=== PATIENT | male | born 1965 | race Caucasian/White ===

== ENCOUNTER 2025-04-06 09:44 | Inpatient (IN) | payer SELFPAY ==
[2025-04-06] VITALS (16 sets, daily range): BP systolic 128–179; BP diastolic 69–107; PULSE 104–125; RESP 16–26; TEMP 36.6–36.9; O2SAT 90–96; BMI 29.6
--- NOTE | ~2025-04-06 | XR_ITS ---
EXAMINATION: XR enema water soluble DATE: 04/06/2025 17:10 INDICATION: Possible distal colonic obstruction TECHNIQUE: A used car salesperson radiograph was obtained. A catheter was inserted into the patient's rectum. Contrast was infused by gravity. 20 fluoroscopic images of the distal colon were obtained. Fluoroscopy exposure time was 1.4 minutes. COMPARISON: None. FINDINGS: Contrast extends from the rectum to the mid sigmoid colon where there is high- grade obstruction is no further proximal progression of contrast. IMPRESSION: 1. High-grade obstruction in the mid sigmoid colon. Reviewed, dictated and finalized at location A. ELLER
--- NOTE | ~2025-04-06 | XR_ITS ---
EXAMINATION: XR chest ET placement COMPARISON: No comparisons available. HISTORY: line placement and ETT placement FINDINGS: The lungs are clear, no effusion. No pneumothorax. Heart is normal size. Mediastinal and hilar contours are within normal limits. Bony thorax no acute abnormality. Miscellaneous: ET tube 3 cm above the vicki, nasogastric tube in the stomach, right central line in the SVC. Impression: No acute cardiopulmonary abnormality. Reviewed, dictated and finalized at location P. L ARCHIVIST Impression: No acute cardiopulmonary abnormality.
--- NOTE | ~2025-04-06 | XR_ITS ---
XR abdomen gastric tube insert INDICATION: Evaluate NG tube position. TECHNIQUE: Limited KUB perform for evaluating NG tube . COMPARISON: No prior studies for comparison. FINDINGS: NG tube tip in the stomach, side port near the expected location of the GE junction. Recommend advancement.. Visualized bowel gas pattern is unremarkable. IMPRESSION: 1: NG tube tip in the stomach with the side-port near the GE junction. Recommend advancement.. Reviewed, dictated and finalized at location I. CLUB MANAGER IMPRESSION: 1: NG tube tip in the stomach with the side-port near the GE junction. Recomme nd advancement..
--- NOTE | ~2025-04-06 | XR_ITS ---
EXAMINATION: XR chest 1V portable COMPARISON: No comparisons available. HISTORY: intubated FINDINGS: The lungs are clear, no effusion. No pneumothorax. Heart is normal size. Mediastinal and hilar contours are within normal limits. Bony thorax no acute abnormality. Miscellaneous: ET tube 3 cm above the vicki, nasogastric tube in the stomach, right central line in the SVC. Impression: Support apparatus as above Reviewed, dictated and finalized at location P. WARE LICENSING EXECUTIVE Impression: Support apparatus as above
--- NOTE | ~2025-04-06 | XR_ITS ---
XR abdomen gastric tube rechec INDICATION: Evaluate NG tube position. TECHNIQUE: Limited KUB perform for evaluating NG tube . COMPARISON: 04/06/2025 FINDINGS: NG tube tip in the stomach. Visualized bowel gas pattern is unremarkable. IMPRESSION: 1: NG tube tip in the stomach. Reviewed, dictated and finalized at location I. NCT PHYSICS INSTRUCTOR
--- NOTE | ~2025-04-06 | XR_ITS ---
Examination: XR chest 1V portable Clinical History: preop Comparison: None Technique: Portable AP Findings: NG tube Heart size normal. Lungs clear. Calcified pleural plaques. No acute bony abnormality. IMPRESSION: 1. No acute cardiopulmonary findings given portable technique. Reviewed, dictated and finalized at location R. R PLANT PUMP OPERATOR
--- NOTE | ~2025-04-06 | XR_ITS ---
Examination: XR abdomen/kub 1V Clinical History: bowel obstruction Comparison: CT abdomen and pelvis one day prior Technique: Portable supine AP abdomen Findings/impression: 1. NG tube sidehole just past GE junction. 2. Persistent large volume stool within cecum and right hemicolon causing dilatation. 3. Persistent distal colonic gas and stool. Reviewed, dictated and finalized at location R. ICAL CODER
--- NOTE | ~2025-04-06 | CT_ITS ---
CT abdomen pelvis w con Clinical History: abd pain . Comparison: None Technique: Axial images lung bases to symphysis pubis IV contrast information not listed in PACS Coronal, sagittal reformats CT images acquired with automatic exposure control for dose reduction DLP: 719 mGy-cm Findings: Lung bases: Calcified pleural plaque right side. Visualized heart and pericardium: Unremarkable. Liver: A few tiny probable cysts. Gallbladder: Unremarkable. Spleen: Unremarkable. Pancreas: Unremarkable. Adrenal glands: Small nodule left side. Kidneys: Right kidney- No hydronephrosis. No renal stones. Left kidney- No hydronephrosis. No renal stones. A few small probable cysts. Distal esophagus/stomach: Distal esophageal wall thickening/esophagitis. Small hiatal hernia. Small bowel loops: Normal caliber and wall thickness. Colon: Annular wall thickening proximal sigmoid. Normal RLQ appendix. Large stool volume proximally. Diverticula. Small mural polypoid foci along distal colonic loops Nodes: No enlarged nodes. Peritoneum: Small scattered ascites. No free air. Urinary bladder: Unremarkable. Prostate: Unremarkable. Bones: No acute bony abnormality. Soft tissues: Unremarkable. Aorta: No aneurysm or dissection. IVC: Unremarkable. Main portal vein/SMV/splenic vein: Patent. IMPRESSION: 1. Focal annular wall thickening proximal sigmoid colon. Worrisome for malignancy. Additional small mural polypoid foci along distal colonic loops. Recommend GI consultation. 2. Distal esophageal wall thickening favoring esophagitis. 3. Small ascites of unclear etiology. 4. Large stool volume suggesting constipation. Reviewed, dictated and finalized at location R. [place] [employer] IMPRESSION: 1. Focal annular wall thickening proximal sigmoid colon. Worrisome for maligna ncy. Additional small mural polypoid foci along distal colonic loops. Recommend GI consultation. 2. Distal esophageal wall thickening favoring esophagitis. 3. Small ascites of unclear etiology. 4. Large stool volume suggesting constipation.
--- NOTE | ~2025-04-06 | US_ITS ---
EXAMINATION: US renal BI DATE: 04/08/2025 11:24 INDICATION: Acute kidney injury. TECHNIQUE: Multiple ultrasound grayscale images of the kidneys were obtained. COMPARISON: CT abdomen and pelvis 04/06/2025 FINDINGS: The right kidney measures 10.3 x 5.1 x 4.5 cm. The left kidney measures 11.0 x 5.4 x 5.4 cm. The kidneys demonstrate normal parenchymal echogenicity. There is no hydronephrosis. The bladder is obscured by bandages. IMPRESSION: 1. Normal kidneys. No hydronephrosis. Reviewed, dictated and finalized at location E. [facility]
--- NOTE | ~2025-04-06 | CT_ITS ---
EXAMINATION: CT abdomen pelvis w con DATE: 04/13/2025 11:14 INDICATION: Cecal perforation TECHNIQUE: Computed tomography (CT) of the abdomen and pelvis was performed with 100 mL Omnipaque-350 intravenous contrast. Automated exposure control and iterative reconstruction technique were employed. The dose-length product was 1262.21 mGy-cm. COMPARISON: 04/06/2025 FINDINGS: Pleural thickening with few calcified pleural plaques in the visualized right lower lung likely sequela of chronic exudative effusion. There is trace amount of residual pleural effusion. Peripheral round atelectasis with architectural distortion in the anterior right middle lobe. Is also a very small left pleural effusion. Heart size is normal. No pericardial effusion. Small sliding-type hiatal hernia with wall thickening the distal esophagus which could be related to esophagitis such as in the setting of reflux. 8 mm cyst in the right hepatic lobe. Gallbladder, spleen and bilateral adrenal glands are normal. A few dystrophic calcific lesions at the head of the pancreas likely sequela of chronic pancreatitis. A couple left renal cysts the largest measuring 1.4 cm. Bilateral nonobstructing nephrolithiasis couple stones at the lower pole of the right kidney measuring up to 2-3 mm and single 4 mm thin linear stone at a lower pole calyx of the left kidney. Interval postoperative change of prior right hemicolectomy with both a colostomy along a midline surgical wound involving the colon resection margin and a right lower quadrant diverting loop ileostomy. Decrease in a now moderate amount of stool scattered throughout the remaining colon. Persistent diffuse wall thickening of the colon likely related to colitis which could be stercoral colitis related to previously seen distal colonic obstruction with large amount of more proximal stool at that time. Again seen is approximately 5 cm long segment of more focal wall thickening with effacement of the lumen in the mid sigmoid colon which was obstructing on an earlier water- soluble enema and concerning for an obstructing colon cancer. There are few scattered clonic diverticula without adjacent from trace stranding to suggest diverticulitis. No dilated loops of small bowel to suggest a small bowel obstruction. Bladder is normal. Mild prostatomegaly. Small amount of ascites scattered throughout the abdomen and pelvis. No evident likelihood abscess or free intraperineal gas. There is a 2.4 x 1.8 cm lobular mass along the sigmoid mesentery suspicious for local metastatic lymph nodes. No other pathologically enlarged abdominal or pelvic lymphadenopathy. Severe lumbar and lower thoracic spondylosis. IMPRESSION: 1. Interval change of right hemicolectomy with diverting loop ileostomy and additional colostomy utilizing the proximal colectomy margin. Small amount of ascites but no abscess or free intraperineal gas. 2. Persistent diffuse colonic wall thickening consistent with colitis, likely stercoral colitis resulting from ongoing colonic obstruction at the mid sigmoid colon where there is a likely obstructing colon cancer. 3. 2.4 x 1.8 cm lobular mass in the sigmoid mesentery with some associated calcification raising concern for local metastatic disease with calcification suggesting either mucinous adenocarcinoma or carcinoid primary. Differential would include sclerosing mesenteritis or sequela of old granulomatous disease. 4. A few dystrophic calcifications at the head of the pancreas consistent with sequela of chronic pancreatitis. 5. Very small bilateral pleural effusions with unilateral calcified pleural plaques and small round atelectasis in the visualized right lower lung suggesting sequela of chronic exudative effusion. 6. Wall thickening the distal esophagus suggestive of esophagitis which could be related to reflux given the presence of a small sliding-type hiatal hernia. Reviewed, dictated and finalized at location A. [facility] ATTENDING IMPRESSION: 1. Interval change of right hemicolectomy with diverting loop ileostomy and add itional colostomy utilizing the proximal colectomy margin. Small amount of asci will but no abscess or free intraperineal gas. 2. Persistent diffuse colonic wall thickening consistent with colitis, likely s tercoral colitis resulting from ongoing colonic obstruction at the mid sigmoid colon where there is a likely obstructing colon cancer. 3. 2.4 x 1.8 cm lobular mass in the sigmoid mesentery with some associated calc ification raising concern for local metastatic disease with calcification sugge sting either mucinous adenocarcinoma or carcinoid primary. Differential would i nclude sclerosing mesenteritis or sequela of old granulomatous disease. 4. A few dystrophic calcifications at the head of the pancreas consistent with sequela of chronic pancreatitis. 5. Very small bilateral pleural effusions with unilateral calcified pleural matteo ques and small round atelectasis in the visualized right lower lung suggesting sequela of chronic exudative effusion. 6. Wall thickening the distal esophagus suggestive of esophagitis which could b e related to reflux given the presence of a small sliding-type hiatal hernia.
--- NOTE | ~2025-04-06 | XR_ITS ---
EXAMINATION: XR abdomen gastric tube insert, 04/07/2025 15:45 INVENTORY TECHNICIAN HISTORY: NG placement COMPARISON: No comparisons available. Technique: 3 view. Findings: Postsurgical changes are noted, nonspecific bowel gas pattern. No free air. No abnormal calcifications No acute osseous abnormality. Nasogastric tube terminates in the proximal stomach which be advanced 5 cm. Impression: 1. No acute abnormality. Reviewed, dictated and finalized at location P. NTORY TECHNICIAN Impression: 1. No acute abnormality.
--- NOTE | 2025-04-06 10:08 | ECG_ITS ---
Test Date: 2025-04-06 10:23:30 Measurements Intervals [place] Rate: 110 P: 78 MD: 134 QRS: 36 QRSD: 82 T: 67 QT: 310 QTc: 421 Interpretive Statements SINUS TACHYCARDIA BORDERLINE ST-T WAVE ABNORMALITY- ANTEROLAT/HIGH LAT LEADS BASELINE ARTIFACT- I, II, III, AVR, AVL, AVF, V1, V4-V6 ABNORMAL ECG No previous ECG available for comparison Electronically Signed On 04-06-2025 10:29:13 [employer] FI[employer] by Luis Gonzales D.O.
[2025-04-06 10:21] LABS: Hematocrit 43.6 % (42.0-52.0); Hemoglobin 14.4 g/dL (14.0-18.0); Immature Granulocyte Percent A 0.6 % (0-0.5); Lymphocytes Absolute Auto 0.80 K/mm3 (0.9-3.2); Mean Corpuscular HGB Conc 33.0 g/dl (32-36); Mean Corpuscular Hemoglobin 30.4 pg (26-34); Mean Corpuscular Volume 92.2 fl (80-100); Nucleated Red Blood Cells Absolute Auto 0.000 K/mm3 (0.0-0.012); Nucleated Red Blood Cells Perc 0.0 % (0.0-0.2); Platelet Count Result 331 k/mm3 (150-375); Red Blood Count 4.73 M/mm3 (4.6-6.20); White Blood Count 22.4 K/mm3 (4.5-10.0)
[2025-04-06 10:32] LABS: Alanine Aminotransferase 33 U/L (6-50); Albumin Level 4.3 g/dL (3.5-5.1); Alkaline Phosphatase 81 U/L (38-126); Anion Gap 9 mmol/L (4-12); Aspartate Amino Transferase 31 U/L (17-59); Bilirubin,Total 0.9 mg/dL (0.2-1.3); Blood Urea Nitrogen 27 mg/dL (9-20); Calcium 11.2 mg/dL (8.4-10.2); Carbon Dioxide 28 mmol/L (22-30); Chloride 97 mmol/L (98-107); Estimated CRCL calculation 66 ml/min; Estimated Glomerular Filt Rate > 60; Glucose 179 mg/dL (65-110); Lipase 39 U/L (23-300); Potassium 4.3 mmol/L (3.4-5.0); Sodium 134 mmol/L (137-145); Total Protein 7.4 g/dL (6.3-8.2)
[2025-04-06] MEDS: SODIUM CHLORIDE 0.9% IV 1,000 ML 999 ML IV CONT (11:41)
--- NOTE | 2025-04-06 12:48 | ED_ITS ---
HPI - Abdominal Pain General Chief Complaint: Abdominal Pain Stated Complaint: abdominal pain Time Seen by Provider: 04/06/25 09:50 Source: patient Mode of arrival: ambulatory Limitations: no limitations History of Present Illness HPI narrative: 59-year-old otherwise healthy here with a complains of 2 weeks history of constipation and abdominal bloating sensation. He denies any nausea or vomiting. No history of fever or chills. MD elicited complaint: abdominal pain Pertinent past history: constipation Onset (ago): week(s) (2) Pain Consistency: constant Location: diffuse Severity: severe Quality: aching Radiation: epigastric Migration to: no migration Exacerbating factors: nothing Relieving factors: nothing Associated symptoms: denies other symptoms Related Data Allergies Allergy/AdvReac Type Severity Reaction Status Date / Time No Known Allergies Allergy Verified 04/06/25 10:04 Review of Systems 2 Review of Systems: All systems reviewed & are unremarkable except as noted in HPI and below Constitutional: Constitutional: Reports no additional constitutional complaints Eyes: Eyes: Reports no additional eye complaints ENT: Reports system reviewed and no additional complaints, except as documented Cardiovascular: Cardiovascular: Reports no additional cardiovascular complaints Respiratory: Respiratory: Reports no additional respiratory complaints Gastrointestinal: Gastrointestinal: Reports as per HPI Musculoskeletal: Musculoskeletal: Reports no additional musculoskeletal complaints Neurologic: Reports system reviewed and no additional complaints, except as documented Endocrine: Endocrine: Reports no additional endocrine complaints Hematologic/Lymphatic: Hematologic/Lymphatic: Reports no additional hematologic/lymphatic complaints Allergic/Immunologic: Allergic/Immunologic: Reports no additional allergic/immunologic complaints Exam 2 Narrative: GENERAL: Well-appearing, well-nourished, and in no acute distress. HEAD: Normocephalic, atraumatic. EYES: PERRLA and EOMI. ENT: Nares clear, no rhinorrhea or epistaxis. Mucous membranes moist. NECK: Supple. CHEST: Clear to auscultation. No respiratory distress. HEART: Regular rate and rhythm. No murmur heard. Normal peripheral pulses. ABDOMEN: Soft, nontender, distended . EXTREMITIES: Normal range of motion. No edema. SKIN: Warm, dry, no rash. NEURO: No focal deficits. Alert and oriented x3. PSYCH: Normal mood and affect. Course Course Emergency Course: Has mild epigastric discomfort informed him and family about his lab work, CT findings. I discussed with the Dr. Gant will consult meanwhile we will admit to the hospitalist. Will administer tap water enema and Mag citrate orally. Vital Signs Vital signs: Vital Signs Temperature 36.6 C 04/06/25 09:58 Pulse Rate 118 H 04/06/25 09:58 Respiratory Rate 24 H 04/06/25 09:58 Blood Pressure 141/96 H 04/06/25 09:58 Pulse Oximetry 94 04/06/25 09:58 Oxygen Delivery Room Air 04/06/25 09:58 Temperature 36.6 C 04/06/25 09:58 Pulse Rate 111 H 04/06/25 11:30 Respiratory Rate 21 H 04/06/25 11:30 Blood Pressure 170/98 H 04/06/25 11:30 Pulse Oximetry 93 04/06/25 11:30 Oxygen Delivery Room Air 04/06/25 09:58 MDM MDM Narrative Medical decision making narrative: 59-year-old otherwise healthy here with abdominal distention and constipation will do CT of the abdomen and pelvis to rule out obstruction versus constipation or intra-abdominal mass. Presently has no pain Differential Diagnosis Differential Diagnosis: Constipation, small-bowel obstruction, intra-abdominal mass, colon cancer Medical Records I have reviewed the following patient records and this information was taken into consideration when formulating the assessment and plan.: previous labs Lab Data 04/06/25 10:11 04/06/25 10:11 Labs: Lab Results 04/06/25 04/06/25 04/06/25 Range/Units 10:10 10:11 12:26 WBC 22.4 H (4.5-10.0) K/mm3 RBC 4.73 (4.6-6.20) M/mm3 Hgb 14.4 (14.0-18.0) g/dL Hct 43.6 (42.0-52.0) % MCV 92.2 (80-100) fl MCH 30.4 (26-34) pg MCHC 33.0 (32-36) g/dl RDW 12.7 (11.5-14.5) % Plt Count 331 (150-375) k/mm3 MPV 9.5 (7.4-10.4) fl Immature Gran % (Auto) 0.6 H (0-0.5) % Neut % (Auto) 87.2 H (45.5-73.1) % Lymph % (Auto) 3.6 L (18.3-44.2) % [place] % (Auto) 8.4 (2.6-8.5) % Eos % (Auto) 0.0 (0-4.4) % Baso % (Auto) 0.2 (0.2-1.2) % Lymph # (Auto) 0.80 L (0.9-3.2) K/mm3 [place] # (Auto) 1.9 H (0.1-0.6) K/mm3 Eos # (Auto) 0.0 (0-0.3) K/mm3 Baso # (Auto) 0.1 (0.0-0.1) K/mm3 Abs Immat Gran (auto) 0.13 H (0.00-0.031) K/mm3 Absolute Neuts (auto) 19.5 H (1.3-6.7) K/mm3 Absolute Nucleated RBC 0.000 (0.0-0.012) K/mm3 Nucleated RBC % 0.0 (0.0-0.2) % Sodium 134 L (137-145) mmol/L Potassium 4.3 (3.4-5.0) mmol/L Chloride 97 L (98-107) mmol/L Carbon Dioxide 28 (22-30) mmol/L Anion Gap 9 (4-12) mmol/L BUN 27 H (9-20) mg/dL Creatinine 1.12 (0.7-1.3) mg/dL Estim Creat Clear Calc 66 ml/min Estimated GFR > 60 (59 - ) Glucose 179 H (65-110) mg/dL Lactic Acid 2.4 H Pending (0.7-2.0) mmol/L Calcium 11.2 H (8.4-10.2) mg/dL Total Bilirubin 0.9 (0.2-1.3) mg/dL AST 31 (17-59) U/L ALT 33 (6-50) U/L Alkaline Phosphatase 81 (38-126) U/L Total Protein 7.4 (6.3-8.2) g/dL Albumin 4.3 (3.5-5.1) g/dL Lipase 39 (23-300) U/L Urine Color Pending Urine Appearance Pending Urine pH Pending Ur Specific [place] Pending Urine Protein Pending Urine Glucose (UA) Pending Urine Ketones Pending Ur Blood (Man) Pending Urine Nitrate Pending Urine Bilirubin Pending Urine Urobilinogen Pending Leukocyte Esterase Rfl Pending Imaging Data Radiologist's impression: ITS Impressions Abdomen/Pelvis CT 04/06/25 11:34 IMPRESSION: 1. Focal annular wall thickening proximal sigmoid colon. Worrisome for malignancy. Additional small mural polypoid foci along distal colonic loops. Recommend GI consultation. 2. Distal esophageal wall thickening favoring esophagitis. 3. Small ascites of unclear etiology. 4. Large stool volume suggesting constipation. ECG Data EKG #1: ECG completion date: 05/09/25 ECG completion time: 10:23 tachycardia (110), no ectopy, no ST changes, normal QRS, normal QT and NL axis Discharge Plan Discharge Clinical Impression: Abdominal distension Constipation Qualifiers: Constipation type: unspecified constipation type Qualified Code(s): K59.00 - Constipation, unspecified Colonic cancer Qualifiers: Colon location: sigmoid Qualified Code(s): C18.7 - Malignant neoplasm of sigmoid colon Patient Disposition: Still a Patient Condition: Stable Instructions: Antibiotic Form Patient Language: Yakut Follow-up/Referrals: Marv,Thad Mojica MD [Primary Care Provider] Time of Disposition: 12:58
[2025-04-06 12:54] LABS: Add Urine Microscopic? YES; Appearance Urine Clear (Clear); Glucose Urine UA Negative (Negative); Leukocyte Esterase Ur Negative LEU/UL (Negative); Nitrate Urine Negative (Negative); Specific Grav Ur > 1.045 (1.001-1.035)
[2025-04-06] MEDS: LACTATED RINGERS 1,000 ML 125 ML IV CONT (13:03)
--- NOTE | 2025-04-06 13:15 | PM.IMHP2 ---
H&P: HPI History of Present Illness Date/Time: 04/06/25 13:15 Chief Complaint: Abdominal distension Narrative: 59-year-old male with a past medical history of ?blood clot in my leg in presents to the ED on 04/06/2025 with complaints of abdominal pain and distention with constipation. Patient states his last normal bowel movement was 2 weeks ago. He has been constipated since but will at times passes small hard stools. Last stool passage was 2 days ago. Patient noticed his abdomen getting rounder and rounder over the past 2 weeks but was not really bothered by it until about 2 days ago when the pain began increasing. Patient also endorses 2 episodes of emesis last night of a brown and green liquid. Currently not nauseated but states he currently has bad acid reflux that is new for him. The patient states he does still pass gas. Denies fevers, chest pain, shortness of breath. Denies any past abdominal surgeries or malignancies. Denies urinary retention. PCP is Thad Fair. Records requested. Initial vital signs 141/96, HR 118, respirations 24, afebrile and 94% on room air. Labs revealed WBC 22.4. Chemistry with sodium 134, chloride 97, BUN 27, glucose 197. Lactic was elevated at 2.4 but normalized after fluid bolus. Calcium 11.2. UA with 2+ ketones and no sign infection. EKG reads sinus tach with borderline ST-T wave abnormality. No acute ischemia. Abdominal pelvic CT demonstrates focal annular wall thickening in the proximal sigmoid colon, worrisome for malignancy. Additional small mural polypoid foci along distal colonic loops. Distal esophageal wall thickening favors esophagitis. Small ascites of unclear etiology. Large stool volume suggesting constipation. Patient received tap water enema and p.o. Mag citrate. GI consult. Review of Systems Review of Systems: All systems reviewed & are unremarkable except as noted in HPI and below [facility] Social History Social History Smoking packs per day: 0.5 Smoking cigarettes per day: 10.0 Smoking status: Current every day smoker Tobacco type: cigarettes Alcohol intake: never Substance use: never Lack of Transportation: No Lack of Food: Never True Current Housing: I Have Housing Concerned About Future Housing: No Difficulty Paying Gas/Electric Bills: No Difficulty Paying for Meds: No Currently Unemployed: No Education: Associate Degree Difficulty w/ Childcare or Family Care: No Spiritual care concerns: No Meds Home Medications and Allergies Home Medications ?Medication ?Instructions ?Recorded ?Confirmed ?Type ibuprofen 200 mg tablet (Advil) 400 mg PO Q12H 04/06/25 04/06/25 History Allergies Allergy/AdvReac Type Severity Reaction Status Date / Time No Known Allergies Allergy Verified 04/06/25 14:57 Vital Signs Vital Signs - 24 hr 04/06/25 09:58 04/06/25 09:58 04/06/25 09:59 Temperature 97.8 F Pulse Rate 118 H 125 H 122 H Respiratory Rate 24 H 21 H 26 H Blood Pressure 141/96 H 135/100 H 141/96 H Pulse Oximetry 94 94 90 Oxygen Delivery Room Air 04/06/25 10:09 04/06/25 10:15 04/06/25 10:30 Temperature Pulse Rate 118 H 117 H 116 H Respiratory Rate 22 H 22 H Blood Pressure 138/93 H 141/95 H Pulse Oximetry 94 94 Oxygen Delivery 04/06/25 10:45 04/06/25 11:00 04/06/25 11:15 Temperature Pulse Rate 106 H 110 H 106 H Respiratory Rate 20 24 H 20 Blood Pressure 152/94 H 150/99 H 148/96 H Pulse Oximetry 94 93 93 Oxygen Delivery 04/06/25 11:30 04/06/25 11:45 04/06/25 12:00 Temperature Pulse Rate 111 H 111 H 109 H Respiratory Rate 21 H 20 21 H Blood Pressure 170/98 H 159/93 H 165/107 H Pulse Oximetry 93 94 94 Oxygen Delivery 04/06/25 12:15 Temperature Pulse Rate 104 H Respiratory Rate 20 Blood Pressure 170/101 H Pulse Oximetry 95 Oxygen Delivery Exam Narrative: GENERAL: non-toxic appearing, appears uncomfortable. HEAD: Normocephalic, atraumatic. EYES: PERRLA. Conjunctivae clear. NOSE: Normal no drainage. THROAT: Pharynx clear, no exudate. NECK: Trachea midline. No adenopathy, no masses. RESPIRATORY: Airway patent, respirations nonlabored. CTA. CARDIOVASCULAR: Tachycardia with regular rhythm GASTROINTESTINAL: Severely distended abdomen with generalized mild tenderness. Few bowel sounds heard on the right upper and lower quadrants. Tympany throughout GENITOURINARY: Defer MUSCULOSKELETAL: Moves all extremities. No gross deformities. Trace bilateral lower extremity with chronic skin changes. Dry flaky skin SKIN: Warm, dry, normal color. NEURO: A&O X4. Speech clear PSYCHIATRIC: Normal interaction Results Labs Labs: Short CBC 04/06/25 Range/Units 10:11 WBC 22.4 H (4.5-10.0) K/mm3 Hgb 14.4 (14.0-18.0) g/dL Hct 43.6 (42.0-52.0) % Plt Count 331 (150-375) k/mm3 BMP 04/06/25 10:11 Sodium 134 L Potassium 4.3 Chloride 97 L Carbon Dioxide 28 BUN 27 H Creatinine 1.12 Glucose 179 H Calcium 11.2 H Liver Function 04/06/25 Range/Units 10:11 Total Bilirubin 0.9 (0.2-1.3) mg/dL AST 31 (17-59) U/L ALT 33 (6-50) U/L Alkaline Phosphatase 81 (38-126) U/L Albumin 4.3 (3.5-5.1) g/dL Urine 04/06/25 Range/Units 12:26 Urine Color Yellow (Yellow) Urine Appearance Clear (Clear) Urine pH 8.0 (5.0-9.0) Ur Specific [place] > 1.045 H (1.001-1.035) Urine Protein Trace (Negative) mg/dL Urine Glucose (UA) Negative (Negative) mg/dL Quality VTE Prophylaxis VTE prophylaxis: mechanical ordered Assessment and Plan Assessment and plan (1) Colonic obstruction: Code(s): K56.609 - Unspecified intestinal obstruction, unspecified as to partial versus complete obstruction Status: Acute Assessment and Plan: Possible colonic obstruction with concern for malignancy in the distal colon. Patient has increased constipation and distention over the past 2 weeks. Started vomiting last night and had increasing pain. Abdominal pelvic CT demonstrates focal annular wall thickening in the proximal sigmoid colon, worrisome for malignancy. Additional small mural polypoid foci along distal colonic loops. Distal esophageal wall thickening favors esophagitis. Small ascites of unclear etiology. Large stool volume suggesting constipation. Fluid-filled stomach on my read. -GI consult in ED -NGT to low intermittent suction -NPO now -general surgery consult; plan for Hypaque enema -Zofran p.r.n. -morphine p.r.n. Plan Diet: NPO DVT prophylaxis: SCDs lines/drains: PIV Fluids: 1 L LR bolus-LR at 125 Code status: Full Prior Studies I have reviewed the following patient records and this information was taken into consideration when formulating the assessment and plan.: previous labs, previous ER visits, previous hospitalizations and previous clinic visits Time Spent with Patient Time with patient: 45 - 74 minutes Hospitalist MIPS Advance Care Plan I have confirmed that the patient's Advanced Care Plan is present, code status is documented, or surrogate decision maker is listed in patient medical record.: Yes Medication Reconciliation I have utilized all available resources to obtain, update and review the patients current medications (includes all prescriptions, OTC, herbals, cannabis, and nutritional supplements).: Yes
[2025-04-06] MEDS: MAGNESIUM CITRATE 300 ML BTL PO (13:46)
--- NOTE | 2025-04-06 13:57 | WPCEDHO ---
ED Hand Off Checklist All vitals saved: yes IV Site documented: yes All med administrations documented: yes Triage Note Triage Note pt ambulatory to ED for c/o 04/06/25 09:58 abdominal pain. pt says his belly has been this round and distended for the last 2 weeks but the last couple of days has gotten worse. pt says he had episodes of emesis last night. last BM 2 days ago. pt denies chest pain/SOB Allergies No Known Allergies Allergy (Verified 04/06/25 10:04) Active Medications including assessments/comments Lactated Ringer's (Lr - Lactated Ringers Iv) 1,000 mls @ 125 mls/hr IV CONT .Q8H MARILUZ Last Admin: 04/06/25 13:03 Dose: 125 mls/hr Documented By: LORETA Infusion/Titration Document 04/06/25 13:03 LORETA (Rec: 04/06/25 13:03 LORETA [id number]) Intake IV Site Peripheral Access Left Forearm Container Volume 1,000 Waste Amount 0 Dosing Infusion Rate 125 Cumulative Dose Not Applicable Increase/Decrease Started Elapsed Time Elapsed Time ( 0m minutes) Administered/Completed Medications Discontinued Medications Sodium Chloride (Normal Saline Iv) 1,000 mls @ 999 mls/hr IV CONT .Q1H1M STA Stop: 04/06/25 12:36 Last Infusion: 04/06/25 12:42 Dose: Infused Documented By: Admin: 04/06/25 11:41 Dose: 999 mls/hr Documented By: LORETA Magnesium Citrate (Magnesium Citrate 300 Ml Btl) 300 ml PO ONCE ONE Stop: 04/06/25 12:41 Last Admin: 04/06/25 13:46 Dose: 300 ml Documented By: LORETA Interventions/Assessments Cardiac Monitoring Start: 04/06/25 10:09 Freq: Status: Active Protocol: Document 04/06/25 10:09 LORETA (Rec: 04/06/25 10:10 LORETA [id number]) Industrial Sewer Assessment Industrial Sewer Yes Applied Pulse Rate (60-100) 118 H EKG Rythm Sinus Tachycardia IV / Saline Lock, Insert Start: 04/06/25 09:48 Freq: STAT Status: Active Protocol: Document 04/06/25 10:09 LORETA (Rec: 04/06/25 10:10 LORETA [id number]) IV Assessment Peripheral Access Left Forearm IV Catheter Access Initiated IV Insertion Date 04/06/25 IV Insertion Time 10:09 Catheter Gauge 18 IV Insertion 1 Attempts Ultrasound Used for No Placement IV Site Assessment WNL IV Care and WNL Maintenance PA: Gastrointestinal Assessment Start: 04/06/25 09:44 Freq: Status: Active Protocol: Document 04/06/25 10:03 KNW (Rec: 04/06/25 10:03 KNW [id number]) GI Assessment Gastrointestinal Nausea,Pain,Vomiting Symptoms Description Distended,Firm,Round,Tender All Quadrants Bowel Sounds Active Pattern Normal Date of Last Bowel 04/04/25 Movement Nausea/Vomiting Assessment Nausea Frequency Intermittent Emesis Frequency Intermittent Last Vital Signs Temperature 97.8 F 04/06/25 09:58 Pulse Rate 121 H 04/06/25 13:49 Respiratory Rate 25 H 04/06/25 13:49 Pulse Oximetry 94 04/06/25 13:49 Blood Pressure 179/106 H 04/06/25 13:49 Blood Pressure Mean 130 04/06/25 13:49 Blood Pressure Position Sitting 04/06/25 13:49 Oxygen Delivery Room Air 04/06/25 09:58 Weight 93.7 kg 04/06/25 09:58 Last Result - Abnormals Only WBC 22.4 K/mm3 (4.5-10.0) H 04/06/25 10:11 Immature Gran % (Auto) 0.6 % (0-0.5) H 04/06/25 10:11 Neut % (Auto) 87.2 % (45.5-73.1) H 04/06/25 10:11 Lymph % (Auto) 3.6 % (18.3-44.2) L 04/06/25 10:11 Lymph # (Auto) 0.80 K/mm3 (0.9-3.2) L 04/06/25 10:11 [place] # (Auto) 1.9 K/mm3 (0.1-0.6) H 04/06/25 10:11 Abs Immat Gran (auto) 0.13 K/mm3 (0.00-0.031) H 04/06/25 10:11 Absolute Neuts (auto) 19.5 K/mm3 (1.3-6.7) H 04/06/25 10:11 Sodium 134 mmol/L (137-145) L 04/06/25 10:11 Chloride 97 mmol/L (98-107) L 04/06/25 10:11 BUN 27 mg/dL (9-20) H 04/06/25 10:11 Glucose 179 mg/dL (65-110) H 04/06/25 10:11 Lactic Acid 2.4 mmol/L (0.7-2.0) H 04/06/25 10:10 Calcium 11.2 mg/dL (8.4-10.2) H 04/06/25 10:11 Ur Specific [place] > 1.045 (1.001-1.035) H 04/06/25 12:26 Urine Ketones 2+ mg/dL (Negative) H 04/06/25 12:26 Most Recent Suicide Severity Rating Suicide Severity Rating NO RISK INDICATED 04/06/25 09:58
--- NOTE | 2025-04-06 15:11 | ADMGEN ---
This patient, Jeremy Clifford, was admitted to 2 Medical Room 255-. Patient/family oriented to hospital policies and general routines including ID bracelet, bed and alarms, visiting hours, pain management, procedures, bathroom and other care routines, personal items, smoking policy, room service/diet, and visiting hours. Handoff form Jeanine in the ED. Information on how to activate the Rapid Response Team has been discussed. Patient/Family are encouraged to report perceived risks to care and to ask questions if they do not understand what they are told or what they should do.
[2025-04-06 15:35] LABS: Alanine Aminotransferase 29 U/L (6-50); Albumin Level 4.0 g/dL (3.5-5.1); Alkaline Phosphatase 77 U/L (38-126); Aspartate Amino Transferase 27 U/L (17-59); Bilirubin,Total 0.6 mg/dL (0.2-1.3); Cholesterol 155 mg/dL (0-200); HDL Direct 48 mg/dL; Total Protein 6.9 g/dL (6.3-8.2); Triglycerides 94 mg/dL (<150)
[2025-04-06 15:54] LABS: Hemoglobin A1C 5.6 % (<5.7)
[2025-04-06] MEDS: CEFEPIME 2 GM in SODIUM CHLORIDE 0.9% IV 50 ML 100 ML IVPB (19:44)
[2025-04-07] VITALS (20 sets, daily range): BP systolic 91–147; BP diastolic 67–98; PULSE 103–123; RESP 16–22; TEMP 37.1–37.8; O2SAT 88–100
[2025-04-07] MEDS: CEFEPIME 2 GM in SODIUM CHLORIDE 0.9% IV 50 ML 100 ML IVPB ×3 (02:00→18:21)
[2025-04-07] MEDS: metroNIDAZOLE 500 MG/ISO 100ML 500 MG/100 ML BAG 100 MG IVPB ×3 (02:00→18:20)
[2025-04-07] MEDS: LACTATED RINGERS 1,000 ML 125 ML IV CONT (04:03)
[2025-04-07 05:11] LABS: Hematocrit 36.5 % (42.0-52.0); Hemoglobin 12.2 g/dL (14.0-18.0); Immature Granulocyte Percent A 0.5 % (0-0.5); Lymphocytes Absolute Auto 1.14 K/mm3 (0.9-3.2); Mean Corpuscular HGB Conc 33.4 g/dl (32-36); Mean Corpuscular Hemoglobin 30.8 pg (26-34); Mean Corpuscular Volume 92.2 fl (80-100); Nucleated Red Blood Cells Absolute Auto 0.000 K/mm3 (0.0-0.012); Nucleated Red Blood Cells Perc 0.0 % (0.0-0.2); Platelet Count Result 275 k/mm3 (150-375); Red Blood Count 3.96 M/mm3 (4.6-6.20); White Blood Count 21.6 K/mm3 (4.5-10.0)
[2025-04-07 05:33] LABS: Alanine Aminotransferase 20 U/L (6-50); Albumin Level 3.5 g/dL (3.5-5.1); Alkaline Phosphatase 82 U/L (38-126); Anion Gap 4 mmol/L (4-12); Aspartate Amino Transferase 24 U/L (17-59); Bilirubin,Total 0.7 mg/dL (0.2-1.3); Blood Urea Nitrogen 26 mg/dL (9-20); Calcium 8.6 mg/dL (8.4-10.2); Carbon Dioxide 31 mmol/L (22-30); Chloride 101 mmol/L (98-107); Estimated CRCL calculation 80 ml/min; Estimated Glomerular Filt Rate > 60; Glucose 109 mg/dL (65-110); Potassium 3.9 mmol/L (3.4-5.0); Sodium 136 mmol/L (137-145); Total Protein 6.1 g/dL (6.3-8.2)
--- NOTE | 2025-04-07 09:53 | P.CONGS_ITS ---
Assessment and Plan Assessment and plan (1) Colonic obstruction: Code(s): K56.609 - Unspecified intestinal obstruction, unspecified as to partial versus complete obstruction Status: Acute Assessment and Plan: patient absolutely no better with fluids, NG suction, antibiotics. I explained to the patient and his father, who is here this morning, the nature of his problem. The lesion in the sigmoid colon could be a tumor or could be diverticular in nature. With the colonic obstruction that he has, the actual cause of the obstruction is not relevant. The obstruction needs to be relieved and diversion of the fecal stream is the only means of doing this. I have recommended proceeding this morning with transverse loop colostomy for diversion. I explained this procedure to the patient. He is very uncomfortable and is agreeable to proceed. I explained also to him, that it typically takes at least 4 if not 6 weeks for diversion to be effective and for him to return to his normal state of well being. Typically, at that time, we can return to surgery and close the colostomy as well as perform sigmoidectomy with anastomosis. I explained that this surgery typically has a 6 week recovery. At after the page and had has had diversion, usually sigmoidoscopy is performed as an outpatient electively to better evaluate the obstructing lesion before surgical resection is performed. History of Present Illness Consult details Consult date: 04/07/25 Reason for consult: abdominal pain Requesting physician: Karuna Rivera APRN Narrative: patient is a 59-year-old man who noticed increasing constipation over the last 2 weeks. Then for the last 2 or 3 days he has had obstipation with increasing abdominal distension. He then developed abdominal pain with nausea and vomiting. He came to the emergency room yesterday and CT scan showed evidence of a sigmoid colon luminal mass with severe colonic distension. He had a Hypaque enema which showed complete retrograde obstruction. Patient had a nasogastric tube placed and is on antibiotics. He continues to feel poorly with abdominal pain and distension today. He is seen now in consultation. Review of Systems 2 Review of Systems: All systems reviewed & are unremarkable except as noted in HPI and below ( HPI) [facility] Social History Social History Smoking packs per day: 0.5 Smoking cigarettes per day: 10.0 Smoking status: Current every day smoker Tobacco type: cigarettes Alcohol intake: never Substance use: never Lack of Transportation: No Lack of Food: Never True Current Housing: I Have Housing Concerned About Future Housing: No Difficulty Paying Gas/Electric Bills: No Difficulty Paying for Meds: No Currently Unemployed: No Education: Associate Degree Difficulty w/ Childcare or Family Care: No Spiritual care concerns: No Meds Home Medications and Allergies Home Medications ?Medication ?Instructions ?Recorded ?Confirmed ?Type ibuprofen 200 mg tablet (Advil) 400 mg PO Q12H 5 04/06/25 History Allergies Allergy/AdvReac Type Severity Reaction Status Date / Time No Known Allergies Allergy Verified 04/06/25 14:57 Vital Signs Vital Signs - 24 hr 04/06/25 09:58 04/06/25 09:58 04/06/25 09:59 Temperature 36.6 C Pulse Rate 118 H 125 H 122 H Respiratory Rate 24 H 21 H 26 H Blood Pressure 141/96 H 135/100 H 141/96 H Pulse Oximetry 94 94 90 Oxygen Delivery Room Air 04/06/25 10:09 04/06/25 10:15 04/06/25 10:30 Temperature Pulse Rate 118 H 117 H 116 H Respiratory Rate 22 H 22 H Blood Pressure 138/93 H 141/95 H Pulse Oximetry 94 94 Oxygen Delivery 04/06/25 10:45 04/06/25 11:00 04/06/25 11:15 Temperature Pulse Rate 106 H 110 H 106 H Respiratory Rate 20 24 H 20 Blood Pressure 152/94 H 150/99 H 148/96 H Pulse Oximetry 94 93 93 Oxygen Delivery 04/06/25 11:30 04/06/25 11:45 04/06/25 12:00 Temperature Pulse Rate 111 H 111 H 109 H Respiratory Rate 21 H 20 21 H Blood Pressure 170/98 H 159/93 H 165/107 H Pulse Oximetry 93 94 94 Oxygen Delivery 04/06/25 12:15 04/06/25 13:49 04/06/25 14:23 Temperature Pulse Rate 104 H 121 H 112 H Respiratory Rate 20 25 H 18 Blood Pressure 170/101 H 179/106 H 145/91 H Pulse Oximetry 95 94 96 Oxygen Delivery 04/06/25 20:00 04/06/25 20:00 04/06/25 23:26 Temperature 36.9 C 36.9 C Pulse Rate 114 H 115 H 115 H Respiratory Rate 16 16 16 Blood Pressure 147/77 H 128/69 Pulse Oximetry 94 92 92 Oxygen Delivery Room Air 04/07/25 04:00 Temperature 37.1 C Pulse Rate 118 H Respiratory Rate 16 Blood Pressure 136/79 Pulse Oximetry 91 Oxygen Delivery Exam 2 Const: General: cooperative, no acute distress, alert, awake and uncomfortable Nutritional Appearance: average body habitus Orientation/consciousness: p atient oriented x3 and No confusion HENMT: Head: normocephalic and atraumatic Mouth: Yes Normal oral and palatal mucosa present Eyes: Conjunctivae: conjunctivae normal Pupils: Equal, round and reactive pupils present EOM: EOMs intact bilaterally Neck: Neck: normal visual inspection, no lymphadenopathy and nontender Resp: Effort & Inspection: normal respiratory effort Auscultation: clear to auscultation bilaterally Cardio: Rate: regular rate Rhythm: regular rhythm Heart sounds: no gallops, no murmurs and no rubs GI: Inspection: no abdominal wall ecchymosis, distended, no scars and no visible herniation GI Palp: Yes Firmness to palpation present (GI), Yes Tenderness to palpation present (GI), Yes Guarding due to palpation present (GI), No Hernia present and No Palpable mass present Auscultation: absent bowel sounds Skin: Lesions: no lesions Rashes: no rashes Neuro: General: no focal motor deficits and CN's II-XI intact bilaterally C ranial nerves: Yes Equal, round and reactive pupils present, Yes Bilaterally intact EOM present, Yes facial symmetry and Yes Midline tongue present S peech: normal speech Motor exam (neuro): 5/5 motor strength present throughout and Motor abnormalities not present Extrem: General: no clubbing, cyanosis or edema and edema Psych: Affect: normal affect Thought process: Normal thought process present Insight: Good insight present (Psych) Results Labs 04/07/25 04:49 04/07/25 04:50 Labs: Abnormal lab results 04/06/25 04/06/25 04/06/25 Range/Units 10:10 10:11 12:26 WBC 22.4 H (4.5-10.0) K/mm3 RBC (4.6-6.20) M/mm3 Hgb (14.0-18.0) g/dL Hct (42.0-52.0) % Immature Gran % (Auto) 0.6 H (0-0.5) % Neut % (Auto) 87.2 H (45.5-73.1) % Lymph % (Auto) 3.6 L (18.3-44.2) % [place] % (Auto) (2.6-8.5) % Baso % (Auto) (0.2-1.2) % Lymph # (Auto) 0.80 L (0.9-3.2) K/mm3 [place] # (Auto) 1.9 H (0.1-0.6) K/mm3 Abs Immat Gran (auto) 0.13 H (0.00-0.031) K/mm3 Absolute Neuts (auto) 19.5 H (1.3-6.7) K/mm3 Sodium 134 L (137-145) mmol/L Chloride 97 L (98-107) mmol/L Carbon Dioxide (22-30) mmol/L BUN 27 H (9-20) mg/dL Glucose 179 H (65-110) mg/dL Lactic Acid 2.4 H (0.7-2.0) mmol/L Calcium 11.2 H (8.4-10.2) mg/dL Total Protein (6.3-8.2) g/dL Ur Specific [place] > 1.045 H (1.001-1.035) Urine Ketones 2+ H (Negative) mg/dL 04/07/25 04/07/25 Range/Units 04:49 04:50 WBC 21.6 H (4.5-10.0) K/mm3 RBC 3.96 L (4.6-6.20) M/mm3 Hgb 12.2 L (14.0-18.0) g/dL Hct 36.5 L (42.0-52.0) % Immature Gran % (Auto) (0-0.5) % Neut % (Auto) 82.2 H (45.5-73.1) % Lymph % (Auto) 5.3 L (18.3-44.2) % [place] % (Auto) 11.9 H (2.6-8.5) % Baso % (Auto) 0.1 L (0.2-1.2) % Lymph # (Auto) (0.9-3.2) K/mm3 [place] # (Auto) 2.6 H (0.1-0.6) K/mm3 Abs Immat Gran (auto) 0.11 H (0.00-0.031) K/mm3 Absolute Neuts (auto) 17.7 H (1.3-6.7) K/mm3 Sodium 136 L (137-145) mmol/L Chloride (98-107) mmol/L Carbon Dioxide 31 H (22-30) mmol/L BUN 26 H (9-20) mg/dL Glucose (65-110) mg/dL Lactic Acid (0.7-2.0) mmol/L Calcium (8.4-10.2) mg/dL Total Protein 6.1 L (6.3-8.2) g/dL Ur Specific [place] (1.001-1.035) Urine Ketones (Negative) mg/dL Diabetes panel 04/06/25 04/06/25 04/07/25 Range/Units 10:11 15:02 04:50 Sodium 134 L 136 L (137-145) mmol/L Potassium 4.3 3.9 (3.4-5.0) mmol/L Chloride 97 L 101 (98-107) mmol/L Carbon Dioxide 28 31 H (22-30) mmol/L BUN 27 H 26 H (9-20) mg/dL Creatinine 1.12 0.91 (0.7-1.3) mg/dL Glucose 179 H 109 (65-110) mg/dL Hemoglobin A1c 5.6 (<5.7) % Calcium 11.2 H 8.6 (8.4-10.2) mg/dL AST 31 27 24 (17-59) U/L ALT 33 29 20 (6-50) U/L Alkaline Phosphatase 81 77 82 (38-126) U/L Total Protein 7.4 6.9 6.1 L (6.3-8.2) g/dL Albumin 4.3 4.0 3.5 (3.5-5.1) g/dL Triglycerides 94 (<150) mg/dL Calcium panel 04/06/25 04/06/25 04/07/25 Range/Units 10:11 15:02 04:50 Calcium 11.2 H 8.6 (8.4-10.2) mg/dL Albumin 4.3 4.0 3.5 (3.5-5.1) g/dL Pituitary panel 04/06/25 04/07/25 Range/Units 10:11 04:50 Sodium 134 L 136 L (137-145) mmol/L Potassium 4.3 3.9 (3.4-5.0) mmol/L Chloride 97 L 101 (98-107) mmol/L Carbon Dioxide 28 31 H (22-30) mmol/L BUN 27 H 26 H (9-20) mg/dL Creatinine 1.12 0.91 (0.7-1.3) mg/dL Glucose 179 H 109 (65-110) mg/dL Calcium 11.2 H 8.6 (8.4-10.2) mg/dL Adrenal panel 04/06/25 04/06/25 04/07/25 Range/Units 10:11 15:02 04:50 Sodium 134 L 136 L (137-145) mmol/L Potassium 4.3 3.9 (3.4-5.0) mmol/L Chloride 97 L 101 (98-107) mmol/L Carbon Dioxide 28 31 H (22-30) mmol/L BUN 27 H 26 H (9-20) mg/dL Creatinine 1.12 0.91 (0.7-1.3) mg/dL Glucose 179 H 109 (65-110) mg/dL Calcium 11.2 H 8.6 (8.4-10.2) mg/dL Total Bilirubin 0.9 0.6 0.7 (0.2-1.3) mg/dL AST 31 27 24 (17-59) U/L ALT 33 29 20 (6-50) U/L Alkaline Phosphatase 81 77 82 (38-126) U/L Total Protein 7.4 6.9 6.1 L (6.3-8.2) g/dL Albumin 4.3 4.0 3.5 (3.5-5.1) g/dL All other labs normal. Imaging Chest x-ray: pending Abdominal x-ray: report reviewed and image reviewed ( reviewed all abdominal plain films from yesterday and today - shows distended colon with stool) Abdomen CT scan report/results: report reviewed and image reviewed ( CT scan shows gastric distension, colonic dilatation, sigmoid colon lesion/narrowing. I reviewed this with Dr. Hernandez) CT scan - pelvis: report reviewed and image reviewed EKG: pending Additional studies: water-soluble contrast enema was independently reviewed as well. This shows complete retrograde obstruction to the mid to upper sigmoid colon. I spoke with the radiologist, Dr. Hernandez, about this as well.
[2025-04-07] MEDS: ENOXAPARIN 40 MG/0.4 ML SYRINGE SUB-Q (09:55)
[2025-04-07] MEDS: FAMOTIDINE 20 MG/2 ML VIAL IV PUSH ×2 (09:56→20:56)
[2025-04-07] MEDS: MORPHINE SULFATE (*CRX) 4 MG/ML INJ IV PUSH (09:56)
--- NOTE | 2025-04-07 10:03 | ECG_ITS ---
Test Date: 2025-04-07 10:19:08 Measurements Intervals [place] Rate: 120 P: 58 AL: 136 QRS: 65 QRSD: 85 T: 111 QT: 338 QTc: 479 Interpretive Statements SINUS TACHYCARDIA ST-T WAVE ABNORMALITY IN ANTEROLAT/INF LEADS- CONSIDER ISCHEMIA BASELINE ARTIFACT- I, III, AVR, AVL, AVF ABNORMAL ECG Compared to ECG 04/06/2025 10:23:30 HEART RATE HAS INCREASED POSSIBLE ISCHEMIA NOW PRESENT Electronically Signed On 04-07-2025 15:51:29 ORIENTOR by Luis Gonzales D.O.
--- NOTE | 2025-04-07 10:12 | WPDHPUPDATE1 ---
History and Physical Update Update Date/Time: 04/07/25 10:12 History and Physical has been reviewed, including an updated exam of the patient. There are NO changes in the patient's condition. Risks, benefits, and alternatives have been discussed and questions answered. Patient agrees to proceed with procedure.
--- NOTE | 2025-04-07 10:15 | P.CONGI_ITS ---
Assessment and Plan Assessment and plan (1) Colonic obstruction: Code(s): K56.609 - Unspecified intestinal obstruction, unspecified as to partial versus complete obstruction Status: Acute Assessment and Plan: he is quite uncomfortable noted plan of transverse loop colostomy for diversion but surgical team differential include diverticular disease or even malignancy causing lesion- this will need to be investigated but probably 6 weeks after recovery from this surgery (2) Constipation: Qualifiers: Constipation type: unspecified constipation type Qualified Code(s): K 59.00 - Constipation, unspecified Code(s): K59.00 - Constipation, unspecified Status: Acute (3) Abdominal distension: Code(s): R14.0 - Abdominal distension (gaseous) Status: Acute (4) Nausea and vomiting in adult: Code(s): R11.2 - Nausea with vomiting, unspecified Status: Acute GI Consult Note Consult date/time: 04/07/25 10:15 Reason for consult: colon obstruction HPI: Jeremy Clifford is a 59 year old male who noticed increasing constipation over the last 2 weeks. He has been constipated since but will at times passes small hard stools. Last stool passage was 2 days ago. Also noted more distention and then had emesis with more abdominal discomfort that was more severe. For the last 2 or 3 days with increasing abdominal distension. He came to the emergency room yesterday and CT scan showed evidence of a sigmoid colon luminal mass with severe colonic distension. He had a Hypaque enema which showed complete retrograde obstruction. Patient had a nasogastric tube placed and is on antibiotics. He continues to feel poorly with abdominal pain and distension today. Surgery just evaluate patient. He never had a colonoscopy. Review of Systems 2 Constitutional: Constitutional: Denies chills Eyes: Eyes: Denies blurry vision ENT: Reports Normal hearing present Cardiovascular: Cardiovascular: Denies chest pain Respiratory: Respiratory: Denies cough Gastrointestinal: Gastrointestinal: Reports abdominal pain, Reports constipation, Reports nausea and Reports vomiting Genitourinary: Genitourinary: Denies dysuria Musculoskeletal: Musculoskeletal: Denies neck pain Integumentary/Breasts: Skin/Breast: Denies rash Neurologic: Denies Abnormal speech present Psychiatric: Psychiatric: Denies behavioral changes [facility] Past Medical History Medical History (Updated 04/07/25 @ 10:19 by Nacho Montero MD) Nausea and vomiting in adult Social History Social History Smoking packs per day: 0.5 Smoking cigarettes per day: 10.0 Smoking status: Current every day smoker Tobacco type: cigarettes Alcohol intake: never Substance use: never Lack of Transportation: No Lack of Food: Never True Current Housing: I Have Housing Concerned About Future Housing: No Difficulty Paying Gas/Electric Bills: No Difficulty Paying for Meds: No Currently Unemployed: No Education: Associate Degree Difficulty w/ Childcare or Family Care: No Spiritual care concerns: No Meds Home Medications and Allergies Home Medications ?Medication ?Instructions ?Recorded ?Confirmed ?Type ibuprofen 200 mg tablet (Advil) 400 mg PO Q12H 5 04/06/25 History Allergies Allergy/AdvReac Type Severity Reaction Status Date / Time No Known Allergies Allergy Verified 04/06/25 14:57 Vital Signs Vital Signs - 24 hr 04/06/25 10:30 04/06/25 10:45 04/06/25 11:00 Temperature Pulse Rate 116 H 106 H 110 H Respiratory Rate 22 H 20 24 H Blood Pressure 141/95 H 152/94 H 150/99 H Pulse Oximetry 94 94 93 Oxygen Delivery 04/06/25 11:15 04/06/25 11:30 04/06/25 11:45 Temperature Pulse Rate 106 H 111 H 111 H Respiratory Rate 20 21 H 20 Blood Pressure 148/96 H 170/98 H 159/93 H Pulse Oximetry 93 93 94 Oxygen Delivery 04/06/25 12:00 04/06/25 12:15 04/06/25 13:49 Temperature Pulse Rate 109 H 104 H 121 H Respiratory Rate 21 H 20 25 H Blood Pressure 165/107 H 170/101 H 179/106 H Pulse Oximetry 94 95 94 Oxygen Delivery 04/06/25 14:23 04/06/25 20:00 04/06/25 20:00 Temperature 98.5 F Pulse Rate 112 H 114 H 115 H Respiratory Rate 18 16 16 Blood Pressure 145/91 H 147/77 H Pulse Oximetry 96 94 92 Oxygen Delivery Room Air 04/06/25 23:26 04/07/25 04:00 Temperature 98.4 F 98.8 F Pulse Rate 115 H 118 H Respiratory Rate 16 16 Blood Pressure 128/69 136/79 Pulse Oximetry 92 91 Oxygen Delivery Exam 2 Const: General: cooperative, alert, awake and uncomfortable Nutritional Appearance: average body habitus Orientation/consciousness: patient oriented x3 and No confusion HENMT: Head: normocephalic and atraumatic Other: NGT in place Eyes: Conjunctivae: conjunctivae normal Neck: Neck: normal visual inspection and nontender Resp: Effort & Inspection: normal respiratory effort Auscultation: clear to auscultation bilaterally Cardio: Rate: regular rate Rhythm: regular rhythm GI: Inspection: no abdominal wall ecchymosis, distended and no scars GI Palp: Yes Firmness to palpation present (GI), Yes Tenderness to palpation present (GI) and Yes Guarding due to palpation present (GI) Auscultation: a bsent bowel sounds Skin: Lesions: no lesions Rashes: no rashes Neuro: General: no focal motor deficits and CN's II-XI intact bilaterally C ranial nerves: Yes facial symmetry Speech: normal speech Motor exam (neuro): 5/5 motor strength present throughout Extrem: General: no clubbing, cyanosis or edema Psych: Affect: normal affect Thought process: Normal thought process present Insight: Good insight present (Psych) Results Labs 04/07/25 04:49 04/07/25 04:50 Labs: Short CBC 04/06/25 04/07/25 Range/Units 10:11 04:49 WBC 22.4 H 21.6 H (4.5-10.0) K/mm3 Hgb 14.4 12.2 L (14.0-18.0) g/dL Hct 43.6 36.5 L (42.0-52.0) % Plt Count 331 275 (150-375) k/mm3 BMP 04/06/25 04/07/25 10:11 04:50 Sodium 134 L 136 L Potassium 4.3 3.9 Chloride 97 L 101 Carbon Dioxide 28 31 H BUN 27 H 26 H Creatinine 1.12 0.91 Glucose 179 H 109 Calcium 11.2 H 8.6 Liver Function 04/06/25 04/06/25 04/07/25 Range/Units 10:11 15:02 04:50 Total Bilirubin 0.9 0.6 0.7 (0.2-1.3) mg/dL Direct Bilirubin 0.0 (0-0.3) mg/dL AST 31 27 24 (17-59) U/L ALT 33 29 20 (6-50) U/L Alkaline Phosphatase 81 77 82 (38-126) U/L Albumin 4.3 4.0 3.5 (3.5-5.1) g/dL Urine 04/06/25 Range/Units 12:26 Urine Color Yellow (Yellow) Urine Appearance Clear (Clear) Urine pH 8.0 (5.0-9.0) Ur Specific [place] > 1.045 H (1.001-1.035) Urine Protein Trace (Negative) mg/dL Urine Glucose (UA) Negative (Negative) mg/dL
--- NOTE | 2025-04-07 11:42 | P.PNAN_ITS ---
Anes - Initial Pre Proc Eval Procedure: Operation Date: 04/07/25 12:00 Proposed Procedures p Transverse Loop Diverting Colostomy(Not Applicable) - Shakir Daley MD Date/Time: 04/07/25 11:42 Surgeon: Ramsey Melton MD Pre Op Diagnosis: Abdominal pain, Constipation Patient Data Age: 59 Gender: M Height: 1.8 m Weight: 96.3 kg Last Vital Signs Temp 37.4 C 04/07/25 10:11 Pulse 121 H 04/07/25 10:17 Resp 20 04/07/25 10:11 BP 130/67 04/07/25 10:11 Pulse Ox 93 04/07/25 10:17 O2 Del Method Room Air 04/06/25 20:00 Allergies Allergy/AdvReac Type Severity Reaction Status Date / Time No Known Allergies Allergy Verified 04/06/25 14:57 Home Medications ?Medication ?Instructions ?Recorded ?Confirmed ?Type ibuprofen 200 mg tablet (Advil) 400 mg PO Q12H 5 04/06/25 History Laboratory Tests 04/06/25 04/06/25 04/07/25 12:26 15:02 04:49 WBC 21.6 H K/mm3 (4.5-10.0) RBC 3.96 L M/mm3 (4.6-6.20) Hgb 12.2 L g/dL (14.0-18.0) Hct 36.5 L % (42.0-52.0) MCV 92.2 fl (80-100) MCH 30.8 pg (26-34) MCHC 33.4 g/dl (32-36) RDW 13.1 % (11.5-14.5) Plt Count 275 k/mm3 (150-375) MPV 9.5 fl (7.4-10.4) Immature Gran % (Auto) 0.5 % (0-0.5) Neut % (Auto) 82.2 H % (45.5-73.1) Lymph % (Auto) 5.3 L % (18.3-44.2) [place] % (Auto) 11.9 H % (2.6-8.5) Eos % (Auto) 0.0 % (0-4.4) Baso % (Auto) 0.1 L % (0.2-1.2) Lymph # (Auto) 1.14 K/mm3 (0.9-3.2) [place] # (Auto) 2.6 H K/mm3 (0.1-0.6) Eos # (Auto) 0.0 K/mm3 (0-0.3) Baso # (Auto) 0.0 K/mm3 (0.0-0.1) Abs Immat Gran (auto) 0.11 H K/mm3 (0.00-0.031) Absolute Neuts (auto) 17.7 H K/mm3 (1.3-6.7) Absolute Nucleated RBC 0.000 K/mm3 (0.0-0.012) Nucleated RBC % 0.0 % (0.0-0.2) Sodium Potassium Chloride Carbon Dioxide Anion Gap BUN Creatinine Estim Creat Clear Calc Estimated GFR Glucose Hemoglobin A1c 5.6 % (<5.7) Lactic Acid 1.2 mmol/L (0.7-2.0) Calcium Total Bilirubin 0.6 mg/dL (0.2-1.3) Direct Bilirubin 0.0 mg/dL (0-0.3) AST 27 U/L (17-59) ALT 29 U/L (6-50) Alkaline Phosphatase 77 U/L (38-126) Total Protein 6.9 g/dL (6.3-8.2) Albumin 4.0 g/dL (3.5-5.1) Triglycerides 94 mg/dL (<150) Cholesterol 155 mg/dL (0-200) LDL Cholesterol Direct 76 mg/dL HDL Direct 48 mg/dL Urine Color Yellow (Yellow) Urine Appearance Clear (Clear) Urine pH 8.0 (5.0-9.0) Ur Specific [place] > 1.045 H (1.001-1.035) Urine Protein Trace mg/dL (Negative) Urine Glucose (UA) Negative mg/dL (Negative) Urine Ketones 2+ H mg/dL (Negative) Ur Blood (Man) Negative (Negative) Urine Nitrate Negative (Negative) Urine Bilirubin Negative (Negative) Urine Urobilinogen 1.0 mg/dL (<2.0) Leukocyte Esterase Rfl Negative JO/UL (Negative) Urine RBC 0-2 /hpf (0-2) Urine WBC 0-5 /hpf (0-3) Ur Squamous Epith Cells None seen /hpf (Few) Urine Bacteria None seen /hpf Urine Casts 3-5 Blood Type Antibody Screen 04/07/25 04/07/25 04:50 10:17 WBC RBC Hgb Hct MCV MCH MCHC RDW Plt Count MPV Immature Gran % (Auto) Neut % (Auto) Lymph % (Auto) [place] % (Auto) Eos % (Auto) Baso % (Auto) Lymph # (Auto) [place] # (Auto) Eos # (Auto) Baso # (Auto) Abs Immat Gran (auto) Absolute Neuts (auto) Absolute Nucleated RBC Nucleated RBC % Sodium 136 L mmol/L (137-145) Potassium 3.9 mmol/L (3.4-5.0) Chloride 101 mmol/L (98-107) Carbon Dioxide 31 H mmol/L (22-30) Anion Gap 4 mmol/L (4-12) BUN 26 H mg/dL (9-20) Creatinine 0.91 mg/dL (0.7-1.3) Estim Creat Clear Calc 80 ml/min Estimated GFR > 60 (59 - ) Glucose 109 mg/dL (65-110) Hemoglobin A1c Lactic Acid Calcium 8.6 mg/dL (8.4-10.2) Total Bilirubin 0.7 mg/dL (0.2-1.3) Direct Bilirubin AST 24 U/L (17-59) ALT 20 U/L (6-50) Alkaline Phosphatase 82 U/L (38-126) Total Protein 6.1 L g/dL (6.3-8.2) Albumin 3.5 g/dL (3.5-5.1) Triglycerides Cholesterol LDL Cholesterol Direct HDL Direct Urine Color Urine Appearance Urine pH Ur Specific [place] Urine Protein Urine Glucose (UA) Urine Ketones Ur Blood (Man) Urine Nitrate Urine Bilirubin Urine Urobilinogen Leukocyte Esterase Rfl Urine RBC Urine WBC Ur Squamous Epith Cells Urine Bacteria Urine Casts Blood Type A Positive Antibody Screen Negative Patient hx anesthesia problems: none Family hx anesthesia problems: none Results Review: All pre-operative results and documents have been reviewed as part of the pre- operative evaluation. [facility] Past Medical History Medical History Nausea and vomiting in adult Social History Social History Smoking packs per day: 0.5 Smoking cigarettes per day: 10.0 Smoking status: Current every day smoker Tobacco type: cigarettes Alcohol intake: never Substance use: never Lack of Transportation: No Lack of Food: Never True Current Housing: I Have Housing Concerned About Future Housing: No Difficulty Paying Gas/Electric Bills: No Difficulty Paying for Meds: No Currently Unemployed: No Education: Associate Degree Difficulty w/ Childcare or Family Care: No Spiritual care concerns: No Anes - Eval Final PreProcedure Day of Procedure 04/07/25 11:42 Patient weight: overweight Heart: regular rate and rhythm Lungs: decreased breath sounds Airway: Mallampati scale class III Neurological: alert and oriented Last oral intake: >/= 8 hours ASA classification: III Emergent: no Anesthetic plan: proceed Anesthesia type and monitoring: general ETT and standard monitoring Results Review: All pre-operative results and documents have been reviewed as part of the pre- operative evaluation. Informed Consent: The patient's anesthetic plan and its attendant risks and benefits were discussed with the patient/family/POA. Questions were solicited and answers provided to the satisfaction of the patient/family/POA.
--- NOTE | 2025-04-07 13:03 | S_PTH ---
PATIENT: Jeremy Clifford LOC: [id number] #:[id number] AGE/SX: 59/M ROOM: 344 RE04/07/[address]: Guillermo Manzano PA-C : 1965 BED: 01 DIS: 04/19/2025 SPEC #: [id number] RECD: 04/09/25 07:58 STATUS: MARISSA MICHAEL #: [id number] TYRONE: 04/07/25 13:[address]: Shakir Daley DEPT: [facility] Surgical RECD BY: Yolanda Bah ENTERED: 04/09/25 07:58 SP TYPE: Surgical OTHR DR: MD Thad Garner, MD Nacho Rose MD Tissues: A - Colon Segment NonTumor B - Colon Segment NonTumor C - Colon Segment NonTumor Procedures: Hematoxylin and Eosin Stain Gross and Microscopic Level 5
--- NOTE | 2025-04-07 13:19 | P.PNIM_ITS ---
Assessment and Plan Assessment and Plan (1) Colonic obstruction: Code(s): K56.609 - Unspecified intestinal obstruction, unspecified as to partial versus complete obstruction Status: Acute Assessment and Plan: Patient presents with 2 weeks of constipation, abdominal distension, abdominal pain with bilious emesis on the night prior to admission. Initial imaging concerning for mass lesion in the sigmoid colon, initial imaging concerning for small mass lesion in the sigmoid colon, could be malignant. Surgery and GI have been brought on board for management. Leukocytosis noted on labs, 22.4 now improving slightly to 21.6. No significant electrolyte abnormalities or renal dysfunction noted on labs. -patient is going for transfer stool colostomy for diversion with anastomosis to be performed in 4-6 weeks by surgery service -NG in place, decompressing -NPO at this time for surgery and intestinal obstruction -GI follow-up in around the same time frame for sigmoidoscopy at their discretion (2) History of DVT (deep vein thrombosis): Code(s): Z86.718 - Personal history of other venous thrombosis and embolism Status: Acute Assessment and Plan: Patient refers history of DVT. Anticoagulation not noted on home labs -consider discussing with the patient if he completed anticoagulation or still needs to be on it. Either way given surgery, no anticoagulation today. Plan For transverse loop colostomy with surgery service today DVT prophylaxis: Lovenox 40 mg Diet: NPO Consultations Consultations: I have discussed the care of this pt with the consulting providers. Subjective Date/time seen: 04/07/25 13:19 Interval history: 59-year-old male with a past medical history of ?blood clot in my leg in presents to the ED on 04/06/2025 with complaints of abdominal pain and distention with constipation. Patient states his last normal bowel movement was 2 weeks ago. He has been constipated since but will at times passes small hard stools. Last stool passage was 2 days ago. Patient noticed his abdomen getting rounder and rounder over the past 2 weeks but was not really bothered by it until about 2 days ago when the pain began increasing. Patient also endorses 2 episodes of emesis last night of a brown and green liquid. Currently not nauseated but states he currently has bad acid reflux that is new for him. The patient states he does still pass gas. Denies fevers, chest pain, shortness of breath. Denies any past abdominal surgeries or malignancies. Denies urinary retention. PCP is Thad Fair. Records requested. Initial vital signs 141/96, HR 118, respirations 24, afebrile and 94% on room air. Labs revealed WBC 22.4. Chemistry with sodium 134, chloride 97, BUN 27, glucose 197. Lactic was elevated at 2.4 but normalized after fluid bolus. Calcium 11.2. UA with 2+ ketones and no sign infection. EKG reads sinus tach with borderline ST-T wave abnormality. No acute ischemia. Abdominal pelvic CT demonstrates focal annular wall thickening in the proximal sigmoid colon, worrisome for malignancy. Additional small mural polypoid foci along distal colonic loops. Distal esophageal wall thickening favors esophagitis. Small ascites of unclear etiology. Large stool volume suggesting constipation. Patient received tap water enema and p.o. Mag citrate. GI consult. Surgery has evaluated, conservative management is failing at this time, it cause of symptoms is likely a lesion in the sigmoid which could be a mass she as such transfers the colostomy for diversion was recommended, which patient agreed for. On evaluation in the morning, patient is on NG tube decompression, NPO, going for surgery shortly. GI is also on board, recommends is fully investigated likely 6 weeks after recovery from surgery via colonoscopy. Review of Systems Review of Systems: All systems reviewed & are unremarkable except as noted in HPI and below Exam Narrative: GENERAL: non-toxic appearing, appears uncomfortable. NG tube in place, decompressing. HEAD: Normocephalic, atraumatic. EYES: PERRLA. Conjunctivae clear. NOSE: Normal no drainage. THROAT: Pharynx clear, no exudate. NECK: Trachea midline. No adenopathy, no masses. RESPIRATORY: Airway patent, respirations nonlabored. CTA. CARDIOVASCULAR: Tachycardia with regular rhythm GASTROINTESTINAL: Severely distended abdomen with generalized mild tenderness. Few bowel sounds heard on the right upper and lower quadrants. Tympany throughout GENITOURINARY: Defer MUSCULOSKELETAL: Moves all extremities. No gross deformities. Trace bilateral lower extremity with chronic skin changes. Dry flaky skin SKIN: Warm, dry, normal color. NEURO: A&O X4. Speech clear PSYCHIATRIC: Normal interaction Objective Data Vital Signs Vital Signs: Vital Signs - 24 hr 04/06/25 13:49 04/06/25 14:23 04/06/25 20:00 Temperature 98.5 F Pulse Rate 121 H 112 H 114 H Respiratory Rate 25 H 18 16 Blood Pressure 179/106 H 145/91 H 147/77 H Pulse Oximetry 94 96 94 Oxygen Delivery 04/06/25 20:00 04/06/25 23:26 04/07/25 04:00 Temperature 98.4 F 98.8 F Pulse Rate 115 H 115 H 118 H Respiratory Rate 16 16 16 Blood Pressure 128/69 136/79 Pulse Oximetry 92 92 91 Oxygen Delivery Room Air 04/07/25 08:00 04/07/25 10:11 04/07/25 10:17 Temperature 99.4 F Pulse Rate 123 H 121 H Respiratory Rate 20 Blood Pressure 130/67 Pulse Oximetry 88 L 93 Oxygen Delivery Room Air Intake/Output Intake/Output: Intake & Output 04/04/25 04/05/25 04/06/25 04/07/25 23:59 23:59 23:59 23:59 Intake Total 2049 150 Output Total Balance 2049 149 Meds/Results Medications: Active Medications Generic Name Dose Route Start Last Admin Trade Name Freq PRN Reason Stop Dose Admin Enoxaparin Sodium 40 mg 04/07/25 09:00 04/07/25 09:55 Enoxaparin 40 Mg/0.4 Ml Syringe SUB-Q 40 mg DAILY MARILUZ Administration Famotidine 20 mg 04/07/25 09:00 04/07/25 09:56 Famotidine 20 Mg/2 Ml Vial IV PUSH 20 mg Q12HR MARILUZ Administration Fentanyl Citrate 25 mcg 04/07/25 11:47 Fentanyl Citrate Inj (*Crx) 100 Mcg/2 Ml Vial IV PUSH Q2M PRN Pain Lactated Ringer's 1,000 mls @ 125 mls/hr 04/06/25 12:40 04/07/25 04:03 Lr - Lactated Ringers Iv IV CONT 125 mls/hr .Q8H MARILUZ Administration Ibuprofen 800 mg in 200 mls @ 400 mls/hr 04/06/25 16:21 Caldolor 800 Mg/200 Ml IVPB Q6H PRN Breakthrough Pain Rated 1-3 or NPO Cefepime HCl 2 gm/ Sodium 50 mls @ 100 mls/hr 04/06/25 18:00 04/07/25 09:56 Chloride IVPB 100 mls/hr Q8H MARILUZ Administration Metronidazole 500 mg in 100 mls @ 100 mls/hr 04/06/25 18:00 04/07/25 10:40 Flagyl 500 Mg/Iso Soln 100 Ml IVPB 100 mls/hr Q8H MARILUZ Administration Lactated Ringer's 1,000 mls @ 30 mls/hr 04/07/25 11:50 Lr - Lactated Ringers Iv IV CONT .Q24H MARILUZ Lactated Ringer's 1,000 mls @ 30 mls/hr 04/07/25 11:50 Lr - Lactated Ringers Iv IV CONT .Q24H MARILUZ Morphine Sulfate 2 mg 04/06/25 16:21 Morphine Sulfate (*Crx) 4 Mg/Ml Inj IV PUSH Q2H PRN Breakthrough Pain Rated 4-6 or NPO Morphine Sulfate 4 mg 04/06/25 16:21 04/07/25 09:56 Morphine Sulfate (*Crx) 4 Mg/Ml Inj IV PUSH 4 mg Q2H PRN Administration Breakthrough Pain Rated 7-10 or NPO Naloxone HCl 0.1 mg 04/06/25 16:21 Naloxone Hcl 0.4 Mg/Ml Vial IV PUSH Q2M PRN Opiate Reversal Ondansetron HCl 4 mg 04/06/25 12:35 Ondansetron Inj 4 Mg/2 Ml Vial IV PUSH Q4H PRN Nausea Ondansetron HCl 4 mg 04/07/25 11:47 Ondansetron Inj 4 Mg/2 Ml Vial IV PUSH ONCE PRN Nausea Radiology Results: ITS Impressions Abdomen/Pelvis CT 04/06/25 11:34 IMPRESSION: 1. Focal annular wall thickening proximal sigmoid colon. Worrisome for malignancy. Additional small mural polypoid foci along distal colonic loops. Recommend GI consultation. 2. Distal esophageal wall thickening favoring esophagitis. 3. Small ascites of unclear etiology. 4. Large stool volume suggesting constipation. Chest X-Ray 04/07/25 10:40 IMPRESSION: 1. No acute cardiopulmonary findings given portable technique. Labs Labs: Laboratory Results - last 24 hr 04/06/25 04/07/25 04/07/25 15:02 04:49 04:50 WBC 21.6 H RBC 3.96 L Hgb 12.2 L Hct 36.5 L MCV 92.2 MCH 30.8 MCHC 33.4 RDW 13.1 Plt Count 275 MPV 9.5 Immature Gran % (Auto) 0.5 Neut % (Auto) 82.2 H Lymph % (Auto) 5.3 L [place] % (Auto) 11.9 H Eos % (Auto) 0.0 Baso % (Auto) 0.1 L Lymph # (Auto) 1.14 [place] # (Auto) 2.6 H Eos # (Auto) 0.0 Baso # (Auto) 0.0 Abs Immat Gran (auto) 0.11 H Absolute Neuts (auto) 17.7 H Absolute Nucleated RBC 0.000 Nucleated RBC % 0.0 Sodium 136 L Potassium 3.9 Chloride 101 Carbon Dioxide 31 H Anion Gap 4 BUN 26 H Creatinine 0.91 Estim Creat Clear Calc 80 Estimated GFR > 60 Glucose 109 Hemoglobin A1c 5.6 Calcium 8.6 Total Bilirubin 0.6 0.7 Direct Bilirubin 0.0 AST 27 24 ALT 29 20 Alkaline Phosphatase 77 82 Total Protein 6.9 6.1 L Albumin 4.0 3.5 Triglycerides 94 Cholesterol 155 LDL Cholesterol Direct 76 HDL Direct 48 Blood Type Antibody Screen 04/07/25 10:17 WBC RBC Hgb Hct MCV MCH MCHC RDW Plt Count MPV Immature Gran % (Auto) Neut % (Auto) Lymph % (Auto) [place] % (Auto) Eos % (Auto) Baso % (Auto) Lymph # (Auto) [place] # (Auto) Eos # (Auto) Baso # (Auto) Abs Immat Gran (auto) Absolute Neuts (auto) Absolute Nucleated RBC Nucleated RBC % Sodium Potassium Chloride Carbon Dioxide Anion Gap BUN Creatinine Estim Creat Clear Calc Estimated GFR Glucose Hemoglobin A1c Calcium Total Bilirubin Direct Bilirubin AST ALT Alkaline Phosphatase Total Protein Albumin Triglycerides Cholesterol LDL Cholesterol Direct HDL Direct Blood Type A Positive Antibody Screen Negative Hospitalist MIPS Advance Care Plan I have confirmed that the patient's Advanced Care Plan is present, code status is documented, or surrogate decision maker is listed in patient medical record.: Yes Medication Reconciliation I have utilized all available resources to obtain, update and review the patients current medications (includes all prescriptions, OTC, herbals, cannabis, and nutritional supplements).: Yes
--- NOTE | 2025-04-07 14:20 | PC.NURSE ---
I, Liz Pelaez RN, have reviewed documentation by Michaelle ALVAREZ and agree with the findings. 04/07/25 8500.
--- NOTE | 2025-04-07 15:10 | P.OP_ITS ---
Procedure Note - Detailed Date of Procedure 04/07/25 Pre-op Diagnosis Distal colonic obstruction Post-op Diagnosis Other (Distal colonic obstruction, cecal gangrene with perforation) Procedure Performed Ascending colectomy, creation ileostomy and mucous fistula Surgeon Shakir Daley MD Metal Buffer Andrés SPEARS Anesthesia General Indications Patient presented with worsening constipation and abdominal distention with pain and vomiting. He was initially thought to have constipation S the source but eventually 6 imaging showed distal colonic obstruction by water-soluble contrast enema. Antibiotics and nasogastric suction with IV fluids through the night did not relieve any of his distension or pain. His white blood cell count remains over 20,000. He is taken to surgery now for diverting transverse colostomy. Findings The cecum was extremely distended and was in the midline just above the umbilicus. The ascites was reddish brown and there was some odor on opening the abdomen. Eventual exposure of the cecum showed several areas of gangrenous change from the severe distension and small areas wear stool would intermittently leak. The stool was thickened liquid. This was well contained but some peritoneal contamination did occur. No other significant findings were noted. Description of Procedure The patient was taken to surgery and induced into general anesthesia. The abdomen was prepped and draped in its entirety. The proposed incision was just above the umbilicus in the midline. Dissection down through the subcutaneous and midline fascia showed omentum covering over the bowel. I was able to move the omentum cephalad. There was a very distended colon directly under the omentum. Ascites was present and had some blood issuing even brownish tinge to it. There was somewhat of an odor as well. I extended the incision below the umbilicus and more cephalad. I then tried to expose the distended bowel and was successful only to find that the anterior and cephalad aspect had numerous areas with gangrenous change and tiny leakage of stool was starting. I then enlarged the incision further towards the pubis. With retraction and gentle manipulation, I was able to eviscerate the distended and gangrenous colon. At this point it was evident this was the cecum. I took down some of the lateral peritoneal attachments and some mesentery to the cecum and was able to completely move it to the outside of the peritoneal cavity. Mesenteric vessels were noted to the cecum and proximal ascending colon, as well as the distal ileum. These were doubly clamped and divided. The vessels were ligated with 0 Vicryl suture. I was then able to remove the cecum from the abdomen. I looked for residual stool in the abdomen and there was minimal--just some fecal staining on mesentery which I was able to wipe away with a laparotomy sponge. The more distal ascending colon was still extremely dilated and the more proximal portion of the ascending colon was becoming mottled. There was not really a good place to divide the ascending colon as it was extremely dilated and the bowel wall was thickened and edematous. The proximal transverse colon was much less dilated and edematous. I mobilized the lateral peritoneal attachments to the remainder of the ascending colon. I divided mesenteric attachments up to the transverse colon mesentery. I then used a TLC 100 stapler to divide the proximal transverse colon. The remainder of the ascending colon was then passed off as a specimen. The stapled end of the proximal transverse colon appeared much more suitable for the mucous fistula than had the proximal ascending colon staple line. I then turned my attention to the distal ileum. It was adhesed in the right lower quadrant. I exposed this and using a combination of cautery and LigaSure was able to mobilize the distal ileum up out of the pelvis so that it was free on its mesentery. I then looked further in the abdomen for any collection of fecal contamination. I found none. I then looked in the right lower quadrant and just above the umbilical cassettes on the right side of the at abdomen. This appeared to be a suitable area for an ileos harrison. The mucous fistula could be brought out the cephalad and checked of the midline incision. I then marked and cut a skin opening for the ileostomy on the right side over the rectus abdominis muscle. I removed the subcutaneous under the skin down to the anterior abdominal wall fascia. I then divided the fascia plain flies along the direction of the rectus muscle fibers. Rectus fibers were bluntly spread and I then opened the posterior rectus fascia. This was opened widely enough for 2 fingers to pass easily into the ileostomy tract. I then brought the distal ileum through the tract with a [place] clamp. The ileum was edematous but was under no tension as it was brought through the tract an lie on the anterior abdominal wall. The peritoneum was closed from the lower most aspect of the incision cephalad to the semicircular line. I then placed the transverse colon suture line at the apex of the midline incision. I used bidirectional 1. PDS suture to close the midline fascia. The upper aspect of the fascial closure was snug up against the mucous fistula end. I did later go ahead and put an 0 Vicryl [id number] mattress suture cephalad to the PDS to further snug up the fascia around the mucous fistula. I then used 3-0 Vicryl interrupted sutures to close the subcutaneous of the midline wound. I used interrupted 4-0 Vicryl to reapproximate the skin of the umbilicus. I then used wide herlinda to close the skin. We quarantined the skin incision with a towel. I turned my attention to the ileostomy in the right side of the after min. The distal aspect of the ileostomy was a little dusky. I started opening the bowel just past the distal end where the bowel looked healthy and well vascularized. I opened it partially and then began placing subcuticular 4-0 chromic suture in the skin the wall of the ilium and the open end of the ileum. I placed 4 of these equate distant to 1 another around the open ileum. I then carefully started to apply traction to these suture and E for the ileostomy. There was a lot of thickened mesentery associated with the ileum and it was edematous. The eversion was adequate but not as much as is usually achieved in a patient that is not acutely ill. None the less we tied down these chromic suture and then placed 4 more subcuticular chromic suture that also sutured full-thickness ileum. The ileostomy looked satisfactory. We cleaned off the skin around the ileostomy, the mucous fistula, and the skin incision. I then placed an appliance on the ileostomy such that no skin was exposed. I then turned my attention to the mucous fistula. I made a small opening in this and a pittman of air evacuated such that the distension in the mucous fistula dissipated. I then slowly opened the bowel associated with the mucous fistula and sutured full- thickness skin to full-thickness bowel with 3-0 chromic suture. Eventually the mucous fistula was opened completely and sutured circumferentially to the anterior abdominal wall. No pittman of liquid stool was noted. I was able to stick a finger down far into the mucous fistula without evidence of abrupt angulation or obstruction. I then went ahead and placed an appliance over the mucous fistula. The abdominal wound was dressed with Xeroform gauze, fluffs, ABDs, and Medipore tape. The patient had experienced intermittent hypotension requiring off and on vasopressor use during the surgery. I felt the patient would be best served to go to the intensive care unit. The patient was kept intubated and transferred directly to the intensive care unit. I talked with [facility] vamp throater Dr. Madsen during a portion of the surgery and explained the situation and the patient's condition with him. Dr. Simon with the Department of Anesthesiology placed a central line before the patient transferred to the intensive care unit for good critical care IV access. Sponge and needle counts were correct x2. Estimated Blood Loss -20 Urine Output 1 Drains Yes (NG tube, Ames catheter) Packing No Pathology Yes (Ascending colon) Complications None Condition Critical Disposition ICU [facility] Billing Surgery - Charge Forward: Surgery Billing (Ascending colectomy, creation ileostomy and mucous fistula)
--- NOTE | 2025-04-07 15:22 | WPDANESCVCPN ---
Anes - Cent Venous Cath Note Consent: the need to proceed with central venous catheter insertion as an important element of the patient's clinical management given emergent patient conditions, temporal constraints may have precluded informed consent. Time-Out: A pre-procedural Time-Out was completed immediately before starting the procedure and confirmed: Patient Identification, Site, Procedure, Patient Position and the Availability of Requisite Equipment. Procedure Note Clinical Indications: sepsis Patient position: trendelenburg Central venous catheter insertion site: right internal jugular CVC method of insertion: ultrasound-guided Hand hygiene/Aseptic technique: Hand hygiene procedures were performed. Aseptic technique was maintained throughout the procedure. Sterile barrier precautions: Maximal sterile barrier precautions, including use of a cap, mask, sterile gown, sterile gloves and a sterile full body drape. Site prep: duraprep Skin anesthesia: placed under general anesthesia Divehi: 7 Lumen: 3 Length (cm): 15 cm Depth of insertion (cm): 15 Closure/Dressing: suture, biopatch and tegaderm Complications: None immediately noted/suspected. Chest X Ray: Ordered/review to follow. Procedure comments: done in or at conclusion of procedure cxray to be ordered.
[2025-04-07] MEDS: FENTANYL 2,500MCG/NS250ML(*CRX 2,500 MCG/250 ML BAG IV CONT (16:02)
[2025-04-07] MEDS: MIDAZOLAM 100MG/NS 100ML(*CRX) 100 MG/100 ML BAG IV CONT (16:02)
[2025-04-07] MEDS: MICAFUNGIN SODIUM 100 MG in SODIUM CHLORIDE 0.9% IV 100 ML IVPB (16:55)
[2025-04-07 17:12] LABS: Alveolar/Arterial O2 Gradient 145.9 mmHg; Carboxyhemoglobin 0.8 % THb (0-2.0); Fractional Inspired Oxygen 70 %; HCO3 ABG 27.5 mEq/l (22.0-26.0); Methemoglobin ABG 0.2 %THb (0-1.5); Oxygen Content ABG 19.9 %vol (16.0-22.0); Oxygen Saturation ABG 99.7 % (95.0-100.0); PCO2 ABG 39.6 mmHg (35.0-45.0); PO2 ABG 310.6 mmHg (80.0-100.0); PO2 FiO2 Ratio Arterial Blood 4.44 %; Reduced Hemoglobin 0.3 %THb (0-5.0)
[2025-04-07 17:12] LABS: Hematocrit 38.7 % (42.0-52.0); Hemoglobin 12.8 g/dL (14.0-18.0); Mean Corpuscular HGB Conc 33.1 g/dl (32-36); Mean Corpuscular Hemoglobin 31.0 pg (26-34); Mean Corpuscular Volume 93.7 fl (80-100); Platelet Count Result 266 k/mm3 (150-375); Red Blood Count 4.13 M/mm3 (4.6-6.20); White Blood Count 10.5 K/mm3 (4.5-10.0)
[2025-04-07 17:15] LABS: Arterial Blood Gas Ventilator rate 22 /MIN; Liters per Minute 0.0 LPM; Modified Allen's Test Pass; Site Drawn LEFT RADIAL
[2025-04-07 17:16] LABS: Arterial Blood Gas Tidal Volume 500 ml
[2025-04-07 17:27] LABS: INR 1.2; Prothrombin Time 15.3 Seconds (11.1-14.7)
[2025-04-07 17:28] LABS: Alanine Aminotransferase 21 U/L (6-50); Albumin Level 3.1 g/dL (3.5-5.1); Alkaline Phosphatase 67 U/L (38-126); Anion Gap 5 mmol/L (4-12); Aspartate Amino Transferase 25 U/L (17-59); Bilirubin,Total 1.1 mg/dL (0.2-1.3); Blood Urea Nitrogen 24 mg/dL (9-20); Calcium 8.1 mg/dL (8.4-10.2); Carbon Dioxide 31 mmol/L (22-30); Chloride 101 mmol/L (98-107); Estimated CRCL calculation 74 ml/min; Estimated Glomerular Filt Rate > 60; Glucose 135 mg/dL (65-110); Magnesium 1.8 mg/dL (1.6-2.3); Partial Thromboplastin Time 24.7 Seconds (22.3-36.8); Potassium 4.9 mmol/L (3.4-5.0); Sodium 137 mmol/L (137-145); Total Protein 5.7 g/dL (6.3-8.2)
[2025-04-07 18:23] LABS: MRSA (PCR) NOT DETECTED (NOT DETECTE)
[2025-04-07] MEDS: MINERAL OIL/WHITE PETROLATUM OINTMENT 1 APPLIC EACH EYE (20:56)
[2025-04-07] MEDS: MORPHINE SULFATE (*CRX) 4 MG/ML INJ 2 MG IV PUSH (20:56)
[2025-04-08] VITALS (31 sets, daily range): BP systolic 77–125; BP diastolic 61–81; PULSE 88–113; RESP 10–19; TEMP 36.5–38.1; O2SAT 93–100
[2025-04-08] MEDS: CEFEPIME 2 GM in SODIUM CHLORIDE 0.9% IV 50 ML 100 ML IVPB ×3 (01:17→17:13)
[2025-04-08] MEDS: LACTATED RINGERS 1,000 ML 125 ML IV CONT ×3 (01:18→17:14)
[2025-04-08] MEDS: IBUPROFEN IV 800 MG/200 ML 800 MG/200 ML BAG 400 MG IVPB ×2 (01:28→12:43)
[2025-04-08] MEDS: metroNIDAZOLE 500 MG/ISO 100ML 500 MG/100 ML BAG 100 MG IVPB ×3 (01:48→17:14)
[2025-04-08] MEDS: IPRATROPIUM BR 0.02% INH SOLN 0.5 MG/2.5 ML VIAL INHALATION ×2 (04:13→08:24)
[2025-04-08 04:24] LABS: Hematocrit 33.0 % (42.0-52.0); Hemoglobin 10.8 g/dL (14.0-18.0); Immature Granulocyte Percent A 0.2 % (0-0.5); Lymphocytes Absolute Auto 1.02 K/mm3 (0.9-3.2); Mean Corpuscular HGB Conc 32.7 g/dl (32-36); Mean Corpuscular Hemoglobin 30.9 pg (26-34); Mean Corpuscular Volume 94.6 fl (80-100); Nucleated Red Blood Cells Absolute Auto 0.000 K/mm3 (0.0-0.012); Nucleated Red Blood Cells Perc 0.0 % (0.0-0.2); Platelet Count Result 219 k/mm3 (150-375); Red Blood Count 3.49 M/mm3 (4.6-6.20); White Blood Count 11.1 K/mm3 (4.5-10.0)
[2025-04-08 04:43] LABS: Alanine Aminotransferase 21 U/L (6-50); Albumin Level 2.7 g/dL (3.5-5.1); Alkaline Phosphatase 55 U/L (38-126); Anion Gap 2 mmol/L (4-12); Aspartate Amino Transferase 23 U/L (17-59); Bilirubin,Total 1.3 mg/dL (0.2-1.3); Blood Urea Nitrogen 33 mg/dL (9-20); Calcium 7.7 mg/dL (8.4-10.2); Carbon Dioxide 31 mmol/L (22-30); Chloride 103 mmol/L (98-107); Estimated CRCL calculation 44 ml/min; Estimated Glomerular Filt Rate 41; Glucose 132 mg/dL (65-110); Potassium 4.7 mmol/L (3.4-5.0); Sodium 136 mmol/L (137-145); Total Protein 5.2 g/dL (6.3-8.2)
[2025-04-08 05:23] LABS: Alveolar/Arterial O2 Gradient 124.1 mmHg; Carboxyhemoglobin 0.8 % THb (0-2.0); Fractional Inspired Oxygen 35 %; HCO3 ABG 26.8 mEq/l (22.0-26.0); Methemoglobin ABG 0.3 %THb (0-1.5); Oxygen Content ABG 15.9 %vol (16.0-22.0); Oxygen Saturation ABG 96.6 % (95.0-100.0); PCO2 ABG 37.8 mmHg (35.0-45.0); PO2 ABG 81.5 mmHg (80.0-100.0); PO2 FiO2 Ratio Arterial Blood 2.33 %; Reduced Hemoglobin 3.4 %THb (0-5.0)
[2025-04-08 05:50] LABS: Arterial Blood Gas Tidal Volume 500 ml; Arterial Blood Gas Ventilator rate 18 /MIN; Modified Allen's Test Pass; Site Drawn RIGHT RADIAL
[2025-04-08] MEDS: LACTATED RINGERS 1,000 ML 999 ML IV CONT (09:06)
[2025-04-08] MEDS: FAMOTIDINE 20 MG/2 ML VIAL IV PUSH ×2 (09:08→20:08)
[2025-04-08] MEDS: ENOXAPARIN 40 MG/0.4 ML SYRINGE SUB-Q (09:08)
[2025-04-08] MEDS: MINERAL OIL/WHITE PETROLATUM OINTMENT 1 APPLIC EACH EYE (09:15)
--- NOTE | 2025-04-08 09:36 | WPDCNINT2 ---
Assessment and Plan Assessment and plan (1) Colonic obstruction: Code(s): K56.609 - Unspecified intestinal obstruction, unspecified as to partial versus complete obstruction Status: Acute Assessment and Plan: Patient presented on 04/06/2025 with complains of constipation, abdominal distension. CT scan showed evidence of sigmoid colon luminal mass with severe colonic distention 04/07/2025: Patient underwent an ascending colectomy, creation of ileostomy and mucous fistula for distal colonic obstruction, cecal gangrene with perforation -received 3 units L of IV fluid bolus in the OR, also was requiring phenylephrine in the OR. Right IJ central line was inserted -04/07: Hypotensive with systolic blood pressures in the 80s. 1 L IV fluid bolus was given and I have ordered epinephrine to maintain SBP > 100 mmHg for adequate end organ perfusion -continue cefepime, Flagyl, micafungin -pain control -surgery following the patient -colostomy and ileostomy both draining adequately (2) Respiratory failure: Code(s): J96.90 - Respiratory failure, unspecified, unspecified whether with hypoxia or hypercapnia Status: Acute Assessment and Plan: Respiratory failure likely related to anesthesia and postop -currently on CMV mode of ventilation, peep of 5 and 35% FiO2 -sedated with small dose of fentanyl and Versed -will wean sedation to off -will place patient on SBT and evaluate for extubation (3) Hypotension: Code(s): I95.9 - Hypotension, unspecified Status: Acute Assessment and Plan: 04/08: Hypotension, shock, acute kidney injury -received 3 L IV fluids in the operation room, 1 L additional IV fluid bolus in the ICU on 04/08 -continue maintenance IV fluid -norepinephrine has been ordered to maintain SBP> 100 mmHg for adequate end organ perfusion -continue to monitor urine out (4) Acute kidney injury: Code(s): N17.9 - Acute kidney failure, unspecified Status: Acute Assessment and Plan: Acute kidney injury status post surgery -received 3 L IV fluids in the OR -will give additional 1 L IV fluid bolus (04/08) -maintain normal blood pressures for adequate end organ perfusion -will check renal ultrasound -check CK levels, urine lytes, urine Na is on of failed -monitor renal function, electrolytes and urine out Plan DVT prophylaxis: Enoxaparin Stress ulcer prophylaxis: Nutrition: NPO for now Code Status: Full code Critical Care Time Spent: 48 minutes Due to a high probability of clinically significant, life threatening deterioration, the patient required my highest level of preparedness to intervene emergently and I personally spent this critical care time directly and personally managing the patient. This critical care time included obtaining a history; examining the patient; pulse oximetry; ordering and review of studies; arranging urgent treatment with development of a management plan; evaluation of patient's response to treatment; frequent reassessment; and discussions with other providers. It was exclusive of separately billable procedures and treating other patients and teaching time. Please see Assessment and Plan section and the rest of the note for further information on patient assessment and treatment This dictation may have been done utilizing a voice recognition system. Attempts have been made to correct errors. However, there may be uncorrected grammatical, spelling, and recognitions errors present. Outsole Handler Consult Note Consult date: 04/08/25 Reason for consult: Acute respiratory failure likely related to anesthesia/surgery, distal colonic obstruction, cecal gangrene with perforation status post ascending colectomy, creation of ileostomy and mucous fistula on 04/07/2025. Patient did present with abdominal distention and constipation on 04/06/2025. CT scan demonstrated focal annular wall thickening in the proximal sigmoid colon worrisome for malignancy. HPI: Jeremy Clifford is a 59 year old male with significant past medical history of DVT presented the ED on 04/06/2025 with complains of abdominal pain and distention with constipation. CT scan demonstrated annular thickening in the proximal sigmoid colon with severe colonic distention, worrisome for malignancy. He had Hypaque enema which showed complain retrograde obstruction. Nasogastric tube was inserted and started on antibiotics. Surgery evaluated the patient and patient was recommended surgical resolution for For the obstruction. 04/07/2025 patient had distal colonic obstruction, cecal gangrene and perforation status post descending colectomy, creation of an ileostomy and mucous fistula. In the OR patient did require phenylephrine, central line was placed in the OR, 3 L IV fluids were administered. Patient was kept intubated postoperatively and transferred to the ICU for further management Patient seen examined this morning, remains intubated on CMV mode of ventilation, peep of 5, 35% FiO2. Sedated with low-dose fentanyl and Versed. Patient is awake, alert, follows simple commands, nods to questions, gives a thumbs up. Seems to be a pleasant person. Low urine out, worsening creatinine, systolic blood pressures in the 80s, additional IV fluid bolus was given this morning. Patient denies any pain at this time Review of Systems Review of Systems: ROS unobtainable: Yes unobtainable due to endotracheal tube and unobtainable due to medical condition PMFSH Past Medical History Medical History Nausea and vomiting in adult Social History Social History Smoking packs per day: 0.5 Smoking cigarettes per day: 10.0 Smoking status: Current every day smoker Tobacco type: cigarettes Alcohol intake: never Substance use: never Lack of Transportation: No Lack of Food: Never True Current Housing: I Have Housing Concerned About Future Housing: No Difficulty Paying Gas/Electric Bills: No Difficulty Paying for Meds: No Currently Unemployed: No Education: Associate Degree Difficulty w/ Childcare or Family Care: No Spiritual care concerns: No Meds Home Medications and Allergies Home Medications ?Medication ?Instructions ?Recorded ?Confirmed ?Type ibuprofen 200 mg tablet (Advil) 400 mg PO Q12H 04/06/25 04/06/25 History Allergies Allergy/AdvReac Type Severity Reaction Status Date / Time No Known Allergies Allergy Verified 04/06/25 14:57 Vital Signs Vital Signs - 24 hr 04/07/25 10:11 04/07/25 10:17 04/07/25 10:17 Temperature 99.4 F Pulse Rate 123 H 121 H Respiratory Rate 20 Blood Pressure 130/67 Pulse Oximetry 88 L 93 93 Oxygen Delivery Nasal Cannula Oxygen Flow Rate 1 Fraction of Inspired Oxygen 04/07/25 15:45 04/07/25 16:00 04/07/25 16:00 Temperature Pulse Rate 104 H 109 H Respiratory Rate Blood Pressure Pulse Oximetry 100 Oxygen Delivery Mechanical Ventilation Mechanical Ventilation Oxygen Flow Rate Fraction of Inspired Oxygen 100 100 04/07/25 16:02 04/07/25 16:02 04/07/25 16:10 Temperature Pulse Rate 103 H 108 H Respiratory Rate 22 H 22 H Blood Pressure Pulse Oximetry Oxygen Delivery Oxygen Flow Rate Fraction of Inspired Oxygen 70 04/07/25 16:30 04/07/25 16:31 04/07/25 17:00 Temperature Pulse Rate 114 H 115 H 107 H Respiratory Rate 22 H 19 22 H Blood Pressure 147/98 H Pulse Oximetry 100 100 Oxygen Delivery Oxygen Flow Rate Fraction of Inspired Oxygen 04/07/25 17:00 04/07/25 17:15 04/07/25 17:18 Temperature Pulse Rate 107 H 111 H Respiratory Rate 22 H 22 H Blood Pressure Pulse Oximetry Oxygen Delivery Oxygen Flow Rate Fraction of Inspired Oxygen 50 04/07/25 17:36 04/07/25 17:38 04/07/25 18:00 Temperature Pulse Rate 118 H 119 H 117 H Respiratory Rate 22 H 22 H 22 H Blood Pressure 97/83 L Pulse Oximetry 98 98 Oxygen Delivery Oxygen Flow Rate Fraction of Inspired Oxygen 04/07/25 18:05 04/07/25 19:00 04/07/25 19:00 Temperature Pulse Rate 118 H 118 H Respiratory Rate 18 18 Blood Pressure Pulse Oximetry Oxygen Delivery Mechanical Ventilation Oxygen Flow Rate Fraction of Inspired Oxygen 50 04/07/25 19:00 04/07/25 20:00 04/07/25 20:00 Temperature 100.0 F H Pulse Rate 119 H 116 H 117 H Respiratory Rate 18 18 Blood Pressure 104/78 95/79 L Pulse Oximetry 99 98 Oxygen Delivery Oxygen Flow Rate Fraction of Inspired Oxygen 04/07/25 20:00 04/07/25 20:00 04/07/25 20:00 Temperature Pulse Rate 115 H 115 H Respiratory Rate 18 18 Blood Pressure Pulse Oximetry Oxygen Delivery Oxygen Flow Rate Fraction of Inspired Oxygen 40 04/07/25 20:00 04/07/25 20:36 04/07/25 21:00 Temperature Pulse Rate 115 H 114 H Respiratory Rate 18 Blood Pressure 113/82 Pulse Oximetry 99 97 Oxygen Delivery Mechanical Ventilation Mechanical Ventilation Oxygen Flow Rate Fraction of Inspired Oxygen 40 40 04/07/25 22:00 04/07/25 22:00 04/07/25 22:00 Temperature 99.4 F Pulse Rate 115 H 115 H 115 H Respiratory Rate 18 18 18 Blood Pressure 96/69 L Pulse Oximetry 98 Oxygen Delivery Oxygen Flow Rate Fraction of Inspired Oxygen 04/07/25 22:00 04/07/25 23:00 04/07/25 23:04 Temperature Pulse Rate 110 H 114 H 113 H Respiratory Rate 18 Blood Pressure 91/71 L Pulse Oximetry 98 98 Oxygen Delivery Mechanical Ventilation Oxygen Flow Rate Fraction of Inspired Oxygen 35 04/08/25 00:00 04/08/25 00:00 04/08/25 00:00 Temperature 100.6 F H Pulse Rate 113 H 113 H 113 H Respiratory Rate 18 18 18 Blood Pressure 89/72 L Pulse Oximetry 97 Oxygen Delivery Oxygen Flow Rate Fraction of Inspired Oxygen 04/08/25 00:00 04/08/25 00:00 04/08/25 00:00 Temperature Pulse Rate 113 H Respiratory Rate Blood Pressure Pulse Oximetry Oxygen Delivery Mechanical Ventilation Oxygen Flow Rate Fraction of Inspired Oxygen 35 35 04/08/25 01:00 04/08/25 02:00 04/08/25 02:00 Temperature 100.3 F H Pulse Rate 112 H 109 H 109 H Respiratory Rate 18 18 18 Blood Pressure 89/66 L Pulse Oximetry 97 Oxygen Delivery Oxygen Flow Rate Fraction of Inspired Oxygen 04/08/25 02:00 04/08/25 02:02 04/08/25 02:44 Temperature 100.2 F H Pulse Rate 109 H 109 H 107 H Respiratory Rate 18 Blood Pressure 77/61 L Pulse Oximetry 97 97 Oxygen Delivery Mechanical Ventilation Oxygen Flow Rate Fraction of Inspired Oxygen 35 04/08/25 03:05 04/08/25 03:06 04/08/25 03:32 Temperature 99.1 F Pulse Rate 106 H 102 H Respiratory Rate 19 18 Blood Pressure 89/68 L Pulse Oximetry 100 Oxygen Delivery Mechanical Ventilation Oxygen Flow Rate Fraction of Inspired Oxygen 35 04/08/25 04:00 04/08/25 04:00 04/08/25 04:00 Temperature 99.1 F Pulse Rate 102 H 105 H Respiratory Rate 18 18 Blood Pressure 95/68 L Pulse Oximetry 97 Oxygen Delivery Oxygen Flow Rate Fraction of Inspired Oxygen 35 04/08/25 04:00 04/08/25 04:00 04/08/25 04:13 Temperature Pulse Rate 105 H 102 H 105 H Respiratory Rate 18 18 Blood Pressure Pulse Oximetry Oxygen Delivery Oxygen Flow Rate Fraction of Inspired Oxygen 04/08/25 05:22 04/08/25 05:44 04/08/25 06:00 Temperature 98.0 F Pulse Rate 101 H 106 H 98 Respiratory Rate 18 18 Blood Pressure 87/67 L 88/64 L Pulse Oximetry 95 97 97 Oxygen Delivery Mechanical Ventilation Oxygen Flow Rate Fraction of Inspired Oxygen 35 04/08/25 06:00 04/08/25 06:00 04/08/25 06:00 Temperature Pulse Rate 98 99 98 Respiratory Rate 18 18 Blood Pressure Pulse Oximetry Oxygen Delivery Oxygen Flow Rate Fraction of Inspired Oxygen 04/08/25 07:00 04/08/25 08:27 04/08/25 08:45 Temperature Pulse Rate 95 100 101 H Respiratory Rate 18 19 16 Blood Pressure 88/68 L Pulse Oximetry 96 Oxygen Delivery Oxygen Flow Rate Fraction of Inspired Oxygen 04/08/25 08:51 04/08/25 08:53 Temperature Pulse Rate 104 H 104 H Respiratory Rate 14 Blood Pressure Pulse Oximetry 93 Oxygen Delivery Mechanical Ventilation Oxygen Flow Rate Fraction of Inspired Oxygen 35 Exam Narrative: General: Intubated, sedated in no acute distress HEENT:? Pupils equal and reactive, sclerae is clear, ETT in place Neck:? Supple Respiratory:? Clear to auscultation bilaterally, no wheezing, adequate air entry Cardiac:? S1-S2 normal, regular rate and rhythm Abdomen:? Soft, nondistended, hypoactive bowel sounds, colostomy with brown stool, ileostomy with biliary drainage Extremities: No edema noted, palpable pedal pulses Neuro:? Patient is awake, alert, follows simple commands, nods to questions, gives a thumbs up sign Skin: Abdominal surgical incision with dressing in place, Psych:? Unable to assess at this time Results Labs 04/08/25 04:17 04/08/25 04:17 Labs: Short CBC 04/07/25 04/08/25 Range/Units 17:05 04:17 WBC 10.5 H 11.1 H (4.5-10.0) K/mm3 Hgb 12.8 L 10.8 L (14.0-18.0) g/dL Hct 38.7 L 33.0 L (42.0-52.0) % Plt Count 266 219 (150-375) k/mm3 [facility] 04/07/25 04/08/25 17:05 04:17 Sodium 137 136 L Potassium 4.9 4.7 Chloride 101 103 Carbon Dioxide 31 H 31 H BUN 24 H 33 H Creatinine 0.98 1.72 H Glucose 135 H 132 H Calcium 8.1 L 7.7 L Liver Function 04/07/25 04/08/25 Range/Units 17:05 04:17 Total Bilirubin 1.1 1.3 (0.2-1.3) mg/dL AST 25 23 (17-59) U/L ALT 21 21 (6-50) U/L Alkaline Phosphatase 67 55 (38-126) U/L Albumin 3.1 L 2.7 L (3.5-5.1) g/dL Quality VTE Prophylaxis VTE prophylaxis: pharmacologic ordered Hospitalist MIPS Advance Care Plan I have confirmed that the patient's Advanced Care Plan is present, code status is documented, or surrogate decision maker is listed in patient medical record.: Yes Medication Reconciliation I have utilized all available resources to obtain, update and review the patients current medications (includes all prescriptions, OTC, herbals, cannabis, and nutritional supplements).: Yes
[2025-04-08] MEDS: MICAFUNGIN SODIUM 100 MG in SODIUM CHLORIDE 0.9% IV 100 ML IVPB (09:48)
[2025-04-08 10:54] LABS: Alveolar/Arterial O2 Gradient 114.3 mmHg; Fractional Inspired Oxygen 35 %; HCO3 ABG 27.7 mEq/l (22.0-26.0); Oxygen Content ABG 14.8 %vol (16.0-22.0); Oxygen Saturation ABG 96.0 % (95.0-100.0); PCO2 ABG 46.0 mmHg (35.0-45.0); PO2 ABG 81.8 mmHg (80.0-100.0); PO2 FiO2 Ratio Arterial Blood 2.34 %
[2025-04-08 10:57] LABS: Site Drawn LEFT BRACHIAL
[2025-04-08 10:58] LABS: Arterial Blood Gas Pressure Support 8 cmH2O
[2025-04-08] MEDS: MORPHINE SULFATE (*CRX) 4 MG/ML INJ 2 MG IV PUSH (11:11)
[2025-04-08] MEDS: CENTRAL LINE FLUSH 10 ML IV PUSH ×2 (12:33→20:08)
[2025-04-08 12:55] LABS: Creatine Kinase 302 U/L (55-170)
[2025-04-08] MEDS: MORPHINE SULFATE (*CRX) 4 MG/ML INJ IV PUSH ×2 (13:18→21:51)
[2025-04-08 13:22] LABS: Urine Eos QC 2nd Tech Confirmed
--- NOTE | 2025-04-08 14:13 | P.PNCROSS_ITS ---
Event Note Event Note Event Note: 04/08: Patient was placed on SBT, was awake, alert, followed commands. ABGs p ost SBT looked good, RSBI was adequate, patient was successfully extubated
--- NOTE | 2025-04-08 14:13 | PM.EVENT ---
Event Note Event Note Event Note: 04/08: Patient was placed on SBT, was awake, alert, followed commands. ABGs post SBT looked good, RSBI was adequate, patient was successfully extubated
--- NOTE | 2025-04-08 14:39 | WPDGIPROGNO ---
Progress Note: A&P Assessment and Plan (1) Colonic obstruction: Code(s): K56.609 - Unspecified intestinal obstruction, unspecified as to partial versus complete obstruction Status: Acute Assessment and Plan: treated with surgery, ngt in place, on abx sigmoidoscopy in several more weeks to investigate site of lesion and will be arranged once acute process is resolved will follow as needed in the meantime (2) Abdominal distension: Code(s): R14.0 - Abdominal distension (gaseous) Status: Acute (3) Acute kidney injury: Code(s): N17.9 - Acute kidney failure, unspecified Status: Acute (4) Respiratory failure: Code(s): J96.90 - Respiratory failure, unspecified, unspecified whether with hypoxia or hypercapnia Status: Acute Assessment and Plan: successful extubation Subjective Date/time seen: 04/08/25 14:39 Interval history: He underwent ascending colectomy, 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 Pupils equal and reactive, sclerae is clear. + NGT Neck:? Supple, CVL in place Respiratory:? Clear to auscultation bilaterally, no wheezing, adequate air entry Cardiac:? S1-S2 normal, regular rate and rhythm Abdomen:? Soft, hypoactive bowel sounds, + colostomy with brown stool Extremities: No edema noted Neuro:? Patient is awake, alert Skin: Abdominal surgical incision with dressing in place Psych:? Unable to assess at this time Objective Data Vital Signs Vital Signs: Vital Signs - 24 hr 04/07/25 15:45 04/07/25 16:00 04/07/25 16:00 Temperature Pulse Rate 104 H 109 H Respiratory Rate Blood Pressure Pulse Oximetry 100 Oxygen Delivery Mechanical Ventilation Mechanical Ventilation Oxygen Flow Rate Fraction of Inspired Oxygen 100 100 04/07/25 16:02 04/07/25 16:02 04/07/25 16:10 Temperature Pulse Rate 103 H 108 H Respiratory Rate 22 H 22 H Blood Pressure Pulse Oximetry Oxygen Delivery Oxygen Flow Rate Fraction of Inspired Oxygen 70 04/07/25 16:30 04/07/25 16:31 04/07/25 17:00 Temperature Pulse Rate 114 H 115 H 107 H Respiratory Rate 22 H 19 22 H Blood Pressure 147/98 H Pulse Oximetry 100 100 Oxygen Delivery Oxygen Flow Rate Fraction of Inspired Oxygen 04/07/25 17:00 04/07/25 17:15 04/07/25 17:18 Temperature Pulse Rate 107 H 111 H Respiratory Rate 22 H 22 H Blood Pressure Pulse Oximetry Oxygen Delivery Oxygen Flow Rate Fraction of Inspired Oxygen 50 04/07/25 17:36 04/07/25 17:38 04/07/25 18:00 Temperature Pulse Rate 118 H 119 H 117 H Respiratory Rate 22 H 22 H 22 H Blood Pressure 97/83 L Pulse Oximetry 98 98 Oxygen Delivery Oxygen Flow Rate Fraction of Inspired Oxygen 04/07/25 18:05 04/07/25 19:00 04/07/25 19:00 Temperature Pulse Rate 118 H 118 H Respiratory Rate 18 18 Blood Pressure Pulse Oximetry Oxygen Delivery Mechanical Ventilation Oxygen Flow Rate Fraction of Inspired Oxygen 50 04/07/25 19:00 04/07/25 20:00 04/07/25 20:00 Temperature 100.0 F H Pulse Rate 119 H 116 H 117 H Respiratory Rate 18 18 Blood Pressure 104/78 95/79 L Pulse Oximetry 99 98 Oxygen Delivery Oxygen Flow Rate Fraction of Inspired Oxygen 04/07/25 20:00 04/07/25 20:00 04/07/25 20:00 Temperature Pulse Rate 115 H 115 H Respiratory Rate 18 18 Blood Pressure Pulse Oximetry Oxygen Delivery Oxygen Flow Rate Fraction of Inspired Oxygen 40 04/07/25 20:00 04/07/25 20:36 04/07/25 21:00 Temperature Pulse Rate 115 H 114 H Respiratory Rate 18 Blood Pressure 113/82 Pulse Oximetry 99 97 Oxygen Delivery Mechanical Ventilation Mechanical Ventilation Oxygen Flow Rate Fraction of Inspired Oxygen 40 40 04/07/25 22:00 04/07/25 22:00 04/07/25 22:00 Temperature 99.4 F Pulse Rate 115 H 115 H 115 H Respiratory Rate 18 18 18 Blood Pressure 96/69 L Pulse Oximetry 98 Oxygen Delivery Oxygen Flow Rate Fraction of Inspired Oxygen 04/07/25 22:00 04/07/25 23:00 04/07/25 23:04 Temperature Pulse Rate 110 H 114 H 113 H Respiratory Rate 18 Blood Pressure 91/71 L Pulse Oximetry 98 98 Oxygen Delivery Mechanical Ventilation Oxygen Flow Rate Fraction of Inspired Oxygen 35 04/08/25 00:00 04/08/25 00:00 04/08/25 00:00 Temperature 100.6 F H Pulse Rate 113 H 113 H 113 H Respiratory Rate 18 18 18 Blood Pressure 89/72 L Pulse Oximetry 97 Oxygen Delivery Oxygen Flow Rate Fraction of Inspired Oxygen 04/08/25 00:00 04/08/25 00:00 04/08/25 00:00 Temperature Pulse Rate 113 H Respiratory Rate Blood Pressure Pulse Oximetry Oxygen Delivery Mechanical Ventilation Oxygen Flow Rate Fraction of Inspired Oxygen 35 35 04/08/25 01:00 04/08/25 02:00 04/08/25 02:00 Temperature 100.3 F H Pulse Rate 112 H 109 H 109 H Respiratory Rate 18 18 18 Blood Pressure 89/66 L Pulse Oximetry 97 Oxygen Delivery Oxygen Flow Rate Fraction of Inspired Oxygen 04/08/25 02:00 04/08/25 02:02 04/08/25 02:44 Temperature 100.2 F H Pulse Rate 109 H 109 H 107 H Respiratory Rate 18 Blood Pressure 77/61 L Pulse Oximetry 97 97 Oxygen Delivery Mechanical Ventilation Oxygen Flow Rate Fraction of Inspired Oxygen 35 04/08/25 03:05 04/08/25 03:06 04/08/25 03:32 Temperature 99.1 F Pulse Rate 106 H 102 H Respiratory Rate 19 18 Blood Pressure 89/68 L Pulse Oximetry 100 Oxygen Delivery Mechanical Ventilation Oxygen Flow Rate Fraction of Inspired Oxygen 35 04/08/25 04:00 04/08/25 04:00 04/08/25 04:00 Temperature 99.1 F Pulse Rate 102 H 105 H Respiratory Rate 18 18 Blood Pressure 95/68 L Pulse Oximetry 97 Oxygen Delivery Oxygen Flow Rate Fraction of Inspired Oxygen 35 04/08/25 04:00 04/08/25 04:00 04/08/25 04:13 Temperature Pulse Rate 105 H 102 H 105 H Respiratory Rate 18 18 Blood Pressure Pulse Oximetry Oxygen Delivery Oxygen Flow Rate Fraction of Inspired Oxygen 04/08/25 05:22 04/08/25 05:44 04/08/25 06:00 Temperature 98.0 F Pulse Rate 101 H 106 H 98 Respiratory Rate 18 18 Blood Pressure 87/67 L 88/64 L Pulse Oximetry 95 97 97 Oxygen Delivery Mechanical Ventilation Oxygen Flow Rate Fraction of Inspired Oxygen 35 04/08/25 06:00 04/08/25 06:00 04/08/25 06:00 Temperature Pulse Rate 98 99 98 Respiratory Rate 18 18 Blood Pressure Pulse Oximetry Oxygen Delivery Oxygen Flow Rate Fraction of Inspired Oxygen 04/08/25 07:00 04/08/25 08:00 04/08/25 08:00 Temperature Pulse Rate 95 99 99 Respiratory Rate 18 14 14 Blood Pressure 88/68 L Pulse Oximetry 96 Oxygen Delivery Oxygen Flow Rate Fraction of Inspired Oxygen 04/08/25 08:00 04/08/25 08:00 04/08/25 08:00 Temperature Pulse Rate 97 Respiratory Rate Blood Pressure Pulse Oximetry Oxygen Delivery Mechanical Ventilation Oxygen Flow Rate Fraction of Inspired Oxygen 35 35 04/08/25 08:00 04/08/25 08:27 04/08/25 08:45 Temperature 97.7 F Pulse Rate 99 100 101 H Respiratory Rate 14 19 16 Blood Pressure 100/68 Pulse Oximetry 97 Oxygen Delivery Oxygen Flow Rate Fraction of Inspired Oxygen 04/08/25 08:51 04/08/25 08:53 04/08/25 09:00 Temperature Pulse Rate 104 H 104 H 104 H Respiratory Rate 14 12 Blood Pressure 113/78 Pulse Oximetry 93 95 Oxygen Delivery Mechanical Ventilation Oxygen Flow Rate Fraction of Inspired Oxygen 35 04/08/25 10:00 04/08/25 10:00 04/08/25 10:00 Temperature Pulse Rate 99 99 99 Respiratory Rate 12 12 Blood Pressure Pulse Oximetry Oxygen Delivery Oxygen Flow Rate Fraction of Inspired Oxygen 04/08/25 10:00 04/08/25 11:00 04/08/25 11:12 Temperature 97.9 F Pulse Rate 99 103 H 101 H Respiratory Rate 12 15 Blood Pressure 115/71 125/76 Pulse Oximetry 100 100 100 Oxygen Delivery Nasal Cannula Oxygen Flow Rate 2 Fraction of Inspired Oxygen 04/08/25 12:00 04/08/25 12:00 04/08/25 12:00 Temperature 97.7 F Pulse Rate 103 H 103 H Respiratory Rate 17 Blood Pressure 115/72 Pulse Oximetry 98 98 Oxygen Delivery Nasal Cannula Oxygen Flow Rate 2 Fraction of Inspired Oxygen 04/08/25 13:00 04/08/25 14:00 04/08/25 14:00 Temperature 97.9 F Pulse Rate 97 95 95 Respiratory Rate 12 10 L Blood Pressure 120/75 102/62 Pulse Oximetry 100 99 Oxygen Delivery Oxygen Flow Rate Fraction of Inspired Oxygen Intake/Output Intake/Output: Intake & Output 12/04/25 04/06/25 04/07/25 04/08/25 23:59 23:59 23:59 23:59 Intake Total 2049 611.3 3001.7 Output Total 652 540 Balance 2049 -40.7 2461.7 Meds/Results Medications: Active Medications Generic Name Dose Route Start Last Admin Trade Name Freq PRN Reason Stop Dose Admin Enoxaparin Sodium 40 mg 04/07/25 09:00 04/08/25 09:08 Enoxaparin 40 Mg/0.4 Ml Syringe SUB-Q 40 mg DAILY MARILUZ Administration Famotidine 20 mg 04/07/25 09:00 04/08/25 09:08 Famotidine 20 Mg/2 Ml Vial IV PUSH 20 mg Q12HR MARILUZ Administration Lactated Ringer's 1,000 mls @ 125 mls/hr 04/06/25 12:40 04/08/25 11:38 Lr - Lactated Ringers Iv IV CONT Not Given .Q8H MARILUZ Ibuprofen 800 mg in 200 mls @ 400 mls/hr 04/06/25 16:21 04/08/25 13:19 Caldolor 800 Mg/200 Ml IVPB Infused Q6H PRN Infusion Breakthrough Pain Rated 1-3 or NPO Cefepime HCl 2 gm/ Sodium 50 mls @ 100 mls/hr 04/06/25 18:00 04/08/25 09:49 Chloride IVPB Infused Q8H MARILUZ Infusion Metronidazole 500 mg in 100 mls @ 100 mls/hr 04/06/25 18:00 04/08/25 11:39 Flagyl 500 Mg/Iso Soln 100 Ml IVPB Infused Q8H MARILUZ Infusion Micafungin Sodium 100 mg/ 100 mls @ 100 mls/hr 04/07/25 15:55 04/08/25 11:39 Sodium Chloride IVPB Infused DAILY MARILUZ Infusion Norepinephrine Bitartrate 8 mg in 250 mls @ 9.375 mls/hr 04/08/25 07:55 04/08/25 09:49 Levophed 8 Mg/D5w 250 Ml IV CONT Not Given On Hold: 04/08/25 14:21 .Q24H MARILUZ Protocol 5 MCG/MIN Ipratropium [place] 0.5 mg 04/08/25 08:05 04/08/25 08:24 Ipratropium Br 0.02% Inh Soln 0.5 Mg/2.5 Ml Vial INHALATION 0.5 mg Q6HRT MARILUZ Administration Levalbuterol HCl 0.63 mg 04/08/25 08:05 04/08/25 08:24 Levalbuterol Neb 1.25 Mg/3 Ml INHALATION 0.63 mg Q6HRT MARILUZ Administration Morphine Sulfate 2 mg 04/06/25 16:21 04/08/25 11:11 Morphine Sulfate (*Crx) 4 Mg/Ml Inj IV PUSH 2 mg Q2H PRN Administration Breakthrough Pain Rated 4-6 or NPO Morphine Sulfate 4 mg 04/06/25 16:21 04/08/25 13:18 Morphine Sulfate (*Crx) 4 Mg/Ml Inj IV PUSH 4 mg Q2H PRN Administration Breakthrough Pain Rated 7-10 or NPO Naloxone HCl 0.1 mg 04/06/25 16:21 Naloxone Hcl 0.4 Mg/Ml Vial IV PUSH Q2M PRN Opiate Reversal Ondansetron HCl 4 mg 04/06/25 12:35 Ondansetron Inj 4 Mg/2 Ml Vial IV PUSH Q4H PRN Nausea Perflutren Lipid Microsphere 0 ml 04/08/25 07:59 Perflutren Lipid Microspheres 1.5 Ml Vial Diluted To 10 Ml Total Volume IV PUSH 04/11/25 07:59 ONCE PRN adequate visualization Protocol Sodium Chloride 10 ml 04/08/25 14:00 04/08/25 12:33 Central Line Flush IV PUSH 10 ml Q8HR MARILUZ Administration Sodium Chloride 20 ml 04/08/25 07:58 Central Line Flush IV PUSH PRN PRN after blood draws Radiology Results: ITS Impressions Abdomen/Pelvis CT 04/06/25 11:34 IMPRESSION: 1. Focal annular wall thickening proximal sigmoid colon. Worrisome for malignancy. Additional small mural polypoid foci along distal colonic loops. Recommend GI consultation. 2. Distal esophageal wall thickening favoring esophagitis. 3. Small ascites of unclear etiology. 4. Large stool volume suggesting constipation. Abdomen X-Ray 04/07/25 16:03 Impression: 1. No acute abnormality. Renal Ultrasound 04/08/25 11:32 IMPRESSION: 1. Normal kidneys. No hydronephrosis. Labs Labs: Laboratory Results - last 24 hr 04/07/25 04/07/25 04/07/25 17:03 17:05 23:11 WBC 10.5 H RBC 4.13 L Hgb 12.8 L Hct 38.7 L MCV 93.7 MCH 31.0 MCHC 33.1 RDW 13.4 Plt Count 266 MPV 9.7 Immature Gran % (Auto) Neut % (Auto) Lymph % (Auto) Dickson % (Auto) Eos % (Auto) Baso % (Auto) Lymph # (Auto) Dickson # (Auto) Eos # (Auto) Baso # (Auto) Abs Immat Gran (auto) Absolute Neuts (auto) Absolute Nucleated RBC Nucleated RBC % PT 15.3 H INR 1.2 APTT 24.7 Puncture Site Left radial ABG pH 7.460 H ABG pCO2 39.6 ABG pO2 310.6 H ABG PO2/FiO2 Ratio 4.44 ABG HCO3 27.5 H ABG O2 Saturation 99.7 ABG O2 Content 19.9 ABG Base Excess 3.5 A-a Gradient 145.9 Oxyhemoglobin 98.7 Carboxyhemoglobin 0.8 Methemoglobin 0.2 Reduced Hemoglobin 0.3 Total Hemoglobin 13.8 O2 Delivery Device Ventilator O2 Liters/Min 0.0 Minute Volume Not Reportable Vent Rate 22 Vent Mode Cmv FiO2 70 Tidal Volume 500 PEEP 5 Peak Inspir Pressure Not Reportable Pressure Support Not Reportable Sodium 137 Potassium 4.9 Chloride 101 Carbon Dioxide 31 H Anion Gap 5 BUN 24 H Creatinine 0.98 Estim Creat Clear Calc 74 Estimated GFR > 60 Glucose 135 H POC Capillary Glucose 144 H Lactic Acid 2.0 Calcium 8.1 L Phosphorus 3.8 Magnesium 1.8 Total Bilirubin 1.1 AST 25 ALT 21 Alkaline Phosphatase 67 Total Creatine Kinase Total Protein 5.7 L Albumin 3.1 L Urine Eosinophils Ur Random Sodium Ur Random Potassium Urine Creatinine Nasal MRSA (PCR) Not detected 04/08/25 04/08/25 04/08/25 04:17 05:00 10:45 WBC 11.1 H RBC 3.49 L Hgb 10.8 L Hct 33.0 L MCV 94.6 MCH 30.9 MCHC 32.7 RDW 13.3 Plt Count 219 MPV 9.5 Immature Gran % (Auto) 0.2 Neut % (Auto) 79.1 H Lymph % (Auto) 9.2 L Dickson % (Auto) 11.1 H Eos % (Auto) 0.0 Baso % (Auto) 0.4 Lymph # (Auto) 1.02 Dickson # (Auto) 1.2 H Eos # (Auto) 0.0 Baso # (Auto) 0.0 Abs Immat Gran (auto) 0.02 Absolute Neuts (auto) 8.8 H Absolute Nucleated RBC 0.000 Nucleated RBC % 0.0 PT INR APTT Puncture Site Right radial Left brachial ABG pH 7.469 H 7.398 ABG pCO2 37.8 46.0 H ABG pO2 81.5 81.8 ABG PO2/FiO2 Ratio 2.33 2.34 ABG HCO3 26.8 H 27.7 H ABG O2 Saturation 96.6 96.0 ABG O2 Content 15.9 L 14.8 L ABG Base Excess 3.1 2.4 A-a Gradient 124.1 114.3 Oxyhemoglobin 95.5 94.8 Carboxyhemoglobin 0.8 Methemoglobin 0.3 Reduced Hemoglobin 3.4 Total Hemoglobin 11.8 L 11.0 L O2 Delivery Device Ventilator Ventilator O2 Liters/Min Not Reportable Not Reportable Minute Volume Not Reportable Not Reportable Vent Rate 18 Not Reportable Vent Mode Cmv Spontaneous FiO2 35 35 Tidal Volume 500 Not Reportable PEEP 5 5 Peak Inspir Pressure Not Reportable Not Reportable Pressure Support Not Reportable 8 Sodium 136 L Potassium 4.7 Chloride 103 Carbon Dioxide 31 H Anion Gap 2 L BUN 33 H Creatinine 1.72 H Estim Creat Clear Calc 44 Estimated GFR 41 L Glucose 132 H POC Capillary Glucose Lactic Acid Calcium 7.7 L Phosphorus Magnesium Total Bilirubin 1.3 AST 23 ALT 21 Alkaline Phosphatase 55 Total Creatine Kinase Total Protein 5.2 L Albumin 2.7 L Urine Eosinophils Ur Random Sodium Ur Random Potassium Urine Creatinine Nasal MRSA (PCR) 04/08/25 04/08/25 12:32 12:34 WBC RBC Hgb Hct MCV MCH MCHC RDW Plt Count MPV Immature Gran % (Auto) Neut % (Auto) Lymph % (Auto) Dickson % (Auto) Eos % (Auto) Baso % (Auto) Lymph # (Auto) Dickson # (Auto) Eos # (Auto) Baso # (Auto) Abs Immat Gran (auto) Absolute Neuts (auto) Absolute Nucleated RBC Nucleated RBC % PT INR APTT Puncture Site ABG pH ABG pCO2 ABG pO2 ABG PO2/FiO2 Ratio ABG HCO3 ABG O2 Saturation ABG O2 Content ABG Base Excess A-a Gradient Oxyhemoglobin Carboxyhemoglobin Methemoglobin Reduced Hemoglobin Total Hemoglobin O2 Delivery Device O2 Liters/Min Minute Volume Vent Rate Vent Mode FiO2 Tidal Volume PEEP Peak Inspir Pressure Pressure Support Sodium Potassium Chloride Carbon Dioxide Anion Gap BUN Creatinine Estim Creat Clear Calc Estimated GFR Glucose POC Capillary Glucose 145 H Lactic Acid Calcium Phosphorus Magnesium Total Bilirubin AST ALT Alkaline Phosphatase Total Creatine Kinase 302 H Total Protein Albumin Urine Eosinophils None seen Ur Random Sodium 47 Ur Random Potassium 74.9 Urine Creatinine 274.1 Nasal MRSA (PCR)
--- NOTE | 2025-04-08 15:33 | PCRCNOTE ---
Window of time for administration has passed. See next scheduled administration.
--- NOTE | 2025-04-08 15:58 | P.PNGS_ITS ---
Progress Note: A&P Assessment and Plan (1) Colon perforation: Code(s): K63.1 - Perforation of intestine (nontraumatic) Status: Acute Assessment and Plan: cecal perforation due to colonic distension, source control yesterday with ascending colon resection, ileostomy and mucous fistula (2) Sepsis associated hypotension: Code(s): A41.9 - Sepsis, unspecified organism; I95.9 - Hypotension, unspecified Status: Acute Assessment and Plan: fecal contamination, peritonitis, cause of sepsis--improving; respiratory and renal injury. Discussed with Quality Assurance Monitor, Dr. Madsen. (3) Colonic obstruction: Code(s): K56.609 - Unspecified intestinal obstruction, unspecified as to partial versus complete obstruction Status: Acute Assessment and Plan: relieved with ileostomy and mucous fistula (4) Acute kidney injury: Code(s): N17.9 - Acute kidney failure, unspecified Status: Acute Assessment and Plan: not appear to be severe, Cr , monitor (5) Respiratory failure: Code(s): J96.90 - Respiratory failure, unspecified, unspecified whether with hypoxia or hypercapnia Status: Acute Assessment and Plan: improved--patient extubated and comfortable on nasal cannula O2. Subjective Subjective Date/Time Seen: 04/08/25 15:58 Post Op day: 1 Patient reports: feels better, still having pain, bowel movement and afebrile Interval history: extubated and comfortable on nasal cannula O2 Exam Const: General: comfortable, alert and awake GI: Inspection: distended and incision (healing, ileostomy pink with output; stool per mucous fistula as planned) GI Palp: Yes Firmness to palpation present (GI) and Yes Tenderness to palpation present (GI) Auscultation: absent bowel sounds Objective Data Vital Signs Vital Signs: Vital Signs - 24 hr 04/07/25 16:00 04/07/25 16:00 04/07/25 16:02 Temperature Pulse Rate 109 H 103 H Respiratory Rate 22 H Blood Pressure Pulse Oximetry Oxygen Delivery Mechanical Ventilation Oxygen Flow Rate Fraction of Inspired Oxygen 100 04/07/25 16:02 04/07/25 16:10 04/07/25 16:30 Temperature Pulse Rate 108 H 114 H Respiratory Rate 22 H 22 H Blood Pressure 147/98 H Pulse Oximetry 100 Oxygen Delivery Oxygen Flow Rate Fraction of Inspired Oxygen 70 04/07/25 16:31 04/07/25 17:00 04/07/25 17:00 Temperature Pulse Rate 115 H 107 H 107 H Respiratory Rate 19 22 H 22 H Blood Pressure Pulse Oximetry 100 Oxygen Delivery Oxygen Flow Rate Fraction of Inspired Oxygen 04/07/25 17:15 04/07/25 17:18 04/07/25 17:36 Temperature Pulse Rate 111 H 118 H Respiratory Rate 22 H 22 H Blood Pressure Pulse Oximetry Oxygen Delivery Oxygen Flow Rate Fraction of Inspired Oxygen 50 04/07/25 17:38 04/07/25 18:00 04/07/25 18:05 Temperature Pulse Rate 119 H 117 H Respiratory Rate 22 H 22 H Blood Pressure 97/83 L Pulse Oximetry 98 98 Oxygen Delivery Mechanical Ventilation Oxygen Flow Rate Fraction of Inspired Oxygen 50 04/07/25 19:00 04/07/25 19:00 04/07/25 19:00 Temperature Pulse Rate 118 H 118 H 119 H Respiratory Rate 18 18 18 Blood Pressure 104/78 Pulse Oximetry 99 Oxygen Delivery Oxygen Flow Rate Fraction of Inspired Oxygen 04/07/25 20:00 04/07/25 20:00 04/07/25 20:00 Temperature 37.8 C H Pulse Rate 116 H 117 H 115 H Respiratory Rate 18 18 Blood Pressure 95/79 L Pulse Oximetry 98 Oxygen Delivery Oxygen Flow Rate Fraction of Inspired Oxygen 04/07/25 20:00 04/07/25 20:00 04/07/25 20:00 Temperature Pulse Rate 115 H Respiratory Rate 18 Blood Pressure Pulse Oximetry Oxygen Delivery Mechanical Ventilation Oxygen Flow Rate Fraction of Inspired Oxygen 40 40 04/07/25 20:36 04/07/25 21:00 04/07/25 22:00 Temperature 37.4 C Pulse Rate 115 H 114 H 115 H Respiratory Rate 18 18 Blood Pressure 113/82 96/69 L Pulse Oximetry 99 97 98 Oxygen Delivery Mechanical Ventilation Oxygen Flow Rate Fraction of Inspired Oxygen 40 04/07/25 22:00 04/07/25 22:00 04/07/25 22:00 Temperature Pulse Rate 115 H 115 H 110 H Respiratory Rate 18 18 Blood Pressure Pulse Oximetry Oxygen Delivery Oxygen Flow Rate Fraction of Inspired Oxygen 04/07/25 23:00 04/07/25 23:04 04/08/25 00:00 Temperature 38.1 C H Pulse Rate 114 H 113 H 113 H Respiratory Rate 18 18 Blood Pressure 91/71 L 89/72 L Pulse Oximetry 98 98 97 Oxygen Delivery Mechanical Ventilation Oxygen Flow Rate Fraction of Inspired Oxygen 35 04/08/25 00:00 04/08/25 00:00 04/08/25 00:00 Temperature Pulse Rate 113 H 113 H Respiratory Rate 18 18 Blood Pressure Pulse Oximetry Oxygen Delivery Oxygen Flow Rate Fraction of Inspired Oxygen 35 04/08/25 00:00 04/08/25 00:00 04/08/25 01:00 Temperature 37.9 C H Pulse Rate 113 H 112 H Respiratory Rate 18 Blood Pressure 89/66 L Pulse Oximetry 97 Oxygen Delivery Mechanical Ventilation Oxygen Flow Rate Fraction of Inspired Oxygen 35 04/08/25 02:00 04/08/25 02:00 04/08/25 02:00 Temperature Pulse Rate 109 H 109 H 109 H Respiratory Rate 18 18 Blood Pressure Pulse Oximetry Oxygen Delivery Oxygen Flow Rate Fraction of Inspired Oxygen 04/08/25 02:02 04/08/25 02:44 04/08/25 03:05 Temperature 37.9 C H 37.3 C Pulse Rate 109 H 107 H 106 H Respiratory Rate 18 19 Blood Pressure 77/61 L 89/68 L Pulse Oximetry 97 97 100 Oxygen Delivery Mechanical Ventilation Oxygen Flow Rate Fraction of Inspired Oxygen 35 04/08/25 03:06 04/08/25 03:32 04/08/25 04:00 Temperature 37.3 C Pulse Rate 102 H 102 H Respiratory Rate 18 18 Blood Pressure 95/68 L Pulse Oximetry 97 Oxygen Delivery Mechanical Ventilation Oxygen Flow Rate Fraction of Inspired Oxygen 35 04/08/25 04:00 04/08/25 04:00 04/08/25 04:00 Temperature Pulse Rate 105 H 105 H Respiratory Rate 18 18 Blood Pressure Pulse Oximetry Oxygen Delivery Oxygen Flow Rate Fraction of Inspired Oxygen 35 04/08/25 04:00 04/08/25 04:13 04/08/25 05:22 Temperature Pulse Rate 102 H 105 H 101 H Respiratory Rate 18 18 Blood Pressure 87/67 L Pulse Oximetry 95 Oxygen Delivery Oxygen Flow Rate Fraction of Inspired Oxygen 04/08/25 05:44 04/08/25 06:00 04/08/25 06:00 Temperature 36.7 C Pulse Rate 106 H 98 98 Respiratory Rate 18 Blood Pressure 88/64 L Pulse Oximetry 97 97 Oxygen Delivery Mechanical Ventilation Oxygen Flow Rate Fraction of Inspired Oxygen 35 04/08/25 06:00 04/08/25 06:00 04/08/25 07:00 Temperature Pulse Rate 99 98 95 Respiratory Rate 18 18 18 Blood Pressure 88/68 L Pulse Oximetry 96 Oxygen Delivery Oxygen Flow Rate Fraction of Inspired Oxygen 04/08/25 08:00 04/08/25 08:00 04/08/25 08:00 Temperature Pulse Rate 99 99 Respiratory Rate 14 14 Blood Pressure Pulse Oximetry Oxygen Delivery Oxygen Flow Rate Fraction of Inspired Oxygen 35 04/08/25 08:00 04/08/25 08:00 04/08/25 08:00 Temperature 36.5 C Pulse Rate 97 99 Respiratory Rate 14 Blood Pressure 100/68 Pulse Oximetry 97 Oxygen Delivery Mechanical Ventilation Oxygen Flow Rate Fraction of Inspired Oxygen 35 04/08/25 08:27 04/08/25 08:45 04/08/25 08:51 Temperature Pulse Rate 100 101 H 104 H Respiratory Rate 19 16 Blood Pressure Pulse Oximetry 93 Oxygen Delivery Mechanical Ventilation Oxygen Flow Rate Fraction of Inspired Oxygen 35 04/08/25 08:53 04/08/25 09:00 04/08/25 10:00 Temperature Pulse Rate 104 H 104 H 99 Respiratory Rate 14 12 12 Blood Pressure 113/78 Pulse Oximetry 95 Oxygen Delivery Oxygen Flow Rate Fraction of Inspired Oxygen 04/08/25 10:00 04/08/25 10:00 04/08/25 10:00 Temperature 36.6 C Pulse Rate 99 99 99 Respiratory Rate 12 12 Blood Pressure 115/71 Pulse Oximetry 100 Oxygen Delivery Oxygen Flow Rate Fraction of Inspired Oxygen 04/08/25 11:00 04/08/25 11:12 04/08/25 12:00 Temperature Pulse Rate 103 H 101 H Respiratory Rate 15 Blood Pressure 125/76 Pulse Oximetry 100 100 98 Oxygen Delivery Nasal Cannula Nasal Cannula Oxygen Flow Rate 2 2 Fraction of Inspired Oxygen 04/08/25 12:00 04/08/25 12:00 04/08/25 13:00 Temperature 36.5 C Pulse Rate 103 H 103 H 97 Respiratory Rate 17 12 Blood Pressure 115/72 120/75 Pulse Oximetry 98 100 Oxygen Delivery Oxygen Flow Rate Fraction of Inspired Oxygen 04/08/25 14:00 04/08/25 14:00 04/08/25 15:00 Temperature 36.6 C Pulse Rate 95 95 94 Respiratory Rate 10 L 10 L Blood Pressure 102/62 105/74 Pulse Oximetry 99 99 Oxygen Delivery Oxygen Flow Rate Fraction of Inspired Oxygen Intake/Output Intake/Output: Intake & Output 04/05/25 04/06/25 04/07/25 04/08/25 23:59 23:59 23:59 23:59 Intake Total 2049 611.3 3001.7 Output Total 652 540 Balance 2049 -40.7 2461.7 Meds/Results Medications: Active Medications Generic Name Dose Route Start Last Admin Trade Name Freq PRN Reason Stop Dose Admin Enoxaparin Sodium 40 mg 04/07/25 09:00 04/08/25 09:08 Enoxaparin 40 Mg/0.4 Ml Syringe SUB-Q 40 mg DAILY MARILUZ Administration Famotidine 20 mg 04/07/25 09:00 04/08/25 09:08 Famotidine 20 Mg/2 Ml Vial IV PUSH 20 mg Q12HR MARILUZ Administration Lactated Ringer's 1,000 mls @ 125 mls/hr 04/06/25 12:40 04/08/25 11:38 Lr - Lactated Ringers Iv IV CONT Not Given .Q8H MARILUZ Ibuprofen 800 mg in 200 mls @ 400 mls/hr 04/06/25 16:21 04/08/25 13:19 Caldolor 800 Mg/200 Ml IVPB Infused Q6H PRN Infusion Breakthrough Pain Rated 1-3 or NPO Cefepime HCl 2 gm/ Sodium 50 mls @ 100 mls/hr 04/06/25 18:00 04/08/25 09:49 Chloride IVPB Infused Q8H MARILUZ Infusion Metronidazole 500 mg in 100 mls @ 100 mls/hr 04/06/25 18:00 04/08/25 11:39 Flagyl 500 Mg/Iso Soln 100 Ml IVPB Infused Q8H MARILUZ Infusion Micafungin Sodium 100 mg/ 100 mls @ 100 mls/hr 04/07/25 15:55 04/08/25 11:39 Sodium Chloride IVPB Infused DAILY MARILUZ Infusion Norepinephrine Bitartrate 8 mg in 250 mls @ 9.375 mls/hr 04/08/25 07:55 04/08/25 09:49 Levophed 8 Mg/D5w 250 Ml IV CONT Not Given On Hold: 04/08/25 14:21 .Q24H MARILUZ Protocol 5 MCG/MIN Ipratropium [place] 0.5 mg 04/08/25 08:05 04/08/25 15:32 Ipratropium Br 0.02% Inh Soln 0.5 Mg/2.5 Ml Vial INHALATION Not Given Q6HRT MARILUZ Levalbuterol HCl 0.63 mg 04/08/25 08:05 04/08/25 15:32 Levalbuterol Neb 1.25 Mg/3 Ml INHALATION Not Given Q6HRT MARILUZ Morphine Sulfate 2 mg 04/06/25 16:21 04/08/25 11:11 Morphine Sulfate (*Crx) 4 Mg/Ml Inj IV PUSH 2 mg Q2H PRN Administration Breakthrough Pain Rated 4-6 or NPO Morphine Sulfate 4 mg 04/06/25 16:21 04/08/25 13:18 Morphine Sulfate (*Crx) 4 Mg/Ml Inj IV PUSH 4 mg Q2H PRN Administration Breakthrough Pain Rated 7-10 or NPO Naloxone HCl 0.1 mg 04/06/25 16:21 Naloxone Hcl 0.4 Mg/Ml Vial IV PUSH Q2M PRN Opiate Reversal Ondansetron HCl 4 mg 04/06/25 12:35 Ondansetron Inj 4 Mg/2 Ml Vial IV PUSH Q4H PRN Nausea Perflutren Lipid Microsphere 0 ml 04/08/25 07:59 Perflutren Lipid Microspheres 1.5 Ml Vial Diluted To 10 Ml Total Volume IV PUSH 04/11/25 07:59 ONCE PRN adequate visualization Protocol Sodium Chloride 10 ml 04/08/25 14:00 04/08/25 12:33 Central Line Flush IV PUSH 10 ml Q8HR MARILUZ Administration Sodium Chloride 20 ml 04/08/25 07:58 Central Line Flush IV PUSH PRN PRN after blood draws Radiology Results: ITS Impressions Abdomen/Pelvis CT 04/06/25 11:34 IMPRESSION: 1. Focal annular wall thickening proximal sigmoid colon. Worrisome for malignancy. Additional small mural polypoid foci along distal colonic loops. Recommend GI consultation. 2. Distal esophageal wall thickening favoring esophagitis. 3. Small ascites of unclear etiology. 4. Large stool volume suggesting constipation. Abdomen X-Ray 04/07/25 16:03 Impression: 1. No acute abnormality. Renal Ultrasound 04/08/25 11:32 IMPRESSION: 1. Normal kidneys. No hydronephrosis. Chest X-Ray 04/08/25 14:45 Impression: Support apparatus as above Labs Labs: Laboratory Results - last 24 hr 04/07/25 04/07/2525 17:03 17:05 23:11 WBC 10.5 H RBC 4.13 L Hgb 12.8 L Hct 38.7 L MCV 93.7 MCH 31.0 MCHC 33.1 RDW 13.4 Plt Count 266 MPV 9.7 Immature Gran % (Auto) Neut % (Auto) Lymph % (Auto) Osborne % (Auto) Eos % (Auto) Baso % (Auto) Lymph # (Auto) Osborne # (Auto) Eos # (Auto) Baso # (Auto) Abs Immat Gran (auto) Absolute Neuts (auto) Absolute Nucleated RBC Nucleated RBC % PT 15.3 H INR 1.2 APTT 24.7 Puncture Site Left radial ABG pH 7.460 H ABG pCO2 39.6 ABG pO2 310.6 H ABG PO2/FiO2 Ratio 4.44 ABG HCO3 27.5 H ABG O2 Saturation 99.7 ABG O2 Content 19.9 ABG Base Excess 3.5 A-a Gradient 145.9 Oxyhemoglobin 98.7 Carboxyhemoglobin 0.8 Methemoglobin 0.2 Reduced Hemoglobin 0.3 Total Hemoglobin 13.8 O2 Delivery Device Ventilator O2 Liters/Min 0.0 Minute Volume Not Reportable Vent Rate 22 Vent Mode Cmv FiO2 70 Tidal Volume 500 PEEP 5 Peak Inspir Pressure Not Reportable Pressure Support Not Reportable Sodium 137 Potassium 4.9 Chloride 101 Carbon Dioxide 31 H Anion Gap 5 BUN 24 H Creatinine 0.98 Estim Creat Clear Calc 74 Estimated GFR > 60 Glucose 135 H POC Capillary Glucose 144 H Lactic Acid 2.0 Calcium 8.1 L Phosphorus 3.8 Magnesium 1.8 Total Bilirubin 1.1 AST 25 ALT 21 Alkaline Phosphatase 67 Total Creatine Kinase Total Protein 5.7 L Albumin 3.1 L Urine Eosinophils Ur Random Sodium Ur Random Potassium Urine Creatinine Nasal MRSA (PCR) Not detected 04/08/25 04/08/25 04/08/25 04:17 05:00 10:45 WBC 11.1 H RBC 3.49 L Hgb 10.8 L Hct 33.0 L MCV 94.6 MCH 30.9 MCHC 32.7 RDW 13.3 Plt Count 219 MPV 9.5 Immature Gran % (Auto) 0.2 Neut % (Auto) 79.1 H Lymph % (Auto) 9.2 L Osborne % (Auto) 11.1 H Eos % (Auto) 0.0 Baso % (Auto) 0.4 Lymph # (Auto) 1.02 Osborne # (Auto) 1.2 H Eos # (Auto) 0.0 Baso # (Auto) 0.0 Abs Immat Gran (auto) 0.02 Absolute Neuts (auto) 8.8 H Absolute Nucleated RBC 0.000 Nucleated RBC % 0.0 PT INR APTT Puncture Site Right radial Left brachial ABG pH 7.469 H 7.398 ABG pCO2 37.8 46.0 H ABG pO2 81.5 81.8 ABG PO2/FiO2 Ratio 2.33 2.34 ABG HCO3 26.8 H 27.7 H ABG O2 Saturation 96.6 96.0 ABG O2 Content 15.9 L 14.8 L ABG Base Excess 3.1 2.4 A-a Gradient 124.1 114.3 Oxyhemoglobin 95.5 94.8 Carboxyhemoglobin 0.8 Methemoglobin 0.3 Reduced Hemoglobin 3.4 Total Hemoglobin 11.8 L 11.0 L O2 Delivery Device Ventilator Ventilator O2 Liters/Min Not Reportable Not Reportable Minute Volume Not Reportable Not Reportable Vent Rate 18 Not Reportable Vent Mode Cmv Spontaneous FiO2 35 35 Tidal Volume 500 Not Reportable PEEP 5 5 Peak Inspir Pressure Not Reportable Not Reportable Pressure Support Not Reportable 8 Sodium 136 L Potassium 4.7 Chloride 103 Carbon Dioxide 31 H Anion Gap 2 L BUN 33 H Creatinine 1.72 H Estim Creat Clear Calc 44 Estimated GFR 41 L Glucose 132 H POC Capillary Glucose Lactic Acid Calcium 7.7 L Phosphorus Magnesium Total Bilirubin 1.3 AST 23 ALT 21 Alkaline Phosphatase 55 Total Creatine Kinase Total Protein 5.2 L Albumin 2.7 L Urine Eosinophils Ur Random Sodium Ur Random Potassium Urine Creatinine Nasal MRSA (PCR) 04/08/25 04/08/25 12:32 12:34 WBC RBC Hgb Hct MCV MCH MCHC RDW Plt Count MPV Immature Gran % (Auto) Neut % (Auto) Lymph % (Auto) [place] % (Auto) Eos % (Auto) Baso % (Auto) Lymph # (Auto) [place] # (Auto) Eos # (Auto) Baso # (Auto) Abs Immat Gran (auto) Absolute Neuts (auto) Absolute Nucleated RBC Nucleated RBC % PT INR APTT Puncture Site ABG pH ABG pCO2 ABG pO2 ABG PO2/FiO2 Ratio ABG HCO3 ABG O2 Saturation ABG O2 Content ABG Base Excess A-a Gradient Oxyhemoglobin Carboxyhemoglobin Methemoglobin Reduced Hemoglobin Total Hemoglobin O2 Delivery Device O2 Liters/Min Minute Volume Vent Rate Vent Mode FiO2 Tidal Volume PEEP Peak Inspir Pressure Pressure Support Sodium Potassium Chloride Carbon Dioxide Anion Gap BUN Creatinine Estim Creat Clear Calc Estimated GFR Glucose POC Capillary Glucose 145 H Lactic Acid Calcium Phosphorus Magnesium Total Bilirubin AST ALT Alkaline Phosphatase Total Creatine Kinase 302 H Total Protein Albumin Urine Eosinophils None seen Ur Random Sodium 47 Ur Random Potassium 74.9 Urine Creatinine 274.1 Nasal MRSA (PCR) Creatinine up 1.72
--- NOTE | 2025-04-08 21:41 | PC.NURSE ---
This patient, Jeremy Clifford, was transferred to [facility] on 04/08/25 at 2130. Personal belongings sent with patient. Report given to August TONY. Appropriate documentation sent with patient.
--- NOTE | 2025-04-08 21:43 | PC.NURSE ---
This patient, Jeremy Clifford, was received from ICU 5 on 04/08/25 at 2143. Patient/family oriented to unit policies and routines
--- NOTE | 2025-04-08 23:46 | PCRCNOTE ---
Window of time for administration has passed. See next scheduled administration.
[2025-04-09] VITALS (17 sets, daily range): BP systolic 113–142; BP diastolic 66–88; PULSE 84–111; RESP 16–20; TEMP 36.1–36.9; O2SAT 90–100
--- NOTE | 2025-04-09 | ECHO_ITS ---
Patient Info Name: Jeremy Clifford Age: 59 years : 1965 Gender: Male Ht: 71 in Wt: 212 lbs BSA: 2.22 m2 HR: 90 bpm BP: 113 / 69 mmHg Technical Quality: Poor Exam Date: 04/09/2025 1:45 PM Patient Status: I Admit Date: 04/07/2025 Exam Type: CA echo dop color flow w con Complete two-dimensional, color flow and Doppler transthoracic echocardiogram is performed with contrast to opacify the left ventricle and to improve the deliniation of the left ventricle endocardial borders. Staff Referring Physician: Shakir Daley MD Sharepoint Engineer: Cecilia Brito Attending Provider: Ramsey Melton MD Contrast/Agitated Saline Contrast/Ag. Saline: Definity Amount: 2.00 ml Existing IV Access: Yes Reason for Poor Study: poor echocardiographic windows Summary 1. There is normal biventricular size and systolic function. 2. The visualized portions of the cardiac valves that were assessed in this study did not reveal any significant disease. Left Ventricle The left ventricle is normal in size and systolic function. The left ventricular ejection fraction is visually estimated to be 60-65%. Right Ventricle The right ventricle is normal in size and systolic function. Left Atria The left atrium is normal size. Right Atria Right atrium is normal size. Atrial Septum The atrial septum is not well visualized. Aortic Valve The aortic valve is not visualized. Echo Doppler gradients does not suggest significant stenosis. Pulmonic Valve The pulmonic valve is not well visualized. There is no color Doppler evidence of pulmonic valve regurgitation. Mitral Valve The mitral valve is normal. There is trace mitral regurgitation. Tricuspid Valve The tricuspid valve is grossly. There is trace tricuspid regurgitation. Pericardium/Pleural Pericardium is normal in appearance with no evidence for significant pericardial effusion. Inferior Vena Cava Inferior vena cava is not well visualized. Aorta The aortic root at the level of the sinus of Valsalva measures 3.7 cm in diameter. Left Ventricular Outflow Tract Name Value Normal LVOT 2D LVOT Diameter 2.1 cm LVOT Doppler LVOT Peak Velocity 117 cm/s LVOT Peak Gradient 6 mmHg LVOT Mean Gradient 3 mmHg LVOT VTI 20 cm LVOT VTI/AV VTI Ratio 0.9 LVOT Stroke Volume 65 ml LVOT CO 7.8 l/min LVOT CI 3.5 l/min/m2 Pulmonic Valve Name Value Normal PV Doppler PV Peak Velocity 101 cm/s PV Peak Gradient 4 mmHg Mitral Valve Name Value Normal MV Doppler MV Peak Gradient 6 mmHg MV Mean Gradient 4 mmHg MV Area (Cont Eq VTI) 3.8 cm2 MV Diastolic Function MV E Peak Velocity 101 cm/s MV A Peak Velocity 122 cm/s MV E/A 0.8 MV Decel Time (PW) 102 ms MV Annular TDI MV E/e' (Septal) 7.3 MV E/e' (Lateral) 7.7 MV E/e' (Average) 7.5 Tricuspid Valve Name Value Normal TV Regurgitation Doppler TR Peak Velocity 272 cm/s TR Peak Gradient 18 mmHg Estimated PAP/RSVP RA Pressure 10 mmHg <=5 PA Systolic Pressure 40 mmHg <36 RV Systolic Pressure 40 mmHg <36 Aortic Valve Name Value Normal AV Doppler AV Peak Velocity 135 cm/s AV Peak Gradient 7 mmHg AV Mean Gradient 4 mmHg AV VTI 21 cm AV Area (Cont Eq VTI) 3.1 cm2 >=3.0 AV Area (Cont Eq Hermann) 2.9 cm2 AV DI (Hermann) 0.87 AV Regurgitation 2D LVOT Area 3.4 cm2 Ventricles Name Value Normal LV Dimensions 2D/MM IVS Diastolic Thickness (2D) 1.0 cm 0.6-1.0 LVID Diastole (2D) 3.9 cm 4.2-5.8 LVIW Diastolic Thickness (2D) 1.0 cm 0.6-1.0 LVID Systole (2D) 2.2 cm 2.5-4.0 LVOT Diameter 2.1 cm LV Mass (2D Cubed) 114.05 g 88.00-224.00 LV Mass Index (2D Cubed) 51 g/m2 49-115 Relative Wall Thickness (2D) 0.50 <=0.42 LV Fractional Shortening/Ejection Fraction 2D/MM LV Fractional Shortening (2D) 43 % 25-43 LV EF (2D Teichholz) 75 % LV Diastolic Volume (4C MOD) 73 ml LV EF (4C MOD) 60 % LV Diastolic Volume (2C MOD) 59 ml LV EF (2C MOD) 64 % LV Diastolic Volume (BP MOD) 67 ml 62-150 LV Diastolic Volume Index (BP MOD) 30 ml/m2 34-74 LV Systolic Volume (BP MOD) 25 ml 21-61 LV Systolic Volume Index (BP MOD) 11 ml/m2 11-31 LV EF (BP MOD) 62 % 52-72 LV Diastolic Length (4C) 8.4 cm LV Systolic Length (4C) 6.8 cm LV Stroke Volume (4C MOD) 44 ml Atria Name Value Normal LA Dimensions LA Volume (4C A-L) 38 ml LA Volume (BP A-L) 38 ml RA Dimensions RA Systolic Major [place] Length (4C) 4.7 cm 2.1-2.7 RA Area (4C) 13.3 cm2 <=18.0 Report Signatures
[2025-04-09] MEDS: CEFEPIME 2 GM in SODIUM CHLORIDE 0.9% IV 50 ML 100 ML IVPB ×3 (01:25→18:09)
[2025-04-09] MEDS: metroNIDAZOLE 500 MG/ISO 100ML 500 MG/100 ML BAG 100 MG IVPB ×3 (02:11→17:09)
[2025-04-09] MEDS: LACTATED RINGERS 1,000 ML 125 ML IV CONT (02:14)
[2025-04-09 06:12] LABS: Hematocrit 28.6 % (42.0-52.0); Hemoglobin 9.1 g/dL (14.0-18.0); Immature Granulocyte Percent A 0.2 % (0-0.5); Lymphocytes Absolute Auto 1.00 K/mm3 (0.9-3.2); Mean Corpuscular HGB Conc 31.8 g/dl (32-36); Mean Corpuscular Hemoglobin 31.0 pg (26-34); Mean Corpuscular Volume 97.3 fl (80-100); Nucleated Red Blood Cells Absolute Auto 0.000 K/mm3 (0.0-0.012); Nucleated Red Blood Cells Perc 0.0 % (0.0-0.2); Platelet Count Result 213 k/mm3 (150-375); Red Blood Count 2.94 M/mm3 (4.6-6.20); White Blood Count 9.9 K/mm3 (4.5-10.0)
[2025-04-09 07:14] LABS: Alanine Aminotransferase 20 U/L (6-50); Albumin Level 2.6 g/dL (3.5-5.1); Alkaline Phosphatase 58 U/L (38-126); Anion Gap 2 mmol/L (4-12); Aspartate Amino Transferase 28 U/L (17-59); Bilirubin,Total 0.6 mg/dL (0.2-1.3); Blood Urea Nitrogen 29 mg/dL (9-20); Calcium 7.6 mg/dL (8.4-10.2); Carbon Dioxide 31 mmol/L (22-30); Chloride 105 mmol/L (98-107); Estimated CRCL calculation 64 ml/min; Estimated Glomerular Filt Rate > 60; Glucose 78 mg/dL (65-110); Magnesium 2.1 mg/dL (1.6-2.3); Potassium 3.8 mmol/L (3.4-5.0); Sodium 138 mmol/L (137-145); Total Protein 5.2 g/dL (6.3-8.2)
[2025-04-09] MEDS: IPRATROPIUM BR 0.02% INH SOLN 0.5 MG/2.5 ML VIAL INHALATION ×3 (08:32→21:47)
[2025-04-09] MEDS: ENOXAPARIN 40 MG/0.4 ML SYRINGE SUB-Q (09:02)
[2025-04-09] MEDS: MICAFUNGIN SODIUM 100 MG in SODIUM CHLORIDE 0.9% IV 100 ML IVPB (09:02)
--- NOTE | 2025-04-09 12:11 | PM.PNGS ---
Progress Note: A&P Assessment and Plan (1) Colon perforation: Code(s): K63.1 - Perforation of intestine (nontraumatic) Status: Acute Assessment and Plan: cecal perforation due to colonic distension, source control 04/07 with ascending colon resection, ileostomy and mucous fistula. Will d/c NG tube and start clear liquids. D/C bowers and increase ambulation. Start daily dressing changes. Consult HH and ET nurses for new ileostomy. (2) Sepsis associated hypotension: Code(s): A41.9 - Sepsis, unspecified organism; I95.9 - Hypotension, unspecified Status: Acute Assessment and Plan: fecal contamination, peritonitis, cause of sepsis--resolving. Still on nasal cannula oxygen (3) Colonic obstruction: Code(s): K56.609 - Unspecified intestinal obstruction, unspecified as to partial versus complete obstruction Status: Acute Assessment and Plan: relieved with ileostomy and mucous fistula (4) Acute kidney injury: Code(s): N17.9 - Acute kidney failure, unspecified Status: Acute Assessment and Plan: improving, nearly resolved (5) Respiratory failure: Code(s): J96.90 - Respiratory failure, unspecified, unspecified whether with hypoxia or hypercapnia Status: Acute Assessment and Plan: comfortable, still on nasal cannula O2 Subjective Subjective Date/Time Seen: 04/09/25 12:11 Post Op day: 2 Patient reports: no new complaints, feels better, pain is less, bowel movement (Positive ileostomy output, also stool emanating from mucous fistula as planned) and afebrile Exam Const: General: cooperative, comfortable and awake Nutritional Appearance: well nourished Orientation/consciousness: No confusion GI: Inspection: distended, incision (Dry and healing well) and other (Ileostomy pink and healthy, good output) GI Palp: Yes Firmness to palpation present (GI) and Yes Tenderness to palpation present (GI) Auscultation: Hypoactive bowel sounds present Objective Data Vital Signs Vital Signs: Vital Signs - 24 hr 04/08/25 13:00 04/08/25 14:00 04/08/25 14:00 Temperature 36.6 C Pulse Rate 97 95 95 Respiratory Rate 12 10 L Blood Pressure 120/75 102/62 Pulse Oximetry 100 99 Oxygen Delivery Oxygen Flow Rate 04/08/25 15:00 04/08/25 16:00 04/08/25 16:00 Temperature Pulse Rate 94 95 Respiratory Rate 10 L Blood Pressure 105/74 Pulse Oximetry 99 100 Oxygen Delivery Nasal Cannula Oxygen Flow Rate 2 04/08/25 16:00 04/08/25 17:00 04/08/25 18:00 Temperature 36.5 C 37.0 C Pulse Rate 95 92 88 Respiratory Rate 17 10 L 12 Blood Pressure 104/75 113/68 107/73 Pulse Oximetry 100 100 100 Oxygen Delivery Oxygen Flow Rate 04/08/25 18:00 04/08/25 19:00 04/08/25 20:00 Temperature 36.5 C Pulse Rate 92 94 90 Respiratory Rate 18 17 Blood Pressure 100/76 115/81 Pulse Oximetry 100 100 Oxygen Delivery Oxygen Flow Rate 04/08/25 20:00 04/08/25 20:00 04/09/25 00:00 Temperature Pulse Rate 89 84 Respiratory Rate Blood Pressure Pulse Oximetry 100 Oxygen Delivery Nasal Cannula Oxygen Flow Rate 1 04/09/25 00:16 04/09/25 04:00 04/09/25 06:00 Temperature 36.2 C L 36.1 C L Pulse Rate 90 90 94 Respiratory Rate 18 18 Blood Pressure 113/69 114/66 Pulse Oximetry 100 98 Oxygen Delivery Oxygen Flow Rate 04/09/25 08:00 04/09/25 08:33 04/09/25 08:33 Temperature Pulse Rate 94 100 Respiratory Rate 18 Blood Pressure Pulse Oximetry 97 Oxygen Delivery Nasal Cannula Oxygen Flow Rate 1 04/09/25 08:39 04/09/25 09:15 Temperature Pulse Rate 96 Respiratory Rate 18 Blood Pressure Pulse Oximetry 97 Oxygen Delivery Room Air Oxygen Flow Rate Intake/Output Intake/Output: Intake & Output 04/06/25 04/07/25 04/08/25 04/09/25 23:59 23:59 23:59 23:59 Intake Total 2050 611.3 4989.6 1150 Output Total 652 1015 2450 Balance 2050 -40.7 3974.6 -1300 Meds/Results Medications: Active Medications Generic Name Dose Route Start Last Admin Trade Name Freq PRN Reason Stop Dose Admin Enoxaparin Sodium 40 mg 04/07/25 09:00 04/09/25 09:02 Enoxaparin 40 Mg/0.4 Ml Syringe SUB-Q 40 mg DAILY MARILUZ Administration Lactated Ringer's 1,000 mls @ 100 mls/hr 12/05/25 12:40 04/09/25 02:14 Lr - Lactated Ringers Iv IV CONT 125 mls/hr .Q10H MARILUZ Administration Ibuprofen 800 mg in 200 mls @ 400 mls/hr 04/06/25 16:21 04/08/25 13:19 Caldolor 800 Mg/200 Ml IVPB Infused Q6H PRN Infusion Breakthrough Pain Rated 1-3 or NPO Cefepime HCl 2 gm/ Sodium 50 mls @ 100 mls/hr 04/06/25 18:00 04/09/25 10:20 Chloride IVPB 100 mls/hr Q8H MARILUZ Administration Metronidazole 500 mg in 100 mls @ 100 mls/hr 04/06/25 18:00 04/09/25 10:55 Flagyl 500 Mg/Iso Soln 100 Ml IVPB 100 mls/hr Q8H MARILUZ Administration Micafungin Sodium 100 mg/ 100 mls @ 100 mls/hr 04/07/25 15:55 04/09/25 09:02 Sodium Chloride IVPB 100 mls/hr DAILY MARILUZ Administration Ipratropium [place] 0.5 mg 04/08/25 08:05 04/09/25 08:32 Ipratropium Br 0.02% Inh Soln 0.5 Mg/2.5 Ml Vial INHALATION 0.5 mg Q6HRT MARILUZ Administration Levalbuterol HCl 0.63 mg 04/08/25 08:05 04/09/25 08:32 Levalbuterol Neb 1.25 Mg/3 Ml INHALATION 0.63 mg Q6HRT MARILUZ Administration Morphine Sulfate 2 mg 04/06/25 16:21 04/08/25 11:11 Morphine Sulfate (*Crx) 4 Mg/Ml Inj IV PUSH 2 mg Q2H PRN Administration Breakthrough Pain Rated 4-6 or NPO Morphine Sulfate 4 mg 04/06/25 16:21 04/08/25 21:51 Morphine Sulfate (*Crx) 4 Mg/Ml Inj IV PUSH 4 mg Q2H PRN Administration Breakthrough Pain Rated 7-10 or NPO Naloxone HCl 0.1 mg 04/06/25 16:21 Naloxone Hcl 0.4 Mg/Ml Vial IV PUSH Q2M PRN Opiate Reversal Ondansetron HCl 4 mg 04/06/25 12:35 Ondansetron Inj 4 Mg/2 Ml Vial IV PUSH Q4H PRN Nausea Perflutren Lipid Microsphere 0 ml 04/08/25 07:59 Perflutren Lipid Microspheres 1.5 Ml Vial Diluted To 10 Ml Total Volume IV PUSH 04/11/25 07:59 ONCE PRN adequate visualization Protocol Radiology Results: ITS Impressions Abdomen/Pelvis CT 04/06/25 11:34 IMPRESSION: 1. Focal annular wall thickening proximal sigmoid colon. Worrisome for malignancy. Additional small mural polypoid foci along distal colonic loops. Recommend GI consultation. 2. Distal esophageal wall thickening favoring esophagitis. 3. Small ascites of unclear etiology. 4. Large stool volume suggesting constipation. Abdomen X-Ray 04/07/25 16:03 Impression: 1. No acute abnormality. Renal Ultrasound 04/08/25 11:32 IMPRESSION: 1. Normal kidneys. No hydronephrosis. Chest X-Ray 04/08/25 14:45 Impression: Support apparatus as above Enema w/Water Soluble 04/09/25 08:26 IMPRESSION: 1. High-grade obstruction in the mid sigmoid colon. Labs Labs: Laboratory Results - last 24 hr 04/08/25 04/08/25 04/08/25 12:32 12:34 17:38 WBC RBC Hgb Hct MCV MCH MCHC RDW Plt Count MPV Immature Gran % (Auto) Neut % (Auto) Lymph % (Auto) [place] % (Auto) Eos % (Auto) Baso % (Auto) Lymph # (Auto) [place] # (Auto) Eos # (Auto) Baso # (Auto) Abs Immat Gran (auto) Absolute Neuts (auto) Absolute Nucleated RBC Nucleated RBC % Sodium Potassium Chloride Carbon Dioxide Anion Gap BUN Creatinine Estim Creat Clear Calc Estimated GFR Glucose POC Capillary Glucose 145 H 109 H Calcium Phosphorus Magnesium Total Bilirubin AST ALT Alkaline Phosphatase Total Creatine Kinase 302 H Total Protein Albumin Urine Eosinophils None seen Ur Random Sodium 47 Ur Random Potassium 74.9 Urine Creatinine 274.1 04/09/25 04/09/25 00:13 05:35 WBC 9.9 RBC 2.94 L Hgb 9.1 L Hct 28.6 L MCV 97.3 MCH 31.0 MCHC 31.8 L RDW 13.4 Plt Count 213 MPV 10.0 Immature Gran % (Auto) 0.2 Neut % (Auto) 75.6 H Lymph % (Auto) 10.1 L [place] % (Auto) 11.9 H Eos % (Auto) 2.1 Baso % (Auto) 0.1 L Lymph # (Auto) 1.00 [place] # (Auto) 1.2 H Eos # (Auto) 0.2 Baso # (Auto) 0.0 Abs Immat Gran (auto) 0.02 Absolute Neuts (auto) 7.5 H Absolute Nucleated RBC 0.000 Nucleated RBC % 0.0 Sodium 138 Potassium 3.8 Chloride 105 Carbon Dioxide 31 H Anion Gap 2 L BUN 29 H Creatinine 1.14 Estim Creat Clear Calc 64 Estimated GFR > 60 Glucose 78 POC Capillary Glucose 93 Calcium 7.6 L Phosphorus 2.6 Magnesium 2.1 Total Bilirubin 0.6 AST 28 ALT 20 Alkaline Phosphatase 58 Total Creatine Kinase Total Protein 5.2 L Albumin 2.6 L Urine Eosinophils Ur Random Sodium Ur Random Potassium Urine Creatinine
[2025-04-09] MEDS: KCL 40 MEQ/D5/0.9% SOD CHL 1,000 ML 100 ML IV CONT (12:33)
[2025-04-09] MEDS: PERFLUTREN LIPID MICROSPHERES 1.5 ML VIAL DILUTED TO 10 ML TOTAL VOLUME IV PUSH (14:38)
--- NOTE | 2025-04-09 14:39 | IVDEFINITY ---
Prior to administration of IV Definity the patient was educated on the risks and benefits of the imaging enhancing agent including potential adverse side effects. The patient verbalized understanding. Allergies were verified. No exclusion criteria were identified and at least one of the following inclusion criteria were met: 1) physician request, 2) patient technically difficult to image (per the [place] [employer] guidelines of two or more segments not discernable within the apical view), or 3) questionable left ventricular function. ?
--- NOTE | 2025-04-09 14:54 | P.PNIM_ITS ---
Assessment and Plan Assessment and Plan (1) Colonic obstruction: Code(s): K56.609 - Unspecified intestinal obstruction, unspecified as to partial versus complete obstruction Status: Acute (2) History of DVT (deep vein thrombosis): Code(s): Z86.718 - Personal history of other venous thrombosis and embolism Status: Acute Plan 59 year old male with significant past medical history of DVT presented the ED on 04/06/2025 with complains of abdominal pain and distention with constipation. CT scan demonstrated annular thickening in the proximal sigmoid colon with severe colonic distention, worrisome for malignancy. He had Hypaque enema which showed complain retrograde obstruction. Nasogastric tube was inserted and started on antibiotics. Surgery evaluated the patient and patient was recommended surgical resolution for For the obstruction. 04/07/2025 patient had distal colonic obstruction, cecal gangrene and perforation status post descending colectomy, creation of an ileostomy and mucous fistula. In the OR patient did require phenylephrine, central line was placed in the OR, 3 L IV fluids were administered. Patient was kept intubated postoperatively and transferred to the ICU (1) Colonic obstruction: Patient presented on 04/06/2025 with complains of constipation, abdominal distension. CT scan showed evidence of sigmoid colon luminal mass with severe colonic distention 04/07/2025: Patient underwent an ascending colectomy, creation of ileostomy and mucous fistula for distal colonic obstruction, cecal gangrene with perforation -received 3 units L of IV fluid bolus in the OR, also was requiring phenylephrine in the OR. Right IJ central line was inserted Patient was started on cefepime, Flagyl, micafungin Not hemodynamically stable NG tube has been removed Has started been on clears Surgery following (2) Respiratory failure: Respiratory failure likely related to anesthesia and postop Extubated, currently on room air (3) Hypotension: Resolved Required norepinephrine while in ICU Currently stable Await echocardiogram (4) Acute kidney injury: Improving kidney functions Avoid nephrotoxins Recheck BMP in a.m. 5. PT/OT as tolerated 6. Code status: Full 7. DVT prophylaxis: Lovenox 8. Disposition: Pending improvement Time Spent With Patient Time with patient: 25 - 35 minutes Subjective Date/time seen: 04/09/25 14:54 Interval history: NG tube has been removed Review of Systems Review of Systems: All systems reviewed & are unremarkable except as noted in HPI and below Exam Narrative: GENERAL: NAD HEAD: Normocephalic, atraumatic. EYES: PERRLA. Conjunctivae clear. THROAT: Pharynx clear, NECK: Supple RESPIRATORY: respirations nonlabored. CTA. CARDIOVASCULAR: Tachycardia with regular rhythm GASTROINTESTINAL: distended, incision (Dry and healing well) and other (Ileostomy pink and healthy, good output) tenderness present, hypoactive bowel sounds MUSCULOSKELETAL: Moves all extremities. Trace bilateral lower extremity with chronic skin changes. Dry flaky skin SKIN: Warm, dry, normal color. NEURO: A&O X4. Speech clear PSYCHIATRIC: Normal interaction Objective Data Vital Signs Vital Signs: Vital Signs - 24 hr 04/08/25 15:00 04/08/25 16:00 04/08/25 16:00 Temperature Pulse Rate 94 95 Respiratory Rate 10 L Blood Pressure 105/74 Pulse Oximetry 99 100 Oxygen Delivery Nasal Cannula Oxygen Flow Rate 2 04/08/25 16:00 04/08/25 17:00 04/08/25 18:00 Temperature 97.7 F 98.6 F Pulse Rate 95 92 88 Respiratory Rate 17 10 L 12 Blood Pressure 104/75 113/68 107/73 Pulse Oximetry 100 100 100 Oxygen Delivery Oxygen Flow Rate 04/08/25 18:00 04/08/25 19:00 04/08/25 20:00 Temperature 97.7 F Pulse Rate 92 94 90 Respiratory Rate 18 17 Blood Pressure 100/76 115/81 Pulse Oximetry 100 100 Oxygen Delivery Oxygen Flow Rate 04/08/25 20:00 04/08/25 20:00 04/09/25 00:00 Temperature Pulse Rate 89 84 Respiratory Rate Blood Pressure Pulse Oximetry 100 Oxygen Delivery Nasal Cannula Oxygen Flow Rate 1 04/09/25 00:16 04/09/25 04:00 04/09/25 06:00 Temperature 97.2 F L 97.0 F L Pulse Rate 90 90 94 Respiratory Rate 18 18 Blood Pressure 113/69 114/66 Pulse Oximetry 100 98 Oxygen Delivery Oxygen Flow Rate 04/09/25 08:00 04/09/25 08:33 04/09/25 08:33 Temperature Pulse Rate 94 100 Respiratory Rate 18 Blood Pressure Pulse Oximetry 97 Oxygen Delivery Nasal Cannula Oxygen Flow Rate 1 04/09/25 08:39 04/09/25 09:15 04/09/25 12:00 Temperature Pulse Rate 96 105 H Respiratory Rate 18 Blood Pressure Pulse Oximetry 97 Oxygen Delivery Room Air Oxygen Flow Rate 04/09/25 14:00 Temperature 98.4 F Pulse Rate 111 H Respiratory Rate 16 Blood Pressure 121/72 Pulse Oximetry 91 Oxygen Delivery Oxygen Flow Rate Intake/Output Intake/Output: Intake & Output 04/06/25 04/07/25 04/08/25 04/09/25 23:59 23:59 23:59 23:59 Intake Total 2050 611.3 4989.6 2900 Output Total 652 1015 2450 Balance 2050 -40.7 3974.6 450 Meds/Results Medications: Active Medications Generic Name Dose Route Start Last Admin Trade Name Freq PRN Reason Stop Dose Admin Enoxaparin Sodium 40 mg 04/07/25 09:00 04/09/25 09:02 Enoxaparin 40 Mg/0.4 Ml Syringe SUB-Q 40 mg DAILY MARILUZ Administration Famotidine 20 mg 04/09/25 21:00 Famotidine 20 Mg Tablet PO Q12HR MARILUZ Ibuprofen 800 mg in 200 mls @ 400 mls/hr 04/06/25 16:21 04/08/25 13:19 Caldolor 800 Mg/200 Ml IVPB Infused Q6H PRN Infusion Breakthrough Pain Rated 1-3 or NPO Cefepime HCl 2 gm/ Sodium 50 mls @ 100 mls/hr 04/06/25 18:00 04/09/25 10:50 Chloride IVPB Infused Q8H MARILUZ Infusion Metronidazole 500 mg in 100 mls @ 100 mls/hr 04/06/25 18:00 04/09/25 11:55 Flagyl 500 Mg/Iso Soln 100 Ml IVPB Infused Q8H MARILUZ Infusion Micafungin Sodium 100 mg/ 100 mls @ 100 mls/hr 04/07/25 15:55 04/09/25 10:02 Sodium Chloride IVPB Infused DAILY MARILUZ Infusion Potassium Chloride/Dextrose/Sod Cl 1,000 mls @ 100 mls/hr 04/09/25 13:00 04/09/25 12:33 Kcl 40 Meq/D5ns IV CONT 100 mls/hr .Q10H MARILUZ Administration Ipratropium [place] 0.5 mg 04/08/25 08:05 04/09/25 08:32 Ipratropium Br 0.02% Inh Soln 0.5 Mg/2.5 Ml Vial INHALATION 0.5 mg Q6HRT MARILUZ Administration Levalbuterol HCl 0.63 mg 04/08/25 08:05 04/09/25 08:32 Levalbuterol Neb 1.25 Mg/3 Ml INHALATION 0.63 mg Q6HRT MARILUZ Administration Morphine Sulfate 2 mg 04/06/25 16:21 04/08/25 11:11 Morphine Sulfate (*Crx) 4 Mg/Ml Inj IV PUSH 2 mg Q2H PRN Administration Breakthrough Pain Rated 4-6 or NPO Morphine Sulfate 4 mg 04/06/25 16:21 04/08/25 21:51 Morphine Sulfate (*Crx) 4 Mg/Ml Inj IV PUSH 4 mg Q2H PRN Administration Breakthrough Pain Rated 7-10 or NPO Naloxone HCl 0.1 mg 04/06/25 16:21 Naloxone Hcl 0.4 Mg/Ml Vial IV PUSH Q2M PRN Opiate Reversal Ondansetron HCl 4 mg 04/06/25 12:35 Ondansetron Inj 4 Mg/2 Ml Vial IV PUSH Q4H PRN Nausea Radiology Results: ITS Impressions Abdomen/Pelvis CT 04/06/25 11:34 IMPRESSION: 1. Focal annular wall thickening proximal sigmoid colon. Worrisome for malignancy. Additional small mural polypoid foci along distal colonic loops. Recommend GI consultation. 2. Distal esophageal wall thickening favoring esophagitis. 3. Small ascites of unclear etiology. 4. Large stool volume suggesting constipation. Abdomen X-Ray 04/07/25 16:03 Impression: 1. No acute abnormality. Renal Ultrasound 04/08/25 11:32 IMPRESSION: 1. Normal kidneys. No hydronephrosis. Chest X-Ray 04/08/25 14:45 Impression: Support apparatus as above Enema w/Water Soluble 04/09/25 08:26 IMPRESSION: 1. High-grade obstruction in the mid sigmoid colon. Labs Labs: Laboratory Results - last 24 hr 04/08/25 04/09/25 04/09/25 17:38 00:13 05:35 WBC 9.9 RBC 2.94 L Hgb 9.1 L Hct 28.6 L MCV 97.3 MCH 31.0 MCHC 31.8 L RDW 13.4 Plt Count 213 MPV 10.0 Immature Gran % (Auto) 0.2 Neut % (Auto) 75.6 H Lymph % (Auto) 10.1 L [place] % (Auto) 11.9 H Eos % (Auto) 2.1 Baso % (Auto) 0.1 L Lymph # (Auto) 1.00 [place] # (Auto) 1.2 H Eos # (Auto) 0.2 Baso # (Auto) 0.0 Abs Immat Gran (auto) 0.02 Absolute Neuts (auto) 7.5 H Absolute Nucleated RBC 0.000 Nucleated RBC % 0.0 Sodium 138 Potassium 3.8 Chloride 105 Carbon Dioxide 31 H Anion Gap 2 L BUN 29 H Creatinine 1.14 Estim Creat Clear Calc 64 Estimated GFR > 60 Glucose 78 POC Capillary Glucose 109 H 93 Calcium 7.6 L Phosphorus 2.6 Magnesium 2.1 Total Bilirubin 0.6 AST 28 ALT 20 Alkaline Phosphatase 58 Total Protein 5.2 L Albumin 2.6 L 04/09/25 04/09/25 11:45 13:41 WBC RBC Hgb Hct MCV MCH MCHC RDW Plt Count MPV Immature Gran % (Auto) Neut % (Auto) Lymph % (Auto) [place] % (Auto) Eos % (Auto) Baso % (Auto) Lymph # (Auto) [place] # (Auto) Eos # (Auto) Baso # (Auto) Abs Immat Gran (auto) Absolute Neuts (auto) Absolute Nucleated RBC Nucleated RBC % Sodium Potassium Chloride Carbon Dioxide Anion Gap BUN Creatinine Estim Creat Clear Calc Estimated GFR Glucose POC Capillary Glucose 64 L 78 Calcium Phosphorus Magnesium Total Bilirubin AST ALT Alkaline Phosphatase Total Protein Albumin Quality VTE Prophylaxis VTE prophylaxis: pharmacologic ordered
[2025-04-09] MEDS: FAMOTIDINE 20 MG TABLET PO (21:19)
[2025-04-10] VITALS (7 sets, daily range): BP systolic 140–169; BP diastolic 81–92; PULSE 77–99; RESP 16–20; TEMP 36.6–37.3; O2SAT 91–95
[2025-04-10] MEDS: CEFEPIME 2 GM in SODIUM CHLORIDE 0.9% IV 50 ML 100 ML IVPB ×3 (01:24→18:28)
[2025-04-10] MEDS: IPRATROPIUM BR 0.02% INH SOLN 0.5 MG/2.5 ML VIAL INHALATION ×2 (01:37→08:30)
[2025-04-10] MEDS: metroNIDAZOLE 500 MG/ISO 100ML 500 MG/100 ML BAG 100 MG IVPB ×3 (01:59→17:20)
[2025-04-10] MEDS: KCL 40 MEQ/D5/0.9% SOD CHL 1,000 ML 100 ML IV CONT (03:01)
[2025-04-10 06:03] LABS: Hematocrit 30.3 % (42.0-52.0); Hemoglobin 9.6 g/dL (14.0-18.0); Immature Granulocyte Percent A 0.5 % (0-0.5); Lymphocytes Absolute Auto 1.11 K/mm3 (0.9-3.2); Mean Corpuscular HGB Conc 31.7 g/dl (32-36); Mean Corpuscular Hemoglobin 30.6 pg (26-34); Mean Corpuscular Volume 96.5 fl (80-100); Nucleated Red Blood Cells Absolute Auto 0.000 K/mm3 (0.0-0.012); Nucleated Red Blood Cells Perc 0.0 % (0.0-0.2); Platelet Count Result 260 k/mm3 (150-375); Red Blood Count 3.14 M/mm3 (4.6-6.20); White Blood Count 9.5 K/mm3 (4.5-10.0)
[2025-04-10 06:27] LABS: Alanine Aminotransferase 21 U/L (6-50); Albumin Level 2.5 g/dL (3.5-5.1); Alkaline Phosphatase 84 U/L (38-126); Anion Gap -2 mmol/L (4-12); Aspartate Amino Transferase 42 U/L (17-59); Bilirubin,Total 0.5 mg/dL (0.2-1.3); Blood Urea Nitrogen 19 mg/dL (9-20); Calcium 7.5 mg/dL (8.4-10.2); Carbon Dioxide 30 mmol/L (22-30); Chloride 108 mmol/L (98-107); Estimated CRCL calculation 84 ml/min; Estimated Glomerular Filt Rate > 60; Glucose 109 mg/dL (65-110); Potassium 3.9 mmol/L (3.4-5.0); Sodium 136 mmol/L (137-145); Total Protein 5.2 g/dL (6.3-8.2)
[2025-04-10] MEDS: MORPHINE SULFATE (*CRX) 4 MG/ML INJ 2 MG IV PUSH (07:03)
--- NOTE | 2025-04-10 07:25 | PM.PNGS ---
Progress Note: A&P Assessment and Plan (1) Colon perforation: Code(s): K63.1 - Perforation of intestine (nontraumatic) Status: Acute Assessment and Plan: cecal perforation due to colonic distension, source control 04/07 with ascending colon resection, ileostomy and mucous fistula. Doing well. Advance diet to soft. Increase ambulation. Strongly encouraged patient to take p.r.n. analgesics to avoid risks of pneumonia, DVT, others. Up more today. He has yet to get out of bed. Overall doing well. (2) Ileostomy status: Code(s): Z93.2 - Ileostomy status Status: Acute Assessment and Plan: Enterostomal therapy evaluation noted and appreciated. Teaching for ileostomy and mucous fistula care to be again today. (3) Sepsis associated hypotension: Code(s): A41.9 - Sepsis, unspecified organism; I95.9 - Hypotension, unspecified Status: Acute Assessment and Plan: fecal contamination, peritonitis, cause of sepsis--appears to be resolved. Continue IV antibiotics. Renal function normal, off oxygen. (4) Colonic obstruction: Code(s): K56.609 - Unspecified intestinal obstruction, unspecified as to partial versus complete obstruction Status: Acute Assessment and Plan: relieved with ileostomy and mucous fistula. Source of obstruction in sigmoid colon. To be evaluated with flexible sigmoidoscopy as an outpatient when patient is acute illness has improved. Subjective Subjective Date/Time Seen: 04/10/25 07:25 Post Op day: 3 Patient reports: still having pain (Not taking pain medication), tolerating liquids well, voiding w/o difficulty, bowel movement (Ileostomy working nicely) and afebrile Exam Const: General: cooperative, comfortable, no acute distress, alert and awake; No confusion Orientation/consciousness: patient oriented x3 GI: Inspection: Abdominal wall edema, distended, incision (Sero purulent drainage just above umbilicus, drained with Q-tip) and no visible herniation GI Palp: Yes Soft to palpation, Yes Tenderness to palpation present (GI), No Guarding due to palpation present (GI) and No Rebound tenderness present Auscultation: Hypoactive bowel sounds present Neuro: General: patient oriented x3 and no focal motor deficits Extrem: General: no calf tenderness and no edema Psych: Affect: normal affect Insight: Good insight present (Psych) Judgement: Good judgement present (Psych) Objective Data Vital Signs Vital Signs: Vital Signs - 24 hr 04/09/25 08:00 04/09/25 08:33 04/09/25 08:33 Temperature Pulse Rate 94 100 Respiratory Rate 18 Blood Pressure Pulse Oximetry 97 Oxygen Delivery Nasal Cannula Oxygen Flow Rate 1 Fraction of Inspired Oxygen 04/09/25 08:39 04/09/25 09:15 04/09/25 12:00 Temperature Pulse Rate 96 105 H Respiratory Rate 18 Blood Pressure Pulse Oximetry 94 Oxygen Delivery Room Air Oxygen Flow Rate Fraction of Inspired Oxygen 04/09/25 14:00 04/09/25 15:09 04/09/25 15:17 Temperature 36.9 C Pulse Rate 111 H 110 H 105 H Respiratory Rate 16 18 18 Blood Pressure 121/72 Pulse Oximetry 91 Oxygen Delivery Oxygen Flow Rate Fraction of Inspired Oxygen 04/09/25 20:00 04/09/25 21:48 04/09/25 21:49 Temperature Pulse Rate 110 H 111 H 111 H Respiratory Rate 20 20 20 Blood Pressure Pulse Oximetry 90 90 Oxygen Delivery Room Air Room Air Oxygen Flow Rate Fraction of Inspired Oxygen 21 21 04/09/25 21:57 04/09/25 22:00 04/10/25 01:38 Temperature 36.9 C Pulse Rate 110 H 106 H 77 Respiratory Rate 20 16 20 Blood Pressure 142/88 H Pulse Oximetry 93 Oxygen Delivery Oxygen Flow Rate Fraction of Inspired Oxygen 04/10/25 01:48 Temperature Pulse Rate 80 Respiratory Rate 20 Blood Pressure Pulse Oximetry Oxygen Delivery Oxygen Flow Rate Fraction of Inspired Oxygen Intake/Output Intake/Output: Intake & Output 04/07/25 04/08/25 04/09/25 04/10/25 23:59 23:59 23:59 23:59 Intake Total 611.3 4989.6 4305 685 Output Total 652 1015 2850 400 Balance -40.7 3974.6 1455 285 Meds/Results Medications: Active Medications Generic Name Dose Route Start Last Admin Trade Name Freq PRN Reason Stop Dose Admin Acetaminophen 500 mg 04/10/25 07:24 Acetaminophen 500 Mg Tablet PO Q6H PRN Pain Rated 1-3 Enoxaparin Sodium 40 mg 04/07/25 09:00 04/09/25 09:02 Enoxaparin 40 Mg/0.4 Ml Syringe SUB-Q 40 mg DAILY MARILUZ Administration Famotidine 20 mg 04/09/25 21:00 04/09/25 21:19 Famotidine 20 Mg Tablet PO 20 mg Q12HR MARILUZ Administration Ibuprofen 800 mg in 200 mls @ 400 mls/hr 04/06/25 16:21 04/08/25 13:19 Caldolor 800 Mg/200 Ml IVPB Infused Q6H PRN Infusion Breakthrough Pain Rated 1-3 or NPO Cefepime HCl 2 gm/ Sodium 50 mls @ 100 mls/hr 04/06/25 18:00 04/10/25 01:54 Chloride IVPB Infused Q8H MARILUZ Infusion Metronidazole 500 mg in 100 mls @ 100 mls/hr 04/06/25 18:00 04/10/25 02:59 Flagyl 500 Mg/Iso Soln 100 Ml IVPB Infused Q8H MARILUZ Infusion Micafungin Sodium 100 mg/ 100 mls @ 100 mls/hr 04/07/25 15:55 04/09/25 10:02 Sodium Chloride IVPB Infused DAILY MARILUZ Infusion Potassium Chloride/Dextrose/Sod Cl 1,000 mls @ 60 mls/hr 04/09/25 13:00 04/10/25 03:01 Kcl 40 Meq/D5ns IV CONT 100 mls/hr .[id number] MARILUZ Administration Ipratropium [place] 0.5 mg 04/08/25 08:05 04/10/25 01:37 Ipratropium Br 0.02% Inh Soln 0.5 Mg/2.5 Ml Vial INHALATION 0.5 mg Q6HRT MARILUZ Administration Levalbuterol HCl 0.63 mg 04/09/25 15:05 Levalbuterol Neb 1.25 Mg/3 Ml INHALATION Q6HRT PRN Shortness Of Breath Morphine Sulfate 2 mg 04/06/25 16:21 04/10/25 07:03 Morphine Sulfate (*Crx) 4 Mg/Ml Inj IV PUSH 2 mg Q2H PRN Administration Breakthrough Pain Rated 4-6 or NPO Morphine Sulfate 4 mg 04/06/25 16:21 04/08/25 21:51 Morphine Sulfate (*Crx) 4 Mg/Ml Inj IV PUSH 4 mg Q2H PRN Administration Breakthrough Pain Rated 7-10 or NPO Naloxone HCl 0.1 mg 04/06/25 16:21 Naloxone Hcl 0.4 Mg/Ml Vial IV PUSH Q2M PRN Opiate Reversal Ondansetron HCl 4 mg 04/06/25 12:35 Ondansetron Inj 4 Mg/2 Ml Vial IV PUSH Q4H PRN Nausea Potassium Chloride 20 meq 04/10/25 08:00 Potassium Chloride 20 Meq Er Tablet PO BIDWM [facility] Radiology Results: ITS Impressions Abdomen/Pelvis CT 04/06/25 11:34 IMPRESSION: 1. Focal annular wall thickening proximal sigmoid colon. Worrisome for malignancy. Additional small mural polypoid foci along distal colonic loops. Recommend GI consultation. 2. Distal esophageal wall thickening favoring esophagitis. 3. Small ascites of unclear etiology. 4. Large stool volume suggesting constipation. Abdomen X-Ray 04/07/25 16:03 Impression: 1. No acute abnormality. Renal Ultrasound 04/08/25 11:32 IMPRESSION: 1. Normal kidneys. No hydronephrosis. Chest X-Ray 04/08/25 14:45 Impression: Support apparatus as above Enema w/Water Soluble 04/09/25 08:26 IMPRESSION: 1. High-grade obstruction in the mid sigmoid colon. Labs Labs: Laboratory Results - last 24 hr 04/09/25 04/09/25 04/09/25 11:45 13:41 18:36 WBC RBC Hgb Hct MCV MCH MCHC RDW Plt Count MPV Immature Gran % (Auto) Neut % (Auto) Lymph % (Auto) [place] % (Auto) Eos % (Auto) Baso % (Auto) Lymph # (Auto) [place] # (Auto) Eos # (Auto) Baso # (Auto) Abs Immat Gran (auto) Absolute Neuts (auto) Absolute Nucleated RBC Nucleated RBC % Sodium Potassium Chloride Carbon Dioxide Anion Gap BUN Creatinine Estim Creat Clear Calc Estimated GFR Glucose POC Capillary Glucose 64 L 78 88 Calcium Total Bilirubin AST ALT Alkaline Phosphatase Total Protein Albumin 04/10/25 04/10/25 01:21 05:35 WBC 9.5 RBC 3.14 L Hgb 9.6 L Hct 30.3 L MCV 96.5 MCH 30.6 MCHC 31.7 L RDW 13.3 Plt Count 260 MPV 9.6 Immature Gran % (Auto) 0.5 Neut % (Auto) 68.4 Lymph % (Auto) 11.6 L [place] % (Auto) 14.8 H Eos % (Auto) 4.3 Baso % (Auto) 0.4 Lymph # (Auto) 1.11 [place] # (Auto) 1.4 H Eos # (Auto) 0.4 H Baso # (Auto) 0.0 Abs Immat Gran (auto) 0.05 H Absolute Neuts (auto) 6.5 Absolute Nucleated RBC 0.000 Nucleated RBC % 0.0 Sodium 136 L Potassium 3.9 Chloride 108 H Carbon Dioxide 30 Anion Gap -2 L BUN 19 D Creatinine 0.86 Estim Creat Clear Calc 84 Estimated GFR > 60 Glucose 109 POC Capillary Glucose 110 H Calcium 7.5 L Total Bilirubin 0.5 AST 42 ALT 21 Alkaline Phosphatase 84 Total Protein 5.2 L Albumin 2.5 L
[2025-04-10] MEDS: ENOXAPARIN 40 MG/0.4 ML SYRINGE SUB-Q (09:12)
[2025-04-10] MEDS: POTASSIUM CHLORIDE 20 MEQ ER TABLET PO ×2 (09:13→17:20)
[2025-04-10] MEDS: FAMOTIDINE 20 MG TABLET PO ×2 (09:13→21:03)
[2025-04-10] MEDS: oxyCODONE/ACETAMINOPHEN (*CRX) 5-325 MG TABLET 1 TABLET PO ×2 (09:14→15:10)
[2025-04-10] MEDS: MICAFUNGIN SODIUM 100 MG in SODIUM CHLORIDE 0.9% IV 100 ML IVPB (09:19)
--- NOTE | 2025-04-10 13:27 | PM.IMPN2 ---
Assessment and Plan Assessment and Plan (1) Colonic obstruction: Code(s): K56.609 - Unspecified intestinal obstruction, unspecified as to partial versus complete obstruction Status: Acute (2) History of DVT (deep vein thrombosis): Code(s): Z86.718 - Personal history of other venous thrombosis and embolism Status: Acute Plan 59 year old male with significant past medical history of DVT presented the ED on 04/06/2025 with complains of abdominal pain and distention with constipation. CT scan demonstrated annular thickening in the proximal sigmoid colon with severe colonic distention, worrisome for malignancy. He had Hypaque enema which showed complain retrograde obstruction. Nasogastric tube was inserted and started on antibiotics. Surgery evaluated the patient and patient was recommended surgical resolution for For the obstruction. 04/07/2025 patient had distal colonic obstruction, cecal gangrene and perforation status post descending colectomy, creation of an ileostomy and mucous fistula. In the OR patient did require phenylephrine, central line was placed in the OR, 3 L IV fluids were administered. Patient was kept intubated postoperatively and transferred to the ICU (1) Colonic obstruction: Patient presented on 04/06/2025 with complains of constipation, abdominal distension. CT scan showed evidence of sigmoid colon luminal mass with severe colonic distention 04/07/2025: Patient underwent an ascending colectomy, creation of ileostomy and mucous fistula for distal colonic obstruction, cecal gangrene with perforation -received 3 units L of IV fluid bolus in the OR, also was requiring phenylephrine in the OR. Right IJ central line was inserted Patient was started on cefepime, Flagyl, micafungin Not hemodynamically stable NG tube has been removed Has been transition to low-fiber diet, poor appetite Surgery following (2) Respiratory failure: Respiratory failure likely related to anesthesia and postop Extubated, currently on room air (3) Hypotension: Resolved Required norepinephrine while in ICU Currently stable Echocardiogram with EF of 60-65% (4) Acute kidney injury: Improving kidney functions/resolved Avoid nephrotoxins Recheck BMP in a.m. 5. PT/OT as tolerated 6. Code status: Full 7. DVT prophylaxis: Lovenox 8. Disposition: Pending improvement Time Spent With Patient Time with patient: 25 - 35 minutes Subjective Date/time seen: 04/10/25 13:27 Interval history: poor appetite Exam Narrative: GENERAL: NAD HEAD: Normocephalic, atraumatic. EYES: PERRLA. Conjunctivae clear. THROAT: Pharynx clear, NECK: Supple RESPIRATORY: respirations nonlabored. CTA. CARDIOVASCULAR: Tachycardia with regular rhythm GASTROINTESTINAL: distended, incision (Dry and healing well) and other (Ileostomy pink and healthy, good output) tenderness present, hypoactive bowel sounds MUSCULOSKELETAL: Moves all extremities. Trace bilateral lower extremity with chronic skin changes. Dry flaky skin SKIN: Warm, dry, normal color. NEURO: A&O X4. Speech clear PSYCHIATRIC: Normal interaction Objective Data Vital Signs Vital Signs: Vital Signs - 24 hr 04/09/25 14:00 04/09/25 15:09 04/09/25 15:17 Temperature 98.4 F Pulse Rate 111 H 110 H 105 H Respiratory Rate 16 18 18 Blood Pressure 121/72 Pulse Oximetry 91 Oxygen Delivery Fraction of Inspired Oxygen 04/09/25 20:00 04/09/25 21:48 04/09/25 21:49 Temperature Pulse Rate 110 H 111 H 111 H Respiratory Rate 20 20 20 Blood Pressure Pulse Oximetry 90 90 Oxygen Delivery Room Air Room Air Fraction of Inspired Oxygen 21 21 04/09/25 21:57 04/09/25 22:00 04/10/25 01:38 Temperature 98.5 F Pulse Rate 110 H 106 H 77 Respiratory Rate 20 16 20 Blood Pressure 142/88 H Pulse Oximetry 93 Oxygen Delivery Fraction of Inspired Oxygen 04/10/25 01:48 04/10/25 06:00 04/10/25 08:30 Temperature 97.8 F Pulse Rate 80 95 88 Respiratory Rate 20 16 16 Blood Pressure 140/87 Pulse Oximetry 93 Oxygen Delivery Fraction of Inspired Oxygen 04/10/25 08:41 04/10/25 09:15 Temperature Pulse Rate 90 Respiratory Rate 16 Blood Pressure Pulse Oximetry Oxygen Delivery Room Air Fraction of Inspired Oxygen Intake/Output Intake/Output: Intake & Output 04/07/25 04/08/25 04/09/25 04/10/25 23:59 23:59 23:59 23:59 Intake Total 611.3 4989.6 4305 2105 Output Total 652 1015 2850 1600 Balance -40.7 3974.6 1455 505 Meds/Results Medications: Active Medications Generic Name Dose Route Start Last Admin Trade Name Freq PRN Reason Stop Dose Admin Acetaminophen 500 mg 04/10/25 07:24 Acetaminophen 500 Mg Tablet PO Q6H PRN Pain Rated 1-3 Enoxaparin Sodium 40 mg 04/07/25 09:00 04/10/25 09:12 Enoxaparin 40 Mg/0.4 Ml Syringe SUB-Q 40 mg DAILY MARILUZ Administration Famotidine 20 mg 04/09/25 21:00 04/10/25 09:13 Famotidine 20 Mg Tablet PO 20 mg Q12HR MARILUZ Administration Ibuprofen 800 mg in 200 mls @ 400 mls/hr 04/06/25 16:21 04/08/25 13:19 Caldolor 800 Mg/200 Ml IVPB Infused Q6H PRN Infusion Breakthrough Pain Rated 1-3 or NPO Cefepime HCl 2 gm/ Sodium 50 mls @ 100 mls/hr 04/06/25 18:00 04/10/25 10:49 Chloride IVPB Infused Q8H MARILUZ Infusion Metronidazole 500 mg in 100 mls @ 100 mls/hr 04/06/25 18:00 04/10/25 11:50 Flagyl 500 Mg/Iso Soln 100 Ml IVPB Infused Q8H MARILUZ Infusion Micafungin Sodium 100 mg/ 100 mls @ 100 mls/hr 04/07/25 15:55 04/10/25 10:19 Sodium Chloride IVPB Infused DAILY MARILUZ Infusion Potassium Chloride/Dextrose/Sod Cl 1,000 mls @ 60 mls/hr 04/09/25 13:00 04/10/25 03:01 Kcl 40 Meq/D5ns IV CONT 100 mls/hr .[id number] MARILUZ Administration Ipratropium [place] 0.5 mg 04/08/25 08:05 04/10/25 08:30 Ipratropium Br 0.02% Inh Soln 0.5 Mg/2.5 Ml Vial INHALATION 0.5 mg Q6HRT MARILUZ Administration Levalbuterol HCl 0.63 mg 04/09/25 15:05 04/10/25 08:29 Levalbuterol Neb 1.25 Mg/3 Ml INHALATION 0.63 mg Q6HRT PRN Administration Shortness Of Breath Morphine Sulfate 2 mg 04/06/25 16:21 04/10/25 07:03 Morphine Sulfate (*Crx) 4 Mg/Ml Inj IV PUSH 2 mg Q2H PRN Administration Breakthrough Pain Rated 4-6 or NPO Morphine Sulfate 4 mg 04/06/25 16:21 04/08/25 21:51 Morphine Sulfate (*Crx) 4 Mg/Ml Inj IV PUSH 4 mg Q2H PRN Administration Breakthrough Pain Rated 7-10 or NPO Naloxone HCl 0.1 mg 04/06/25 16:21 Naloxone Hcl 0.4 Mg/Ml Vial IV PUSH Q2M PRN Opiate Reversal Ondansetron HCl 4 mg 04/06/25 12:35 Ondansetron Inj 4 Mg/2 Ml Vial IV PUSH Q4H PRN Nausea Oxycodone/Acetaminophen 1 tablet 04/10/25 07:24 04/10/25 09:14 Oxycodone/Acetaminophen (*Crx) 5-325 Mg Tablet PO 1 tablet Q4H PRN Administration Pain Rated 4-6 Potassium Chloride 20 meq 04/10/25 08:00 04/10/25 09:13 Potassium Chloride 20 Meq Er Tablet PO 20 meq BIDWM MARILUZ Administration Radiology Results: ITS Impressions Abdomen/Pelvis CT 04/06/25 11:34 IMPRESSION: 1. Focal annular wall thickening proximal sigmoid colon. Worrisome for malignancy. Additional small mural polypoid foci along distal colonic loops. Recommend GI consultation. 2. Distal esophageal wall thickening favoring esophagitis. 3. Small ascites of unclear etiology. 4. Large stool volume suggesting constipation. Abdomen X-Ray 04/07/25 16:03 Impression: 1. No acute abnormality. Renal Ultrasound 04/08/25 11:32 IMPRESSION: 1. Normal kidneys. No hydronephrosis. Chest X-Ray 04/08/25 14:45 Impression: Support apparatus as above Enema w/Water Soluble 04/09/25 08:26 IMPRESSION: 1. High-grade obstruction in the mid sigmoid colon. Labs Labs: Laboratory Results - last 24 hr 04/09/25 04/09/25 04/10/25 13:41 18:36 01:21 WBC RBC Hgb Hct MCV MCH MCHC RDW Plt Count MPV Immature Gran % (Auto) Neut % (Auto) Lymph % (Auto) [place] % (Auto) Eos % (Auto) Baso % (Auto) Lymph # (Auto) [place] # (Auto) Eos # (Auto) Baso # (Auto) Abs Immat Gran (auto) Absolute Neuts (auto) Absolute Nucleated RBC Nucleated RBC % Sodium Potassium Chloride Carbon Dioxide Anion Gap BUN Creatinine Estim Creat Clear Calc Estimated GFR Glucose POC Capillary Glucose 78 88 110 H Calcium Total Bilirubin AST ALT Alkaline Phosphatase Total Protein Albumin 04/10/25 04/10/25 04/10/25 05:35 09:13 12:22 WBC 9.5 RBC 3.14 L Hgb 9.6 L Hct 30.3 L MCV 96.5 MCH 30.6 MCHC 31.7 L RDW 13.3 Plt Count 260 MPV 9.6 Immature Gran % (Auto) 0.5 Neut % (Auto) 68.4 Lymph % (Auto) 11.6 L [place] % (Auto) 14.8 H Eos % (Auto) 4.3 Baso % (Auto) 0.4 Lymph # (Auto) 1.11 [place] # (Auto) 1.4 H Eos # (Auto) 0.4 H Baso # (Auto) 0.0 Abs Immat Gran (auto) 0.05 H Absolute Neuts (auto) 6.5 Absolute Nucleated RBC 0.000 Nucleated RBC % 0.0 Sodium 136 L Potassium 3.9 Chloride 108 H Carbon Dioxide 30 Anion Gap -2 L BUN 19 D Creatinine 0.86 Estim Creat Clear Calc 84 Estimated GFR > 60 Glucose 109 POC Capillary Glucose 121 H 119 H Calcium 7.5 L Total Bilirubin 0.5 AST 42 ALT 21 Alkaline Phosphatase 84 Total Protein 5.2 L Albumin 2.5 L Quality VTE Prophylaxis VTE prophylaxis: pharmacologic ordered
[2025-04-11] VITALS (7 sets, daily range): BP systolic 124–152; BP diastolic 78–83; PULSE 94–119; RESP 16–18; TEMP 36.3–36.9; O2SAT 83–96
[2025-04-11] MEDS: CEFEPIME 2 GM in SODIUM CHLORIDE 0.9% IV 50 ML 100 ML IVPB ×3 (01:19→17:25)
[2025-04-11] MEDS: oxyCODONE/ACETAMINOPHEN (*CRX) 5-325 MG TABLET 1 TABLET PO ×3 (01:34→15:00)
[2025-04-11] MEDS: metroNIDAZOLE 500 MG/ISO 100ML 500 MG/100 ML BAG 100 MG IVPB ×3 (02:09→18:10)
[2025-04-11 06:31] LABS: Hematocrit 31.4 % (42.0-52.0); Hemoglobin 10.0 g/dL (14.0-18.0); Immature Granulocyte Percent A 0.9 % (0-0.5); Lymphocytes Absolute Auto 1.51 K/mm3 (0.9-3.2); Mean Corpuscular HGB Conc 31.8 g/dl (32-36); Mean Corpuscular Hemoglobin 30.7 pg (26-34); Mean Corpuscular Volume 96.3 fl (80-100); Nucleated Red Blood Cells Absolute Auto 0.000 K/mm3 (0.0-0.012); Nucleated Red Blood Cells Perc 0.0 % (0.0-0.2); Platelet Count Result 267 k/mm3 (150-375); Red Blood Count 3.26 M/mm3 (4.6-6.20); White Blood Count 11.1 K/mm3 (4.5-10.0)
[2025-04-11 06:45] LABS: Alanine Aminotransferase 22 U/L (6-50); Albumin Level 2.6 g/dL (3.5-5.1); Alkaline Phosphatase 62 U/L (38-126); Anion Gap 2 mmol/L (4-12); Aspartate Amino Transferase 30 U/L (17-59); Bilirubin,Total 0.4 mg/dL (0.2-1.3); Blood Urea Nitrogen 18 mg/dL (9-20); Calcium 7.9 mg/dL (8.4-10.2); Carbon Dioxide 29 mmol/L (22-30); Chloride 107 mmol/L (98-107); Estimated CRCL calculation 86 ml/min; Estimated Glomerular Filt Rate > 60; Glucose 105 mg/dL (65-110); Potassium 4.2 mmol/L (3.4-5.0); Sodium 138 mmol/L (137-145); Total Protein 5.3 g/dL (6.3-8.2)
--- NOTE | 2025-04-11 07:20 | P.PNGS_ITS ---
Progress Note: A&P Assessment and Plan (1) Colon perforation: Code(s): K63.1 - Perforation of intestine (nontraumatic) Status: Acute Assessment and Plan: cecal perforation due to colonic distension, source control 04/07 with ascending colon resection, ileostomy and mucous fistula. Doing well. Patient wants to shower which is fine. Advance to regular diet. Continue to ambulate. Still on some oxygen which I think is due to excess fluid. I will give him a dose of Bumex today. Continue potassium supplement. (2) Ileostomy status: Code(s): Z93.2 - Ileostomy status Status: Acute Assessment and Plan: Enterostomal therapy evaluation noted and appreciated. Teaching for ileostomy and mucous fistula care done yesterday. (3) Sepsis associated hypotension: Code(s): A41.9 - Sepsis, unspecified organism; I95.9 - Hypotension, unspecified Status: Resolved Assessment and Plan: fecal contamination, peritonitis, cause of sepsis--appears to be resolved. Continue IV antibiotics. (4) Colonic obstruction: Code(s): K56.609 - Unspecified intestinal obstruction, unspecified as to partial versus complete obstruction Status: Acute Assessment and Plan: relieved with ileostomy and mucous fistula. Source of obstruction in sigmoid colon. To be evaluated with flexible sigmoidoscopy as an outpatient when patient is acute illness has improved. Subjective Subjective Date/Time Seen: 04/11/25 07:20 Post Op day: 4 Patient reports: no new complaints, feels better, tolerating a regular diet, voiding w/o difficulty, bowel movement and afebrile Exam Const: General: comfortable and no acute distress Orientation/consciousness: patient oriented x3 GI: Inspection: distended and incision (Probed, seropurulent fluid drained again) GI Palp: Yes Firmness to palpation present (GI), Yes Tenderness to pal pation present (GI) (Mild, appropriate tenderness), No Hernia present and No Palpable mass present Neuro: General: patient oriented x3 and no focal motor deficits Extrem: General: no calf tenderness and no edema Psych: Affect: normal affect Insight: Good insight present (Psych) Judgement: Good judgement present (Psych) Objective Data Vital Signs Vital Signs: Vital Signs - 24 hr 04/10/25 08:30 04/10/25 08:41 04/10/25 09:15 Temperature Pulse Rate 88 90 Respiratory Rate 16 16 Blood Pressure Pulse Oximetry Oxygen Delivery Room Air Oxygen Flow Rate 04/10/25 13:55 04/10/25 14:00 04/10/25 20:00 Temperature 37.3 C Pulse Rate 92 Respiratory Rate 18 Blood Pressure 169/81 H Pulse Oximetry 95 Oxygen Delivery Room Air Room Air Oxygen Flow Rate 04/10/25 21:38 04/11/25 01:30 04/11/25 01:31 Temperature 37.2 C Pulse Rate 99 Respiratory Rate 20 Blood Pressure 150/92 H Pulse Oximetry 91 83 L 95 Oxygen Delivery Room Air Nasal Cannula Oxygen Flow Rate 2 04/11/25 04:25 Temperature 36.3 C L Pulse Rate 96 Respiratory Rate 16 Blood Pressure 131/81 Pulse Oximetry 96 Oxygen Delivery Oxygen Flow Rate Intake/Output Intake/Output: Intake & Output 04/08/25 04/09/25 04/10/25 04/11/25 23:59 23:59 23:59 23:59 Intake Total 4989.6 4305 4015 350 Output Total 1015 2850 1950 Balance 3974.6 1455 2065 350 Meds/Results Medications: Active Medications Generic Name Dose Route Start Last Admin Trade Name Freq PRN Reason Stop Dose Admin Acetaminophen 500 mg 04/10/25 07:24 Acetaminophen 500 Mg Tablet PO Q6H PRN Pain Rated 1-3 Enoxaparin Sodium 40 mg 04/07/25 09:00 04/10/25 09:12 Enoxaparin 40 Mg/0.4 Ml Syringe SUB-Q 40 mg DAILY MARILUZ Administration Famotidine 20 mg 04/09/25 21:00 04/10/25 21:03 Famotidine 20 Mg Tablet PO 20 mg Q12HR MARILUZ Administration Ibuprofen 800 mg in 200 mls @ 400 mls/hr 04/06/25 16:21 04/08/25 13:19 Caldolor 800 Mg/200 Ml IVPB Infused Q6H PRN Infusion Breakthrough Pain Rated 1-3 or NPO Cefepime HCl 2 gm/ Sodium 50 mls @ 100 mls/hr 04/06/25 18:00 04/11/25 01:49 Chloride IVPB Infused Q8H MARILUZ Infusion Metronidazole 500 mg in 100 mls @ 100 mls/hr 04/06/25 18:00 04/11/25 03:05 Flagyl 500 Mg/Iso Soln 100 Ml IVPB Infused Q8H [facility] Infusion Micafungin Sodium 100 mg/ 100 mls @ 100 mls/hr 04/07/25 15:55 04/10/25 10:19 Sodium Chloride IVPB Infused DAILY MARILUZ Infusion Levalbuterol HCl 0.63 mg 04/09/25 15:05 04/10/25 08:29 Levalbuterol Neb 1.25 Mg/3 Ml INHALATION 0.63 mg Q6HRT PRN Administration Shortness Of Breath Morphine Sulfate 2 mg 04/06/25 16:21 04/10/25 07:03 Morphine Sulfate (*Crx) 4 Mg/Ml Inj IV PUSH 2 mg Q2H PRN Administration Breakthrough Pain Rated 4-6 or NPO Morphine Sulfate 4 mg 04/06/25 16:21 04/08/25 21:51 Morphine Sulfate (*Crx) 4 Mg/Ml Inj IV PUSH 4 mg Q2H PRN Administration Breakthrough Pain Rated 7-10 or NPO Naloxone HCl 0.1 mg 04/06/25 16:21 Naloxone Hcl 0.4 Mg/Ml Vial IV PUSH Q2M PRN Opiate Reversal Ondansetron HCl 4 mg 04/06/25 12:35 Ondansetron Inj 4 Mg/2 Ml Vial IV PUSH Q4H PRN Nausea Oxycodone/Acetaminophen 1 tablet 04/10/25 07:24 04/11/25 01:34 Oxycodone/Acetaminophen (*Crx) 5-325 Mg Tablet PO 1 tablet Q4H PRN Administration Pain Rated 4-6 Potassium Chloride 20 meq 04/10/25 08:00 04/10/25 17:20 Potassium Chloride 20 Meq Er Tablet PO 20 meq BIDWM MARILUZ Administration Radiology Results: ITS Impressions Abdomen/Pelvis CT 04/06/25 11:34 IMPRESSION: 1. Focal annular wall thickening proximal sigmoid colon. Worrisome for malignan cy. Additional small mural polypoid foci along distal colonic loops. Recommend GI consultation. 2. Distal esophageal wall thickening favoring esophagitis. 3. Small ascites of unclear etiology. 4. Large stool volume suggesting constipation. Abdomen X-Ray 04/07/25 16:03 Impression: 1. No acute abnormality. Renal Ultrasound 04/08/25 11:32 IMPRESSION: 1. Normal kidneys. No hydronephrosis. Chest X-Ray 04/08/25 14:45 Impression: Support apparatus as above Enema w/Water Soluble 04/09/25 08:26 IMPRESSION: 1. High-grade obstruction in the mid sigmoid colon. Labs Labs: Laboratory Results - last 24 hr 04/10/25 04/10/25 04/10/25 09:13 12:22 18:01 WBC RBC Hgb Hct MCV MCH MCHC RDW Plt Count MPV Immature Gran % (Auto) Neut % (Auto) Lymph % (Auto) [place] % (Auto) Eos % (Auto) Baso % (Auto) Lymph # (Auto) [place] # (Auto) Eos # (Auto) Baso # (Auto) Abs Immat Gran (auto) Absolute Neuts (auto) Absolute Nucleated RBC Nucleated RBC % Sodium Potassium Chloride Carbon Dioxide Anion Gap BUN Creatinine Estim Creat Clear Calc Estimated GFR Glucose POC Capillary Glucose 121 H 119 H 116 H Calcium Total Bilirubin AST ALT Alkaline Phosphatase Total Protein Albumin 04/11/25 04/11/25 01:17 06:19 WBC 11.1 H RBC 3.26 L Hgb 10.0 L Hct 31.4 L MCV 96.3 MCH 30.7 MCHC 31.8 L RDW 13.7 Plt Count 267 MPV 8.8 Immature Gran % (Auto) 0.9 H Neut % (Auto) 60.9 Lymph % (Auto) 13.6 L [place] % (Auto) 19.5 H Eos % (Auto) 4.7 H Baso % (Auto) 0.4 Lymph # (Auto) 1.51 [place] # (Auto) 2.2 H Eos # (Auto) 0.5 H Baso # (Auto) 0.0 Abs Immat Gran (auto) 0.10 H Absolute Neuts (auto) 6.8 H Absolute Nucleated RBC 0.000 Nucleated RBC % 0.0 Sodium 138 Potassium 4.2 Chloride 107 Carbon Dioxide 29 Anion Gap 2 L BUN 18 Creatinine 0.84 Estim Creat Clear Calc 86 Estimated GFR > 60 Glucose 105 POC Capillary Glucose 133 H Calcium 7.9 L Total Bilirubin 0.4 AST 30 ALT 22 Alkaline Phosphatase 62 Total Protein 5.3 L Albumin 2.6 L
[2025-04-11] MEDS: FAMOTIDINE 20 MG TABLET PO ×2 (09:10→21:02)
[2025-04-11] MEDS: POTASSIUM CHLORIDE 20 MEQ ER TABLET PO ×2 (09:10→17:25)
[2025-04-11] MEDS: ENOXAPARIN 40 MG/0.4 ML SYRINGE SUB-Q (09:10)
[2025-04-11] MEDS: MICAFUNGIN SODIUM 100 MG in SODIUM CHLORIDE 0.9% IV 100 ML IVPB (09:11)
[2025-04-11] MEDS: BUMETANIDE INJ 2.5 MG/10 ML VIAL 2 MG IV PUSH (09:11)
--- NOTE | 2025-04-11 10:20 | P.PNIM_ITS ---
Assessment and Plan Assessment and Plan (1) Colonic obstruction: Code(s): K56.609 - Unspecified intestinal obstruction, unspecified as to partial versus complete obstruction Status: Acute Assessment and Plan: 59 year old male with significant past medical history of DVT presented the ED on 04/06/2025 with complains of abdominal pain and distention with constipation. CT scan demonstrated annular thickening in the proximal sigmoid colon with severe colonic distention, worrisome for malignancy. He had Hypaque enema which showed complain retrograde obstruction. Nasogastric tube was inserted and started on antibiotics. Surgery evaluated the patient and patient was recommended surgical resolution for For the obstruction. 04/07/2025 patient had distal colonic obstruction, cecal gangrene and perforation status post descending colectomy, creation of an ileostomy and mucous fistula. In the OR patient did require phenylephrine, central line was placed in the OR, 3 L IV fluids were administered. Patient was kept intubated postoperatively and transferred to the ICU (1) Colonic obstruction: Patient presented on 04/06/2025 with complains of constipation, abdominal distension. CT scan showed evidence of sigmoid colon luminal mass with severe colonic distention 04/07/2025: Patient underwent an ascending colectomy, creation of ileostomy and mucous fistula for distal colonic obstruction, cecal gangrene with perforation -received 3 units L of IV fluid bolus in the OR, also was requiring phenylephrine in the OR. Right IJ central line was inserted Patient was started on cefepime, Flagyl, micafungin, continue NG tube has been removed Has been transition to low-fiber diet, changed to regular today via surg team Reporting a better diet today Monitor VS Surgery following Pt with no insurance so HH not an option, wound has been educating pt about her ileostomy (2) History of DVT (deep vein thrombosis): Code(s): Z86.718 - Personal history of other venous thrombosis and embolism Status: Acute Plan OT/PT, wound education, IV abx, surg following Medical Record Review I have reviewed the following patient records and this information was taken into consideration when formulating the assessment and plan.: previous labs Time Spent With Patient Time with patient: 25 - 35 minutes Subjective Date/time seen: 04/11/25 1033 Interval history: Pt sitting up in chair upon my arrival. Pt with continued c/o abd pain but no other sx including SOB or CP. Appetite is better today, will start reg diet today as tolerated. Review of Systems Review of Systems: All systems reviewed & are unremarkable except as noted in HPI and below Exam Narrative: GENERAL: NAD HEAD: Normocephalic, atraumatic. EYES: PERRLA. Conjunctivae clear. THROAT: Pharynx clear, NECK: Supple RESPIRATORY: Respirations nonlabored. CTA. CARDIOVASCULAR: Tachycardia with regular rhythm GASTROINTESTINAL: distended, incision (Dry and healing well) and other (Ileostomy pink and healthy, good output) tenderness present throughout, hypoactive bowel sounds MUSCULOSKELETAL: Moves all extremities. Trace bilateral lower extremity with chronic skin changes. Dry flaky skin SKIN: Warm, dry, normal color. NEURO: A&O X4. Speech clear PSYCHIATRIC: Normal interaction Objective Data Vital Signs Vital Signs: Vital Signs - 24 hr 04/10/25 13:55 04/10/25 14:00 04/10/25 20:00 Temperature 99.1 F Pulse Rate 92 Respiratory Rate 18 Blood Pressure 169/81 H Pulse Oximetry 95 Oxygen Delivery Room Air Room Air Oxygen Flow Rate 04/10/25 21:38 04/11/25 01:30 04/11/25 01:31 Temperature 98.9 F Pulse Rate 99 Respiratory Rate 20 Blood Pressure 150/92 H Pulse Oximetry 91 83 L 95 Oxygen Delivery Room Air Nasal Cannula Oxygen Flow Rate 2 04/11/25 04:25 04/11/25 09:10 Temperature 97.3 F L Pulse Rate 96 Respiratory Rate 16 Blood Pressure 131/81 Pulse Oximetry 96 95 Oxygen Delivery Room Air Oxygen Flow Rate Intake/Output Intake/Output: Intake & Output 04/08/25 04/09/25 04/10/25 04/11/25 23:59 23:59 23:59 23:59 Intake Total 4989.6 4305 4015 350 Output Total 1015 2850 1950 Balance 3974.6 1455 2065 350 Meds/Results Medications: Active Medications Generic Name Dose Route Start Last Admin Trade Name Freq PRN Reason Stop Dose Admin Acetaminophen 500 mg 04/10/25 07:24 Acetaminophen 500 Mg Tablet PO Q6H PRN Pain Rated 1-3 Enoxaparin Sodium 40 mg 04/07/25 09:00 04/11/25 09:10 Enoxaparin 40 Mg/0.4 Ml Syringe SUB-Q 40 mg DAILY MARILUZ Administration Famotidine 20 mg 04/09/25 21:00 04/11/25 09:10 Famotidine 20 Mg Tablet PO 20 mg Q12HR MARILUZ Administration Ibuprofen 800 mg in 200 mls @ 400 mls/hr 04/06/25 16:21 04/08/25 13:19 Caldolor 800 Mg/200 Ml IVPB Infused Q6H PRN Infusion Breakthrough Pain Rated 1-3 or NPO Cefepime HCl 2 gm/ Sodium 50 mls @ 100 mls/hr 04/06/25 18:00 04/11/25 09:12 Chloride IVPB 100 mls/hr Q8H MARILUZ Administration Metronidazole 500 mg in 100 mls @ 100 mls/hr 04/06/25 18:00 04/11/25 09:12 Flagyl 500 Mg/Iso Soln 100 Ml IVPB 100 mls/hr Q8H MARILUZ Administration Micafungin Sodium 100 mg/ 100 mls @ 100 mls/hr 04/07/25 15:55 04/11/25 09:11 Sodium Chloride IVPB 100 mls/hr DAILY MARILUZ Administration Levalbuterol HCl 0.63 mg 04/09/25 15:05 04/10/25 08:29 Levalbuterol Neb 1.25 Mg/3 Ml INHALATION 0.63 mg Q6HRT PRN Administration Shortness Of Breath Morphine Sulfate 2 mg 04/06/25 16:21 04/10/25 07:03 Morphine Sulfate (*Crx) 4 Mg/Ml Inj IV PUSH 2 mg Q2H PRN Administration Breakthrough Pain Rated 4-6 or NPO Morphine Sulfate 4 mg 04/06/25 16:21 04/08/25 21:51 Morphine Sulfate (*Crx) 4 Mg/Ml Inj IV PUSH 4 mg Q2H PRN Administration Breakthrough Pain Rated 7-10 or NPO Naloxone HCl 0.1 mg 04/06/25 16:21 Naloxone Hcl 0.4 Mg/Ml Vial IV PUSH Q2M PRN Opiate Reversal Ondansetron HCl 4 mg 04/06/25 12:35 Ondansetron Inj 4 Mg/2 Ml Vial IV PUSH Q4H PRN Nausea Oxycodone/Acetaminophen 1 tablet 04/10/25 07:24 04/11/25 09:10 Oxycodone/Acetaminophen (*Crx) 5-325 Mg Tablet PO 1 tablet Q4H PRN Administration Pain Rated 4-6 Potassium Chloride 20 meq 04/10/25 08:00 04/11/25 09:10 Potassium Chloride 20 Meq Er Tablet PO 20 meq BIDWM MARILUZ Administration Radiology Results: ITS Impressions Abdomen/Pelvis CT 04/06/25 11:34 IMPRESSION: 1. Focal annular wall thickening proximal sigmoid colon. Worrisome for malignancy. Additional small mural polypoid foci along distal colonic loops. Recommend GI consultation. 2. Distal esophageal wall thickening favoring esophagitis. 3. Small ascites of unclear etiology. 4. Large stool volume suggesting constipation. Abdomen X-Ray 04/07/25 16:03 Impression: 1. No acute abnormality. Renal Ultrasound 04/08/25 11:32 IMPRESSION: 1. Normal kidneys. No hydronephrosis. Chest X-Ray 04/08/25 14:45 Impression: Support apparatus as above Enema w/Water Soluble 04/09/25 08:26 IMPRESSION: 1. High-grade obstruction in the mid sigmoid colon. Labs Labs: Laboratory Results - last 24 hr 04/10/25 04/10/25 04/11/25 12:22 18:01 01:17 WBC RBC Hgb Hct MCV MCH MCHC RDW Plt Count MPV Immature Gran % (Auto) Neut % (Auto) Lymph % (Auto) [place] % (Auto) Eos % (Auto) Baso % (Auto) Lymph # (Auto) [place] # (Auto) Eos # (Auto) Baso # (Auto) Abs Immat Gran (auto) Absolute Neuts (auto) Absolute Nucleated RBC Nucleated RBC % Sodium Potassium Chloride Carbon Dioxide Anion Gap BUN Creatinine Estim Creat Clear Calc Estimated GFR Glucose POC Capillary Glucose 119 H 116 H 133 H Calcium Total Bilirubin AST ALT Alkaline Phosphatase Total Protein Albumin 04/11/25 06:19 WBC 11.1 H RBC 3.26 L Hgb 10.0 L Hct 31.4 L MCV 96.3 MCH 30.7 MCHC 31.8 L RDW 13.7 Plt Count 267 MPV 8.8 Immature Gran % (Auto) 0.9 H Neut % (Auto) 60.9 Lymph % (Auto) 13.6 L [place] % (Auto) 19.5 H Eos % (Auto) 4.7 H Baso % (Auto) 0.4 Lymph # (Auto) 1.51 [place] # (Auto) 2.2 H Eos # (Auto) 0.5 H Baso # (Auto) 0.0 Abs Immat Gran (auto) 0.10 H Absolute Neuts (auto) 6.8 H Absolute Nucleated RBC 0.000 Nucleated RBC % 0.0 Sodium 138 Potassium 4.2 Chloride 107 Carbon Dioxide 29 Anion Gap 2 L BUN 18 Creatinine 0.84 Estim Creat Clear Calc 86 Estimated GFR > 60 Glucose 105 POC Capillary Glucose Calcium 7.9 L Total Bilirubin 0.4 AST 30 ALT 22 Alkaline Phosphatase 62 Total Protein 5.3 L Albumin 2.6 L Quality VTE Prophylaxis VTE prophylaxis: pharmacologic ordered
[2025-04-12] MEDS: CEFEPIME 2 GM in SODIUM CHLORIDE 0.9% IV 50 ML 100 ML IVPB ×3 (02:02→17:50)
[2025-04-12] MEDS: metroNIDAZOLE 500 MG/ISO 100ML 500 MG/100 ML BAG 100 MG IVPB ×3 (02:30→18:23)
[2025-04-12 05:33] LABS: Hematocrit 32.3 % (42.0-52.0); Hemoglobin 10.3 g/dL (14.0-18.0); Mean Corpuscular HGB Conc 31.9 g/dl (32-36); Mean Corpuscular Hemoglobin 30.7 pg (26-34); Mean Corpuscular Volume 96.4 fl (80-100); Platelet Count Result 305 k/mm3 (150-375); Red Blood Count 3.35 M/mm3 (4.6-6.20); White Blood Count 11.5 K/mm3 (4.5-10.0)
[2025-04-12 05:47] LABS: Alanine Aminotransferase 23 U/L (6-50); Albumin Level 2.8 g/dL (3.5-5.1); Alkaline Phosphatase 63 U/L (38-126); Anion Gap 2 mmol/L (4-12); Aspartate Amino Transferase 34 U/L (17-59); Bilirubin,Total 0.5 mg/dL (0.2-1.3); Blood Urea Nitrogen 17 mg/dL (9-20); Calcium 7.9 mg/dL (8.4-10.2); Carbon Dioxide 29 mmol/L (22-30); Chloride 104 mmol/L (98-107); Estimated CRCL calculation 93 ml/min; Estimated Glomerular Filt Rate > 60; Glucose 96 mg/dL (65-110); Potassium 3.8 mmol/L (3.4-5.0); Sodium 135 mmol/L (137-145); Total Protein 5.5 g/dL (6.3-8.2)
[2025-04-12 06:00] VITALS: BP 156/81; PULSE 92; RESP 16; TEMP 36.5; O2SAT 91
[2025-04-12 06:13] LABS: Basophils Absolute Manual 0.11 K/mm3 (0.0-0.1); Basophils Percent Manual 1 % (0-1); Eosinophils Absolute Manual 0.69 K/mm3 (0.02-0.50); Eosinophils Percent Manual 6 % (0-4); Lymphocytes Absolute Manual 1.61 K/mm3 (1.1-4.5); Lymphocytes Percent Manual 14 % (18-44); Monocytes Absolute Manual 1.72 K/mm3 (0.1-0.90); Monocytes Percent Manual 15 % (3-9); Neutrophils Percent Manual 64 % (46-73); Total Cells Counted 100
[2025-04-12 06:14] LABS: Hypochromasia Occasional
[2025-04-12 06:15] LABS: Burr Cells 2+; Schistocytes None Seen; Target Cells Occasional
--- NOTE | 2025-04-12 06:47 | P.PNGS_ITS ---
Progress Note: A&P Assessment and Plan (1) Colon perforation: Code(s): K63.1 - Perforation of intestine (nontraumatic) Status: Acute Assessment and Plan: cecal perforation due to colonic distension, source control 04/07 with ascending colon resection, ileostomy and mucous fistula. Doing well. Still working with physical therapy and feels distension and heaviness in the abdomen. Painful to sit but wants on feet is getting around pretty well. Wound looks better- continue silver gel with iodoform packing. (2) Ileostomy status: Code(s): Z93.2 - Ileostomy status Status: Acute Assessment and Plan: Enterostomal therapy evaluation noted and appreciated. Teaching for ileostomy and mucous fistula has been done and patient feels he can manage the stomas at home. (3) Sepsis associated hypotension: Code(s): A41.9 - Sepsis, unspecified organism; I95.9 - Hypotension, unspecified Status: Resolved Assessment and Plan: fecal contamination, peritonitis, cause of sepsis--appears to be resolved. Continue IV antibiotics. (4) Colonic obstruction: Code(s): K56.609 - Unspecified intestinal obstruction, unspecified as to partial versus complete obstruction Status: Acute Assessment and Plan: relieved with ileostomy and mucous fistula. Source of obstruction in sigmoid colon. To be evaluated with flexible sigmoidoscopy as an outpatient when patient is acute illness has improved. Subjective Subjective Date/Time Seen: 04/12/25 06:47 Post Op day: 5 Patient reports: feels better, still having pain (Mostly has pain when he stands from sitting or moves to sitting position.), tolerating a regular diet and afebrile Exam Const: General: comfortable and no acute distress Orientation/cons ciousness: patient oriented x3 GI: Inspection: distended and incision (Packing removed and silver gel, Nu Gauze packing replaced, wound improved) GI Palp: Yes Firmness to palpation present (GI) and Yes Tenderness to palpation present (GI) Auscultation: normal bowel sounds Other: Open area with less drainage. Continue silver gel and packing but looks better than yesterday. Neuro: General: patient oriented x3 and no focal motor deficits Extrem: General: no calf tenderness and no edema Psych: Affect: normal affect Insight: Good insight present (Psych) Judgement: Good judgement present (Psych) Objective Data Vital Signs Vital Signs: Vital Signs - 24 hr 12/10/25 09:10 04/11/25 10:17 04/11/25 13:49 Temperature 36.9 C Pulse Rate 119 H Respiratory Rate 18 Blood Pressure 152/83 H Pulse Oximetry 95 92 Oxygen Delivery Room Air Room Air Fraction of Inspired Oxygen 04/11/25 20:00 04/11/25 22:00 04/12/25 06:00 Temperature 36.8 C 36.5 C Pulse Rate 119 H 94 92 Respiratory Rate 18 16 16 Blood Pressure 124/78 156/81 H Pulse Oximetry 92 93 91 Oxygen Delivery Room Air Fraction of Inspired Oxygen 21 Intake/Output Intake/Output: Intake & Output 04/09/25 04/10/25 04/11/25 04/12/25 23:59 23:59 23:59 23:59 Intake Total 4305 4015 1660 50 Output Total 2850 1950 1900 425 Balance 7540 8776 -709 -154 Meds/Results Medications: Active Medications Generic Name Dose Route Start Last Admin Trade Name Freq PRN Reason Stop Dose Admin Acetaminophen 500 mg 04/10/25 07:24 Acetaminophen 500 Mg Tablet PO Q6H PRN Pain Rated 1-3 Bumetanide 2 mg 04/12/25 06:47 Bumetanide Inj 1 Mg/4 Ml Vial IV PUSH 04/12/25 06:48 ONCE ONE Enoxaparin Sodium 40 mg 04/07/25 09:00 04/11/25 09:10 Enoxaparin 40 Mg/0.4 Ml Syringe SUB-Q 40 mg DAILY MARILUZ Administration Famotidine 20 mg 04/09/25 21:00 04/11/25 21:02 Famotidine 20 Mg Tablet PO 20 mg Q12HR MARILUZ Administration Ibuprofen 800 mg in 200 mls @ 400 mls/hr 04/06/25 16:21 04/08/25 13:19 Caldolor 800 Mg/200 Ml IVPB Infused Q6H PRN Infusion Breakthrough Pain Rated 1-3 or NPO Cefepime HCl 2 gm/ Sodium 50 mls @ 100 mls/hr 04/06/25 18:00 04/12/25 02:32 Chloride IVPB Infused Q8H MARILUZ Infusion Metronidazole 500 mg in 100 mls @ 100 mls/hr 04/06/25 18:00 04/12/25 02:30 Flagyl 500 Mg/Iso Soln 100 Ml IVPB 100 mls/hr Q8H MARILUZ Administration Micafungin Sodium 100 mg/ 100 mls @ 100 mls/hr 04/07/25 15:55 04/11/25 10:11 Sodium Chloride IVPB Infused DAILY MARILUZ Infusion Levalbuterol HCl 0.63 mg 04/09/25 15:05 04/10/25 08:29 Levalbuterol Neb 1.25 Mg/3 Ml INHALATION 0.63 mg Q6HRT PRN Administration Shortness Of Breath Morphine Sulfate 2 mg 04/06/25 16:21 04/10/25 07:03 Morphine Sulfate (*Crx) 4 Mg/Ml Inj IV PUSH 2 mg Q2H PRN Administration Breakthrough Pain Rated 4-6 or NPO Morphine Sulfate 4 mg 04/06/25 16:21 04/08/25 21:51 Morphine Sulfate (*Crx) 4 Mg/Ml Inj IV PUSH 4 mg Q2H PRN Administration Breakthrough Pain Rated 7-10 or NPO Naloxone HCl 0.1 mg 04/06/25 16:21 Naloxone Hcl 0.4 Mg/Ml Vial IV PUSH Q2M PRN Opiate Reversal Ondansetron HCl 4 mg 04/06/25 12:35 Ondansetron Inj 4 Mg/2 Ml Vial IV PUSH Q4H PRN Nausea Oxycodone/Acetaminophen 1 tablet 04/10/25 07:24 04/11/25 15:00 Oxycodone/Acetaminophen (*Crx) 5-325 Mg Tablet PO 1 tablet Q4H PRN Administration Pain Rated 4-6 Potassium Chloride 20 meq 04/10/25 08:00 04/11/25 17:25 Potassium Chloride 20 Meq Er Tablet PO 20 meq BIDWM MARILUZ Administration Radiology Results: ITS Impressions Abdomen/Pelvis CT 04/06/25 11:34 IMPRESSION: 1. Focal annular wall thickening proximal sigmoid colon. Worrisome for malignancy. Additional small mural polypoid foci along distal colonic loops. Recommend GI consultation. 2. Distal esophageal wall thickening favoring esophagitis. 3. Small ascites of unclear etiology. 4. Large stool volume suggesting constipation. Abdomen X-Ray 04/07/25 16:03 Impression: 1. No acute abnormality. Renal Ultrasound 04/08/25 11:32 IMPRESSION: 1. Normal kidneys. No hydronephrosis. Chest X-Ray 04/08/25 14:45 Impression: Support apparatus as above Enema w/Water Soluble 04/09/25 08:26 IMPRESSION: 1. High-grade obstruction in the mid sigmoid colon. Labs Labs: Laboratory Results - last 24 hr 04/12/25 05:19 WBC 11.5 H RBC 3.35 L Hgb 10.3 L Hct 32.3 L MCV 96.4 MCH 30.7 MCHC 31.9 L RDW 13.5 Plt Count 305 MPV 8.8 Immature Gran % (Auto) Not Reportable Neut % (Auto) Not Reportable Lymph % (Auto) Not Reportable [place] % (Auto) Not Reportable Eos % (Auto) Not Reportable Baso % (Auto) Not Reportable Lymph # (Auto) Not Reportable [place] # (Auto) Not Reportable Eos # (Auto) Not Reportable Baso # (Auto) Not Reportable Abs Immat Gran (auto) Not Reportable Absolute Neuts (auto) Not Reportable Absolute Nucleated RBC Not Reportable Total Counted 100 Neutrophils % (Manual) 64 Band Neutrophils % Not Reportable Lymphocytes % (Manual) 14 L Monocytes % (Manual) 15 H Eosinophils % (Manual) 6 H Basophils % (Manual) 1 Nucleated RBC % Not Reportable Abs Lymphs (Manual) 1.61 Abs Monocytes (Manual) 1.72 H Absolute Eos (Manual) 0.69 H Abs Basophils (Manual) 0.11 H Platelet Estimate Adequate Hypochromasia Occasional Target Cells Occasional [place] Cells 2+ Schistocytes None seen Sodium 135 L Potassium 3.8 Chloride 104 Carbon Dioxide 29 Anion Gap 2 L BUN 17 Creatinine 0.77 Estim Creat Clear Calc 93 Estimated GFR > 60 Glucose 96 Calcium 7.9 L Total Bilirubin 0.5 AST 34 ALT 23 Alkaline Phosphatase 63 Total Protein 5.5 L Albumin 2.8 L
--- NOTE | 2025-04-12 07:37 | PM.IMPN2 ---
Assessment and Plan Assessment and Plan (1) Colonic obstruction: Code(s): K56.609 - Unspecified intestinal obstruction, unspecified as to partial versus complete obstruction Status: Acute Assessment and Plan: 59 year old male with significant past medical history of DVT presented the ED on 04/06/2025 with complains of abdominal pain and distention with constipation. CT scan demonstrated annular thickening in the proximal sigmoid colon with severe colonic distention, worrisome for malignancy. He had Hypaque enema which showed complain retrograde obstruction. Nasogastric tube was inserted and started on antibiotics. Surgery evaluated the patient and patient was recommended surgical resolution for For the obstruction. 04/07/2025 patient had distal colonic obstruction, cecal gangrene and perforation status post descending colectomy, creation of an ileostomy and mucous fistula. In the OR patient did require phenylephrine, central line was placed in the OR, 3 L IV fluids were administered. Patient was kept intubated postoperatively and transferred to the ICU (1) Colonic obstruction: Patient presented on 04/06/2025 with complains of constipation, abdominal distension. CT scan showed evidence of sigmoid colon luminal mass with severe colonic distention 04/07/2025: Patient underwent an ascending colectomy, creation of ileostomy and mucous fistula for distal colonic obstruction, cecal gangrene with perforation -received 3 units L of IV fluid bolus in the OR, also was requiring phenylephrine in the OR. Right IJ central line was inserted Patient was started on cefepime, Flagyl, micafungin, continue NG tube has been removed Tolerating a reg diet although lower appetite Monitor VS Surgery following Pt with no insurance so HH not an option, wound has been educating pt about her ileostomy (2) History of DVT (deep vein thrombosis): Code(s): Z86.718 - Personal history of other venous thrombosis and embolism Status: Acute Plan OT/PT, wound education, IV abx, surg following Medical Record Review I have reviewed the following patient records and this information was taken into consideration when formulating the assessment and plan.: previous labs Time Spent With Patient Time with patient: 25 - 35 minutes Subjective Date/time seen: 04/12/25 0906 Interval history: Pt sitting up in chair upon my arrival. Pt with continued c/o abd pain but no other sx including SOB or CP. Appetite is limited today, although he does report that the food here is not appetizing. Surg following. Review of Systems Review of Systems: All systems reviewed & are unremarkable except as noted in HPI and below Exam Narrative: GENERAL: NAD HEAD: Normocephalic, atraumatic. EYES: PERRLA. Conjunctivae clear. THROAT: Pharynx clear, NECK: Supple RESPIRATORY: Respirations nonlabored. CTA. CARDIOVASCULAR: Tachycardia with regular rhythm GASTROINTESTINAL: distended, incision (Dry and healing well) and other (Ileostomy pink and healthy, good output) tenderness present throughout, active bowel sounds MUSCULOSKELETAL: Moves all extremities. Trace bilateral lower extremity with chronic skin changes. Dry flaky skin SKIN: Warm, dry, normal color. NEURO: A&O X4. Speech clear PSYCHIATRIC: Normal interaction Objective Data Vital Signs Vital Signs: Vital Signs - 24 hr 04/11/25 09:10 04/11/25 10:17 04/11/25 13:49 Temperature 98.4 F Pulse Rate 119 H Respiratory Rate 18 Blood Pressure 152/83 H Pulse Oximetry 95 92 Oxygen Delivery Room Air Room Air Fraction of Inspired Oxygen 04/11/25 20:00 04/11/25 22:00 04/12/25 06:00 Temperature 98.2 F 97.7 F Pulse Rate 119 H 94 92 Respiratory Rate 18 16 16 Blood Pressure 124/78 156/81 H Pulse Oximetry 92 93 91 Oxygen Delivery Room Air Fraction of Inspired Oxygen 21 Intake/Output Intake/Output: Intake & Output 04/09/25 04/10/25 04/11/25 04/12/25 23:59 23:59 23:59 23:59 Intake Total 4305 4015 1660 50 Output Total 2850 1950 1900 425 Balance 1464 5271 -793 -265 Meds/Results Medications: Active Medications Generic Name Dose Route Start Last Admin Trade Name Freq PRN Reason Stop Dose Admin Acetaminophen 500 mg 04/10/25 07:24 Acetaminophen 500 Mg Tablet PO Q6H PRN Pain Rated 1-3 Enoxaparin Sodium 40 mg 04/07/25 09:00 04/11/25 09:10 Enoxaparin 40 Mg/0.4 Ml Syringe SUB-Q 40 mg DAILY MARILUZ Administration Famotidine 20 mg 04/09/25 21:00 04/11/25 21:02 Famotidine 20 Mg Tablet PO 20 mg Q12HR MARILUZ Administration Ibuprofen 800 mg in 200 mls @ 400 mls/hr 04/06/25 16:21 04/08/25 13:19 Caldolor 800 Mg/200 Ml IVPB Infused Q6H PRN Infusion Breakthrough Pain Rated 1-3 or NPO Cefepime HCl 2 gm/ Sodium 50 mls @ 100 mls/hr 04/06/25 18:00 04/12/25 02:32 Chloride IVPB Infused Q8H MARILUZ Infusion Metronidazole 500 mg in 100 mls @ 100 mls/hr 04/06/25 18:00 04/12/25 02:30 Flagyl 500 Mg/Iso Soln 100 Ml IVPB 100 mls/hr Q8H MARILUZ Administration Micafungin Sodium 100 mg/ 100 mls @ 100 mls/hr 04/07/25 15:55 04/11/25 10:11 Sodium Chloride IVPB Infused DAILY MARILUZ Infusion Levalbuterol HCl 0.63 mg 04/09/25 15:05 04/10/25 08:29 Levalbuterol Neb 1.25 Mg/3 Ml INHALATION 0.63 mg Q6HRT PRN Administration Shortness Of Breath Morphine Sulfate 2 mg 04/06/25 16:21 04/10/25 07:03 Morphine Sulfate (*Crx) 4 Mg/Ml Inj IV PUSH 2 mg Q2H PRN Administration Breakthrough Pain Rated 4-6 or NPO Morphine Sulfate 4 mg 04/06/25 16:21 04/08/25 21:51 Morphine Sulfate (*Crx) 4 Mg/Ml Inj IV PUSH 4 mg Q2H PRN Administration Breakthrough Pain Rated 7-10 or NPO Naloxone HCl 0.1 mg 04/06/25 16:21 Naloxone Hcl 0.4 Mg/Ml Vial IV PUSH Q2M PRN Opiate Reversal Ondansetron HCl 4 mg 04/06/25 12:35 Ondansetron Inj 4 Mg/2 Ml Vial IV PUSH Q4H PRN Nausea Oxycodone/Acetaminophen 1 tablet 04/10/25 07:24 04/11/25 15:00 Oxycodone/Acetaminophen (*Crx) 5-325 Mg Tablet PO 1 tablet Q4H PRN Administration Pain Rated 4-6 Potassium Chloride 20 meq 04/10/25 08:00 04/11/25 17:25 Potassium Chloride 20 Meq Er Tablet PO 20 meq BIDWM MARILUZ Administration Radiology Results: ITS Impressions Abdomen/Pelvis CT 04/06/25 11:34 IMPRESSION: 1. Focal annular wall thickening proximal sigmoid colon. Worrisome for malignancy. Additional small mural polypoid foci along distal colonic loops. Recommend GI consultation. 2. Distal esophageal wall thickening favoring esophagitis. 3. Small ascites of unclear etiology. 4. Large stool volume suggesting constipation. Abdomen X-Ray 04/07/25 16:03 Impression: 1. No acute abnormality. Renal Ultrasound 04/08/25 11:32 IMPRESSION: 1. Normal kidneys. No hydronephrosis. Chest X-Ray 04/08/25 14:45 Impression: Support apparatus as above Enema w/Water Soluble 04/09/25 08:26 IMPRESSION: 1. High-grade obstruction in the mid sigmoid colon. Labs Labs: Laboratory Results - last 24 hr 04/12/25 05:19 WBC 11.5 H RBC 3.35 L Hgb 10.3 L Hct 32.3 L MCV 96.4 MCH 30.7 MCHC 31.9 L RDW 13.5 Plt Count 305 MPV 8.8 Immature Gran % (Auto) Not Reportable Neut % (Auto) Not Reportable Lymph % (Auto) Not Reportable [place] % (Auto) Not Reportable Eos % (Auto) Not Reportable Baso % (Auto) Not Reportable Lymph # (Auto) Not Reportable [place] # (Auto) Not Reportable Eos # (Auto) Not Reportable Baso # (Auto) Not Reportable Abs Immat Gran (auto) Not Reportable Absolute Neuts (auto) Not Reportable Absolute Nucleated RBC Not Reportable Total Counted 100 Neutrophils % (Manual) 64 Band Neutrophils % Not Reportable Lymphocytes % (Manual) 14 L Monocytes % (Manual) 15 H Eosinophils % (Manual) 6 H Basophils % (Manual) 1 Nucleated RBC % Not Reportable Abs Lymphs (Manual) 1.61 Abs Monocytes (Manual) 1.72 H Absolute Eos (Manual) 0.69 H Abs Basophils (Manual) 0.11 H Platelet Estimate Adequate Hypochromasia Occasional Target Cells Occasional [place] Cells 2+ Schistocytes None seen Sodium 135 L Potassium 3.8 Chloride 104 Carbon Dioxide 29 Anion Gap 2 L BUN 17 Creatinine 0.77 Estim Creat Clear Calc 93 Estimated GFR > 60 Glucose 96 Calcium 7.9 L Total Bilirubin 0.5 AST 34 ALT 23 Alkaline Phosphatase 63 Total Protein 5.5 L Albumin 2.8 L Quality VTE Prophylaxis VTE prophylaxis: pharmacologic ordered
[2025-04-12] MEDS: POTASSIUM CHLORIDE 20 MEQ ER TABLET PO ×2 (09:03→17:50)
[2025-04-12] MEDS: MICAFUNGIN SODIUM 100 MG in SODIUM CHLORIDE 0.9% IV 100 ML IVPB (09:03)
[2025-04-12] MEDS: oxyCODONE/ACETAMINOPHEN (*CRX) 5-325 MG TABLET 1 TABLET PO ×2 (09:03→17:51)
[2025-04-12] MEDS: FAMOTIDINE 20 MG TABLET PO ×2 (09:03→21:38)
[2025-04-12] MEDS: BUMETANIDE INJ 1 MG/4 ML VIAL 2 MG IV PUSH (09:03)
[2025-04-12] MEDS: ENOXAPARIN 40 MG/0.4 ML SYRINGE SUB-Q (09:04)
[2025-04-12 14:00] VITALS: BP 151/89; PULSE 100; RESP 18; TEMP 36.8; O2SAT 95
[2025-04-12 21:36] VITALS: BP 124/76; PULSE 92; RESP 18; TEMP 36.7; O2SAT 94
[2025-04-12 21:46] VITALS: O2SAT 94
[2025-04-13] MEDS: CEFEPIME 2 GM in SODIUM CHLORIDE 0.9% IV 50 ML 100 ML IVPB ×3 (01:36→17:38)
[2025-04-13] MEDS: metroNIDAZOLE 500 MG/ISO 100ML 500 MG/100 ML BAG 100 MG IVPB ×3 (02:20→18:18)
[2025-04-13 05:26] VITALS: BP 129/78; PULSE 94; RESP 16; TEMP 36.7; O2SAT 95
[2025-04-13 05:39] LABS: Hematocrit 30.0 % (42.0-52.0); Hemoglobin 9.7 g/dL (14.0-18.0); Immature Granulocyte Percent A 2.6 % (0-0.5); Lymphocytes Absolute Auto 1.76 K/mm3 (0.9-3.2); Mean Corpuscular HGB Conc 32.3 g/dl (32-36); Mean Corpuscular Hemoglobin 30.7 pg (26-34); Mean Corpuscular Volume 94.9 fl (80-100); Nucleated Red Blood Cells Absolute Auto 0.020 K/mm3 (0.0-0.012); Nucleated Red Blood Cells Perc 0.2 % (0.0-0.2); Platelet Count Result 343 k/mm3 (150-375); Red Blood Count 3.16 M/mm3 (4.6-6.20); White Blood Count 12.2 K/mm3 (4.5-10.0)
[2025-04-13 06:23] LABS: Alanine Aminotransferase 36 U/L (6-50); Albumin Level 2.7 g/dL (3.5-5.1); Alkaline Phosphatase 64 U/L (38-126); Anion Gap 0 mmol/L (4-12); Aspartate Amino Transferase 69 U/L (17-59); Bilirubin,Total 0.5 mg/dL (0.2-1.3); Blood Urea Nitrogen 19 mg/dL (9-20); Calcium 8.0 mg/dL (8.4-10.2); Carbon Dioxide 30 mmol/L (22-30); Chloride 103 mmol/L (98-107); Estimated CRCL calculation 95 ml/min; Estimated Glomerular Filt Rate > 60; Glucose 100 mg/dL (65-110); Potassium 3.8 mmol/L (3.4-5.0); Sodium 133 mmol/L (137-145); Total Protein 5.5 g/dL (6.3-8.2)
[2025-04-13] MEDS: ENOXAPARIN 40 MG/0.4 ML SYRINGE SUB-Q (09:17)
[2025-04-13] MEDS: FAMOTIDINE 20 MG TABLET PO ×2 (09:17→22:00)
[2025-04-13] MEDS: POTASSIUM CHLORIDE 20 MEQ ER TABLET PO ×2 (09:17→17:38)
[2025-04-13] MEDS: oxyCODONE/ACETAMINOPHEN (*CRX) 5-325 MG TABLET 1 TABLET PO (09:18)
[2025-04-13] MEDS: MICAFUNGIN SODIUM 100 MG in SODIUM CHLORIDE 0.9% IV 100 ML IVPB (09:18)
--- NOTE | 2025-04-13 09:21 | P.PNGS_ITS ---
Progress Note: A&P Assessment and Plan (1) Colon perforation: Code(s): K63.1 - Perforation of intestine (nontraumatic) Status: Acute Assessment and Plan: cecal perforation due to colonic distension, source control 04/07 with ascending colon resection, ileostomy and mucous fistula. patient having early satiety and still pretty distended now postop day 6. Ileostomy is draining and seems to be working well. Not much coming out of mucous fistula at this point. Abdominal wound above umbilicus continues to have quite a bit of seropurulent drainage. I will discontinue the Nu Gauze and silver gel, instead will start twice a day 4 x 4 gauze packing to include packing under the skin where it tracks towards the mucous fistula. I would showed the nurses how this is to be changed. The remainder of the incision can be left open to air. White blood cell count is continuing to slowly increase. Will get a CT scan of the abdomen and pelvis today and also consult Infectious Disease. Patient to contain continue working with physical therapy. Outside of early satiety and a feeling of distention and heaviness with his abdomen, he otherwise feels pretty well. (2) Ileostomy status: Code(s): Z93.2 - Ileostomy status Status: Acute Assessment and Plan: Enterostomal therapy evaluation noted and appreciated. Teaching for ileostomy and mucous fistula has been done and patient feels he can manage the stomas at home. (3) Sepsis associated hypotension: Code(s): A41.9 - Sepsis, unspecified organism; I95.9 - Hypotension, unspecified Status: Resolved Assessment and Plan: fecal contamination, peritonitis, cause of sepsis--appears to be resolved. Continue IV antibiotics. Now on postop day 6. Of antibiotics including cefepime, metronidazole, and micafungin. CT scan is ordered to evaluate for possible abscess. Also will consult Infectious Disease for assistance in determining length of antibiotic treatment. (4) Colonic obstruction: Code(s): K56.609 - Unspecified intestinal obstruction, unspecified as to partial versus complete obstruction Status: Acute Assessment and Plan: relieved with ileostomy and mucous fistula. Source of obstruction in sigmoid colon. To be evaluated with flexible sigmoidoscopy as an outpatient when patient is acute illness has improved. Subjective Subjective Date/Time Seen: 04/13/25 09:21 Post Op day: #6 Patient reports: no new complaints, pain is less, tolerating a regular diet (Gets full very easily), voiding w/o difficulty and afebrile Exam Const: General: comfortable and no acute distress Orientation/consciousness: patient oriented x3 GI: Inspection: distended, incision ( gauze and dressing not controlling seropurulent drainage) and other ( wound below the umbilicus looks good) GI Palp: Yes Soft to palpation, Yes Tenderness to palpation present (GI) ( mild tenderness), No Guarding due to palpation present (GI) and No Rebound tenderness present Neuro: General: patient oriented x3 and no focal motor deficits Extrem: General: no calf tenderness and no edema Psych: Affect: normal affect Insight: Good insight present (Psych) Judgement: Good judgement present (Psych) Objective Data Vital Signs Vital Signs: Vital Signs - 24 hr 04/12/25 14:00 04/12/25 21:36 04/12/25 21:46 Temperature 36.8 C 36.7 C Pulse Rate 100 92 Respiratory Rate 18 18 Blood Pressure 151/89 H 124/76 Pulse Oximetry 95 94 94 Oxygen Delivery Room Air 04/13/25 05:26 Temperature 36.7 C Pulse Rate 94 Respiratory Rate 16 Blood Pressure 129/78 Pulse Oximetry 95 Oxygen Delivery Intake/Output Intake/Output: Intake & Output 04/10/25 04/11/25 04/12/25 04/13/25 23:59 23:59 23:59 23:59 Intake Total 4015 1660 1612 500 Output Total 1950 1900 2125 400 Balance 7501 -240 -093 100 Meds/Results Medications: Active Medications Generic Name Dose Route Start Last Admin Trade Name Leonardoq PRN Reason Stop Dose Admin Acetaminophen 500 mg 04/10/25 07:24 Acetaminophen 500 Mg Tablet PO Q6H PRN Pain Rated 1-3 Enoxaparin Sodium 40 mg 04/07/25 09:00 04/13/25 09:17 Enoxaparin 40 Mg/0.4 Ml Syringe SUB-Q 40 mg DAILY MARILUZ Administration Famotidine 20 mg 04/09/25 21:00 04/13/25 09:17 Famotidine 20 Mg Tablet PO 20 mg Q12HR MARILUZ Administration Ibuprofen 800 mg in 200 mls @ 400 mls/hr 04/06/25 16:21 04/08/25 13:19 Caldolor 800 Mg/200 Ml IVPB Infused Q6H PRN Infusion Breakthrough Pain Rated 1-3 or NPO Cefepime HCl 2 gm/ Sodium 50 mls @ 100 mls/hr 04/06/25 18:00 04/13/25 02:06 Chloride IVPB Infused Q8H MARILUZ Infusion Metronidazole 500 mg in 100 mls @ 100 mls/hr 04/06/25 18:00 04/13/25 03:20 Flagyl 500 Mg/Iso Soln 100 Ml IVPB Infused Q8H MARILUZ Infusion Micafungin Sodium 100 mg/ 100 mls @ 100 mls/hr 04/07/25 15:55 04/13/25 09:18 Sodium Chloride IVPB 100 mls/hr DAILY MARILUZ Administration Levalbuterol HCl 0.63 mg 04/09/25 15:05 04/10/25 08:29 Levalbuterol Neb 1.25 Mg/3 Ml INHALATION 0.63 mg Q6HRT PRN Administration Shortness Of Breath Morphine Sulfate 2 mg 04/06/25 16:21 04/10/25 07:03 Morphine Sulfate (*Crx) 4 Mg/Ml Inj IV PUSH 2 mg Q2H PRN Administration Breakthrough Pain Rated 4-6 or NPO Morphine Sulfate 4 mg 04/06/25 16:21 04/08/25 21:51 Morphine Sulfate (*Crx) 4 Mg/Ml Inj IV PUSH 4 mg Q2H PRN Administration Breakthrough Pain Rated 7-10 or NPO Naloxone HCl 0.1 mg 04/06/25 16:21 Naloxone Hcl 0.4 Mg/Ml Vial IV PUSH Q2M PRN Opiate Reversal Ondansetron HCl 4 mg 04/06/25 12:35 Ondansetron Inj 4 Mg/2 Ml Vial IV PUSH Q4H PRN Nausea Oxycodone/Acetaminophen 1 tablet 04/10/25 07:24 04/13/25 09:18 Oxycodone/Acetaminophen (*Crx) 5-325 Mg Tablet PO 1 tablet Q4H PRN Administration Pain Rated 4-6 Potassium Chloride 20 meq 04/10/25 08:00 04/13/25 09:17 Potassium Chloride 20 Meq Er Tablet PO 20 meq BIDWM MARILUZ Administration Radiology Results: ITS Impressions Abdomen/Pelvis CT 04/06/25 11:34 IMPRESSION: 1. Focal annular wall thickening proximal sigmoid colon. Worrisome for malignancy. Additional small mural polypoid foci along distal colonic loops. Recommend GI consultation. 2. Distal esophageal wall thickening favoring esophagitis. 3. Small ascites of unclear etiology. 4. Large stool volume suggesting constipation. Abdomen X-Ray 04/07/25 16:03 Impression: 1. No acute abnormality. Renal Ultrasound 04/08/25 11:32 IMPRESSION: 1. Normal kidneys. No hydronephrosis. Chest X-Ray 04/08/25 14:45 Impression: Support apparatus as above Enema w/Water Soluble 04/09/25 08:26 IMPRESSION: 1. High-grade obstruction in the mid sigmoid colon. Labs Labs: Laboratory Results - last 24 hr 04/13/25 05:27 WBC 12.2 H RBC 3.16 L Hgb 9.7 L Hct 30.0 L MCV 94.9 MCH 30.7 MCHC 32.3 RDW 13.6 Plt Count 343 MPV 8.7 Immature Gran % (Auto) 2.6 H Neut % (Auto) 58.3 Lymph % (Auto) 14.5 L [place] % (Auto) 19.9 H Eos % (Auto) 4.0 Baso % (Auto) 0.7 Lymph # (Auto) 1.76 [place] # (Auto) 2.4 H Eos # (Auto) 0.5 H Baso # (Auto) 0.1 Abs Immat Gran (auto) 0.32 H Absolute Neuts (auto) 7.1 H Absolute Nucleated RBC 0.020 H Nucleated RBC % 0.2 Sodium 133 L Potassium 3.8 Chloride 103 Carbon Dioxide 30 Anion Gap 0 L BUN 19 Creatinine 0.75 Estim Creat Clear Calc 95 Estimated GFR > 60 Glucose 100 Calcium 8.0 L Total Bilirubin 0.5 AST 69 H ALT 36 Alkaline Phosphatase 64 Total Protein 5.5 L Albumin 2.7 L white blood cell count slowly rising
--- NOTE | 2025-04-13 10:52 | PM.IMPN2 ---
Assessment and Plan Assessment and Plan (1) Colonic obstruction: Code(s): K56.609 - Unspecified intestinal obstruction, unspecified as to partial versus complete obstruction Status: Acute Assessment and Plan: 59 year old male with significant past medical history of DVT presented the ED on 04/06/2025 with complains of abdominal pain and distention with constipation. CT scan demonstrated annular thickening in the proximal sigmoid colon with severe colonic distention, worrisome for malignancy. He had Hypaque enema which showed complain retrograde obstruction. Nasogastric tube was inserted and started on antibiotics. Surgery evaluated the patient and patient was recommended surgical resolution for For the obstruction. 04/07/2025 patient had distal colonic obstruction, cecal gangrene and perforation status post descending colectomy, creation of an ileostomy and mucous fistula. In the OR patient did require phenylephrine, central line was placed in the OR, 3 L IV fluids were administered. Patient was kept intubated postoperatively and transferred to the ICU (1) Colonic obstruction: Patient presented on 04/06/2025 with complains of constipation, abdominal distension. CT scan showed evidence of sigmoid colon luminal mass with severe colonic distention 04/07/2025: Patient underwent an ascending colectomy, creation of ileostomy and mucous fistula for distal colonic obstruction, cecal gangrene with perforation -received 3 units L of IV fluid bolus in the OR, also was requiring phenylephrine in the OR. Right IJ central line was inserted Patient was started on cefepime, Flagyl, micafungin, continue NG tube has been removed Tolerating a reg diet although lower appetite Monitor VS Surgery following, ordered repeat CT today due to uptrending WBC and abd pain -Pt reporting pain control with current ordered medications, pain is greater with activity Pt with no insurance so HH not an option, wound has been educating pt about her ileostomy (2) History of DVT (deep vein thrombosis): Code(s): Z86.718 - Personal history of other venous thrombosis and embolism Status: Acute Plan OT/PT, wound education, IV abx, surg following, CT pending Medical Record Review I have reviewed the following patient records and this information was taken into consideration when formulating the assessment and plan.: previous labs Time Spent With Patient Time with patient: 25 - 35 minutes Subjective Date/time seen: 04/13/25 1400 Interval history: Pt sitting up in bed upon my arrival. Pt with continued c/o abd pain which is increasing. Per surg, CT obtained today due to increased pain and WBC counts. Also reporting insomnia, will trial melatonin. Denies any other sx including N/V/D, SOB, or CP. Review of Systems Review of Systems: All systems reviewed & are unremarkable except as noted in HPI and below Exam Narrative: GENERAL: NAD HEAD: Normocephalic, atraumatic. EYES: PERRLA. Conjunctivae clear. THROAT: Pharynx clear, NECK: Supple RESPIRATORY: Respirations nonlabored. CTA. CARDIOVASCULAR: Tachycardia with regular rhythm GASTROINTESTINAL: distended, incision (Dry and healing well) and other (Ileostomy pink and healthy, good output) tenderness present throughout, active bowel sounds MUSCULOSKELETAL: Moves all extremities. Trace bilateral lower extremity with chronic skin changes. Dry flaky skin SKIN: Warm, dry, normal color. NEURO: A&O X4. Speech clear PSYCHIATRIC: Normal interaction Objective Data Vital Signs Vital Signs: Vital Signs - 24 hr 04/12/25 14:00 04/12/25 21:36 04/12/25 21:46 Temperature 98.2 F 98.1 F Pulse Rate 100 92 Respiratory Rate 18 18 Blood Pressure 151/89 H 124/76 Pulse Oximetry 95 94 94 Oxygen Delivery Room Air 04/13/25 05:26 Temperature 98.0 F Pulse Rate 94 Respiratory Rate 16 Blood Pressure 129/78 Pulse Oximetry 95 Oxygen Delivery Intake/Output Intake/Output: Intake & Output 04/10/25 04/11/25 04/12/25 04/13/25 23:59 23:59 23:59 23:59 Intake Total 4015 1660 1612 740 Output Total 1950 1900 2125 400 Balance 2065 240 -513 340 Meds/Results Medications: Active Medications Generic Name Dose Route Start Last Admin Trade Name Freq PRN Reason Stop Dose Admin Acetaminophen 500 mg 04/10/25 07:24 Acetaminophen 500 Mg Tablet PO Q6H PRN Pain Rated 1-3 Enoxaparin Sodium 40 mg 04/07/25 09:00 04/13/25 09:17 Enoxaparin 40 Mg/0.4 Ml Syringe SUB-Q 40 mg DAILY MARILUZ Administration Famotidine 20 mg 04/09/25 21:00 04/13/25 09:17 Famotidine 20 Mg Tablet PO 20 mg Q12HR MARILUZ Administration Ibuprofen 800 mg in 200 mls @ 400 mls/hr 04/06/25 16:21 04/08/25 13:19 Caldolor 800 Mg/200 Ml IVPB Infused Q6H PRN Infusion Breakthrough Pain Rated 1-3 or NPO Cefepime HCl 2 gm/ Sodium 50 mls @ 100 mls/hr 04/06/25 18:00 04/13/25 02:06 Chloride IVPB Infused Q8H MARILUZ Infusion Metronidazole 500 mg in 100 mls @ 100 mls/hr 04/06/25 18:00 04/13/25 09:26 Flagyl 500 Mg/Iso Soln 100 Ml IVPB 100 mls/hr Q8H MARILUZ Administration Micafungin Sodium 100 mg/ 100 mls @ 100 mls/hr 04/07/25 15:55 04/13/25 09:18 Sodium Chloride IVPB 100 mls/hr DAILY MARILUZ Administration Levalbuterol HCl 0.63 mg 04/09/25 15:05 04/10/25 08:29 Levalbuterol Neb 1.25 Mg/3 Ml INHALATION 0.63 mg Q6HRT PRN Administration Shortness Of Breath Morphine Sulfate 2 mg 04/06/25 16:21 04/10/25 07:03 Morphine Sulfate (*Crx) 4 Mg/Ml Inj IV PUSH 2 mg Q2H PRN Administration Breakthrough Pain Rated 4-6 or NPO Morphine Sulfate 4 mg 04/06/25 16:21 04/08/25 21:51 Morphine Sulfate (*Crx) 4 Mg/Ml Inj IV PUSH 4 mg Q2H PRN Administration Breakthrough Pain Rated 7-10 or NPO Naloxone HCl 0.1 mg 04/06/25 16:21 Naloxone Hcl 0.4 Mg/Ml Vial IV PUSH Q2M PRN Opiate Reversal Ondansetron HCl 4 mg 04/06/25 12:35 Ondansetron Inj 4 Mg/2 Ml Vial IV PUSH Q4H PRN Nausea Oxycodone/Acetaminophen 1 tablet 04/10/25 07:24 04/13/25 09:18 Oxycodone/Acetaminophen (*Crx) 5-325 Mg Tablet PO 1 tablet Q4H PRN Administration Pain Rated 4-6 Potassium Chloride 20 meq 04/10/25 08:00 04/13/25 09:17 Potassium Chloride 20 Meq Er Tablet PO 20 meq BIDWM MARILUZ Administration Radiology Results: ITS Impressions Abdomen/Pelvis CT 04/06/25 11:34 IMPRESSION: 1. Focal annular wall thickening proximal sigmoid colon. Worrisome for malignancy. Additional small mural polypoid foci along distal colonic loops. Recommend GI consultation. 2. Distal esophageal wall thickening favoring esophagitis. 3. Small ascites of unclear etiology. 4. Large stool volume suggesting constipation. Abdomen X-Ray 04/07/25 16:03 Impression: 1. No acute abnormality. Renal Ultrasound 04/08/25 11:32 IMPRESSION: 1. Normal kidneys. No hydronephrosis. Chest X-Ray 04/08/25 14:45 Impression: Support apparatus as above Enema w/Water Soluble 04/09/25 08:26 IMPRESSION: 1. High-grade obstruction in the mid sigmoid colon. Labs Labs: Laboratory Results - last 24 hr 04/13/25 05:27 WBC 12.2 H RBC 3.16 L Hgb 9.7 L Hct 30.0 L MCV 94.9 MCH 30.7 MCHC 32.3 RDW 13.6 Plt Count 343 MPV 8.7 Immature Gran % (Auto) 2.6 H Neut % (Auto) 58.3 Lymph % (Auto) 14.5 L [place] % (Auto) 19.9 H Eos % (Auto) 4.0 Baso % (Auto) 0.7 Lymph # (Auto) 1.76 [place] # (Auto) 2.4 H Eos # (Auto) 0.5 H Baso # (Auto) 0.1 Abs Immat Gran (auto) 0.32 H Absolute Neuts (auto) 7.1 H Absolute Nucleated RBC 0.020 H Nucleated RBC % 0.2 Sodium 133 L Potassium 3.8 Chloride 103 Carbon Dioxide 30 Anion Gap 0 L BUN 19 Creatinine 0.75 Estim Creat Clear Calc 95 Estimated GFR > 60 Glucose 100 Calcium 8.0 L Total Bilirubin 0.5 AST 69 H ALT 36 Alkaline Phosphatase 64 Total Protein 5.5 L Albumin 2.7 L Quality VTE Prophylaxis VTE prophylaxis: pharmacologic ordered
[2025-04-13 14:00] VITALS: BP 127/76; PULSE 101; RESP 18; TEMP 36.6; O2SAT 95
--- NOTE | 2025-04-13 15:00 | WPDIDCN ---
Assessment and Plan Assessment and plan (1) Colon perforation: Code(s): K63.1 - Perforation of intestine (nontraumatic) Status: Acute Assessment and Plan: ASSESSMENT: 1. large bowel obstruction from possible malignancy s/p partial colectomy, ileostomy, mucus fistula on 04/07/25 with intra-op findings notable for cecal perforation; Repeat CT no abscess 2. possible abdominal wound infection given seropurulent drainage RECOMMENDATIONS: -continue cefepime, flagyl and micafungin for now -add IV vancomycin -probably stop micafungin soon d/w pharmacy Pt was seen via video telehealth consultation with the assistance of staff. Chart, data and patient info reviewed. Patient was located at [facility] while I was in my [place] office. Pt gave consent. HPI Data of Consult Date/Time: 04/13/25 15:00 Requesting Physician: Ramsey Melton MD Primary Care Provider: Thad Fair, Consult Narrative Reason for consult: leukocytosis, bowel perforation Narrative: Jeremy Clifford is a 59 year old male with hx/o ?DVT, presented to ED with abdominal pain and distention. Work up revealed large bowel obstruction. Pt underwent partial colectomy, ileostomy creation and mucus fistula creation on 04/07. Intra-op findings notable for cecal perforation and gangrene. Post-op pt with some purulent drainage from incision near umbilicus. Repeat CT without abscess. Possible malignancy. On cefepime, flagyl and micafungin. No cultures. [facility] Past Medical History Medical History Nausea and vomiting in adult Social History Social History Smoking packs per day: 0.5 Smoking cigarettes per day: 10.0 Smoking status: Current every day smoker Tobacco type: cigarettes Alcohol intake: never Substance use: never Lack of Transportation: No Lack of Food: Never True Current Housing: I Have Housing Concerned About Future Housing: No Difficulty Paying Gas/Electric Bills: No Difficulty Paying for Meds: No Currently Unemployed: No Education: Associate Degree Difficulty w/ Childcare or Family Care: No Spiritual care concerns: No Meds Home Medications and Allergies Home Medications ?Medication ?Instructions ?Recorded ?Confirmed ?Type ibuprofen 200 mg tablet (Advil) 400 mg PO Q12H 04/06/25 04/06/25 History Allergies Allergy/AdvReac Type Severity Reaction Status Date / Time No Known Allergies Allergy Verified 04/06/25 14:57 Vital Signs Vital Signs - 24 hr 04/12/25 21:36 04/12/25 21:46 04/13/25 05:26 Temperature 98.1 F 98.0 F Pulse Rate 92 94 Respiratory Rate 18 16 Blood Pressure 124/76 129/78 Pulse Oximetry 94 94 95 Oxygen Delivery Room Air 04/13/25 14:00 Temperature 97.8 F Pulse Rate 101 H Respiratory Rate 18 Blood Pressure 127/76 Pulse Oximetry 95 Oxygen Delivery Exam Narrative: on room air, non-toxic, NAD abd with ostomy and mucus fistula Results Labs 04/13/25 05:27 04/13/25 05:27 Labs: Short CBC 04/13/25 Range/Units 05:27 WBC 12.2 H (4.5-10.0) K/mm3 Hgb 9.7 L (14.0-18.0) g/dL Hct 30.0 L (42.0-52.0) % Plt Count 343 (150-375) k/mm3 BMP 04/13/25 05:27 Sodium 133 L Potassium 3.8 Chloride 103 Carbon Dioxide 30 BUN 19 Creatinine 0.75 Glucose 100 Calcium 8.0 L Liver Function 04/13/25 Range/Units 05:27 Total Bilirubin 0.5 (0.2-1.3) mg/dL AST 69 H (17-59) U/L ALT 36 (6-50) U/L Alkaline Phosphatase 64 (38-126) U/L Albumin 2.7 L (3.5-5.1) g/dL
[2025-04-13] MEDS: VANCOMYCIN 1,500 MG/NS 500 ML 1,500 MG/500 ML BAG 250 MG IVPB (15:28)
[2025-04-13 21:43] VITALS: BP 141/72; PULSE 97; RESP 16; TEMP 36.6; O2SAT 95
[2025-04-14] MEDS: metroNIDAZOLE 500 MG/ISO 100ML 500 MG/100 ML BAG 100 MG IVPB ×3 (02:24→18:49)
[2025-04-14] MEDS: CEFEPIME 2 GM in SODIUM CHLORIDE 0.9% IV 50 ML 100 ML IVPB ×3 (02:24→18:49)
[2025-04-14] MEDS: VANCOMYCIN 1,500 MG/NS 500 ML 1,500 MG/500 ML BAG 250 MG IVPB ×2 (04:46→16:44)
[2025-04-14 05:53] LABS: Hematocrit 31.8 % (42.0-52.0); Hemoglobin 10.1 g/dL (14.0-18.0); Immature Granulocyte Percent A 3.4 % (0-0.5); Lymphocytes Absolute Auto 1.50 K/mm3 (0.9-3.2); Mean Corpuscular HGB Conc 31.8 g/dl (32-36); Mean Corpuscular Hemoglobin 30.1 pg (26-34); Mean Corpuscular Volume 94.6 fl (80-100); Nucleated Red Blood Cells Absolute Auto 0.000 K/mm3 (0.0-0.012); Nucleated Red Blood Cells Perc 0.0 % (0.0-0.2); Platelet Count Result 383 k/mm3 (150-375); Red Blood Count 3.36 M/mm3 (4.6-6.20); White Blood Count 12.5 K/mm3 (4.5-10.0)
[2025-04-14 06:00] VITALS: BP 127/71; PULSE 90; RESP 16; TEMP 36.7; O2SAT 95
[2025-04-14 06:17] LABS: Alanine Aminotransferase 47 U/L (6-50); Albumin Level 2.8 g/dL (3.5-5.1); Alkaline Phosphatase 64 U/L (38-126); Anion Gap 1 mmol/L (4-12); Aspartate Amino Transferase 74 U/L (17-59); Bilirubin,Total 0.5 mg/dL (0.2-1.3); Blood Urea Nitrogen 15 mg/dL (9-20); Calcium 8.1 mg/dL (8.4-10.2); Carbon Dioxide 29 mmol/L (22-30); Chloride 102 mmol/L (98-107); Estimated CRCL calculation 100 ml/min; Estimated Glomerular Filt Rate > 60; Glucose 86 mg/dL (65-110); Potassium 4.0 mmol/L (3.4-5.0); Sodium 132 mmol/L (137-145); Total Protein 5.6 g/dL (6.3-8.2)
[2025-04-14] MEDS: FAMOTIDINE 20 MG TABLET PO ×2 (09:03→20:36)
[2025-04-14] MEDS: ENOXAPARIN 40 MG/0.4 ML SYRINGE SUB-Q (09:03)
[2025-04-14] MEDS: POTASSIUM CHLORIDE 20 MEQ ER TABLET PO ×2 (09:03→16:45)
[2025-04-14] MEDS: MICAFUNGIN SODIUM 100 MG in SODIUM CHLORIDE 0.9% IV 100 ML IVPB (09:05)
--- NOTE | 2025-04-14 13:37 | PM.IMPN2 ---
Assessment and Plan Assessment and Plan (1) Colonic obstruction: Code(s): K56.609 - Unspecified intestinal obstruction, unspecified as to partial versus complete obstruction Status: Acute Assessment and Plan: 59 year old male with significant past medical history of DVT presented the ED on 04/06/2025 with complains of abdominal pain and distention with constipation. CT scan demonstrated annular thickening in the proximal sigmoid colon with severe colonic distention, worrisome for malignancy. He had Hypaque enema which showed complain retrograde obstruction. Nasogastric tube was inserted and started on antibiotics. Surgery evaluated the patient and patient was recommended surgical resolution for For the obstruction. 04/07/2025 patient had distal colonic obstruction, cecal gangrene and perforation status post descending colectomy, creation of an ileostomy and mucous fistula. In the OR patient did require phenylephrine, central line was placed in the OR, 3 L IV fluids were administered. Patient was kept intubated postoperatively and transferred to the ICU (1) Colonic obstruction: Patient presented on 04/06/2025 with complains of constipation, abdominal distension. CT scan showed evidence of sigmoid colon luminal mass with severe colonic distention 04/07/2025: Patient underwent an ascending colectomy, creation of ileostomy and mucous fistula for distal colonic obstruction, cecal gangrene with perforation -received 3 units L of IV fluid bolus in the OR, also was requiring phenylephrine in the OR. Right IJ central line was inserted Patient was started on cefepime, Flagyl, micafungin, continue NG tube has been removed Tolerating a reg diet although lower appetite Monitor VS Surgery following, ordered repeat CT 04/13 due to uptrending WBC and abd pain, no abscess -Pt reporting pain control with current ordered medications, pain is greater with activity Pt with no insurance so HH not an option, wound has been educating pt about her ileostomy ID on board now, recs: -continue cefepime, flagyl and micafungin for now -add IV vancomycin -probably stop micafungin soon (2) History of DVT (deep vein thrombosis): Code(s): Z86.718 - Personal history of other venous thrombosis and embolism Status: Acute Plan OT/PT, wound education, IV abx, surg & ID following, CT pending Medical Record Review I have reviewed the following patient records and this information was taken into consideration when formulating the assessment and plan.: previous labs Consultations Consultations: I have discussed the care of this pt with the consulting providers. Time Spent With Patient Time with patient: 25 - 35 minutes Subjective Date/time seen: 04/14/25 1301 Interval history: Pt sitting in bed comfortably upon my arrival. He states that he feels better every day. Denies N/V/D but continues to endorse abd pain. Review of Systems Review of Systems: All systems reviewed & are unremarkable except as noted in HPI and below Exam Narrative: GENERAL: NAD HEAD: Normocephalic, atraumatic. EYES: PERRLA. Conjunctivae clear. THROAT: Pharynx clear, NECK: Supple RESPIRATORY: Respirations nonlabored. CTA. CARDIOVASCULAR: Regular rate and rhythm GASTROINTESTINAL: distended, more mild today, incision (Dry and healing well) and other (Ileostomy pink and healthy, good output) tenderness present throughout, active bowel sounds MUSCULOSKELETAL: Moves all extremities. Trace bilateral lower extremity with chronic skin changes. Dry flaky skin SKIN: Warm, dry, normal color. NEURO: A&O X4. Speech clear PSYCHIATRIC: Normal interaction Objective Data Vital Signs Vital Signs: Vital Signs - 24 hr 04/13/25 14:00 04/13/25 20:00 04/13/25 21:43 Temperature 97.8 F 97.8 F Pulse Rate 101 H 97 Respiratory Rate 18 16 Blood Pressure 127/76 141/72 H Pulse Oximetry 95 95 Oxygen Delivery Room Air 04/14/25 06:00 04/14/25 08:00 Temperature 98.1 F Pulse Rate 90 Respiratory Rate 16 Blood Pressure 127/71 Pulse Oximetry 95 Oxygen Delivery Room Air Intake/Output Intake/Output: Intake & Output 04/11/25 04/12/25 04/13/25 04/14/25 23:59 23:59 23:59 23:59 Intake Total 1660 1612 2230 490 Output Total 1900 2125 1500 600 Balance -240 -513 730 -110 Meds/Results Medications: Active Medications Generic Name Dose Route Start Last Admin Trade Name Freq PRN Reason Stop Dose Admin Acetaminophen 500 mg 04/10/25 07:24 Acetaminophen 500 Mg Tablet PO Q6H PRN Pain Rated 1-3 Enoxaparin Sodium 40 mg 04/07/25 09:00 04/14/25 09:03 Enoxaparin 40 Mg/0.4 Ml Syringe SUB-Q 40 mg DAILY MARILUZ Administration Famotidine 20 mg 04/09/25 21:00 04/14/25 09:03 Famotidine 20 Mg Tablet PO 20 mg Q12HR MARILUZ Administration Ibuprofen 800 mg in 200 mls @ 400 mls/hr 04/06/25 16:21 04/08/25 13:19 Caldolor 800 Mg/200 Ml IVPB Infused Q6H PRN Infusion Breakthrough Pain Rated 1-3 or NPO Cefepime HCl 2 gm/ Sodium 50 mls @ 100 mls/hr 04/06/25 18:00 04/14/25 10:12 Chloride IVPB 100 mls/hr Q8H MARILUZ Administration Metronidazole 500 mg in 100 mls @ 100 mls/hr 04/06/25 18:00 04/14/25 10:16 Flagyl 500 Mg/Iso Soln 100 Ml IVPB 100 mls/hr Q8H MARILUZ Administration Micafungin Sodium 100 mg/ 100 mls @ 100 mls/hr 04/07/25 15:55 04/14/25 10:10 Sodium Chloride IVPB Infused DAILY MARILUZ Infusion Vancomycin HCl 1,500 mg in 500 mls @ 250 mls/hr 04/13/25 16:00 04/14/25 04:46 Vancomycin 1,500 Mg/Ns 500 Ml IVPB 250 mls/hr Q12H MARILUZ Administration Levalbuterol HCl 0.63 mg 04/09/25 15:05 04/10/25 08:29 Levalbuterol Neb 1.25 Mg/3 Ml INHALATION 0.63 mg Q6HRT PRN Administration Shortness Of Breath Morphine Sulfate 2 mg 04/06/25 16:21 04/10/25 07:03 Morphine Sulfate (*Crx) 4 Mg/Ml Inj IV PUSH 2 mg Q2H PRN Administration Breakthrough Pain Rated 4-6 or NPO Morphine Sulfate 4 mg 04/06/25 16:21 04/08/25 21:51 Morphine Sulfate (*Crx) 4 Mg/Ml Inj IV PUSH 4 mg Q2H PRN Administration Breakthrough Pain Rated 7-10 or NPO Naloxone HCl 0.1 mg 04/06/25 16:21 Naloxone Hcl 0.4 Mg/Ml Vial IV PUSH Q2M PRN Opiate Reversal Ondansetron HCl 4 mg 04/06/25 12:35 Ondansetron Inj 4 Mg/2 Ml Vial IV PUSH Q4H PRN Nausea Oxycodone/Acetaminophen 1 tablet 04/10/25 07:24 04/13/25 09:18 Oxycodone/Acetaminophen (*Crx) 5-325 Mg Tablet PO 1 tablet Q4H PRN Administration Pain Rated 4-6 Potassium Chloride 20 meq 04/10/25 08:00 04/14/25 09:03 Potassium Chloride 20 Meq Er Tablet PO 20 meq BIDWM MARILUZ Administration Radiology Results: ITS Impressions Abdomen X-Ray 04/07/25 16:03 Impression: 1. No acute abnormality. Renal Ultrasound 04/08/25 11:32 IMPRESSION: 1. Normal kidneys. No hydronephrosis. Chest X-Ray 04/08/25 14:45 Impression: Support apparatus as above Enema w/Water Soluble 04/09/25 08:26 IMPRESSION: 1. High-grade obstruction in the mid sigmoid colon. Abdomen/Pelvis CT 04/13/25 11:18 IMPRESSION: 1. Interval change of right hemicolectomy with diverting loop ileostomy and additional colostomy utilizing the proximal colectomy margin. Small amount of ascites but no abscess or free intraperineal gas. 2. Persistent diffuse colonic wall thickening consistent with colitis, likely stercoral colitis resulting from ongoing colonic obstruction at the mid sigmoid colon where there is a likely obstructing colon cancer. 3. 2.4 x 1.8 cm lobular mass in the sigmoid mesentery with some associated calcification raising concern for local metastatic disease with calcification suggesting either mucinous adenocarcinoma or carcinoid primary. Differential would include sclerosing mesenteritis or sequela of old granulomatous disease. 4. A few dystrophic calcifications at the head of the pancreas consistent with sequela of chronic pancreatitis. 5. Very small bilateral pleural effusions with unilateral calcified pleural plaques and small round atelectasis in the visualized right lower lung suggesting sequela of chronic exudative effusion. 6. Wall thickening the distal esophagus suggestive of esophagitis which could be related to reflux given the presence of a small sliding-type hiatal hernia. Labs Labs: Laboratory Results - last 24 hr 04/14/25 05:31 WBC 12.5 H RBC 3.36 L Hgb 10.1 L Hct 31.8 L MCV 94.6 MCH 30.1 MCHC 31.8 L RDW 13.8 Plt Count 383 H MPV 8.9 Immature Gran % (Auto) 3.4 H Neut % (Auto) 64.8 Lymph % (Auto) 12.0 L [place] % (Auto) 15.4 H Eos % (Auto) 3.6 Baso % (Auto) 0.8 Lymph # (Auto) 1.50 [place] # (Auto) 1.9 H Eos # (Auto) 0.5 H Baso # (Auto) 0.1 Abs Immat Gran (auto) 0.42 H Absolute Neuts (auto) 8.1 H Absolute Nucleated RBC 0.000 Nucleated RBC % 0.0 Sodium 132 L Potassium 4.0 Chloride 102 Carbon Dioxide 29 Anion Gap 1 L BUN 15 Creatinine 0.71 Estim Creat Clear Calc 100 Estimated GFR > 60 Glucose 86 Calcium 8.1 L Total Bilirubin 0.5 AST 74 H ALT 47 Alkaline Phosphatase 64 Total Protein 5.6 L Albumin 2.8 L Quality VTE Prophylaxis VTE prophylaxis: pharmacologic ordered
[2025-04-14 14:00] VITALS: BP 141/87; PULSE 90; RESP 18; TEMP 36.3; O2SAT 98
[2025-04-14 20:33] VITALS: BP 141/77; PULSE 88; RESP 16; TEMP 36.5; O2SAT 95
[2025-04-15] MEDS: CEFEPIME 2 GM in SODIUM CHLORIDE 0.9% IV 50 ML 100 ML IVPB ×3 (02:28→18:32)
[2025-04-15] MEDS: metroNIDAZOLE 500 MG/ISO 100ML 500 MG/100 ML BAG 100 MG IVPB ×3 (02:28→18:32)
[2025-04-15 03:15] LABS: Hematocrit 30.8 % (42.0-52.0); Hemoglobin 10.2 g/dL (14.0-18.0); Immature Granulocyte Percent A 2.5 % (0-0.5); Lymphocytes Absolute Auto 1.65 K/mm3 (0.9-3.2); Mean Corpuscular HGB Conc 33.1 g/dl (32-36); Mean Corpuscular Hemoglobin 30.8 pg (26-34); Mean Corpuscular Volume 93.1 fl (80-100); Nucleated Red Blood Cells Absolute Auto 0.000 K/mm3 (0.0-0.012); Nucleated Red Blood Cells Perc 0.0 % (0.0-0.2); Platelet Count Result 417 k/mm3 (150-375); Red Blood Count 3.31 M/mm3 (4.6-6.20); White Blood Count 13.0 K/mm3 (4.5-10.0)
[2025-04-15 03:39] LABS: Alanine Aminotransferase 47 U/L (6-50); Albumin Level 2.9 g/dL (3.5-5.1); Alkaline Phosphatase 69 U/L (38-126); Anion Gap 2 mmol/L (4-12); Aspartate Amino Transferase 62 U/L (17-59); Bilirubin,Total 0.5 mg/dL (0.2-1.3); Blood Urea Nitrogen 12 mg/dL (9-20); Calcium 8.2 mg/dL (8.4-10.2); Carbon Dioxide 27 mmol/L (22-30); Chloride 102 mmol/L (98-107); Estimated CRCL calculation 94 ml/min; Estimated Glomerular Filt Rate > 60; Glucose 91 mg/dL (65-110); Potassium 4.1 mmol/L (3.4-5.0); Sodium 131 mmol/L (137-145); Total Protein 5.7 g/dL (6.3-8.2)
[2025-04-15] MEDS: VANCOMYCIN 1,500 MG/NS 500 ML 1,500 MG/500 ML BAG 250 MG IVPB ×2 (04:40→16:10)
[2025-04-15 05:37] VITALS: BP 134/77; PULSE 82; RESP 18; TEMP 36.7; O2SAT 95
[2025-04-15] MEDS: POTASSIUM CHLORIDE 20 MEQ ER TABLET PO ×2 (09:08→16:13)
[2025-04-15] MEDS: ENOXAPARIN 40 MG/0.4 ML SYRINGE SUB-Q (09:09)
[2025-04-15] MEDS: MICAFUNGIN SODIUM 100 MG in SODIUM CHLORIDE 0.9% IV 100 ML IVPB (09:09)
[2025-04-15] MEDS: FAMOTIDINE 20 MG TABLET PO ×2 (09:09→20:30)
--- NOTE | 2025-04-15 11:03 | PM.IMPN2 ---
Assessment and Plan Assessment and Plan (1) Colonic obstruction: Code(s): K56.609 - Unspecified intestinal obstruction, unspecified as to partial versus complete obstruction Status: Acute Assessment and Plan: 59 year old male with significant past medical history of DVT presented the ED on 04/06/2025 with complains of abdominal pain and distention with constipation. CT scan demonstrated annular thickening in the proximal sigmoid colon with severe colonic distention, worrisome for malignancy. He had Hypaque enema which showed complain retrograde obstruction. Nasogastric tube was inserted and started on antibiotics. Surgery evaluated the patient and patient was recommended surgical resolution for For the obstruction. 04/07/2025 patient had distal colonic obstruction, cecal gangrene and perforation status post descending colectomy, creation of an ileostomy and mucous fistula. In the OR patient did require phenylephrine, central line was placed in the OR, 3 L IV fluids were administered. Patient was kept intubated postoperatively and transferred to the ICU (1) Colonic obstruction: Patient presented on 04/06/2025 with complains of constipation, abdominal distension. CT scan showed evidence of sigmoid colon luminal mass with severe colonic distention 04/07/2025: Patient underwent an ascending colectomy, creation of ileostomy and mucous fistula for distal colonic obstruction, cecal gangrene with perforation -received 3 units L of IV fluid bolus in the OR, also was requiring phenylephrine in the OR. Right IJ central line was inserted Patient was started on cefepime, Flagyl, micafungin, continue NG tube has been removed Tolerating a reg diet although lower appetite Monitor VS Surgery following, ordered repeat CT 04/13 due to uptrending WBC and abd pain, no abscess -Pt reporting pain control with current ordered medications, pain is greater with activity Pt with no insurance so HH not an option, wound has been educating pt about her ileostomy Nursing to change out ileostomy bags today with him for practice ID on board now, recs: -continue cefepime, flagyl and micafungin for now -add IV vancomycin -probably stop micafungin soon (2) History of DVT (deep vein thrombosis): Code(s): Z86.718 - Personal history of other venous thrombosis and embolism Status: Acute Assessment and Plan: Continue lovenox Plan OT/PT, wound education, IV abx, surg & ID following, albuterol for wheezing today Medical Record Review I have reviewed the following patient records and this information was taken into consideration when formulating the assessment and plan.: previous labs Consultations Consultations: I have discussed the care of this pt with the consulting providers. Time Spent With Patient Time with patient: 25 - 35 minutes Subjective Date/time seen: 04/15/25 1053 Interval history: Pt sitting in bed comfortably upon my arrival. He states that he feels better every day. Denies N/V/D but continues to endorse abd pain. Appetite remains good. Some wheezing with inspiratory and expiratory to bilateral upper lobes. Pt states that prior to hospitalization that he did smoke some daily. Denies need for nicotine patch or hx of asthma or COPD. Review of Systems Review of Systems: All systems reviewed & are unremarkable except as noted in HPI and below Exam Narrative: GENERAL: NAD HEAD: Normocephalic, atraumatic. EYES: PERRLA. Conjunctivae clear. THROAT: Pharynx clear, NECK: Supple RESPIRATORY: Respirations nonlabored. CTA. Inspiratory and expiratory wheezing to bilateral upper lobes CARDIOVASCULAR: Regular rate and rhythm GASTROINTESTINAL: mildly distended, incision (Dry and healing well) and other (Ileostomy pink and healthy, good output) tenderness mildly present throughout, active bowel sounds MUSCULOSKELETAL: Moves all extremities. Trace bilateral lower extremity with chronic skin changes. Dry flaky skin SKIN: Warm, dry, normal color. NEURO: A&O X4. Speech clear PSYCHIATRIC: Normal interaction Objective Data Vital Signs Vital Signs: Vital Signs - 24 hr 04/14/25 14:00 04/14/25 20:00 04/14/25 20:33 Temperature 97.4 F L 97.7 F Pulse Rate 90 88 Respiratory Rate 18 16 Blood Pressure 141/87 H 141/77 H Pulse Oximetry 98 95 Oxygen Delivery Room Air 04/15/25 05:37 04/15/25 08:00 Temperature 98.0 F Pulse Rate 82 Respiratory Rate 18 Blood Pressure 134/77 Pulse Oximetry 95 Oxygen Delivery Room Air Intake/Output Intake/Output: Intake & Output 04/12/25 04/13/25 04/14/25 04/15/25 23:59 23:59 23:59 23:59 Intake Total 1612 2230 2270 500 Output Total 2125 1500 1300 1300 Balance -513 730 970 -800 Meds/Results Medications: Active Medications Generic Name Dose Route Start Last Admin Trade Name Freq PRN Reason Stop Dose Admin Acetaminophen 500 mg 04/10/25 07:24 Acetaminophen 500 Mg Tablet PO Q6H PRN Pain Rated 1-3 Enoxaparin Sodium 40 mg 04/07/25 09:00 04/15/25 09:09 Enoxaparin 40 Mg/0.4 Ml Syringe SUB-Q 40 mg DAILY MARILUZ Administration Famotidine 20 mg 04/09/25 21:00 04/15/25 09:09 Famotidine 20 Mg Tablet PO 20 mg Q12HR MARILUZ Administration Ibuprofen 800 mg in 200 mls @ 400 mls/hr 04/06/25 16:21 04/08/25 13:19 Caldolor 800 Mg/200 Ml IVPB Infused Q6H PRN Infusion Breakthrough Pain Rated 1-3 or NPO Cefepime HCl 2 gm/ Sodium 50 mls @ 100 mls/hr 04/06/25 18:00 04/15/25 10:58 Chloride IVPB 100 mls/hr Q8H MARILUZ Administration Metronidazole 500 mg in 100 mls @ 100 mls/hr 04/06/25 18:00 04/15/25 10:57 Flagyl 500 Mg/Iso Soln 100 Ml IVPB 100 mls/hr Q8H MARILUZ Administration Micafungin Sodium 100 mg/ 100 mls @ 100 mls/hr 04/07/25 15:55 04/15/25 09:09 Sodium Chloride IVPB 100 mls/hr DAILY MARILUZ Administration Vancomycin HCl 1,500 mg in 500 mls @ 250 mls/hr 04/13/25 16:00 04/15/25 04:40 Vancomycin 1,500 Mg/Ns 500 Ml IVPB 250 mls/hr Q12H MARILUZ Administration Levalbuterol HCl 0.63 mg 04/09/25 15:05 04/10/25 08:29 Levalbuterol Neb 1.25 Mg/3 Ml INHALATION 0.63 mg Q6HRT PRN Administration Shortness Of Breath Morphine Sulfate 2 mg 04/06/25 16:21 04/10/25 07:03 Morphine Sulfate (*Crx) 4 Mg/Ml Inj IV PUSH 2 mg Q2H PRN Administration Breakthrough Pain Rated 4-6 or NPO Morphine Sulfate 4 mg 04/06/25 16:21 04/08/25 21:51 Morphine Sulfate (*Crx) 4 Mg/Ml Inj IV PUSH 4 mg Q2H PRN Administration Breakthrough Pain Rated 7-10 or NPO Naloxone HCl 0.1 mg 04/06/25 16:21 Naloxone Hcl 0.4 Mg/Ml Vial IV PUSH Q2M PRN Opiate Reversal Ondansetron HCl 4 mg 04/06/25 12:35 Ondansetron Inj 4 Mg/2 Ml Vial IV PUSH Q4H PRN Nausea Oxycodone/Acetaminophen 1 tablet 04/10/25 07:24 04/13/25 09:18 Oxycodone/Acetaminophen (*Crx) 5-325 Mg Tablet PO 1 tablet Q4H PRN Administration Pain Rated 4-6 Potassium Chloride 20 meq 04/10/25 08:00 04/15/25 09:08 Potassium Chloride 20 Meq Er Tablet PO 20 meq BIDWM MARILUZ Administration Radiology Results: ITS Impressions Abdomen X-Ray 04/07/25 16:03 Impression: 1. No acute abnormality. Renal Ultrasound 04/08/25 11:32 IMPRESSION: 1. Normal kidneys. No hydronephrosis. Chest X-Ray 04/08/25 14:45 Impression: Support apparatus as above Enema w/Water Soluble 04/09/25 08:26 IMPRESSION: 1. High-grade obstruction in the mid sigmoid colon. Abdomen/Pelvis CT 04/13/25 11:18 IMPRESSION: 1. Interval change of right hemicolectomy with diverting loop ileostomy and additional colostomy utilizing the proximal colectomy margin. Small amount of ascites but no abscess or free intraperineal gas. 2. Persistent diffuse colonic wall thickening consistent with colitis, likely stercoral colitis resulting from ongoing colonic obstruction at the mid sigmoid colon where there is a likely obstructing colon cancer. 3. 2.4 x 1.8 cm lobular mass in the sigmoid mesentery with some associated calcification raising concern for local metastatic disease with calcification suggesting either mucinous adenocarcinoma or carcinoid primary. Differential would include sclerosing mesenteritis or sequela of old granulomatous disease. 4. A few dystrophic calcifications at the head of the pancreas consistent with sequela of chronic pancreatitis. 5. Very small bilateral pleural effusions with unilateral calcified pleural plaques and small round atelectasis in the visualized right lower lung suggesting sequela of chronic exudative effusion. 6. Wall thickening the distal esophagus suggestive of esophagitis which could be related to reflux given the presence of a small sliding-type hiatal hernia. Labs Labs: Laboratory Results - last 24 hr 04/15/25 03:11 WBC 13.0 H RBC 3.31 L Hgb 10.2 L Hct 30.8 L MCV 93.1 MCH 30.8 MCHC 33.1 RDW 13.5 Plt Count 417 H MPV 8.5 Immature Gran % (Auto) 2.5 H Neut % (Auto) 66.5 Lymph % (Auto) 12.7 L [place] % (Auto) 14.2 H Eos % (Auto) 3.5 Baso % (Auto) 0.6 Lymph # (Auto) 1.65 [place] # (Auto) 1.8 H Eos # (Auto) 0.5 H Baso # (Auto) 0.1 Abs Immat Gran (auto) 0.32 H Absolute Neuts (auto) 8.6 H Absolute Nucleated RBC 0.000 Nucleated RBC % 0.0 Sodium 131 L Potassium 4.1 Chloride 102 Carbon Dioxide 27 Anion Gap 2 L BUN 12 Creatinine 0.76 Estim Creat Clear Calc 94 Estimated GFR > 60 Glucose 91 Calcium 8.2 L Total Bilirubin 0.5 AST 62 H ALT 47 Alkaline Phosphatase 69 Total Protein 5.7 L Albumin 2.9 L Vancomycin Trough 11.8 Quality VTE Prophylaxis VTE prophylaxis: pharmacologic ordered
[2025-04-15 13:56] VITALS: BP 141/79; PULSE 87; RESP 14; TEMP 36.2; O2SAT 94
--- NOTE | 2025-04-15 15:03 | PM.PNGS ---
Progress Note: A&P Assessment and Plan (1) Colon perforation: Code(s): K63.1 - Perforation of intestine (nontraumatic) Status: Acute Assessment and Plan: cecal perforation due to colonic distension, source control 04/07 with ascending colon resection, ileostomy and mucous fistula. Now tolerating diet and having better ostomy output. Continue local wound care and ostomy care. (2) Ileostomy status: Code(s): Z93.2 - Ileostomy status Status: Acute Assessment and Plan: Enterostomal therapy evaluation noted and appreciated. Teaching for ileostomy and mucous fistula has been done and patient feels he can manage the stomas at home. (3) Sepsis associated hypotension: Code(s): A41.9 - Sepsis, unspecified organism; I95.9 - Hypotension, unspecified Status: Resolved Assessment and Plan: fecal contamination, peritonitis, cause of sepsis--appears to be resolved. Continue IV antibiotics. (4) Colonic obstruction: Code(s): K56.609 - Unspecified intestinal obstruction, unspecified as to partial versus complete obstruction Status: Acute Assessment and Plan: relieved with ileostomy and mucous fistula. Source of obstruction in sigmoid colon. To be evaluated with flexible sigmoidoscopy as an outpatient when patient is acute illness has improved. Subjective Subjective Date/Time Seen: 04/15/25 15:03 Interval history: More output from mucus fistula today. Pain controlled. Exam GI: Inspection: non-distended and other (ileostomy and mucus fistula functioning with stool in bags) Other: open wound in midline with serous drainage Objective Data Vital Signs Vital Signs: Vital Signs - 24 hr 04/14/25 20:00 04/14/25 20:33 04/15/25 05:37 Temperature 97.7 F 98.0 F Pulse Rate 88 82 Respiratory Rate 16 18 Blood Pressure 141/77 H 134/77 Pulse Oximetry 95 95 Oxygen Delivery Room Air 04/15/25 08:00 04/15/25 13:56 Temperature 97.1 F L Pulse Rate 87 Respiratory Rate 14 Blood Pressure 141/79 H Pulse Oximetry 94 Oxygen Delivery Room Air Intake/Output Intake/Output: Intake & Output 04/12/25 04/13/25 04/14/25 04/15/25 23:59 23:59 23:59 23:59 Intake Total 1612 2230 2270 500 Output Total 2125 1500 1300 1300 Balance -513 730 970 -800 Meds/Results Medications: Active Medications Generic Name Dose Route Start Last Admin Trade Name Freq PRN Reason Stop Dose Admin Acetaminophen 500 mg 04/10/25 07:24 Acetaminophen 500 Mg Tablet PO Q6H PRN Pain Rated 1-3 Albuterol 2 puff 04/15/25 11:09 Albuterol Sulfate (*Sp) Aerosol 1 Puff INHALATION Q6HRT PRN Shortness Of Breath Or Wheezing Enoxaparin Sodium 40 mg 04/07/25 09:00 04/15/25 09:09 Enoxaparin 40 Mg/0.4 Ml Syringe SUB-Q 40 mg DAILY MARILUZ Administration Famotidine 20 mg 04/09/25 21:00 04/15/25 09:09 Famotidine 20 Mg Tablet PO 20 mg Q12HR MARILUZ Administration Ibuprofen 800 mg in 200 mls @ 400 mls/hr 04/06/25 16:21 04/08/25 13:19 Caldolor 800 Mg/200 Ml IVPB Infused Q6H PRN Infusion Breakthrough Pain Rated 1-3 or NPO Cefepime HCl 2 gm/ Sodium 50 mls @ 100 mls/hr 04/06/25 18:00 04/15/25 10:58 Chloride IVPB 100 mls/hr Q8H MARILUZ Administration Metronidazole 500 mg in 100 mls @ 100 mls/hr 04/06/25 18:00 04/15/25 10:57 Flagyl 500 Mg/Iso Soln 100 Ml IVPB 100 mls/hr Q8H MARILUZ Administration Micafungin Sodium 100 mg/ 100 mls @ 100 mls/hr 04/07/25 15:55 04/15/25 09:09 Sodium Chloride IVPB 100 mls/hr DAILY MARILUZ Administration Vancomycin HCl 1,500 mg in 500 mls @ 250 mls/hr 04/13/25 16:00 04/15/25 04:40 Vancomycin 1,500 Mg/Ns 500 Ml IVPB 250 mls/hr Q12H MARILUZ Administration Levalbuterol HCl 0.63 mg 04/09/25 15:05 04/10/25 08:29 Levalbuterol Neb 1.25 Mg/3 Ml INHALATION 0.63 mg Q6HRT PRN Administration Shortness Of Breath Morphine Sulfate 2 mg 04/06/25 16:21 04/10/25 07:03 Morphine Sulfate (*Crx) 4 Mg/Ml Inj IV PUSH 2 mg Q2H PRN Administration Breakthrough Pain Rated 4-6 or NPO Morphine Sulfate 4 mg 04/06/25 16:21 04/08/25 21:51 Morphine Sulfate (*Crx) 4 Mg/Ml Inj IV PUSH 4 mg Q2H PRN Administration Breakthrough Pain Rated 7-10 or NPO Naloxone HCl 0.1 mg 04/06/25 16:21 Naloxone Hcl 0.4 Mg/Ml Vial IV PUSH Q2M PRN Opiate Reversal Ondansetron HCl 4 mg 04/06/25 12:35 Ondansetron Inj 4 Mg/2 Ml Vial IV PUSH Q4H PRN Nausea Oxycodone/Acetaminophen 1 tablet 04/10/25 07:24 04/13/25 09:18 Oxycodone/Acetaminophen (*Crx) 5-325 Mg Tablet PO 1 tablet Q4H PRN Administration Pain Rated 4-6 Potassium Chloride 20 meq 04/10/25 08:00 04/15/25 09:08 Potassium Chloride 20 Meq Er Tablet PO 20 meq BIDWM MARILUZ Administration Radiology Results: ITS Impressions Abdomen X-Ray 04/07/25 16:03 Impression: 1. No acute abnormality. Renal Ultrasound 04/08/25 11:32 IMPRESSION: 1. Normal kidneys. No hydronephrosis. Chest X-Ray 04/08/25 14:45 Impression: Support apparatus as above Enema w/Water Soluble 04/09/25 08:26 IMPRESSION: 1. High-grade obstruction in the mid sigmoid colon. Abdomen/Pelvis CT 04/13/25 11:18 IMPRESSION: 1. Interval change of right hemicolectomy with diverting loop ileostomy and additional colostomy utilizing the proximal colectomy margin. Small amount of ascites but no abscess or free intraperineal gas. 2. Persistent diffuse colonic wall thickening consistent with colitis, likely stercoral colitis resulting from ongoing colonic obstruction at the mid sigmoid colon where there is a likely obstructing colon cancer. 3. 2.4 x 1.8 cm lobular mass in the sigmoid mesentery with some associated calcification raising concern for local metastatic disease with calcification suggesting either mucinous adenocarcinoma or carcinoid primary. Differential would include sclerosing mesenteritis or sequela of old granulomatous disease. 4. A few dystrophic calcifications at the head of the pancreas consistent with sequela of chronic pancreatitis. 5. Very small bilateral pleural effusions with unilateral calcified pleural plaques and small round atelectasis in the visualized right lower lung suggesting sequela of chronic exudative effusion. 6. Wall thickening the distal esophagus suggestive of esophagitis which could be related to reflux given the presence of a small sliding-type hiatal hernia. Labs Labs: Laboratory Results - last 24 hr 04/15/25 03:11 WBC 13.0 H RBC 3.31 L Hgb 10.2 L Hct 30.8 L MCV 93.1 MCH 30.8 MCHC 33.1 RDW 13.5 Plt Count 417 H MPV 8.5 Immature Gran % (Auto) 2.5 H Neut % (Auto) 66.5 Lymph % (Auto) 12.7 L [place] % (Auto) 14.2 H Eos % (Auto) 3.5 Baso % (Auto) 0.6 Lymph # (Auto) 1.65 [place] # (Auto) 1.8 H Eos # (Auto) 0.5 H Baso # (Auto) 0.1 Abs Immat Gran (auto) 0.32 H Absolute Neuts (auto) 8.6 H Absolute Nucleated RBC 0.000 Nucleated RBC % 0.0 Sodium 131 L Potassium 4.1 Chloride 102 Carbon Dioxide 27 Anion Gap 2 L BUN 12 Creatinine 0.76 Estim Creat Clear Calc 94 Estimated GFR > 60 Glucose 91 Calcium 8.2 L Total Bilirubin 0.5 AST 62 H ALT 47 Alkaline Phosphatase 69 Total Protein 5.7 L Albumin 2.9 L Vancomycin Trough 11.8
[2025-04-15 20:32] VITALS: BP 116/70; PULSE 94; RESP 18; TEMP 37.3; O2SAT 96
[2025-04-16] MEDS: CEFEPIME 2 GM in SODIUM CHLORIDE 0.9% IV 50 ML 100 ML IVPB ×3 (05:04→17:39)
[2025-04-16] MEDS: metroNIDAZOLE 500 MG/ISO 100ML 500 MG/100 ML BAG 100 MG IVPB ×2 (05:05→11:12)
[2025-04-16] MEDS: VANCOMYCIN 1,500 MG/NS 500 ML 1,500 MG/500 ML BAG 250 MG IVPB ×2 (05:06→15:37)
[2025-04-16 05:24] VITALS: BP 123/77; PULSE 81; RESP 18; TEMP 36.8; O2SAT 93
[2025-04-16 05:57] LABS: Hematocrit 32.1 % (42.0-52.0); Hemoglobin 10.3 g/dL (14.0-18.0); Immature Granulocyte Percent A 1.9 % (0-0.5); Lymphocytes Absolute Auto 1.75 K/mm3 (0.9-3.2); Mean Corpuscular HGB Conc 32.1 g/dl (32-36); Mean Corpuscular Hemoglobin 30.5 pg (26-34); Mean Corpuscular Volume 95.0 fl (80-100); Nucleated Red Blood Cells Absolute Auto 0.000 K/mm3 (0.0-0.012); Nucleated Red Blood Cells Perc 0.0 % (0.0-0.2); Platelet Count Result 481 k/mm3 (150-375); Red Blood Count 3.38 M/mm3 (4.6-6.20); White Blood Count 14.9 K/mm3 (4.5-10.0)
[2025-04-16 06:11] LABS: Alanine Aminotransferase 45 U/L (6-50); Albumin Level 2.9 g/dL (3.5-5.1); Alkaline Phosphatase 63 U/L (38-126); Anion Gap 3 mmol/L (4-12); Aspartate Amino Transferase 54 U/L (17-59); Bilirubin,Total 0.4 mg/dL (0.2-1.3); Blood Urea Nitrogen 13 mg/dL (9-20); Calcium 8.1 mg/dL (8.4-10.2); Carbon Dioxide 27 mmol/L (22-30); Chloride 101 mmol/L (98-107); Estimated CRCL calculation 103 ml/min; Estimated Glomerular Filt Rate > 60; Glucose 94 mg/dL (65-110); Sodium 131 mmol/L (137-145); Total Protein 5.8 g/dL (6.3-8.2)
[2025-04-16 06:22] LABS: Potassium 4.1 mmol/L (3.4-5.0)
--- NOTE | 2025-04-16 08:10 | P.PNIM_ITS ---
Assessment and Plan Assessment and Plan (1) Colonic obstruction: Code(s): K56.609 - Unspecified intestinal obstruction, unspecified as to partial versus complete obstruction Status: Acute Assessment and Plan: 59 year old male with significant past medical history of DVT presented the ED on 04/06/2025 with complains of abdominal pain and distention with constipation. CT scan demonstrated annular thickening in the proximal sigmoid colon with severe colonic distention, worrisome for malignancy. He had Hypaque enema which showed complain retrograde obstruction. Nasogastric tube was inserted and started on antibiotics. Surgery evaluated the patient and patient was recommended surgical resolution for For the obstruction. 04/07/2025 patient had distal colonic obstruction, cecal gangrene and perforation status post descending colectomy, creation of an ileostomy and mucous fistula. In the OR patient did require phenylephrine, central line was placed in the OR, 3 L IV fluids were administered. Patient was kept intubated postoperatively and transferred to the ICU (1) Colonic obstruction: Patient presented on 04/06/2025 with complains of constipation, abdominal distension. CT scan showed evidence of sigmoid colon luminal mass with severe colonic distention 04/07/2025: Patient underwent an ascending colectomy, creation of ileostomy and mucous fistula for distal colonic obstruction, cecal gangrene with perforation -received 3 units L of IV fluid bolus in the OR, also was requiring phenylephrine in the OR. Right IJ central line was inserted Patient was started on cefepime, Flagyl, micafungin, continue NG tube has been removed Tolerating a reg diet although lower appetite Monitor VS Pt with no insurance so HH not an option, wound has been educating pt about her ileostomy Nursing to change out ileostomy bags today with him for practice ID on board now, recs: -continue cefepime, flagyl and micafungin for now -add IV vancomycin -probably stop micafungin soon Per surg today: Now tolerating diet and having better ostomy output. Open wound much better, no purulence seen, still tracks under the skin, cephalad. Redressed. Discussed with wound/ET nursing--will try to irrigate transverse and descending colon tomorrow through mucous fistula. Does have better output but will need to clean that out eventually before more surgery. Continue IV antibiotics per Infectious Disease specialist. Change to oral antibiotics when appropriate. White blood cell count continues to rise. Immature granulocytes in the automated differential are decreasing. Hopefully this is maturation of bands causing the continued leukocytosis. Another consideration is colitis from retained stool or possibly reaction to 1 of the antibiotics he is receiving. Does not appear to have an active infection at this time. (2) History of DVT (deep vein thrombosis): Code(s): Z86.718 - Personal history of other venous thrombosis and embolism Status: Acute Assessment and Plan: Continue lovenox Plan OT/PT, wound education, IV abx, surg & ID following, albuterol for wheezing Medical Record Review I have reviewed the following patient records and this information was taken into consideration when formulating the assessment and plan.: previous labs Consultations Consultations: I have discussed the care of this pt with the consulting providers. Time Spent With Patient Time with patient: 25 - 35 minutes Subjective Date/time seen: 04/16/25 1053 Interval history: Pt sitting in bed comfortably upon my arrival with his father at the bedside. He states that he feels better every day. Denies N/V/D but continues to endorse abd pain. Appetite remains good. Pt reports a successful ileotomy bag change yesterday but it is still difficult. Review of Systems Review of Systems: All systems reviewed & are unremarkable except as noted in HPI and below Exam Narrative: GENERAL: NAD HEAD: Normocephalic, atraumatic. EYES: PERRLA. Conjunctivae clear. THROAT: Pharynx clear, NECK: Supple RESPIRATORY: Respirations nonlabored. CTA. Lungs clear throughout. CARDIOVASCULAR: Regular rate and rhythm GASTROINTESTINAL: mildly distended, incision (Dry and healing well) and other (Ileostomy pink and healthy, good output) tenderness mildly present throughout, active bowel sounds MUSCULOSKELETAL: Moves all extremities. Trace bilateral lower extremity with chronic skin changes. Dry flaky skin SKIN: Warm, dry, normal color. NEURO: A&O X4. Speech clear PSYCHIATRIC: Normal interaction Objective Data Vital Signs Vital Signs: Vital Signs - 24 hr 04/15/25 13:56 04/15/25 20:00 04/15/25 20:32 Temperature 97.1 F L 99.1 F Pulse Rate 87 94 Respiratory Rate 14 18 Blood Pressure 141/79 H 116/70 Pulse Oximetry 94 96 Oxygen Delivery Room Air 04/16/25 05:24 Temperature 98.3 F Pulse Rate 81 Respiratory Rate 18 Blood Pressure 123/77 Pulse Oximetry 93 Oxygen Delivery Intake/Output Intake/Output: Intake & Output 04/13/25 04/14/25 04/15/25 04/16/25 23:59 23:59 23:59 23:59 Intake Total 2230 2270 1900 150 Output Total 1500 1300 1900 900 Balance 730 970 0 -750 Meds/Results Medications: Active Medications Generic Name Dose Route Start Last Admin Trade Name Freq PRN Reason Stop Dose Admin Acetaminophen 500 mg 04/10/25 07:24 Acetaminophen 500 Mg Tablet PO Q6H PRN Pain Rated 1-3 Albuterol 2 puff 04/15/25 11:09 Albuterol Sulfate (*Sp) Aerosol 1 Puff INHALATION Q6HRT PRN Shortness Of Breath Or Wheezing Enoxaparin Sodium 40 mg 04/07/25 09:00 04/15/25 09:09 Enoxaparin 40 Mg/0.4 Ml Syringe SUB-Q 40 mg DAILY MARILUZ Administration Famotidine 20 mg 04/09/25 21:00 04/15/25 20:30 Famotidine 20 Mg Tablet PO 20 mg Q12HR MARILUZ Administration Ibuprofen 800 mg in 200 mls @ 400 mls/hr 04/06/25 16:21 04/08/25 13:19 Caldolor 800 Mg/200 Ml IVPB Infused Q6H PRN Infusion Breakthrough Pain Rated 1-3 or NPO Cefepime HCl 2 gm/ Sodium 50 mls @ 100 mls/hr 04/06/25 18:00 04/16/25 05:04 Chloride IVPB 100 mls/hr Q8H MARILUZ Administration Metronidazole 500 mg in 100 mls @ 100 mls/hr 04/06/25 18:00 04/16/25 05:05 Flagyl 500 Mg/Iso Soln 100 Ml IVPB 100 mls/hr Q8H MARILUZ Administration Micafungin Sodium 100 mg/ 100 mls @ 100 mls/hr 04/07/25 15:55 04/15/25 09:09 Sodium Chloride IVPB 100 mls/hr DAILY MARILUZ Administration Vancomycin HCl 1,500 mg in 500 mls @ 250 mls/hr 04/13/25 16:00 04/16/25 05:06 Vancomycin 1,500 Mg/Ns 500 Ml IVPB 250 mls/hr Q12H MARILUZ Administration Levalbuterol HCl 0.63 mg 04/09/25 15:05 04/10/25 08:29 Levalbuterol Neb 1.25 Mg/3 Ml INHALATION 0.63 mg Q6HRT PRN Administration Shortness Of Breath Miscellaneous Information 1 each 04/16/25 00:01 Please Renew Morphine 2&4mg. Per [employer] Procedure, It Will Discontinue If Not Renewed XX 05/16/25 00:00 [facility]IFY [facility] Miscellaneous Information 1 each 04/16/25 00:01 Please Renew _Cefepime. Per [employer] Procedure, It Will Discontinue If Not Renewed XX 05/16/25 00:00 [facility] Morphine Sulfate 2 mg 04/06/25 16:21 04/10/25 07:03 Morphine Sulfate (*Crx) 4 Mg/Ml Inj IV PUSH 2 mg Q2H PRN Administration Breakthrough Pain Rated 4-6 or NPO Morphine Sulfate 4 mg 04/06/25 16:21 04/08/25 21:51 Morphine Sulfate (*Crx) 4 Mg/Ml Inj IV PUSH 4 mg Q2H PRN Administration Breakthrough Pain Rated 7-10 or NPO Naloxone HCl 0.1 mg 04/06/25 16:21 Naloxone Hcl 0.4 Mg/Ml Vial IV PUSH Q2M PRN Opiate Reversal Ondansetron HCl 4 mg 04/06/25 12:35 Ondansetron Inj 4 Mg/2 Ml Vial IV PUSH Q4H PRN Nausea Oxycodone/Acetaminophen 1 tablet 04/10/25 07:24 04/13/25 09:18 Oxycodone/Acetaminophen (*Crx) 5-325 Mg Tablet PO 1 tablet Q4H PRN Administration Pain Rated 4-6 Potassium Chloride 20 meq 04/10/25 08:00 04/15/25 16:13 Potassium Chloride 20 Meq Er Tablet PO 20 meq BIDWM MARILUZ Administration Radiology Results: ITS Impressions Abdomen X-Ray 04/07/25 16:03 Impression: 1. No acute abnormality. Renal Ultrasound 04/08/25 11:32 IMPRESSION: 1. Normal kidneys. No hydronephrosis. Chest X-Ray 04/08/25 14:45 Impression: Support apparatus as above Enema w/Water Soluble 04/09/25 08:26 IMPRESSION: 1. High-grade obstruction in the mid sigmoid colon. Abdomen/Pelvis CT 04/13/25 11:18 IMPRESSION: 1. Interval change of right hemicolectomy with diverting loop ileostomy and additional colostomy utilizing the proximal colectomy margin. Small amount of ascites but no abscess or free intraperineal gas. 2. Persistent diffuse colonic wall thickening consistent with colitis, likely st ercoral colitis resulting from ongoing colonic obstruction at the mid sigmoid colon where there is a likely obstructing colon cancer. 3. 2.4 x 1.8 cm lobular mass in the sigmoid mesentery with some associated calcification raising concern for local metastatic disease with calcification suggesting either mucinous adenocarcinoma or carcinoid primary. Differential would include sclerosing mesenteritis or sequela of old granulomatous disease. 4. A few dystrophic calcifications at the head of the pancreas consistent with sequela of chronic pancreatitis. 5. Very small bilateral pleural effusions with unilateral calcified pleural plaques and small round atelectasis in the visualized right lower lung suggesting sequela of chronic exudative effusion. 6. Wall thickening the distal esophagus suggestive of esophagitis which could be related to reflux given the presence of a small sliding-type hiatal hernia. Labs Labs: Laboratory Results - last 24 hr 04/16/25 05:03 WBC 14.9 H RBC 3.38 L Hgb 10.3 L Hct 32.1 L MCV 95.0 MCH 30.5 MCHC 32.1 RDW 13.7 Plt Count 481 H MPV 9.0 Immature Gran % (Auto) 1.9 H Neut % (Auto) 70.6 Lymph % (Auto) 11.7 L [place] % (Auto) 12.6 H Eos % (Auto) 2.7 Baso % (Auto) 0.5 Lymph # (Auto) 1.75 [place] # (Auto) 1.9 H Eos # (Auto) 0.4 H Baso # (Auto) 0.1 Abs Immat Gran (auto) 0.28 H Absolute Neuts (auto) 10.5 H Absolute Nucleated RBC 0.000 Nucleated RBC % 0.0 Sodium 131 L Potassium 4.1 Chloride 101 Carbon Dioxide 27 Anion Gap 3 L BUN 13 Creatinine 0.69 L Estim Creat Clear Calc 103 Estimated GFR > 60 Glucose 94 Calcium 8.1 L Total Bilirubin 0.4 AST 54 ALT 45 Alkaline Phosphatase 63 Total Protein 5.8 L Albumin 2.9 L Quality VTE Prophylaxis VTE prophylaxis: pharmacologic ordered
[2025-04-16] MEDS: POTASSIUM CHLORIDE 20 MEQ ER TABLET PO ×2 (09:17→17:39)
[2025-04-16] MEDS: FAMOTIDINE 20 MG TABLET PO ×2 (09:17→19:59)
[2025-04-16] MEDS: MICAFUNGIN SODIUM 100 MG in SODIUM CHLORIDE 0.9% IV 100 ML IVPB (09:17)
[2025-04-16] MEDS: ENOXAPARIN 40 MG/0.4 ML SYRINGE SUB-Q (09:18)
--- NOTE | 2025-04-16 12:30 | PM.PNGS ---
Progress Note: A&P Assessment and Plan (1) Colon perforation: Code(s): K63.1 - Perforation of intestine (nontraumatic) Status: Acute Assessment and Plan: cecal perforation due to colonic distension, source control 04/07 with ascending colon resection, ileostomy and mucous fistula. Now tolerating diet and having better ostomy output. Open wound much better, no purulence seen, still tracks under the skin, cephalad. Redressed. Discussed with wound/ET nursing--will try to irrigate transverse and descending colon tomorrow through mucous fistula. Does have better output but will need to clean that out eventually before more surgery. (2) Ileostomy status: Code(s): Z93.2 - Ileostomy status Status: Acute Assessment and Plan: Enterostomal therapy evaluation noted and appreciated. Teaching for ileostomy and mucous fistula has been done and patient feels he can manage the stomas at home. No sign of electrolyte imbalance from new ileostomy at this time. (3) Sepsis associated hypotension: Code(s): A41.9 - Sepsis, unspecified organism; I95.9 - Hypotension, unspecified Status: Resolved Assessment and Plan: fecal contamination, peritonitis, cause of sepsis--appears to be resolved. Continue IV antibiotics per Infectious Disease specialist. Change to oral antibiotics when appropriate. White blood cell count continues to rise. Immature granulocytes in the automated differential are decreasing. Hopefully this is maturation of bands causing the continued leukocytosis. Another consideration is colitis from retained stool or possibly reaction to 1 of the antibiotics he is receiving. Does not appear to have an active infection at this time. (4) Colonic obstruction: Code(s): K56.609 - Unspecified intestinal obstruction, unspecified as to partial versus complete obstruction Status: Acute Assessment and Plan: relieved with ileostomy and mucous fistula. Source of obstruction in sigmoid colon. To be evaluated with flexible sigmoidoscopy as an outpatient when patient is acute illness has improved. Subjective Subjective Date/Time Seen: 04/16/25 12:30 Post Op day: #9 Patient reports: no new complaints, tolerating a regular diet (appetite improving), voiding w/o difficulty, bowel movement (more stool coming from mucous fistula), afebrile and other (abdomen still feels distended and very heavy, like a ball in there) Exam Const: General: comfortable and no acute distress Orientation/consciousness: patient oriented x3 GI: Inspection: distended, incision (Open area, pink, no purulence seen, healing), no visible herniation and other (Incision below the umbilicus is clean and dry, no redness or drainage) GI Palp: Yes Soft to palpation (Much softer than Wednesday), Yes Tenderness to palpation present (GI) (Minimal tenderness), No Guarding due to palpation present (GI), No Hernia present, No Palpable mass present and No Rebound tenderness present Auscultation: normal bowel sounds Neuro: General: patient oriented x3 and no focal motor deficits Extrem: General: no calf tenderness and no edema Psych: Affect: normal affect Insight: Good insight present (Psych) Judgement: Good judgement present (Psych) Objective Data Vital Signs Vital Signs: Vital Signs - 24 hr 04/15/25 13:56 04/15/25 20:00 04/15/25 20:32 Temperature 36.2 C L 37.3 C Pulse Rate 87 94 Respiratory Rate 14 18 Blood Pressure 141/79 H 116/70 Pulse Oximetry 94 96 Oxygen Delivery Room Air 04/16/25 05:24 Temperature 36.8 C Pulse Rate 81 Respiratory Rate 18 Blood Pressure 123/77 Pulse Oximetry 93 Oxygen Delivery Intake/Output Intake/Output: Intake & Output 04/13/25 04/14/25 04/15/25 04/16/25 23:59 23:59 23:59 23:59 Intake Total 2230 2270 2000 420 Output Total 1500 1300 1900 900 Balance 730 970 100 -480 Meds/Results Medications: Active Medications Generic Name Dose Route Start Last Admin Trade Name Freq PRN Reason Stop Dose Admin Acetaminophen 500 mg 04/10/25 07:24 Acetaminophen 500 Mg Tablet PO Q6H PRN Pain Rated 1-3 Albuterol 2 puff 04/15/25 11:09 Albuterol Sulfate (*Sp) Aerosol 1 Puff INHALATION Q6HRT PRN Shortness Of Breath Or Wheezing Enoxaparin Sodium 40 mg 04/07/25 09:00 04/16/25 09:18 Enoxaparin 40 Mg/0.4 Ml Syringe SUB-Q 40 mg DAILY MARILUZ Administration Famotidine 20 mg 04/09/25 21:00 04/16/25 09:17 Famotidine 20 Mg Tablet PO 20 mg Q12HR MARILUZ Administration Ibuprofen 800 mg in 200 mls @ 400 mls/hr 04/06/25 16:21 04/08/25 13:19 Caldolor 800 Mg/200 Ml IVPB Infused Q6H PRN Infusion Breakthrough Pain Rated 1-3 or NPO Cefepime HCl 2 gm/ Sodium 50 mls @ 100 mls/hr 04/06/25 18:00 04/16/25 11:12 Chloride IVPB 100 mls/hr Q8H MARILUZ Administration Metronidazole 500 mg in 100 mls @ 100 mls/hr 04/06/25 18:00 04/16/25 11:12 Flagyl 500 Mg/Iso Soln 100 Ml IVPB 100 mls/hr Q8H MARILUZ Administration Micafungin Sodium 100 mg/ 100 mls @ 100 mls/hr 04/07/25 15:55 04/16/25 09:17 Sodium Chloride IVPB 100 mls/hr DAILY MARILUZ Administration Vancomycin HCl 1,500 mg in 500 mls @ 250 mls/hr 04/13/25 16:00 04/16/25 05:06 Vancomycin 1,500 Mg/Ns 500 Ml IVPB 250 mls/hr Q12H MARILUZ Administration Levalbuterol HCl 0.63 mg 04/09/25 15:05 04/10/25 08:29 Levalbuterol Neb 1.25 Mg/3 Ml INHALATION 0.63 mg Q6HRT PRN Administration Shortness Of Breath Miscellaneous Information 1 each 04/16/25 00:01 Please Renew Morphine 2&4mg. Per [employer] Procedure, It Will Discontinue If Not Renewed XX 05/16/25 00:00 CLARIFY MARILUZ Miscellaneous Information 1 each 04/16/25 00:01 Please Renew _Cefepime. Per [employer] Procedure, It Will Discontinue If Not Renewed XX 05/16/25 00:00 CLARIFY MARILUZ Morphine Sulfate 2 mg 04/06/25 16:21 04/10/25 07:03 Morphine Sulfate (*Crx) 4 Mg/Ml Inj IV PUSH 2 mg Q2H PRN Administration Breakthrough Pain Rated 4-6 or NPO Morphine Sulfate 4 mg 04/06/25 16:21 04/08/25 21:51 Morphine Sulfate (*Crx) 4 Mg/Ml Inj IV PUSH 4 mg Q2H PRN Administration Breakthrough Pain Rated 7-10 or NPO Naloxone HCl 0.1 mg 04/06/25 16:21 Naloxone Hcl 0.4 Mg/Ml Vial IV PUSH Q2M PRN Opiate Reversal Ondansetron HCl 4 mg 04/06/25 12:35 Ondansetron Inj 4 Mg/2 Ml Vial IV PUSH Q4H PRN Nausea Oxycodone/Acetaminophen 1 tablet 04/10/25 07:24 04/13/25 09:18 Oxycodone/Acetaminophen (*Crx) 5-325 Mg Tablet PO 1 tablet Q4H PRN Administration Pain Rated 4-6 Potassium Chloride 20 meq 04/10/25 08:00 04/16/25 09:17 Potassium Chloride 20 Meq Er Tablet PO 20 meq BIDWM MARILUZ Administration Radiology Results: ITS Impressions Abdomen X-Ray 04/07/25 16:03 Impression: 1. No acute abnormality. Renal Ultrasound 04/08/25 11:32 IMPRESSION: 1. Normal kidneys. No hydronephrosis. Chest X-Ray 04/08/25 14:45 Impression: Support apparatus as above Enema w/Water Soluble 04/09/25 08:26 IMPRESSION: 1. High-grade obstruction in the mid sigmoid colon. Abdomen/Pelvis CT 04/13/25 11:18 IMPRESSION: 1. Interval change of right hemicolectomy with diverting loop ileostomy and additional colostomy utilizing the proximal colectomy margin. Small amount of ascites but no abscess or free intraperineal gas. 2. Persistent diffuse colonic wall thickening consistent with colitis, likely stercoral colitis resulting from ongoing colonic obstruction at the mid sigmoid colon where there is a likely obstructing colon cancer. 3. 2.4 x 1.8 cm lobular mass in the sigmoid mesentery with some associated calcification raising concern for local metastatic disease with calcification suggesting either mucinous adenocarcinoma or carcinoid primary. Differential would include sclerosing mesenteritis or sequela of old granulomatous disease. 4. A few dystrophic calcifications at the head of the pancreas consistent with sequela of chronic pancreatitis. 5. Very small bilateral pleural effusions with unilateral calcified pleural plaques and small round atelectasis in the visualized right lower lung suggesting sequela of chronic exudative effusion. 6. Wall thickening the distal esophagus suggestive of esophagitis which could be related to reflux given the presence of a small sliding-type hiatal hernia. Labs Labs: Laboratory Results - last 24 hr 04/16/25 05:03 WBC 14.9 H RBC 3.38 L Hgb 10.3 L Hct 32.1 L MCV 95.0 MCH 30.5 MCHC 32.1 RDW 13.7 Plt Count 481 H MPV 9.0 Immature Gran % (Auto) 1.9 H Neut % (Auto) 70.6 Lymph % (Auto) 11.7 L [place] % (Auto) 12.6 H Eos % (Auto) 2.7 Baso % (Auto) 0.5 Lymph # (Auto) 1.75 [place] # (Auto) 1.9 H Eos # (Auto) 0.4 H Baso # (Auto) 0.1 Abs Immat Gran (auto) 0.28 H Absolute Neuts (auto) 10.5 H Absolute Nucleated RBC 0.000 Nucleated RBC % 0.0 Sodium 131 L Potassium 4.1 Chloride 101 Carbon Dioxide 27 Anion Gap 3 L BUN 13 Creatinine 0.69 L Estim Creat Clear Calc 103 Estimated GFR > 60 Glucose 94 Calcium 8.1 L Total Bilirubin 0.4 AST 54 ALT 45 Alkaline Phosphatase 63 Total Protein 5.8 L Albumin 2.9 L WBC still increasing. Immature granulocytes decreasing
[2025-04-16 13:47] VITALS: BP 117/72; PULSE 95; RESP 16; TEMP 36.4; O2SAT 96
--- NOTE | 2025-04-16 19:15 | P.PNINF_ITS ---
Progress Note: A&P Assessment and Plan (1) Colon perforation: Code(s): K63.1 - Perforation of intestine (nontraumatic) Status: Acute Assessment and Plan: ASSESSMENT: 1. large bowel obstruction from possible malignancy s/p partial colectomy, ileostomy, mucus fistula on 04/07/25 with intra-op findings notable for cecal perforation; Repeat CT no abscess 2. possible abdominal wound infection given seropurulent drainage--improved RECOMMENDATIONS: -continue cefepime and IV vanco for now-->can change to short course of keflex on discharge to cover any ongoing wound infection but everything looks good -stop micafungin and flagyl -can d/c any time from my perspective d/w pharmacy Pt was seen via video telehealth consultation with the assistance of staff. Chart, data and patient info reviewed. Patient was located at [facility] while I was in my [place] office. Pt gave consent. Subjective Date/time seen: 04/16/25 19:15 Interval history: no high temps +leukocytosis Exam Narrative: on room air, non-toxic abd soft tender, distended, incision with superior aspect open and packed--no obvious pus per nursing staff Objective Data Vital Signs Vital Signs: Vital Signs - 24 hr 04/15/25 20:00 04/15/25 20:32 04/16/25 05:24 Temperature 99.1 F 98.3 F Pulse Rate 94 81 Respiratory Rate 18 18 Blood Pressure 116/70 123/77 Pulse Oximetry 96 93 Oxygen Delivery Room Air 04/16/25 08:00 04/16/25 13:47 Temperature 97.6 F Pulse Rate 95 Respiratory Rate 16 Blood Pressure 117/72 Pulse Oximetry 96 Oxygen Delivery Room Air Intake/Output Intake/Output: Intake & Output 04/13/25 04/14/25 04/15/25 04/16/25 23:59 23:59 23:59 23:59 Intake Total 2230 2270 2000 1660 Output Total 1500 1300 1900 1750 Balance 730 970 100 -90 Meds/Results Medications: Active Medications Generic Name Dose Route Start Last Admin Trade Name Freq PRN Reason Stop Dose Admin Acetaminophen 500 mg 04/10/25 07:24 Acetaminophen 500 Mg Tablet PO Q6H PRN Pain Rated 1-3 Albuterol 2 puff 04/15/25 11:09 Albuterol Sulfate (*Sp) Aerosol 1 Puff INHALATION Q6HRT PRN Shortness Of Breath Or Wheezing Enoxaparin Sodium 40 mg 04/07/25 09:00 04/16/25 09:18 Enoxaparin 40 Mg/0.4 Ml Syringe SUB-Q 40 mg DAILY MARILUZ Administration Famotidine 20 mg 04/09/25 21:00 04/16/25 09:17 Famotidine 20 Mg Tablet PO 20 mg Q12HR MARILUZ Administration Ibuprofen 800 mg in 200 mls @ 400 mls/hr 04/06/25 16:21 04/08/25 13:19 Caldolor 800 Mg/200 Ml IVPB Infused Q6H PRN Infusion Breakthrough Pain Rated 1-3 or NPO Cefepime HCl 2 gm/ Sodium 50 mls @ 100 mls/hr 04/06/25 18:00 04/16/25 17:39 Chloride IVPB 100 mls/hr Q8H MARILUZ Administration Vancomycin HCl 1,500 mg in 500 mls @ 250 mls/hr 04/13/25 16:00 04/16/25 15:37 Vancomycin 1,500 Mg/Ns 500 Ml IVPB 250 mls/hr Q12H MARILUZ Administration Levalbuterol HCl 0.63 mg 04/09/25 15:05 04/10/25 08:29 Levalbuterol Neb 1.25 Mg/3 Ml INHALATION 0.63 mg Q6HRT PRN Administration Shortness Of Breath Miscellaneous Information 1 each 04/16/25 00:01 Please Renew Morphine 2&4mg. Per [employer] Procedure, It Will Discontinue If Not Renewed XX 05/16/25 00:00 CLARIFY [facility] Miscellaneous Information 1 each 04/16/25 00:01 Please Renew _Cefepime. Per [employer] Procedure, It Will Discontinue If Not Renewed XX 05/16/25 00:00 CLARIFY [facility] Naloxone HCl 0.1 mg 04/06/25 16:21 Naloxone Hcl 0.4 Mg/Ml Vial IV PUSH Q2M PRN Opiate Reversal Ondansetron HCl 4 mg 04/06/25 12:35 Ondansetron Inj 4 Mg/2 Ml Vial IV PUSH Q4H PRN Nausea Oxycodone/Acetaminophen 1 tablet 04/10/25 07:24 04/13/25 09:18 Oxycodone/Acetaminophen (*Crx) 5-325 Mg Tablet PO 1 tablet Q4H PRN Administration Pain Rated 4-6 Potassium Chloride 20 meq 04/10/25 08:00 04/16/25 17:39 Potassium Chloride 20 Meq Er Tablet PO 20 meq BIDWM MARILUZ Administration Radiology Results: ITS Impressions Abdomen X-Ray 04/07/25 16:03 Impression: 1. No acute abnormality. Renal Ultrasound 04/08/25 11:32 IMPRESSION: 1. Normal kidneys. No hydronephrosis. Chest X-Ray 04/08/25 14:45 Impression: Support apparatus as above Enema w/Water Soluble 04/09/25 08:26 IMPRESSION: 1. High-grade obstruction in the mid sigmoid colon. Abdomen/Pelvis CT 04/13/25 11:18 IMPRESSION: 1. Interval change of right hemicolectomy with diverting loop ileostomy and additional colostomy utilizing the proximal colectomy margin. Small amount of ascites but no abscess or free intraperineal gas. 2. Persistent diffuse colonic wall thickening consistent with colitis, likely stercoral colitis resulting from ongoing colonic obstruction at the mid sigmoid colon where there is a likely obstructing colon cancer. 3. 2.4 x 1.8 cm lobular mass in the sigmoid mesentery with some associated calcification raising concern for local metastatic disease with calcification suggesting either mucinous adenocarcinoma or carcinoid primary. Differential would include sclerosing mesenteritis or sequela of old granulomatous disease. 4. A few dystrophic calcifications at the head of the pancreas consistent with sequela of chronic pancreatitis. 5. Very small bilateral pleural effusions with unilateral calcified pleural plaques and small round atelectasis in the visualized right lower lung suggesting sequela of chronic exudative effusion. 6. Wall thickening the distal esophagus suggestive of esophagitis which could be related to reflux given the presence of a small sliding-type hiatal hernia. Labs Labs: Laboratory Results - last 24 hr 04/16/25 05:03 WBC 14.9 H RBC 3.38 L Hgb 10.3 L Hct 32.1 L MCV 95.0 MCH 30.5 MCHC 32.1 RDW 13.7 Plt Count 481 H MPV 9.0 Immature Gran % (Auto) 1.9 H Neut % (Auto) 70.6 Lymph % (Auto) 11.7 L [place] % (Auto) 12.6 H Eos % (Auto) 2.7 Baso % (Auto) 0.5 Lymph # (Auto) 1.75 [place] # (Auto) 1.9 H Eos # (Auto) 0.4 H Baso # (Auto) 0.1 Abs Immat Gran (auto) 0.28 H Absolute Neuts (auto) 10.5 H Absolute Nucleated RBC 0.000 Nucleated RBC % 0.0 Sodium 131 L Potassium 4.1 Chloride 101 Carbon Dioxide 27 Anion Gap 3 L BUN 13 Creatinine 0.69 L Estim Creat Clear Calc 103 Estimated GFR > 60 Glucose 94 Calcium 8.1 L Total Bilirubin 0.4 AST 54 ALT 45 Alkaline Phosphatase 63 Total Protein 5.8 L Albumin 2.9 L
[2025-04-16 20:04] VITALS: BP 142/80; PULSE 82; RESP 18; TEMP 37.4; O2SAT 95
[2025-04-17] MEDS: CEFEPIME 2 GM in SODIUM CHLORIDE 0.9% IV 50 ML 100 ML IVPB ×2 (02:41→10:21)
[2025-04-17] MEDS: VANCOMYCIN 1,500 MG/NS 500 ML 1,500 MG/500 ML BAG 250 MG IVPB (03:13)
[2025-04-17 05:50] VITALS: BP 132/71; PULSE 81; RESP 16; TEMP 36.2; O2SAT 94
[2025-04-17 06:00] LABS: Hematocrit 31.6 % (42.0-52.0); Hemoglobin 10.3 g/dL (14.0-18.0); Immature Granulocyte Percent A 1.6 % (0-0.5); Lymphocytes Absolute Auto 1.91 K/mm3 (0.9-3.2); Mean Corpuscular HGB Conc 32.6 g/dl (32-36); Mean Corpuscular Hemoglobin 30.3 pg (26-34); Mean Corpuscular Volume 92.9 fl (80-100); Nucleated Red Blood Cells Absolute Auto 0.000 K/mm3 (0.0-0.012); Nucleated Red Blood Cells Perc 0.0 % (0.0-0.2); Platelet Count Result 497 k/mm3 (150-375); Red Blood Count 3.40 M/mm3 (4.6-6.20); White Blood Count 15.4 K/mm3 (4.5-10.0)
[2025-04-17 06:26] LABS: Alanine Aminotransferase 42 U/L (6-50); Albumin Level 2.8 g/dL (3.5-5.1); Alkaline Phosphatase 71 U/L (38-126); Anion Gap 2 mmol/L (4-12); Aspartate Amino Transferase 44 U/L (17-59); Bilirubin,Total 0.4 mg/dL (0.2-1.3); Blood Urea Nitrogen 12 mg/dL (9-20); Calcium 8.1 mg/dL (8.4-10.2); Carbon Dioxide 28 mmol/L (22-30); Chloride 101 mmol/L (98-107); Estimated CRCL calculation 104 ml/min; Estimated Glomerular Filt Rate > 60; Glucose 93 mg/dL (65-110); Potassium 4.2 mmol/L (3.4-5.0); Sodium 131 mmol/L (137-145); Total Protein 5.8 g/dL (6.3-8.2)
[2025-04-17] MEDS: ENOXAPARIN 40 MG/0.4 ML SYRINGE SUB-Q (08:18)
[2025-04-17] MEDS: FAMOTIDINE 20 MG TABLET PO ×2 (08:18→21:25)
[2025-04-17] MEDS: POTASSIUM CHLORIDE 20 MEQ ER TABLET PO ×2 (08:18→18:08)
--- NOTE | 2025-04-17 10:04 | P.PNINF_ITS ---
Progress Note: A&P Assessment and Plan (1) Colon perforation: Code(s): K63.1 - Perforation of intestine (nontraumatic) Status: Acute Assessment and Plan: ASSESSMENT: 1. large bowel obstruction from possible malignancy s/p partial colectomy, ileostomy, mucus fistula on 04/07/25 with intra-op findings notable for cecal perforation; Repeat CT no abscess 2. possible abdominal wound infection given seropurulent drainage--improved RECOMMENDATIONS: -stop all abx and monitor -WBC count creeping up but no obvious signs of infection d/w pharmacy Pt was seen via video telehealth consultation with the assistance of staff. Chart, data and patient info reviewed. Patient was located at [facility] while I was in my [place] office. Pt gave consent. Subjective Date/time seen: 04/17/25 10:04 Interval history: no high temps WBC count creeping up Exam Narrative: NAD, on room air, non-toxic abd less distended, soft, superior aspect of incision open and good granulation tissue; no pus inferiorly incision herlinda have been removed no signs of thrombophlebitis Objective Data Vital Signs Vital Signs: Vital Signs - 24 hr 04/16/25 13:47 04/16/25 20:00 04/16/25 20:04 Temperature 97.6 F 99.3 F Pulse Rate 95 82 Respiratory Rate 16 18 Blood Pressure 117/72 142/80 H Pulse Oximetry 96 95 Oxygen Delivery Room Air 04/17/25 05:50 Temperature 97.1 F L Pulse Rate 81 Respiratory Rate 16 Blood Pressure 132/71 Pulse Oximetry 94 Oxygen Delivery Intake/Output Intake/Output: Intake & Output 04/14/25 04/15/25 04/16/25 04/17/25 23:59 23:59 23:59 23:59 Intake Total 2270 1999 2210 790 Output Total 1300 1900 1750 975 Balance 970 100 460 -185 Meds/Results Medications: Active Medications Generic Name Dose Route Start Last Admin Trade Name Freq PRN Reason Stop Dose Admin Acetaminophen 500 mg 04/10/25 07:24 Acetaminophen 500 Mg Tablet PO Q6H PRN Pain Rated 1-3 Albuterol 2 puff 04/15/25 11:09 Albuterol Sulfate (*Sp) Aerosol 1 Puff INHALATION Q6HRT PRN Shortness Of Breath Or Wheezing Enoxaparin Sodium 40 mg 04/07/25 09:00 04/17/25 08:18 Enoxaparin 40 Mg/0.4 Ml Syringe SUB-Q 40 mg DAILY MARILUZ Administration Famotidine 20 mg 04/09/25 21:00 04/17/25 08:18 Famotidine 20 Mg Tablet PO 20 mg Q12HR MARILUZ Administration Ibuprofen 800 mg in 200 mls @ 400 mls/hr 04/06/25 16:21 04/08/25 13:19 Caldolor 800 Mg/200 Ml IVPB Infused Q6H PRN Infusion Breakthrough Pain Rated 1-3 or NPO Cefepime HCl 2 gm/ Sodium 50 mls @ 100 mls/hr 04/06/25 18:00 04/17/25 03:11 Chloride IVPB Infused Q8H MARILUZ Infusion Vancomycin HCl 1,500 mg in 500 mls @ 250 mls/hr 04/13/25 16:00 04/17/25 05:13 Vancomycin 1,500 Mg/Ns 500 Ml IVPB Infused Q12H MARILUZ Infusion Levalbuterol HCl 0.63 mg 04/09/25 15:05 04/10/25 08:29 Levalbuterol Neb 1.25 Mg/3 Ml INHALATION 0.63 mg Q6HRT PRN Administration Shortness Of Breath Miscellaneous Information 1 each 04/16/25 00:01 Please Renew Morphine 2&4mg. Per [employer] Procedure, It Will Discontinue If Not Renewed XX 05/16/25 00:00 CLARIFY [facility] Miscellaneous Information 1 each 04/16/25 00:01 Please Renew _[email or web address]. Per [employer] Procedure, It Will Discontinue If Not Renewed XX 05/16/25 00:00 CLARIFY MARILUZ Naloxone HCl 0.1 mg 04/06/25 16:21 Naloxone Hcl 0.4 Mg/Ml Vial IV PUSH Q2M PRN Opiate Reversal Ondansetron HCl 4 mg 04/06/25 12:35 Ondansetron Inj 4 Mg/2 Ml Vial IV PUSH Q4H PRN Nausea Oxycodone/Acetaminophen 1 tablet 04/10/25 07:24 04/13/25 09:18 Oxycodone/Acetaminophen (*Crx) 5-325 Mg Tablet PO 1 tablet Q4H PRN Administration Pain Rated 4-6 Potassium Chloride 20 meq 04/10/25 08:00 04/17/25 08:18 Potassium Chloride 20 Meq Er Tablet PO 20 meq BIDWM MARILUZ Administration Radiology Results: ITS Impressions Abdomen X-Ray 04/07/25 16:03 Impression: 1. No acute abnormality. Renal Ultrasound 04/08/25 11:32 IMPRESSION: 1. Normal kidneys. No hydronephrosis. Chest X-Ray 04/08/25 14:45 Impression: Support apparatus as above Enema w/Water Soluble 04/09/25 08:26 IMPRESSION: 1. High-grade obstruction in the mid sigmoid colon. Abdomen/Pelvis CT 04/13/25 11:18 IMPRESSION: 1. Interval change of right hemicolectomy with diverting loop ileostomy and additional colostomy utilizing the proximal colectomy margin. Small amount of ascites but no abscess or free intraperineal gas. 2. Persistent diffuse colonic wall thickening consistent with colitis, likely stercoral colitis resulting from ongoing colonic obstruction at the mid sigmoid colon where there is a likely obstructing colon cancer. 3. 2.4 x 1.8 cm lobular mass in the sigmoid mesentery with some associated calcification raising concern for local metastatic disease with calcification suggesting either mucinous adenocarcinoma or carcinoid primary. Differential would include sclerosing mesenteritis or sequela of old granulomatous disease. 4. A few dystrophic calcifications at the head of the pancreas consistent with sequela of chronic pancreatitis. 5. Very small bilateral pleural effusions with unilateral calcified pleural plaques and small round atelectasis in the visualized right lower lung s uggesting sequela of chronic exudative effusion. 6. Wall thickening the distal esophagus suggestive of esophagitis which could be related to reflux given the presence of a small sliding-type hiatal hernia. Labs Labs: Laboratory Results - last 24 hr 04/17/25 05:33 WBC 15.4 H RBC 3.40 L Hgb 10.3 L Hct 31.6 L MCV 92.9 MCH 30.3 MCHC 32.6 RDW 13.6 Plt Count 497 H MPV 8.9 Immature Gran % (Auto) 1.6 H Neut % (Auto) 71.1 Lymph % (Auto) 12.4 L [place] % (Auto) 11.5 H Eos % (Auto) 2.7 Baso % (Auto) 0.7 Lymph # (Auto) 1.91 [place] # (Auto) 1.8 H Eos # (Auto) 0.4 H Baso # (Auto) 0.1 Abs Immat Gran (auto) 0.24 H Absolute Neuts (auto) 11.0 H Absolute Nucleated RBC 0.000 Nucleated RBC % 0.0 Sodium 131 L Potassium 4.2 Chloride 101 Carbon Dioxide 28 Anion Gap 2 L BUN 12 Creatinine 0.68 L Estim Creat Clear Calc 104 Estimated GFR > 60 Glucose 93 Calcium 8.1 L Total Bilirubin 0.4 AST 44 ALT 42 Alkaline Phosphatase 71 Total Protein 5.8 L Albumin 2.8 L
--- NOTE | 2025-04-17 10:56 | P.PNGS_ITS ---
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 * Patient tolerating diet without any nausea/vomiting. Ostomy output from both mucous fistula and ileostomy . * Midline incisional wound appears healthy with pink would bed and serous drainage. No surrounding redness or other signs of infection. * Will attempt to irrigatee transverse and descending colon trough mucous fistula today with wound care nurses at bedside. Patient denies any stool or mucous per his rectum. (2) Ileostomy status: Code(s): Z93.2 - Ileostomy status Status: Acute Assessment and Plan: Enterostomal therapy evaluation noted and appreciated. Teaching for ileostomy and mucous fistula has been done and patient feels he can manage the stomas at home. No sign of electrolyte imbalance from new ileostomy at this time. (3) Sepsis associated hypotension: Code(s): A41.9 - Sepsis, unspecified organism; I95.9 - Hypotension, unspecified Status: Resolved Assessment and Plan: fecal contamination, peritonitis, cause of sepsis--appears to be resolved. Continue IV antibiotics per Infectious Disease specialist. Change to oral antibiotics when appropriate. White blood cell count continues to rise. Immature granulocytes in the automated differential are decreasing. Hopefully this is maturation of bands causing the continued leukocytosis. Another consideration is colitis from retained stool or possibly reaction to 1 of the antibiotics he is receiving. Does not appear to have an active infection at this time. (4) Colonic obstruction: Code(s): K56.609 - Unspecified intestinal obstruction, unspecified as to partial versus complete obstruction Status: Acute Assessment and Plan: relieved with ileostomy and mucous fistula. Source of obstruction in sigmoid colon. To be evaluated with flexible sigmoidoscopy as an outpatient when patient is acute illness has improved. Plan Discussed patient's case and plan of care with Dr. Daley. Subjective Subjective Date/Time Seen: 04/17/25 10:56 Patient reports: no new complaints, tolerating a regular diet, voiding w/o difficulty, bowel movement (stool per ostomy and mucous fistula) and afebrile Interval history: No acute events overnight. Exam Const: General: comfortable and no acute distress GI: Inspection: distended, incision and no visible herniation GI Palp: No Tenderness to palpation present (GI) Other: Incision is clean and dry aside from one known open area roughly 1 inch in length. Wound bed of this area is healthy pink granulation tissue. Serous drainage on gauze pad. Mucous fistula has moderate amount of dark green stool in her ostomy bag. Stoma appears pale and edematous. Ileostomy with large amount of dark brown stool. Stoma appears beefy red and slightly edematous, but healthy nonetheless. Skin: General skin exam: normal color and no rashes or lesions noted Objective Data Vital Signs Vital Signs: Vital Signs - 24 hr 04/16/25 13:47 04/16/25 20:00 04/16/25 20:04 Temperature 97.6 F 99.3 F Pulse Rate 95 82 Respiratory Rate 16 18 Blood Pressure 117/72 142/80 H Pulse Oximetry 96 95 Oxygen Delivery Room Air 04/17/25 05:50 Temperature 97.1 F L Pulse Rate 81 Respiratory Rate 16 Blood Pressure 132/71 Pulse Oximetry 94 Oxygen Delivery Intake/Output Intake/Output: Intake & Output 04/14/25 04/15/25 04/16/25 04/17/25 23:59 23:59 23:59 23:59 Intake Total 2270 2000 2210 790 Output Total 1300 1900 1750 975 Balance 970 100 460 -185 Meds/Results Medications: Active Medications Generic Name Dose Route Start Last Admin Trade Name Freq PRN Reason Stop Dose Admin Acetaminophen 500 mg 04/10/25 07:24 Acetaminophen 500 Mg Tablet PO Q6H PRN Pain Rated 1-3 Albuterol 2 puff 04/15/25 11:09 Albuterol Sulfate (*Sp) Aerosol 1 Puff INHALATION Q6HRT PRN Shortness Of Breath Or Wheezing Enoxaparin Sodium 40 mg 04/07/25 09:00 04/17/25 08:18 Enoxaparin 40 Mg/0.4 Ml Syringe SUB-Q 40 mg DAILY MARILUZ Administration Famotidine 20 mg 04/09/25 21:00 04/17/25 08:18 Famotidine 20 Mg Tablet PO 20 mg Q12HR MARILUZ Administration Ibuprofen 800 mg in 200 mls @ 400 mls/hr 04/06/25 16:21 04/08/25 13:19 Caldolor 800 Mg/200 Ml IVPB Infused Q6H PRN Infusion Breakthrough Pain Rated 1-3 or NPO Cefepime HCl 2 gm/ Sodium 50 mls @ 100 mls/hr 04/06/25 18:00 04/17/25 10:21 Chloride IVPB 100 mls/hr Q8H MARILUZ Administration Vancomycin HCl 1,500 mg in 500 mls @ 250 mls/hr 04/13/25 16:00 04/17/25 05:13 Vancomycin 1,500 Mg/Ns 500 Ml IVPB Infused Q12H MARILUZ Infusion Levalbuterol HCl 0.63 mg 04/09/25 15:05 04/10/25 08:29 Levalbuterol Neb 1.25 Mg/3 Ml INHALATION 0.63 mg Q6HRT PRN Administration Shortness Of Breath Miscellaneous Information 1 each 04/16/25 00:01 Please Renew Morphine 2&4mg. Per [employer] Procedure, It Will Discontinue If Not Renewed XX 05/16/25 00:00 [facility] Miscellaneous Information 1 each 04/16/25 00:01 Please Renew _Cefepime. Per [employer] Procedure, It Will Discontinue If Not Renewed XX 05/16/25 00:00 [facility] Naloxone HCl 0.1 mg 04/06/25 16:21 Naloxone Hcl 0.4 Mg/Ml Vial IV PUSH Q2M PRN Opiate Reversal Ondansetron HCl 4 mg 04/06/25 12:35 Ondansetron Inj 4 Mg/2 Ml Vial IV PUSH Q4H PRN Nausea Oxycodone/Acetaminophen 1 tablet 04/10/25 07:24 04/13/25 09:18 Oxycodone/Acetaminophen (*Crx) 5-325 Mg Tablet PO 1 tablet Q4H PRN Administration Pain Rated 4-6 Potassium Chloride 20 meq 04/10/25 08:00 04/17/25 08:18 Potassium Chloride 20 Meq Er Tablet PO 20 meq BIDWM MARILUZ Administration Radiology Results: ITS Impressions Abdomen X-Ray 04/07/25 16:03 Impression: 1. No acute abnormality. Renal Ultrasound 04/08/25 11:32 IMPRESSION: 1. Normal kidneys. No hydronephrosis. Chest X-Ray 04/08/25 14:45 Impression: Support apparatus as above Enema w/Water Soluble 04/09/25 08:26 IMPRESSION: 1. High-grade obstruction in the mid sigmoid colon. Abdomen/Pelvis CT 04/13/25 11:18 IMPRESSION: 1. Interval change of right hemicolectomy with diverting loop ileostomy and additional colostomy utilizing the proximal colectomy margin. Small amount of ascites but no abscess or free intraperineal gas. 2. Persistent diffuse colonic wall thickening consistent with colitis, likely stercoral colitis resulting from ongoing colonic obstruction at the mid sigmoid colon where there is a likely obstructing colon cancer. 3. 2.4 x 1.8 cm lobular mass in the sigmoid mesentery with some associated calcification raising concern for local metastatic disease with calcification suggesting either mucinous adenocarcinoma or carcinoid primary. Differential would include sclerosing mesenteritis or sequela of old granulomatous disease. 4. A few dystrophic calcifications at the head of the pancreas consistent with sequela of chronic pancreatitis. 5. Very small bilateral pleural effusions with unilateral calcified pleural plaques and small round atelectasis in the visualized right lower lung suggesting sequela of chronic exudative effusion. 6. Wall thickening the distal esophagus suggestive of esophagitis which could be related to reflux given the presence of a small sliding-type hiatal hernia. Labs Labs: Laboratory Results - last 24 hr 04/17/25 05:33 WBC 15.4 H RBC 3.40 L Hgb 10.3 L Hct 31.6 L MCV 92.9 MCH 30.3 MCHC 32.6 RDW 13.6 Plt Count 497 H MPV 8.9 Immature Gran % (Auto) 1.6 H Neut % (Auto) 71.1 Lymph % (Auto) 12.4 L [place] % (Auto) 11.5 H Eos % (Auto) 2.7 Baso % (Auto) 0.7 Lymph # (Auto) 1.91 [place] # (Auto) 1.8 H Eos # (Auto) 0.4 H Baso # (Auto) 0.1 Abs Immat Gran (auto) 0.24 H Absolute Neuts (auto) 11.0 H Absolute Nucleated RBC 0.000 Nucleated RBC % 0.0 Sodium 131 L Potassium 4.2 Chloride 101 Carbon Dioxide 28 Anion Gap 2 L BUN 12 Creatinine 0.68 L Estim Creat Clear Calc 104 Estimated GFR > 60 Glucose 93 Calcium 8.1 L Total Bilirubin 0.4 AST 44 ALT 42 Alkaline Phosphatase 71 Total Protein 5.8 L Albumin 2.8 L
--- NOTE | 2025-04-17 13:58 | PM.IMPN2 ---
Assessment and Plan Assessment and Plan (1) Colonic obstruction: Code(s): K56.609 - Unspecified intestinal obstruction, unspecified as to partial versus complete obstruction Status: Acute Assessment and Plan: 59 year old male with significant past medical history of DVT presented the ED on 04/06/2025 with complains of abdominal pain and distention with constipation. CT scan demonstrated annular thickening in the proximal sigmoid colon with severe colonic distention, worrisome for malignancy. He had Hypaque enema which showed complain retrograde obstruction. Nasogastric tube was inserted and started on antibiotics. Surgery evaluated the patient and patient was recommended surgical resolution for For the obstruction. 04/07/2025 patient had distal colonic obstruction, cecal gangrene and perforation status post descending colectomy, creation of an ileostomy and mucous fistula. In the OR patient did require phenylephrine, central line was placed in the OR, 3 L IV fluids were administered. Patient was kept intubated postoperatively and transferred to the ICU (1) Colonic obstruction: Patient presented on 04/06/2025 with complains of constipation, abdominal distension. CT scan showed evidence of sigmoid colon luminal mass with severe colonic distention 04/07/2025: Patient underwent an ascending colectomy, creation of ileostomy and mucous fistula for distal colonic obstruction, cecal gangrene with perforation -received 3 units L of IV fluid bolus in the OR, also was requiring phenylephrine in the OR. Right IJ central line was inserted Patient was started on cefepime, Flagyl, micafungin, continue NG tube has been removed Tolerating a reg diet although lower appetite Monitor VS Pt with no insurance so HH not an option, wound has been educating pt about her ileostomy Nursing to change out ileostomy bags today with him for practice ID on board now, recs: -continue cefepime, flagyl and micafungin for now -add IV vancomycin -probably stop micafungin soon Per surg today: Irrigated transverse and descending colon trough mucous fistula today with wound care nurses at bedside. (2) History of DVT (deep vein thrombosis): Code(s): Z86.718 - Personal history of other venous thrombosis and embolism Status: Acute Assessment and Plan: Continue lovenox Plan OT/PT, wound education, IV abx, surg & ID following Medical Record Review I have reviewed the following patient records and this information was taken into consideration when formulating the assessment and plan.: previous labs Consultations Consultations: I have discussed the care of this pt with the consulting providers. Time Spent With Patient Time with patient: 25 - 35 minutes Subjective Date/time seen: 04/17/25 1151 Interval history: Pt sitting in bed comfortably upon my arrival. He states that he feels better every day. Denies N/V/D but continues to endorse abd pain. Appetite remains good. Wash out performed by surg today. Review of Systems Review of Systems: All systems reviewed & are unremarkable except as noted in HPI and below Exam Narrative: GENERAL: NAD HEAD: Normocephalic, atraumatic. EYES: PERRLA. Conjunctivae clear. THROAT: Pharynx clear, NECK: Supple RESPIRATORY: Respirations nonlabored. CTA. Lungs clear throughout. CARDIOVASCULAR: Regular rate and rhythm GASTROINTESTINAL: mildly distended, incision (Dry and healing well) and other (Ileostomy pink and healthy, good output) tenderness mildly present throughout, active bowel sounds MUSCULOSKELETAL: Moves all extremities. Trace bilateral lower extremity with chronic skin changes. Dry flaky skin SKIN: Warm, dry, normal color. NEURO: A&O X4. Speech clear PSYCHIATRIC: Normal interaction Objective Data Vital Signs Vital Signs: Vital Signs - 24 hr 04/16/25 20:00 04/16/25 20:04 04/17/25 05:50 Temperature 99.3 F 97.1 F L Pulse Rate 82 81 Respiratory Rate 18 16 Blood Pressure 142/80 H 132/71 Pulse Oximetry 95 94 Oxygen Delivery Room Air 04/17/25 08:15 Temperature Pulse Rate Respiratory Rate Blood Pressure Pulse Oximetry Oxygen Delivery Room Air Intake/Output Intake/Output: Intake & Output 04/14/25 04/15/25 04/16/25 04/17/25 23:59 23:59 23:59 23:59 Intake Total 2270 2000 2210 840 Output Total 1300 1900 1750 975 Balance 970 100 460 -135 Meds/Results Medications: Active Medications Generic Name Dose Route Start Last Admin Trade Name Freq PRN Reason Stop Dose Admin Acetaminophen 500 mg 04/10/25 07:24 Acetaminophen 500 Mg Tablet PO Q6H PRN Pain Rated 1-3 Albuterol 2 puff 04/15/25 11:09 Albuterol Sulfate (*Sp) Aerosol 1 Puff INHALATION Q6HRT PRN Shortness Of Breath Or Wheezing Enoxaparin Sodium 40 mg 04/07/25 09:00 04/17/25 08:18 Enoxaparin 40 Mg/0.4 Ml Syringe SUB-Q 40 mg DAILY MARILUZ Administration Famotidine 20 mg 04/09/25 21:00 04/17/25 08:18 Famotidine 20 Mg Tablet PO 20 mg Q12HR MARILUZ Administration Ibuprofen 800 mg in 200 mls @ 400 mls/hr 04/06/25 16:21 04/08/25 13:19 Caldolor 800 Mg/200 Ml IVPB Infused Q6H PRN Infusion Breakthrough Pain Rated 1-3 or NPO Levalbuterol HCl 0.63 mg 04/09/25 15:05 04/10/25 08:29 Levalbuterol Neb 1.25 Mg/3 Ml INHALATION 0.63 mg Q6HRT PRN Administration Shortness Of Breath Miscellaneous Information 1 each 04/16/25 00:01 Please Renew Morphine 2&4mg. Per [employer] Procedure, It Will Discontinue If Not Renewed XX 05/16/25 00:00 [facility] Naloxone HCl 0.1 mg 04/06/25 16:21 Naloxone Hcl 0.4 Mg/Ml Vial IV PUSH Q2M PRN Opiate Reversal Ondansetron HCl 4 mg 04/06/25 12:35 Ondansetron Inj 4 Mg/2 Ml Vial IV PUSH Q4H PRN Nausea Oxycodone/Acetaminophen 1 tablet 04/10/25 07:24 04/13/25 09:18 Oxycodone/Acetaminophen (*Crx) 5-325 Mg Tablet PO 1 tablet Q4H PRN Administration Pain Rated 4-6 Potassium Chloride 20 meq 04/10/25 08:00 04/17/25 08:18 Potassium Chloride 20 Meq Er Tablet PO 20 meq BIDWM MARILUZ Administration Radiology Results: ITS Impressions Abdomen X-Ray 04/07/25 16:03 Impression: 1. No acute abnormality. Renal Ultrasound 04/08/25 11:32 IMPRESSION: 1. Normal kidneys. No hydronephrosis. Chest X-Ray 04/08/25 14:45 Impression: Support apparatus as above Enema w/Water Soluble 04/09/25 08:26 IMPRESSION: 1. High-grade obstruction in the mid sigmoid colon. Abdomen/Pelvis CT 04/13/25 11:18 IMPRESSION: 1. Interval change of right hemicolectomy with diverting loop ileostomy and additional colostomy utilizing the proximal colectomy margin. Small amount of ascites but no abscess or free intraperineal gas. 2. Persistent diffuse colonic wall thickening consistent with colitis, likely stercoral colitis resulting from ongoing colonic obstruction at the mid sigmoid colon where there is a likely obstructing colon cancer. 3. 2.4 x 1.8 cm lobular mass in the sigmoid mesentery with some associated calcification raising concern for local metastatic disease with calcification suggesting either mucinous adenocarcinoma or carcinoid primary. Differential would include sclerosing mesenteritis or sequela of old granulomatous disease. 4. A few dystrophic calcifications at the head of the pancreas consistent with sequela of chronic pancreatitis. 5. Very small bilateral pleural effusions with unilateral calcified pleural plaques and small round atelectasis in the visualized right lower lung suggesting sequela of chronic exudative effusion. 6. Wall thickening the distal esophagus suggestive of esophagitis which could be related to reflux given the presence of a small sliding-type hiatal hernia. Labs Labs: Laboratory Results - last 24 hr 04/17/25 05:33 WBC 15.4 H RBC 3.40 L Hgb 10.3 L Hct 31.6 L MCV 92.9 MCH 30.3 MCHC 32.6 RDW 13.6 Plt Count 497 H MPV 8.9 Immature Gran % (Auto) 1.6 H Neut % (Auto) 71.1 Lymph % (Auto) 12.4 L [place] % (Auto) 11.5 H Eos % (Auto) 2.7 Baso % (Auto) 0.7 Lymph # (Auto) 1.91 [place] # (Auto) 1.8 H Eos # (Auto) 0.4 H Baso # (Auto) 0.1 Abs Immat Gran (auto) 0.24 H Absolute Neuts (auto) 11.0 H Absolute Nucleated RBC 0.000 Nucleated RBC % 0.0 Sodium 131 L Potassium 4.2 Chloride 101 Carbon Dioxide 28 Anion Gap 2 L BUN 12 Creatinine 0.68 L Estim Creat Clear Calc 104 Estimated GFR > 60 Glucose 93 Calcium 8.1 L Total Bilirubin 0.4 AST 44 ALT 42 Alkaline Phosphatase 71 Total Protein 5.8 L Albumin 2.8 L Quality VTE Prophylaxis VTE prophylaxis: pharmacologic ordered
[2025-04-17 14:00] VITALS: BP 121/93; PULSE 103; RESP 18; TEMP 36.8; O2SAT 94
--- NOTE | 2025-04-17 18:39 | WPDINFPN2 ---
Subjective Date/time seen: 04/17/25 18:39 Exam Narrative: NAD, non-toxic, on room air abs soft, less distended, incision superiorly open without pus, good granulation tissue; no periwound erythema; inferior incision herlinda have been removed and steri-strips placed ext without signs of thrombophebitis Objective Data Vital Signs Vital Signs: Vital Signs - 24 hr 04/16/25 20:00 04/16/25 20:04 04/17/25 05:50 Temperature 99.3 F 97.1 F L Pulse Rate 82 81 Respiratory Rate 18 16 Blood Pressure 142/80 H 132/71 Pulse Oximetry 95 94 Oxygen Delivery Room Air 04/17/25 08:15 04/17/25 14:00 Temperature 98.2 F Pulse Rate 103 H Respiratory Rate 18 Blood Pressure 121/93 H Pulse Oximetry 94 Oxygen Delivery Room Air Intake/Output Intake/Output: Intake & Output 04/14/25 04/15/25 04/16/25 04/17/25 23:59 23:59 23:59 23:59 Intake Total 2270 2000 2210 1620 Output Total 1300 1900 1750 2225 Balance 970 100 460 -605 Meds/Results Medications: Active Medications Generic Name Dose Route Start Last Admin Trade Name Freq PRN Reason Stop Dose Admin Acetaminophen 500 mg 04/10/25 07:24 Acetaminophen 500 Mg Tablet PO Q6H PRN Pain Rated 1-3 Albuterol 2 puff 04/15/25 11:09 Albuterol Sulfate (*Sp) Aerosol 1 Puff INHALATION Q6HRT PRN Shortness Of Breath Or Wheezing Enoxaparin Sodium 40 mg 04/07/25 09:00 04/17/25 08:18 Enoxaparin 40 Mg/0.4 Ml Syringe SUB-Q 40 mg DAILY MARILUZ Administration Famotidine 20 mg 04/09/25 21:00 04/17/25 08:18 Famotidine 20 Mg Tablet PO 20 mg Q12HR MARILUZ Administration Ibuprofen 800 mg in 200 mls @ 400 mls/hr 04/06/25 16:21 04/08/25 13:19 Caldolor 800 Mg/200 Ml IVPB Infused Q6H PRN Infusion Breakthrough Pain Rated 1-3 or NPO Levalbuterol HCl 0.63 mg 04/09/25 15:05 04/10/25 08:29 Levalbuterol Neb 1.25 Mg/3 Ml INHALATION 0.63 mg Q6HRT PRN Administration Shortness Of Breath Miscellaneous Information 1 each 04/16/25 00:01 Please Renew Morphine 2&4mg. Per [employer] Procedure, It Will Discontinue If Not Renewed XX 05/16/25 00:00 [facility] Naloxone HCl 0.1 mg 04/06/25 16:21 Naloxone Hcl 0.4 Mg/Ml Vial IV PUSH Q2M PRN Opiate Reversal Ondansetron HCl 4 mg 04/06/25 12:35 Ondansetron Inj 4 Mg/2 Ml Vial IV PUSH Q4H PRN Nausea Oxycodone/Acetaminophen 1 tablet 04/10/25 07:24 04/13/25 09:18 Oxycodone/Acetaminophen (*Crx) 5-325 Mg Tablet PO 1 tablet Q4H PRN Administration Pain Rated 4-6 Potassium Chloride 20 meq 04/10/25 08:00 04/17/25 18:08 Potassium Chloride 20 Meq Er Tablet PO 20 meq BIDWM MARILUZ Administration Radiology Results: ITS Impressions Abdomen X-Ray 04/07/25 16:03 Impression: 1. No acute abnormality. Renal Ultrasound 04/08/25 11:32 IMPRESSION: 1. Normal kidneys. No hydronephrosis. Chest X-Ray 04/08/25 14:45 Impression: Support apparatus as above Enema w/Water Soluble 04/09/25 08:26 IMPRESSION: 1. High-grade obstruction in the mid sigmoid colon. Abdomen/Pelvis CT 04/13/25 11:18 IMPRESSION: 1. Interval change of right hemicolectomy with diverting loop ileostomy and additional colostomy utilizing the proximal colectomy margin. Small amount of ascites but no abscess or free intraperineal gas. 2. Persistent diffuse colonic wall thickening consistent with colitis, likely stercoral colitis resulting from ongoing colonic obstruction at the mid sigmoid colon where there is a likely obstructing colon cancer. 3. 2.4 x 1.8 cm lobular mass in the sigmoid mesentery with some associated calcification raising concern for local metastatic disease with calcification suggesting either mucinous adenocarcinoma or carcinoid primary. Differential would include sclerosing mesenteritis or sequela of old granulomatous disease. 4. A few dystrophic calcifications at the head of the pancreas consistent with sequela of chronic pancreatitis. 5. Very small bilateral pleural effusions with unilateral calcified pleural plaques and small round atelectasis in the visualized right lower lung suggesting sequela of chronic exudative effusion. 6. Wall thickening the distal esophagus suggestive of esophagitis which could be related to reflux given the presence of a small sliding-type hiatal hernia. Labs Labs: Laboratory Results - last 24 hr 04/17/25 05:33 WBC 15.4 H RBC 3.40 L Hgb 10.3 L Hct 31.6 L MCV 92.9 MCH 30.3 MCHC 32.6 RDW 13.6 Plt Count 497 H MPV 8.9 Immature Gran % (Auto) 1.6 H Neut % (Auto) 71.1 Lymph % (Auto) 12.4 L [place] % (Auto) 11.5 H Eos % (Auto) 2.7 Baso % (Auto) 0.7 Lymph # (Auto) 1.91 [place] # (Auto) 1.8 H Eos # (Auto) 0.4 H Baso # (Auto) 0.1 Abs Immat Gran (auto) 0.24 H Absolute Neuts (auto) 11.0 H Absolute Nucleated RBC 0.000 Nucleated RBC % 0.0 Sodium 131 L Potassium 4.2 Chloride 101 Carbon Dioxide 28 Anion Gap 2 L BUN 12 Creatinine 0.68 L Estim Creat Clear Calc 104 Estimated GFR > 60 Glucose 93 Calcium 8.1 L Total Bilirubin 0.4 AST 44 ALT 42 Alkaline Phosphatase 71 Total Protein 5.8 L Albumin 2.8 L
[2025-04-17 21:10] VITALS: BP 129/76; PULSE 90; RESP 18; TEMP 36.1; O2SAT 95
[2025-04-17] MEDS: oxyCODONE/ACETAMINOPHEN (*CRX) 5-325 MG TABLET 1 TABLET PO (21:25)
[2025-04-18 05:00] VITALS: BP 123/83; PULSE 91; RESP 18; TEMP 36.8; O2SAT 98
[2025-04-18 05:26] LABS: Hematocrit 34.5 % (42.0-52.0); Hemoglobin 11.3 g/dL (14.0-18.0); Immature Granulocyte Percent A 1.3 % (0-0.5); Lymphocytes Absolute Auto 1.84 K/mm3 (0.9-3.2); Mean Corpuscular HGB Conc 32.8 g/dl (32-36); Mean Corpuscular Hemoglobin 30.8 pg (26-34); Mean Corpuscular Volume 94.0 fl (80-100); Nucleated Red Blood Cells Absolute Auto 0.000 K/mm3 (0.0-0.012); Nucleated Red Blood Cells Perc 0.0 % (0.0-0.2); Platelet Count Result 556 k/mm3 (150-375); Red Blood Count 3.67 M/mm3 (4.6-6.20); White Blood Count 14.3 K/mm3 (4.5-10.0)
[2025-04-18 05:49] LABS: Alanine Aminotransferase 43 U/L (6-50); Albumin Level 3.2 g/dL (3.5-5.1); Alkaline Phosphatase 66 U/L (38-126); Anion Gap 4 mmol/L (4-12); Aspartate Amino Transferase 44 U/L (17-59); Bilirubin,Total 0.4 mg/dL (0.2-1.3); Blood Urea Nitrogen 13 mg/dL (9-20); Calcium 8.3 mg/dL (8.4-10.2); Carbon Dioxide 29 mmol/L (22-30); Chloride 100 mmol/L (98-107); Estimated CRCL calculation 99 ml/min; Estimated Glomerular Filt Rate > 60; Glucose 98 mg/dL (65-110); Potassium 4.2 mmol/L (3.4-5.0); Sodium 133 mmol/L (137-145); Total Protein 6.3 g/dL (6.3-8.2)
[2025-04-18] MEDS: FAMOTIDINE 20 MG TABLET PO ×2 (08:14→21:40)
[2025-04-18] MEDS: POTASSIUM CHLORIDE 20 MEQ ER TABLET PO (08:14)
[2025-04-18] MEDS: ENOXAPARIN 40 MG/0.4 ML SYRINGE SUB-Q (08:16)
--- NOTE | 2025-04-18 08:28 | PM.IMPN2 ---
Assessment and Plan Assessment and Plan (1) Colonic obstruction: Code(s): K56.609 - Unspecified intestinal obstruction, unspecified as to partial versus complete obstruction Status: Acute Assessment and Plan: 59 year old male with significant past medical history of DVT presented the ED on 04/06/2025 with complains of abdominal pain and distention with constipation. CT scan demonstrated annular thickening in the proximal sigmoid colon with severe colonic distention, worrisome for malignancy. He had Hypaque enema which showed complain retrograde obstruction. Nasogastric tube was inserted and started on antibiotics. Surgery evaluated the patient and patient was recommended surgical resolution for For the obstruction. 04/07/2025 patient had distal colonic obstruction, cecal gangrene and perforation status post descending colectomy, creation of an ileostomy and mucous fistula. In the OR patient did require phenylephrine, central line was placed in the OR, 3 L IV fluids were administered. Patient was kept intubated postoperatively and transferred to the ICU (1) Colonic obstruction: Patient presented on 04/06/2025 with complains of constipation, abdominal distension. CT scan showed evidence of sigmoid colon luminal mass with severe colonic distention 04/07/2025: Patient underwent an ascending colectomy, creation of ileostomy and mucous fistula for distal colonic obstruction, cecal gangrene with perforation -received 3 units L of IV fluid bolus in the OR, also was requiring phenylephrine in the OR. Right IJ central line was inserted Patient was started on cefepime, Flagyl, micafungin, continue NG tube has been removed Tolerating a reg diet although lower appetite Monitor VS Pt with no insurance so HH not an option, wound has been educating pt about her ileostomy Nursing to change out ileostomy bags today with him for practice ID on board now, recs: -continue cefepime, flagyl and micafungin for now -add IV vancomycin -probably stop micafungin soon Per surg today: Irrigated transverse and descending colon trough mucous fistula today with wound care nurses at bedside. (2) History of DVT (deep vein thrombosis): Code(s): Z86.718 - Personal history of other venous thrombosis and embolism Status: Acute Assessment and Plan: Continue lovenox Plan OT/PT, wound education, IV abx, surg & ID following Subjective Date/time seen: 04/18/25 08:28 Interval history: Patient sitting at bedside during exam. Just finished showering at time of exam, so he is very tired but otherwise denies any chest pain, shortness of breath, n/v or abd pain at this time. WBC down fom 15.4 -> 14.3. No major electrolyte abnormalities. Plan to repeat irrigation of mucous fistula today per general surgery. Review of Systems Review of Systems: All systems reviewed & are unremarkable except as noted in HPI and below Exam Narrative: GENERAL: NAD HEAD: Normocephalic, atraumatic. EYES: PERRLA. Conjunctivae clear. THROAT: Pharynx clear, NECK: Supple RESPIRATORY: Respirations nonlabored. CTA. Lungs clear throughout. CARDIOVASCULAR: Regular rate and rhythm GASTROINTESTINAL: mildly distended, incision (Dry and healing well) and other (Ileostomy pink and healthy, good output) tenderness mildly present throughout, active bowel sounds MUSCULOSKELETAL: Moves all extremities. Trace bilateral lower extremity with chronic skin changes. Dry flaky skin SKIN: Warm, dry, normal color. NEURO: A&O X4. Speech clear PSYCHIATRIC: Normal interaction Objective Data Vital Signs Vital Signs: Vital Signs - 24 hr 04/17/25 14:00 04/17/25 20:00 04/17/25 21:10 Temperature 98.2 F 97 F L Pulse Rate 103 H 90 Respiratory Rate 18 18 Blood Pressure 121/93 H 129/76 Pulse Oximetry 94 95 Oxygen Delivery Room Air 04/18/25 05:00 Temperature 98.2 F Pulse Rate 91 Respiratory Rate 18 Blood Pressure 123/83 Pulse Oximetry 98 Oxygen Delivery Intake/Output Intake/Output: Intake & Output 04/15/25 04/16/25 04/17/25 04/18/25 23:59 23:59 23:59 23:59 Intake Total 1999 2210 1620 Output Total 1900 1750 3225 175 Balance 100 460 -1605 -175 Meds/Results Medications: Active Medications Generic Name Dose Route Start Last Admin Trade Name Freq PRN Reason Stop Dose Admin Acetaminophen 500 mg 04/10/25 07:24 Acetaminophen 500 Mg Tablet PO Q6H PRN Pain Rated 1-3 Albuterol 2 puff 04/15/25 11:09 Albuterol Sulfate (*Sp) Aerosol 1 Puff INHALATION Q6HRT PRN Shortness Of Breath Or Wheezing Enoxaparin Sodium 40 mg 04/07/25 09:00 04/18/25 08:16 Enoxaparin 40 Mg/0.4 Ml Syringe SUB-Q 40 mg DAILY MARILUZ Administration Famotidine 20 mg 04/09/25 21:00 04/18/25 08:14 Famotidine 20 Mg Tablet PO 20 mg Q12HR MARILUZ Administration Ibuprofen 800 mg in 200 mls @ 400 mls/hr 04/06/25 16:21 04/08/25 13:19 Caldolor 800 Mg/200 Ml IVPB Infused Q6H PRN Infusion Breakthrough Pain Rated 1-3 or NPO Levalbuterol HCl 0.63 mg 04/09/25 15:05 04/10/25 08:29 Levalbuterol Neb 1.25 Mg/3 Ml INHALATION 0.63 mg Q6HRT PRN Administration Shortness Of Breath Miscellaneous Information 1 each 04/16/25 00:01 Please Renew Morphine 2&4mg. Per [employer] Procedure, It Will Discontinue If Not Renewed XX 05/16/25 00:00 CLARIFY MARILUZ Naloxone HCl 0.1 mg 04/06/25 16:21 Naloxone Hcl 0.4 Mg/Ml Vial IV PUSH Q2M PRN Opiate Reversal Ondansetron HCl 4 mg 04/06/25 12:35 Ondansetron Inj 4 Mg/2 Ml Vial IV PUSH Q4H PRN Nausea Oxycodone/Acetaminophen 1 tablet 04/10/25 07:24 04/17/25 21:25 Oxycodone/Acetaminophen (*Crx) 5-325 Mg Tablet PO 1 tablet Q4H PRN Administration Pain Rated 4-6 Potassium Chloride 20 meq 04/10/25 08:00 04/18/25 08:14 Potassium Chloride 20 Meq Er Tablet PO 20 meq BIDWM MARILUZ Administration Radiology Results: ITS Impressions Abdomen X-Ray 04/07/25 16:03 Impression: 1. No acute abnormality. Renal Ultrasound 04/08/25 11:32 IMPRESSION: 1. Normal kidneys. No hydronephrosis. Chest X-Ray 04/08/25 14:45 Impression: Support apparatus as above Enema w/Water Soluble 04/09/25 08:26 IMPRESSION: 1. High-grade obstruction in the mid sigmoid colon. Abdomen/Pelvis CT 04/13/25 11:18 IMPRESSION: 1. Interval change of right hemicolectomy with diverting loop ileostomy and additional colostomy utilizing the proximal colectomy margin. Small amount of ascites but no abscess or free intraperineal gas. 2. Persistent diffuse colonic wall thickening consistent with colitis, likely stercoral colitis resulting from ongoing colonic obstruction at the mid sigmoid colon where there is a likely obstructing colon cancer. 3. 2.4 x 1.8 cm lobular mass in the sigmoid mesentery with some associated calcification raising concern for local metastatic disease with calcification suggesting either mucinous adenocarcinoma or carcinoid primary. Differential would include sclerosing mesenteritis or sequela of old granulomatous disease. 4. A few dystrophic calcifications at the head of the pancreas consistent with sequela of chronic pancreatitis. 5. Very small bilateral pleural effusions with unilateral calcified pleural plaques and small round atelectasis in the visualized right lower lung suggesting sequela of chronic exudative effusion. 6. Wall thickening the distal esophagus suggestive of esophagitis which could be related to reflux given the presence of a small sliding-type hiatal hernia. Labs Labs: Laboratory Results - last 24 hr 04/18/25 05:15 WBC 14.3 H RBC 3.67 L Hgb 11.3 L Hct 34.5 L MCV 94.0 MCH 30.8 MCHC 32.8 RDW 13.5 Plt Count 556 H MPV 8.9 Immature Gran % (Auto) 1.3 H Neut % (Auto) 71.1 Lymph % (Auto) 12.9 L [place] % (Auto) 11.7 H Eos % (Auto) 2.5 Baso % (Auto) 0.5 Lymph # (Auto) 1.84 [place] # (Auto) 1.7 H Eos # (Auto) 0.4 H Baso # (Auto) 0.1 Abs Immat Gran (auto) 0.18 H Absolute Neuts (auto) 10.2 H Absolute Nucleated RBC 0.000 Nucleated RBC % 0.0 Sodium 133 L Potassium 4.2 Chloride 100 Carbon Dioxide 29 Anion Gap 4 BUN 13 Creatinine 0.72 Estim Creat Clear Calc 99 Estimated GFR > 60 Glucose 98 Calcium 8.3 L Total Bilirubin 0.4 AST 44 ALT 43 Alkaline Phosphatase 66 Total Protein 6.3 Albumin 3.2 L Quality VTE Prophylaxis VTE prophylaxis: pharmacologic ordered
--- NOTE | 2025-04-18 10:32 | WPDINFPN2 ---
Progress Note: A&P Assessment and Plan (1) Colon perforation: Code(s): K63.1 - Perforation of intestine (nontraumatic) Status: Acute Assessment and Plan: ASSESSMENT: 1. large bowel obstruction from possible malignancy s/p partial colectomy, ileostomy, mucus fistula on 04/07/25 with intra-op findings notable for cecal perforation; Repeat CT no abscess 2. possible abdominal wound infection given seropurulent drainage--improved RECOMMENDATIONS: -continue to monitor off abx ID to sign off Please call with questions Thank you! d/w pharmacy and surgery [facility] Pt was seen via video telehealth consultation with the assistance of staff. Chart, data and patient info reviewed. Patient was located at [facility] while I was in my [place] office. Pt gave consent. Subjective Date/time seen: 04/18/25 10:32 Interval history: no fevers wbc count down Exam Narrative: NAD, non-toxic abd soft distended, tender L>R superior aspect of incision with good granulation tissue Objective Data Vital Signs Vital Signs: Vital Signs - 24 hr 04/17/25 14:00 04/17/25 20:00 04/17/25 21:10 Temperature 98.2 F 97 F L Pulse Rate 103 H 90 Respiratory Rate 18 18 Blood Pressure 121/93 H 129/76 Pulse Oximetry 94 95 Oxygen Delivery Room Air 04/18/25 05:00 Temperature 98.2 F Pulse Rate 91 Respiratory Rate 18 Blood Pressure 123/83 Pulse Oximetry 98 Oxygen Delivery Intake/Output Intake/Output: Intake & Output 04/15/25 04/16/25 04/17/25 04/18/25 23:59 23:59 23:59 23:59 Intake Total 1999 2210 1620 240 Output Total 1900 1750 3225 175 Balance 100 460 -1605 65 Meds/Results Medications: Active Medications Generic Name Dose Route Start Last Admin Trade Name Freq PRN Reason Stop Dose Admin Acetaminophen 500 mg 04/10/25 07:24 Acetaminophen 500 Mg Tablet PO Q6H PRN Pain Rated 1-3 Albuterol 2 puff 04/15/25 11:09 Albuterol Sulfate (*Sp) Aerosol 1 Puff INHALATION Q6HRT PRN Shortness Of Breath Or Wheezing Enoxaparin Sodium 40 mg 04/07/25 09:00 04/18/25 08:16 Enoxaparin 40 Mg/0.4 Ml Syringe SUB-Q 40 mg DAILY MARILUZ Administration Famotidine 20 mg 04/09/25 21:00 04/18/25 08:14 Famotidine 20 Mg Tablet PO 20 mg Q12HR MARILUZ Administration Ibuprofen 800 mg in 200 mls @ 400 mls/hr 04/06/25 16:21 04/08/25 13:19 Caldolor 800 Mg/200 Ml IVPB Infused Q6H PRN Infusion Breakthrough Pain Rated 1-3 or NPO Levalbuterol HCl 0.63 mg 04/09/25 15:05 04/10/25 08:29 Levalbuterol Neb 1.25 Mg/3 Ml INHALATION 0.63 mg Q6HRT PRN Administration Shortness Of Breath Miscellaneous Information 1 each 04/16/25 00:01 Please Renew Morphine 2&4mg. Per [employer] Procedure, It Will Discontinue If Not Renewed XX 05/16/25 00:00 CLARIFY MARILUZ Naloxone HCl 0.1 mg 04/06/25 16:21 Naloxone Hcl 0.4 Mg/Ml Vial IV PUSH Q2M PRN Opiate Reversal Ondansetron HCl 4 mg 04/06/25 12:35 Ondansetron Inj 4 Mg/2 Ml Vial IV PUSH Q4H PRN Nausea Oxycodone/Acetaminophen 1 tablet 04/10/25 07:24 04/17/25 21:25 Oxycodone/Acetaminophen (*Crx) 5-325 Mg Tablet PO 1 tablet Q4H PRN Administration Pain Rated 4-6 Potassium Chloride 20 meq 04/10/25 08:00 04/18/25 08:14 Potassium Chloride 20 Meq Er Tablet PO 20 meq BIDWM MARILUZ Administration Radiology Results: ITS Impressions Abdomen X-Ray 04/07/25 16:03 Impression: 1. No acute abnormality. Renal Ultrasound 04/08/25 11:32 IMPRESSION: 1. Normal kidneys. No hydronephrosis. Chest X-Ray 04/08/25 14:45 Impression: Support apparatus as above Enema w/Water Soluble 04/09/25 08:26 IMPRESSION: 1. High-grade obstruction in the mid sigmoid colon. Abdomen/Pelvis CT 04/13/25 11:18 IMPRESSION: 1. Interval change of right hemicolectomy with diverting loop ileostomy and additional colostomy utilizing the proximal colectomy margin. Small amount of ascites but no abscess or free intraperineal gas. 2. Persistent diffuse colonic wall thickening consistent with colitis, likely stercoral colitis resulting from ongoing colonic obstruction at the mid sigmoid colon where there is a likely obstructing colon cancer. 3. 2.4 x 1.8 cm lobular mass in the sigmoid mesentery with some associated calcification raising concern for local metastatic disease with calcification suggesting either mucinous adenocarcinoma or carcinoid primary. Differential would include sclerosing mesenteritis or sequela of old granulomatous disease. 4. A few dystrophic calcifications at the head of the pancreas consistent with sequela of chronic pancreatitis. 5. Very small bilateral pleural effusions with unilateral calcified pleural plaques and small round atelectasis in the visualized right lower lung suggesting sequela of chronic exudative effusion. 6. Wall thickening the distal esophagus suggestive of esophagitis which could be related to reflux given the presence of a small sliding-type hiatal hernia. Labs Labs: Laboratory Results - last 24 hr 04/18/25 05:15 WBC 14.3 H RBC 3.67 L Hgb 11.3 L Hct 34.5 L MCV 94.0 MCH 30.8 MCHC 32.8 RDW 13.5 Plt Count 556 H MPV 8.9 Immature Gran % (Auto) 1.3 H Neut % (Auto) 71.1 Lymph % (Auto) 12.9 L [place] % (Auto) 11.7 H Eos % (Auto) 2.5 Baso % (Auto) 0.5 Lymph # (Auto) 1.84 [place] # (Auto) 1.7 H Eos # (Auto) 0.4 H Baso # (Auto) 0.1 Abs Immat Gran (auto) 0.18 H Absolute Neuts (auto) 10.2 H Absolute Nucleated RBC 0.000 Nucleated RBC % 0.0 Sodium 133 L Potassium 4.2 Chloride 100 Carbon Dioxide 29 Anion Gap 4 BUN 13 Creatinine 0.72 Estim Creat Clear Calc 99 Estimated GFR > 60 Glucose 98 Calcium 8.3 L Total Bilirubin 0.4 AST 44 ALT 43 Alkaline Phosphatase 66 Total Protein 6.3 Albumin 3.2 L
[2025-04-18 14:00] VITALS: BP 124/80; PULSE 108; RESP 18; TEMP 36.6; O2SAT 97
--- NOTE | 2025-04-18 14:32 | P.PNGS_ITS ---
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 * Patient tolerating diet without any nausea/vomiting. He did have more abdominal pain requiring narcotics last night after mucous fistula was irrigated. * Midline incisional wound appears healthy with pink wound bed and minimal serous drainage. No surrounding redness or other signs of infection. Blistering to skin below umbilicus where steri strips had been placed yesterday. Steri strips removed. * Mucous fistula was irrigated again today. Patient had some abdominal pain overnight, but improved today. * Ecouraged patient to continue to increase activty and ambulate. Likely discharge home tomorrow. (2) Ileostomy status: Code(s): Z93.2 - Ileostomy status Status: Acute Assessment and Plan: Enterostomal therapy evaluation noted and appreciated. Teaching for ileostomy and mucous fistula has been done and patient feels he can manage the stomas at home. No sign of electrolyte imbalance from new ileostomy at this time. (3) Sepsis associated hypotension: Code(s): A41.9 - Sepsis, unspecified organism; I95.9 - Hypotension, unspecified Status: Resolved Assessment and Plan: Infectious disease team discontinued all antibiotics yesterday. WBC remains stable and is slightly decreased from yesterday at 14.3. (4) Colonic obstruction: Code(s): K56.609 - Unspecified intestinal obstruction, unspecified as to partial versus complete obstruction Status: Acute Assessment and Plan: relieved with ileostomy and mucous fistula. Source of obstruction in sigmoid colon. To be evaluated with flexible sigmoidoscopy as an outpatient when patient's acute illness has improved. Plan Discussed patient's case and plan of care with Dr. Daley. Subjective Subjective Date/Time Seen: 04/18/25 14:32 Post Op day: 11 Patient reports: still having pain, voiding w/o difficulty and afebrile Interval history: Patient states that he had abdominal pain last night after mucous fistula irrigation. He took Percocet, which he has not needed in 4 days. Patient states that ostomy bag and mucous fistula bag were emptied this morning. Upon my int erview, ostomy has dark brown liquid stool. Minimal liquid stool in mucous fistula bag. Patient denies any stool or mucous through rectum. WBC 14.3. Afebrile. Exam Const: General: comfortable and no acute distress Eyes: General: appearance normal, both eyes and all related structures Neck: Neck: supple and no JVD Resp: Effort & Inspection: normal respiratory effort Cardio: Rate: tachycardic GI: Inspection: non-distended GI Palp: Yes Soft to palpation Other: Ileostomy with moderate amount of dark brown stool output in bag. Stoma is healthy appearing red tissue. Mucous fistula with minimal amount of liquid brown stool. Irrigated today with wound care nurse at bedside. Stoma appears viable. Incisional wound 100% healthy pink/red tissue. There was some blistering to the incision below the umbilicus where the steri sstrips were placed. Removed all steri strips. Skin: General skin exam: normal color and no rashes or lesions noted Objective Data Vital Signs Vital Signs: Vital Signs - 24 hr 04/17/25 20:00 04/17/25 21:10 04/18/25 05:00 Temperature 97 F L 98.2 F Pulse Rate 90 91 Respiratory Rate 18 18 Blood Pressure 129/76 123/83 Pulse Oximetry 95 98 Oxygen Delivery Room Air 04/18/25 08:00 04/18/25 14:00 Temperature 97.9 F Pulse Rate 108 H Respiratory Rate 18 Blood Pressure 124/80 Pulse Oximetry 97 Oxygen Delivery Room Air Intake/Output Intake/Output: Intake & Output 04/15/25 04/16/25 04/17/25 04/18/25 23:59 23:59 23:59 23:59 Intake Total 1999 2210 1620 360 Output Total 1900 1750 3225 175 Balance 100 460 -1605 185 Meds/Results Medications: Active Medications Generic Name Dose Route Start Last Admin Trade Name Freq PRN Reason Stop Dose Admin Acetaminophen 500 mg 04/10/25 07:24 Acetaminophen 500 Mg Tablet PO Q6H PRN Pain Rated 1-3 Albuterol 2 puff 04/15/25 11:09 Albuterol Sulfate (*Sp) Aerosol 1 Puff INHALATION Q6HRT PRN Shortness Of Breath Or Wheezing Enoxaparin Sodium 40 mg 04/07/25 09:00 04/18/25 08:16 Enoxaparin 40 Mg/0.4 Ml Syringe SUB-Q 40 mg DAILY MARILUZ Administration Famotidine 20 mg 04/09/25 21:00 04/18/25 08:14 Famotidine 20 Mg Tablet PO 20 mg Q12HR MARILUZ Administration Ibuprofen 800 mg in 200 mls @ 400 mls/hr 04/06/25 16:21 04/08/25 13:19 Caldolor 800 Mg/200 Ml IVPB Infused Q6H PRN Infusion Breakthrough Pain Rated 1-3 or NPO Levalbuterol HCl 0.63 mg 04/09/25 15:05 04/10/25 08:29 Levalbuterol Neb 1.25 Mg/3 Ml INHALATION 0.63 mg Q6HRT PRN Administration Shortness Of Breath Miscellaneous Information 1 each 04/16/25 00:01 Please Renew Morphine 2&4mg. Per [employer] Procedure, It Will Discontinue If Not Renewed XX 05/16/25 00:00 CLARIFY MARILUZ Naloxone HCl 0.1 mg 04/06/25 16:21 Naloxone Hcl 0.4 Mg/Ml Vial IV PUSH Q2M PRN Opiate Reversal Ondansetron HCl 4 mg 04/06/25 12:35 Ondansetron Inj 4 Mg/2 Ml Vial IV PUSH Q4H PRN Nausea Oxycodone/Acetaminophen 1 tablet 04/10/25 07:24 04/17/25 21:25 Oxycodone/Acetaminophen (*Crx) 5-325 Mg Tablet PO 1 tablet Q4H PRN Administration Pain Rated 4-6 Potassium Chloride 20 meq 04/10/25 08:00 04/18/25 08:14 Potassium Chloride 20 Meq Er Tablet PO 20 meq BIDWM MARILUZ Administration Radiology Results: ITS Impressions Abdomen X-Ray 04/07/25 16:03 Impression: 1. No acute abnormality. Renal Ultrasound 04/08/25 11:32 IMPRESSION: 1. Normal kidneys. No hydronephrosis. Chest X-Ray 04/08/25 14:45 Impression: Support apparatus as above Enema w/Water Soluble 04/09/25 08:26 IMPRESSION: 1. High-grade obstruction in the mid sigmoid colon. Abdomen/Pelvis CT 04/13/25 11:18 IMPRESSION: 1. Interval change of right hemicolectomy with diverting loop ileostomy and additional colostomy utilizing the proximal colectomy margin. Small amount of ascites but no abscess or free intraperineal gas. 2. Persistent diffuse colonic wall thickening consistent with colitis, likely stercoral colitis resulting from ongoing colonic obstruction at the mid sigmoid colon where there is a likely obstructing colon cancer. 3. 2.4 x 1.8 cm lobular mass in the sigmoid mesentery with some associated calcification raising concern for local metastatic disease with calcification suggesting either mucinous adenocarcinoma or carcinoid primary. Differential would include sclerosing mesenteritis or sequela of old granulomatous disease. 4. A few dystrophic calcifications at the head of the pancreas consistent with sequela of chronic pancreatitis. 5. Very small bilateral pleural effusions with unilateral calcified pleural plaques and small round atelectasis in the visualized right lower lung suggesting sequela of chronic exudative effusion. 6. Wall thickening the distal esophagus suggestive of esophagitis which could be related to reflux given the presence of a small sliding-type hiatal hernia. Labs Labs: Laboratory Results - last 24 hr 04/18/25 05:15 WBC 14.3 H RBC 3.67 L Hgb 11.3 L Hct 34.5 L MCV 94.0 MCH 30.8 MCHC 32.8 RDW 13.5 Plt Count 556 H MPV 8.9 Immature Gran % (Auto) 1.3 H Neut % (Auto) 71.1 Lymph % (Auto) 12.9 L [place] % (Auto) 11.7 H Eos % (Auto) 2.5 Baso % (Auto) 0.5 Lymph # (Auto) 1.84 [place] # (Auto) 1.7 H Eos # (Auto) 0.4 H Baso # (Auto) 0.1 Abs Immat Gran (auto) 0.18 H Absolute Neuts (auto) 10.2 H Absolute Nucleated RBC 0.000 Nucleated RBC % 0.0 Sodium 133 L Potassium 4.2 Chloride 100 Carbon Dioxide 29 Anion Gap 4 BUN 13 Creatinine 0.72 Estim Creat Clear Calc 99 Estimated GFR > 60 Glucose 98 Calcium 8.3 L Total Bilirubin 0.4 AST 44 ALT 43 Alkaline Phosphatase 66 Total Protein 6.3 Albumin 3.2 L
[2025-04-18 21:39] VITALS: BP 130/84; PULSE 99; RESP 18; TEMP 36.6; O2SAT 95
[2025-04-19 05:12] VITALS: BP 122/71; PULSE 89; RESP 18; TEMP 36.3; O2SAT 94
[2025-04-19 06:21] LABS: Hematocrit 32.4 % (42.0-52.0); Hemoglobin 10.8 g/dL (14.0-18.0); Immature Granulocyte Percent A 0.9 % (0-0.5); Lymphocytes Absolute Auto 2.28 K/mm3 (0.9-3.2); Mean Corpuscular HGB Conc 33.3 g/dl (32-36); Mean Corpuscular Hemoglobin 30.7 pg (26-34); Mean Corpuscular Volume 92.0 fl (80-100); Nucleated Red Blood Cells Absolute Auto 0.000 K/mm3 (0.0-0.012); Nucleated Red Blood Cells Perc 0.0 % (0.0-0.2); Platelet Count Result 608 k/mm3 (150-375); Red Blood Count 3.52 M/mm3 (4.6-6.20); White Blood Count 14.3 K/mm3 (4.5-10.0)
[2025-04-19 06:44] LABS: Alanine Aminotransferase 42 U/L (6-50); Albumin Level 3.2 g/dL (3.5-5.1); Alkaline Phosphatase 72 U/L (38-126); Anion Gap 4 mmol/L (4-12); Aspartate Amino Transferase 51 U/L (17-59); Bilirubin,Total 0.5 mg/dL (0.2-1.3); Blood Urea Nitrogen 15 mg/dL (9-20); Calcium 8.5 mg/dL (8.4-10.2); Carbon Dioxide 30 mmol/L (22-30); Chloride 99 mmol/L (98-107); Estimated CRCL calculation 94 ml/min; Estimated Glomerular Filt Rate > 60; Glucose 95 mg/dL (65-110); Potassium 4.1 mmol/L (3.4-5.0); Sodium 133 mmol/L (137-145); Total Protein 6.4 g/dL (6.3-8.2)
[2025-04-19] MEDS: POTASSIUM CHLORIDE 20 MEQ ER TABLET PO (09:24)
[2025-04-19] MEDS: FAMOTIDINE 20 MG TABLET PO (09:24)
[2025-04-19] MEDS: ENOXAPARIN 40 MG/0.4 ML SYRINGE SUB-Q (09:24)
--- NOTE | 2025-04-19 10:44 | P.PNGS_ITS ---
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 * Okay from a surgical standpoint to discharge the patient today. We will schedule a f/u with Dr. Daley on 04/30 in our office. * Continue packing the midline abdominal wound twice daily. He has been educated by the wound/ostomy nurses on ostomy care. Discussed all surgical discharge instructions with the patient. (2) Ileostomy status: Code(s): Z93.2 - Ileostomy status Status: Acute Assessment and Plan: * Ileostomy functioning well. Mucous fistula irrigated again yesterday. He has been educated on ostomy care and we will follow up in our office in 2 weeks. (3) Sepsis associated hypotension: Code(s): A41.9 - Sepsis, unspecified organism; I95.9 - Hypotension, unspecified Status: Resolved Assessment and Plan: * Resolved. Antibiotics have been stopped. WBC count remains around 14,000. Will order a repeat CBC as an outpatient for next Wednesday. (4) Colonic obstruction: Code(s): K56.609 - Unspecified intestinal obstruction, unspecified as to partial versus complete obstruction Status: Acute Assessment and Plan: * Relieved with ileostomy and mucous fistula. Source of obstruction in sigmoid colon. To be evaluated with flexible sigmoidoscopy as an outpatient eventually. Plan Discussed patient's case and plan of care with Dr. Daley. Subjective Subjective Date/Time Seen: 04/19/25 10:44 Post Op day: 12 (Ascending colectomy, creation ileostomy and mucous fistula) Patient reports: no new complaints, tolerating a regular diet, voiding w/o difficulty, flatus, bowel movement (ostomy functioning well) and afebrile Interval history: No changes overnight. Patient reports minimal incisional soreness. He has not required any narcotics since 2 nights ago. He is ambulating without assist and is tolerating this well. No specific complaints. Exam Const: General: comfortable and no acute distress Orientation/consciousness: patient oriented x3 GI: Inspection: non-distended GI Palp: Yes Soft to palpation, No Tenderness to palpation present (GI) (no tenderness away from incisions) and No Guarding due to palpation present (GI) Auscultation: normal bowel sounds Other: Ileostomy with moderate amount of dark brown stool output in bag. Stoma is pink and healthy. Mucous fistula with minimal amount of liquid brown stool.Stoma appears viable. Midline incision with an open wound at the superior aspect of the incision that is pink with granulating tissue, no purulent, no fascia visible. The remainder of the incision appears healthy with no redness and skin edges well approximated. Only 2 herlinda at remaining at the top of the incision, other herlinda were removed and have a few small superficial serous blisters where steri strips were located and now have been removed. Extrem: General: no calf tenderness and no edema Objective Data Vital Signs Vital Signs: Vital Signs - 24 hr 04/18/25 14:00 04/18/25 21:39 04/19/25 05:12 Temperature 97.9 F 97.8 F 97.3 F L Pulse Rate 108 H 99 89 Respiratory Rate 18 18 18 Blood Pressure 124/80 130/84 122/71 Pulse Oximetry 97 95 94 Oxygen Delivery 04/19/25 08:00 Temperature Pulse Rate Respiratory Rate Blood Pressure Pulse Oximetry Oxygen Delivery Room Air Intake/Output Intake/Output: Intake & Output 04/16/25 04/17/25 04/18/25 04/19/25 23:59 23:59 23:59 23:59 Intake Total 2210 1620 1030 486 Output Total 1750 3225 1000 100 Balance 460 -1605 30 386 Meds/Results Medications: Active Medications Generic Name Dose Route Start Last Admin Trade Name Freq PRN Reason Stop Dose Admin Acetaminophen 500 mg 04/10/25 07:24 Acetaminophen 500 Mg Tablet PO Q6H PRN Pain Rated 1-3 Albuterol 2 puff 04/15/25 11:09 Albuterol Sulfate (*Sp) Aerosol 1 Puff INHALATION Q6HRT PRN Shortness Of Breath Or Wheezing Enoxaparin Sodium 40 mg 04/07/25 09:00 04/19/25 09:24 Enoxaparin 40 Mg/0.4 Ml Syringe SUB-Q 40 mg DAILY MARILUZ Administration Famotidine 20 mg 04/09/25 21:00 04/19/25 09:24 Famotidine 20 Mg Tablet PO 20 mg Q12HR MARILUZ Administration Ibuprofen 800 mg in 200 mls @ 400 mls/hr 04/06/25 16:21 04/08/25 13:19 Caldolor 800 Mg/200 Ml IVPB Infused Q6H PRN Infusion Breakthrough Pain Rated 1-3 or NPO Levalbuterol HCl 0.63 mg 04/09/25 15:05 04/10/25 08:29 Levalbuterol Neb 1.25 Mg/3 Ml INHALATION 0.63 mg Q6HRT PRN Administration Shortness Of Breath Miscellaneous Information 1 each 04/16/25 00:01 Please Renew Morphine 2&4mg. Per [employer] Procedure, It Will Discontinue If Not Renewed XX 05/16/25 00:00 [facility] Miscellaneous Information 1 each 04/19/25 00:01 Please Renew Oxycodone/Tylenol. Per [employer] Procedure, It Will Discontinue If Not Renewed XX 05/19/25 00:00 [facility] Naloxone HCl 0.1 mg 04/06/25 16:21 Naloxone Hcl 0.4 Mg/Ml Vial IV PUSH Q2M PRN Opiate Reversal Ondansetron HCl 4 mg 04/06/25 12:35 Ondansetron Inj 4 Mg/2 Ml Vial IV PUSH Q4H PRN Nausea Oxycodone/Acetaminophen 1 tablet 04/10/25 07:24 04/17/25 21:25 Oxycodone/Acetaminophen (*Crx) 5-325 Mg Tablet PO 1 tablet Q4H PRN Administration Pain Rated 4-6 Potassium Chloride 20 meq 04/19/25 09:00 04/19/25 09:24 Potassium Chloride 20 Meq Er Tablet PO 20 meq DAILY MARILUZ Administration Radiology Results: ITS Impressions Abdomen X-Ray 04/07/25 16:03 Impression: 1. No acute abnormality. Renal Ultrasound 04/08/25 11:32 IMPRESSION: 1. Normal kidneys. No hydronephrosis. Chest X-Ray 04/08/25 14:45 Impression: Support apparatus as above Enema w/Water Soluble 04/09/25 08:26 IMPRESSION: 1. High-grade obstruction in the mid sigmoid colon. Abdomen/Pelvis CT 04/13/25 11:18 IMPRESSION: 1. Interval change of right hemicolectomy with diverting loop ileostomy and additional colostomy utilizing the proximal colectomy margin. Small amount of ascites but no abscess or free intraperineal gas. 2. Persistent diffuse colonic wall thickening consistent with colitis, likely stercoral colitis resulting from ongoing colonic obstruction at the mid sigmoid colon where there is a likely obstructing colon cancer. 3. 2.4 x 1.8 cm lobular mass in the sigmoid mesentery with some associated calcification raising concern for local metastatic disease with calcification suggesting either mucinous adenocarcinoma or carcinoid primary. Differential would include sclerosing mesenteritis or sequela of old granulomatous disease. 4. A few dystrophic calcifications at the head of the pancreas consistent with sequela of chronic pancreatitis. 5. Very small bilateral pleural effusions with unilateral calcified pleural plaques and small round atelectasis in the visualized right lower lung suggesting sequela of chronic exudative effusion. 6. Wall thickening the distal esophagus suggestive of esophagitis which could be related to reflux given the presence of a small sliding-type hiatal hernia. Labs Labs: Laboratory Results - last 24 hr 04/19/25 05:34 WBC 14.3 H RBC 3.52 L Hgb 10.8 L Hct 32.4 L MCV 92.0 MCH 30.7 MCHC 33.3 RDW 13.4 Plt Count 608 H MPV 9.1 Immature Gran % (Auto) 0.9 H Neut % (Auto) 69.3 Lymph % (Auto) 16.0 L Mclean % (Auto) 11.2 H Eos % (Auto) 2.0 Baso % (Auto) 0.6 Lymph # (Auto) 2.28 Mclean # (Auto) 1.6 H Eos # (Auto) 0.3 Baso # (Auto) 0.1 Abs Immat Gran (auto) 0.13 H Absolute Neuts (auto) 9.9 H Absolute Nucleated RBC 0.000 Nucleated RBC % 0.0 Sodium 133 L Potassium 4.1 Chloride 99 Carbon Dioxide 30 Anion Gap 4 BUN 15 Creatinine 0.76 Estim Creat Clear Calc 94 Estimated GFR > 60 Glucose 95 Calcium 8.5 Total Bilirubin 0.5 AST 51 ALT 42 Alkaline Phosphatase 72 Total Protein 6.4 Albumin 3.2 L
--- NOTE | 2025-04-19 12:03 | PM.DS ---
DS: Admitting Diagnosis Discharge Date 04/19/2025 Admitting Diagnosis Colonic obstruction DS: Discharge Diagnosis Discharge Diagnosis (1) Colonic obstruction: Code(s): K56.609 - Unspecified intestinal obstruction, unspecified as to partial versus complete obstruction Status: Acute (2) History of DVT (deep vein thrombosis): Code(s): Z86.718 - Personal history of other venous thrombosis and embolism Status: Acute DS: Summary Hospital Course Reason for hospitalization: Abdominal distension Hospital Course: This is a 59-year-old male with a history of DVT who presented on 04/06/2025 with a two-week history of progressive constipation, abdominal distention, and worsening abdominal pain, associated with nausea and vomiting. Initial evaluation revealed tachycardia, leukocytosis, mild lactic acidosis responsive to fluids, and CT imaging demonstrating severe colonic distention with focal annular wall thickening in the proximal sigmoid colon concerning for malignancy. Despite bowel regimen, nasogastric decompression, IV fluids, and antibiotics, the patient?s symptoms and obstruction persisted. A water-soluble contrast enema confirmed a high-grade distal colonic obstruction. On 04/07/2025, he was taken emergently to the operating room, where intraoperative findings revealed severe cecal distention with gangrene and perforation. He underwent ascending colectomy with creation of an end ileostomy and mucous fistula. His postoperative course was complicated by hypotension requiring vasopressor support, acute kidney injury, and acute respiratory failure necessitating temporary mechanical ventilation and ICU admission. Renal function and hemodynamics improved with aggressive fluid resuscitation and vasopressors were weaned. He was extubated successfully and transitioned out of the ICU. Echocardiogram obtained, showed no significant disease. Broad-spectrum antibiotics and antifungal therapy were administered for intra-abdominal contamination, later discontinued after clinical improvement and infectious disease consultation. Serial imaging showed no abscess formation. Ostomy function gradually improved with appropriate output from both the ileostomy and mucous fistula, and wound healing progressed without evidence of deep infection. By 04/19, leukocytosis had downtrended, renal function normalized, pain was controlled on oral medications, and he was tolerating a regular diet with reduced appetite. He received extensive ostomy education, with plans for continued outpatient surgical follow-up and further evaluation of the suspected sigmoid malignancy once fully recovered. Time Spent with Patient Time attestation: Total time spent providing and/or coordinating discharge services: 31 Exam Narrative: GENERAL: NAD HEAD: Normocephalic, atraumatic. EYES: PERRLA. Conjunctivae clear. THROAT: Pharynx clear, NECK: Supple RESPIRATORY: Respirations nonlabored. CTA. Lungs clear throughout. CARDIOVASCULAR: Regular rate and rhythm GASTROINTESTINAL: Ileostomy with moderate amount of dark brown stool output in bag. Stoma pink and healthy. Mucous fistula with minimal amount of liquid brown stool. Stoma viable. MUSCULOSKELETAL: Moves all extremities. No edema. Dry flaky skin SKIN: Warm, dry, normal color. NEURO: A&O X4. Speech clear PSYCHIATRIC: Normal interaction DS: Data Data Completed and Pending Completed studies during hospitalization: Pending at discharge 04/07/25 13:03 Surgical [PTH] Routine Surgical [PTH] Routine Surgical [PTH] Routine Labs on day of discharge: Labs from last 24 hours 04/19/25 05:34 WBC 14.3 H RBC 3.52 L Hgb 10.8 L Hct 32.4 L MCV 92.0 MCH 30.7 MCHC 33.3 RDW 13.4 Plt Count 608 H MPV 9.1 Immature Gran % (Auto) 0.9 H Neut % (Auto) 69.3 Lymph % (Auto) 16.0 L Canadian % (Auto) 11.2 H Eos % (Auto) 2.0 Baso % (Auto) 0.6 Lymph # (Auto) 2.28 [place] # (Auto) 1.6 H Eos # (Auto) 0.3 Baso # (Auto) 0.1 Abs Immat Gran (auto) 0.13 H Absolute Neuts (auto) 9.9 H Absolute Nucleated RBC 0.000 Nucleated RBC % 0.0 Sodium 133 L Potassium 4.1 Chloride 99 Carbon Dioxide 30 Anion Gap 4 BUN 15 Creatinine 0.76 Estim Creat Clear Calc 94 Estimated GFR > 60 Glucose 95 Calcium 8.5 Total Bilirubin 0.5 AST 51 ALT 42 Alkaline Phosphatase 72 Total Protein 6.4 Albumin 3.2 L Discharge Plan Discharge Attending physician on discharge: Librado Stark Consulting providers: Shakir Daley; Kevin Madsen; Monique Bustamante; Renetta Howard; Guillermo Manzano Discharging Clinician: Guillermo Manzano Anticipated Discharge Date/Time: 04/19/25 12:02 Patient Disposition: Home Activity: may shower, no driving and other - see discharge instructions Diet: as tolerated Wound Care Instructions: other - see discharge instructions Discharge Instructions: General Surgery Instructions: Follow-up with Dr. Daley on 04/30/25. Our office will schedule the appointment and call you. If you do not here from us in the next few days, please call. Wound care: Pack the abdominal wound with 4x4 gauze twice daily and cover with medipore tape. Okay to shower Walk at least 15-20 minutes at least three times a day. We ordered labs for next Wednesday for you to get done at [facility]. We will discuss these results in your follow-up appointment. Okay to start driving 04/22/25. Call the office if you develop new or worsening abdominal pain, fevers, vomiting, or concerns with your incisions/ostomy. Pain medication has been sent to the pharmacy, which should only be used as needed for moderate to severe pain. You may also take Tylenol and/or Ibuprofen over the counter for mild to moderate pain as needed. To be evaluated with flexible sigmoidoscopy as an outpatient when patient is acute illness has improved. Patient Instructions: Antibiotic Form, Ileostomy Care (DC) Patient Language: Romansh Stand Alone Forms: General Discharge Information Follow-up/Referrals: Shakir Daley MD [Physician, General Surgery] - 04/30/25 Discharge Medications: New oxycodone-acetaminophen 5-325 mg Tablet 1 tablet PO Q6H PRN (Reason: Pain Rated 4-6) Qty: 12 0RF Continued ibuprofen [Advil] 200 mg tablet 400 mg PO Q12H Date of admission: 04/07/25 12:32 Primary Care Provider: Loretta,Thad Mojica Admitting Provider: Ramsey Melton Attending physician on admission: Ramsey Melton Condition: Stable Quality VTE Prophylaxis VTE prophylaxis: pharmacologic ordered
--- NOTE | 2025-04-30 14:43 | PCWOUND ---
LILY NOTE Patient in Dr. Moscoso office with leaking appliance to mucus fistula. Educated patient on appliance change process and assisted with changing both fistula and ostomy appliances.
== END 2025-04-19 13:07 | disposition home or self-care (01) | DRG 710 ==
LOC: ANHED 12:59 → ANH2MED 16:01 → ANHICU 04-07 14:31 → ANH3MED 04-08 21:31
PROVIDERS: Internal Medicine; Internal Medicine Infectious Disease; Nurse Practitioner Adult Health; Student in an Organized Health Care Education/Training Program; Surgery; Admitting Provider Family Medicine; Emergency Provider Family Medicine; PCP Internal Medicine; Visit Provider Physician Assistant
PROC: (CPT 44320; principal; 2025-04-07 12:00)
DX: A41.9 Sepsis, unspecified organism (principal); C18.7 Malignant neoplasm of sigmoid colon; K55.061 Focal (segmental) acute infarction of intestine, part unspecified; K63.1 Perforation of intestine (nontraumatic); N17.8 Other acute kidney failure; I95.89 Other hypotension; J95.821 Acute postprocedural respiratory failure; R18.8 Other ascites; K59.00 Constipation, unspecified; D72.829 Elevated white blood cell count, unspecified; F17.210 Nicotine dependence, cigarettes, uncomplicated; Z86.718 Personal history of other venous thrombosis and embolism
CPT/HCPCS: 36415; 36600; 71045; 74018; 74177; 74270; 76770; 80053; 80061; 80076; 80202; 81001; 82375; 82550; 82570; 82805; 82948; 83036; 83050; 83605; 83690; 83735; 84100; 84133; 84300; 85018; 85025; 85027; 85610; 85730; 85999; 86850; 86900; 86901; 87641; 88307; 88309; 93005; 94002; 94003; 94640; 96360; 97110; 97116; 97161; 97166; 97530; 99285; A9270; C8929; G0378; J0616; J0692; J1100; J1650; J1741; J1836; J1939; J2248; J2250; J2270; J2371; J2405; J2704; J3010; J3373; J3480; J7030; J7120; Q9957; Q9967

== ENCOUNTER 2025-04-23 13:15 | Outpatient (CLI) | payer SELFPAY ==
[2025-04-23 14:02] LABS: Hematocrit 33.0 % (42.0-52.0); Hemoglobin 10.6 g/dL (14.0-18.0); Immature Granulocyte Percent A 0.3 % (0-0.5); Lymphocytes Absolute Auto 1.78 K/mm3 (0.9-3.2); Mean Corpuscular HGB Conc 32.1 g/dl (32-36); Mean Corpuscular Hemoglobin 29.9 pg (26-34); Mean Corpuscular Volume 93.2 fl (80-100); Nucleated Red Blood Cells Absolute Auto 0.000 K/mm3 (0.0-0.012); Nucleated Red Blood Cells Perc 0.0 % (0.0-0.2); Platelet Count Result 651 k/mm3 (150-375); Red Blood Count 3.54 M/mm3 (4.6-6.20); White Blood Count 11.7 K/mm3 (4.5-10.0)
[2025-04-23 14:25] LABS: Anion Gap 7 mmol/L (4-12); Blood Urea Nitrogen 15 mg/dL (9-20); Calcium 9.0 mg/dL (8.4-10.2); Carbon Dioxide 30 mmol/L (22-30); Chloride 100 mmol/L (98-107); Estimated Glomerular Filt Rate > 60; Glucose 112 mg/dL (65-110); Potassium 4.1 mmol/L (3.4-5.0); Sodium 137 mmol/L (137-145)
== END 2025-04-23 13:16 | disposition home or self-care (01) ==
PROVIDERS: PCP Internal Medicine; Visit Provider Surgery
DX: D64.9 Anemia, unspecified (principal); E87.6 Hypokalemia
CPT/HCPCS: 36415; 80048; 85025

== ENCOUNTER 2025-04-30 14:31 | Outpatient (CLI) | payer SELFPAY ==
[2025-04-30 15:06] LABS: Hematocrit 35.9 % (42.0-52.0); Hemoglobin 11.6 g/dL (14.0-18.0); Immature Granulocyte Percent A 0.4 % (0-0.5); Lymphocytes Absolute Auto 1.85 K/mm3 (0.9-3.2); Mean Corpuscular HGB Conc 32.3 g/dl (32-36); Mean Corpuscular Hemoglobin 29.3 pg (26-34); Mean Corpuscular Volume 90.7 fl (80-100); Nucleated Red Blood Cells Absolute Auto 0.000 K/mm3 (0.0-0.012); Nucleated Red Blood Cells Perc 0.0 % (0.0-0.2); Platelet Count Result 450 k/mm3 (150-375); Red Blood Count 3.96 M/mm3 (4.6-6.20); White Blood Count 22.2 K/mm3 (4.5-10.0)
[2025-04-30 15:21] LABS: Alanine Aminotransferase 44 U/L (6-50); Albumin Level 4.0 g/dL (3.5-5.1); Alkaline Phosphatase 104 U/L (38-126); Anion Gap 6 mmol/L (4-12); Aspartate Amino Transferase 33 U/L (17-59); Bilirubin,Total 0.6 mg/dL (0.2-1.3); Blood Urea Nitrogen 16 mg/dL (9-20); Calcium 9.3 mg/dL (8.4-10.2); Carbon Dioxide 29 mmol/L (22-30); Chloride 100 mmol/L (98-107); Estimated Glomerular Filt Rate > 60; Glucose 117 mg/dL (65-110); Potassium 4.1 mmol/L (3.4-5.0); Sodium 135 mmol/L (137-145); Total Protein 7.8 g/dL (6.3-8.2)
== END 2025-04-30 14:32 | disposition home or self-care (01) ==
PROVIDERS: PCP Internal Medicine; Visit Provider Surgery
DX: K63.1 Perforation of intestine (nontraumatic) (principal)
CPT/HCPCS: 36415; 80053; 85025

== ENCOUNTER 2025-05-02 07:51 | Outpatient (CLI) | payer SELFPAY ==
--- NOTE | ~2025-05-02 | CT_ITS ---
EXAMINATION: CT chest abdomen pelvis w con DATE: 05/02/2025 9:43 LOG HAULER INDICATION: Unspecified abdominal findings and specimens. TECHNIQUE: Computed tomography (CT) of the chest, abdomen, and pelvis was performed with intravenous contrast. The dose-length product was 922.37 mGy-cm. Automated exposure control and iterative reconstruction technique were employed. COMPARISON: CT dated 04/13/2025 FINDINGS: CHEST CT: There is pleural thickening with few calcified pleural plaques in the right lower lung likely sequela of previous exudative effusion. Heart size normal. No thoracic lymphadenopathy. Emphysema. There is scarring/atelectasis right middle lobe. No thoracic lymphadenopathy. There is gynecomastia. ABDOMEN/PELVIS CT: Fatty infiltration of the liver. Small hiatal hernia. Heart size normal. Stable liver cysts. Gallbladder is present. There are dystrophic calcifications in the pancreatic head, consistent with chronic pancreatitis. There are left renal cysts. The spleen and adrenal glands are unremarkable. No renal stones or hydronephrosis. No solid renal mass. There are postoperative changes consistent with prior right hemicolectomy with colostomy involving the colon resection margin and right lower quadrant diverting loop ileostomy. There is colonic wall thickening, consistent with colitis. There are colonic diverticula without evidence for diverticulitis. Small amount of free fluid in the pelvis. There is improved mesenteric fatty infiltration compared with prior study allowing for differences of technique. Small mass involving sigmoid mesentery containing calcifications measures are slightly 1.5 x 1.3 x 1.1 cm.. Mildly enlarged prostate gland. There is atherosclerosis of the aorta without evidence for aneurysm. Small amount of free fluid in the pelvis. IMPRESSION: 1. Improved mesenteric and peritoneal fatty infiltration compared with prior study, possibly resolving postsurgical changes. 2: Persistent diffuse, colonic wall thickening, consistent with colitis, most likely infectious or inflammatory. Underlying malignancy not excluded. 3: Small 1.5 cm irregular shaped mass of the sigmoid mesentery. Differential diagnosis includes mucinous adenocarcinoma, carcinoid and sclerosing mesenteritis. 4: Small right pleural effusion with Normal calcified pleural plaques on the right and small focal, likely sequela of previous infectious/inflammatory process. 5: Space chronic pancreatitis. Reviewed, dictated and finalized at location O. HAULER IMPRESSION: 1. Improved mesenteric and peritoneal fatty infiltration compared with prior st udy, possibly resolving postsurgical changes. 2: Persistent diffuse, colonic wall thickening, consistent with colitis, most likely infectious or inflammatory. Underlying malignancy not excluded. 3: Small 1.5 cm irregular shaped mass of the sigmoid mesentery. Differential di agnosis includes mucinous adenocarcinoma, carcinoid and sclerosing mesenteritis . 4: Small right pleural effusion with Normal calcified pleural plaques on the right and small focal, likely sequela o f previous infectious/inflammatory process. 5: Space chronic pancreatitis.
== END 2025-05-02 07:52 | disposition home or self-care (01) ==
PROVIDERS: PCP Internal Medicine; Visit Provider Surgery
DX: R89.9 Unspecified abnormal finding in specimens from other organs, systems and tissues (principal); K86.1 Other chronic pancreatitis
CPT/HCPCS: 71260; 74177; Q9967